=== PATIENT | female | born 1970 | race Caucasian/White ===

== ENCOUNTER 2016-09-01 17:24 | Emergency (ER) | payer OTHER ==
[~2016-09-01 17:24] MED LIST: /QUET25TA; /QUET25TA OR; AMBI10TA PO; D 1010004 PO; DOCU10CA PO; GABA-283 PO; KLON1TAB PO; KLONOPIN PO; LAMI1TAB9 PO; LIORESAL PO; LYRI150C PO; MOTRIN PO; PERCOCET PO; PRIL20CA9 PO; PROP60TA OR; SERO1TAB PO; TYLE325T5 PO; VALI10TA; ZOF; ZOFR40IN IJ; ZOFRAN IV; ZOLO100T; [UNRECOGNIZED DRUG - CODE] PO
[2016-09-01] MEDS ORDERED: GABA-283 PO (17:49)
[2016-09-01] MEDS ORDERED: TRAM50TA2 PO ×2 (17:49→21:07)
[2016-09-01] MEDS ORDERED: PANTOPRAZOLE 40MG INJ (PROTONIX) (C9113) IV ONE (19:15)
[2016-09-01] MEDS ORDERED: NS 1,000 ML IV ONE (19:15)
[2016-09-01] MEDS ORDERED: ONDANSETRON 4MG/2ML VIAL (J2405) IV ONE (20:00)
[2016-09-01 20:09] LABS: INR 0.97
[2016-09-01 20:15] LABS: BASO % 0.5 % (0.0-1.0); EOS # 0.1 K/mm3 (0.0-0.50); EOS % 0.6 % (0.0-3.0); LARGE UNSTAINED CELL # 0.1 K/mm3 (0.0-0.4); LARGE UNSTAINED CELL % 1.3 % (0.0-4.0); LYMPH # 2.8 K/mm3 (1.5-4.5); LYMPH % 28.9 % (24.0-44.0); MEAN CORPUSCULAR HGB CONC 32.5 g/dl (32.0-36.5); MEAN CORPUSCULAR VOLUME 92.6 fl (80.0-96.0); MONO # 0.5 K/mm3 (0.0-0.8); MONO % 4.9 % (0.0-5.0); NEUTROPHILS % 63.7 % (36.0-66.0); PLATELET COUNT, AUTOMATED 250 k/mm3 (150-450); RED CELL DISTRIBUTION WIDTH 13.8 % (11.5-14.5); WHITE BLOOD COUNT 9.4 K/mm3 (4.0-10.0)
[2016-09-01] MEDS ORDERED: MORPHINE 2 MG/ML 1ML SYRINGE IV ONE (20:15)
[2016-09-01] MEDS ORDERED: KETOROLAC 30 MG/ML VIAL (J1885) IV ONE (20:15)
[2016-09-01 20:23] LABS: ALBUMIN/GLOBULIN RATIO 0.83 (1.00-1.93); ALKALINE PHOSPHATASE 134 U/L (45-117); ALT/SGPT 21 U/L (12-78); AMYLASE 36 U/L (25-115); ANION GAP 10 MEQ/L (8-16); AST/SGOT 18 U/L (15-37); BILIRUBIN,DIRECT 0.3 MG/DL (0.0-0.2); BILIRUBIN,TOTAL 0.9 MG/DL (0.2-1.0); BLOOD UREA NITROGEN 8 MG/DL (7-18); CALCIUM LEVEL 8.9 MG/DL (8.5-10.1); CARBON DIOXIDE LEVEL 24 MEQ/L (21-32); CHLORIDE LEVEL 106 MEQ/L (98-107); CREATININE FOR GFR 0.68 MG/DL (0.55-1.02); GLOMERULAR FILTRATION RATE > 60.0 (>58); GLUCOSE, FASTING 99 MG/DL (70-105); SODIUM LEVEL 140 MEQ/L (136-145); TOTAL PROTEIN 6.6 GM/DL (6.4-8.2)
[2016-09-01 20:26] VITALS: BP 135/73
--- NOTE | 2016-09-01 20:40 | REPUSA ---
PLEASE CHECK ONE BLANK CLINICAL HISTORY: Abdomen pain. TECHNIQUE: Multiple axial CT images were obtained through the abdomen and pelvis without administrat ion of oral or IV contrast material. COMMENTS: Correlation is made with the prior study dated 07/11/2009. The liver is of uniform attenuation without mass or defect. There is no intra or extrahepatic biliar y ductal dilatation. The spleen is normal. Status post cholecystectomy. The pancreas is of normal contour and attenuation characteristics. There is no evidence of adrenal mass. There are surgical c lips with the stomach. The kidneys are normal in size, shape and configuration. No renal or ureteral calculi are identified . There is no hydroureter or hydronephrosis. There is no evidence for appendicitis. There is no bowel wall thickening. No evidence for small or large bowel obstruction. There is no evidence of abdominal ascites or lymphadenopathy. Large amount of air is present within the urinary bladder. If there is no history of recent interpre tation this may represent cystitis. There is no pelvic ascites or lymphadenopathy. Status post complete hysterectomy. Images of the lung bases show no evidence of pleural or parenchymal mass. There are no pleural effus ions. The bony structures are free of lytic or blastic lesions. There is broad based herniated disc noted at L4-L5 and L5-S1 with bilateral foraminal and canal stenosis. Consider followup with dedicated MRI lumbar spine. IMPRESSION: 1. Postsurgical changes. 2. Large amount of air is present within the urinary bladder. If there is no history of recent inte rmission this may represent cystitis. 3. There is broad based herniated disc noted at L4-L5 and L5-S1 with bilateral foraminal and canal s tenosis. Consider followup with dedicated MRI lumbar spine. Thank you for your kind referral of this patient. We appreciate the opportunity to participate in thi s patient's care.
[2016-09-01] MEDS ORDERED: MACR100C43 PO (21:03)
[2016-09-01] MEDS ORDERED: NITROFURANTOIN (MACROBID) 100 MG CAP PO ONE (21:30)
--- NOTE | 2016-09-02 14:55 | ED PDOC ---
Post-Departure Follow-Up dr rivero faxed formal report of ct abd/p for fu Janene Joyner MD Sep 02, 2016 14:55
== END 2016-09-01 21:59 | disposition home or self-care (01) ==
LOC: M ED 17:24 → EDSEX 17:24 → EDBD 17:24 → M ED 21:59
DX: N39.0 Urinary tract infection, site not specified (principal); F43.0 Acute stress reaction; R11.2 Nausea with vomiting, unspecified; G89.29 Other chronic pain; Z98.84 Bariatric surgery status; Z87.891 Personal history of nicotine dependence; Z79.899 Other long term (current) drug therapy; Z79.891 Long term (current) use of opiate analgesic

== ENCOUNTER 2017-02-06 15:03 | Emergency (ER) | payer OTHER ==
[~2017-02-06] VITALS: Ht 170.2 cm; Wt 104.0 kg
[~2017-02-06 15:03] MED LIST changes: +MACR100C43 PO; +TRAM50TA2 PO
[2017-02-06] MEDS ORDERED: GABA-283 PO (15:12)
[2017-02-06] MEDS ORDERED: ZYPR15TA PO (15:12)
[2017-02-06 16:34] LABS: MEAN CORPUSCULAR HEMOGLOBIN 29.7 pg (27.0-33.0); MEAN CORPUSCULAR HGB CONC 32.4 g/dl (32.0-36.5); MEAN CORPUSCULAR VOLUME 91.6 fl (80.0-96.0); PLATELET COUNT, AUTOMATED 190 10^3/uL (150-450); RED CELL DISTRIBUTION WIDTH 14.4 % (11.5-14.5); WHITE BLOOD COUNT 7.4 10^3/uL (4.0-10.0)
[2017-02-06 16:55] LABS: ALBUMIN/GLOBULIN RATIO 0.81 (1.00-1.93); ALKALINE PHOSPHATASE 110 U/L (45-117); ALT/SGPT 19 U/L (12-78); ANION GAP 9 MEQ/L (8-16); AST/SGOT 17 U/L (7-37); BILIRUBIN,DIRECT 0.3 MG/DL (0.0-0.2); BILIRUBIN,TOTAL 0.9 MG/DL (0.2-1.0); BLOOD UREA NITROGEN 10 MG/DL (7-18); CALCIUM LEVEL 8.3 MG/DL (8.5-10.1); CARBON DIOXIDE LEVEL 26 MEQ/L (21-32); CHLORIDE LEVEL 106 MEQ/L (98-107); CREATININE FOR GFR 0.73 MG/DL (0.55-1.02); GLOMERULAR FILTRATION RATE > 60.0 (>58); GLUCOSE, FASTING 98 MG/DL (70-105); POTASSIUM SERUM 3.4 MEQ/L (3.5-5.1); SODIUM LEVEL 141 MEQ/L (136-145); TOTAL PROTEIN 6.7 GM/DL (6.4-8.2)
[2017-02-06 17:04] LABS: CONTROL LINE HCG INT CTR LINE PRESENT
[2017-02-06] MEDS ORDERED: POTASSIUM CHLORIDE 10 MEQ SR TABLET PO ONE (18:00)
[2017-02-06 18:44] LABS: METHADONE URINE NEGATIVE (NEGATIVE)
--- NOTE | 2017-02-06 19:47 | ECGEPIP ---
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
[2017-02-06 19:51] VITALS: BP 99/61
[2017-02-06] MEDS ORDERED: SODIUM CHLORIDE 0.9% 1000 ML IV ONE (20:00)
[2017-02-06] MEDS ORDERED: NEUR800T PO (20:06)
[2017-02-06] MEDS ORDERED: TRAM50TA2 PO (20:08)
[2017-02-06] MEDS ORDERED: TYLE1TAB5 PO ×2 (20:10→20:25)
[2017-02-06] MEDS ORDERED: TYLE500T78 PO (20:11)
[2017-02-06] MEDS ORDERED: CLON1TAB PO (20:13)
[2017-02-06] MEDS ORDERED: AMBI10TA PO (20:13)
[2017-02-06] MEDS ORDERED: ACETAMINOPHEN TAB 650MG DOSE (2X325MG) PO ONE (20:30)
== END 2017-02-06 22:14 | disposition home or self-care (01) ==
LOC: M ED 15:03 → EDBD 15:03 → M ED 22:14
DX: T42.4X2A Poisoning by benzodiazepines, intentional self-harm, initial encounter (principal); F31.9 Bipolar disorder, unspecified; F41.9 Anxiety disorder, unspecified; F42.9 Obsessive-compulsive disorder, unspecified; Z79.899 Other long term (current) drug therapy; Z88.1 Allergy status to other antibiotic agents; Z88.2 Allergy status to sulfonamides; J30.89 Other allergic rhinitis; Z87.891 Personal history of nicotine dependence; Z98.0 Intestinal bypass and anastomosis status

== ENCOUNTER 2018-03-08 20:26 | Inpatient (IN) | payer MEDICAID, OTHER ==
[~2018-03-08] VITALS: Ht 167.6 cm; Wt 86.7 kg
[~2018-03-08 20:26] MED LIST changes: +CLON1TAB8 PO; -GABA-283 PO; +GABA-845 PO; +NEUR800T PO; +TYLE1TAB5 PO; +TYLE500T78 PO; +ZYPR15TA PO
[2018-03-08 21:11] LABS: HEMATOCRIT 47.7 % (36.0-47.0); HEMOGLOBIN 15.5 g/dl (12.0-15.5); MEAN CORPUSCULAR HEMOGLOBIN 30.5 pg (27.0-33.0); MEAN CORPUSCULAR HGB CONC 32.5 g/dl (32.0-36.5); MEAN CORPUSCULAR VOLUME 93.7 fl (80.0-96.0); PLATELET COUNT, AUTOMATED 158 10^3/uL (150-450); RED BLOOD COUNT 5.09 10^6/uL (4.00-5.40); WHITE BLOOD COUNT 7.1 10^3/uL (4.0-10.0)
[2018-03-08 21:22] LABS: HCG, SERUM QUALITATIVE NEGATIVE (NEGATIVE)
[2018-03-08 21:33] LABS: ACETAMINOPHEN LEVEL < 2.0 UG/ML (10.0-30.0); ALBUMIN 3.4 GM/DL (3.2-5.2); ALT/SGPT 12 U/L (12-78); BILIRUBIN,DIRECT 0.2 MG/DL (0.0-0.2); BILIRUBIN,TOTAL 0.6 MG/DL (0.2-1.0); BLOOD UREA NITROGEN 9 MG/DL (7-18); CARBON DIOXIDE LEVEL 28 MEQ/L (21-32); CHLORIDE LEVEL 106 MEQ/L (98-107); CREATININE FOR GFR 0.74 MG/DL (0.55-1.30); ETHYL ALCOHOL (ETHANOL) < 0.003 % (0.000-0.010); GLOMERULAR FILTRATION RATE > 60.0 (>58); GLUCOSE, FASTING 85 MG/DL (70-100); POTASSIUM SERUM 3.8 MEQ/L (3.5-5.1); SALICYLATE LEVEL < 1.7 MG/DL (5.0-30.0); SODIUM LEVEL 141 MEQ/L (136-145); TOTAL PROTEIN 6.6 GM/DL (6.4-8.2)
[2018-03-08 21:34] LABS: AMPHETAMINES LEVEL URINE NEGATIVE (NEGATIVE); BARBITURATES URINE NEGATIVE (NEGATIVE); BENZODIAZEPINES URINE NEGATIVE (NEGATIVE); CANNABINOIDS URINE NEGATIVE (NEGATIVE); COCAINE METABOLITE URINE NEGATIVE (NEGATIVE); METHADONE URINE NEGATIVE (NEGATIVE); OPIATES URINE NEGATIVE (NEGATIVE); PHENCYCLIDINE URINE NEGATIVE (NEGATIVE)
[2018-03-09] MEDS ORDERED: MOM 30ML SUSPENSION UDC PO PRN (03:30)
[2018-03-09] MEDS ORDERED: traZODone 50 MG TAB PO PRN (03:30)
[2018-03-09] MEDS ORDERED: MAALOX 30 ML SUSP *UDC PO PRN (03:30)
[2018-03-09 03:49] VITALS: BP 133/84
[2018-03-09] MEDS ORDERED: MIRA33504 PO (04:01)
[2018-03-09] MEDS ORDERED: LYRI200C PO (04:01)
--- NOTE | 2018-03-09 08:05 | ECGEPIP ---
Stationary ECG Study 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
[2018-03-09] MEDS: PREGABALIN 100 MG CAP (LYRICA) PO SCH ×2 (08:59→20:33)
[2018-03-09] MEDS: GABAPENTIN 400 MG CAP PO SCH ×3 (08:59→20:32)
[2018-03-09] MEDS: traMADol 50 MG TAB PO PRN ×2 (09:00→15:41)
--- NOTE | 2018-03-09 09:37 | HPEPDOC ---
[facility] Medical History & Physical Date of Admission Mar 09, 2018 History and Physical PCP: Jack Mulligan MD ATTENDING: Dr. Nixon Valera HPI: 47 yo F admitted to [facility] for unspecified depressive disorder, being medically examined today. No acute medical complaints today. Patient states she is prescribed gabapentin and tramadol for her chronic pain. Patient states pain is controlled. Denies any fevers, chills, weakness, fatigue, DILL, CP, SOB, cough, palpitations, abdominal pain, N/V/D or changes in bowel or bladder habits. PMHx: Anxiety Depression History of SI/suicidal attempt with overdose 2010 OCD PTSD GERD Chronic back pain/chronic pain. Tramadol as per PCP. chronic constipation PSHX: Cholecystectomy Gastric bypass 2016 Tubal ligation Uterine ablation D&C Hysterectomy History of chronic low back pain/cauda equina/low back surgery. Patient with unsteady gait and chronic lower extremity weakness. Ambulates with a walker. 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 ETOH: Denies Illicit Drugs: Denies IV Drug Use: Denies Tattoos done unprofessionally: Denies FAMHX: Mother: Alive, diabetes Father: Alive, well Siblings: One sister Alive, unknown Children: Alive, ADHD Unexpected deaths due to medical reasons: None. ROS: As noted in HPI, otherwise 11pt ROS of systems reviewed and unremarkable. Patient states her chronic pain has been controlled with her regimen of outpatient medications. They are prescribed by her primary care provider. PE: GEN: 47 yo F, appears stated age. Appears unkept No acute distress. Alert and oriented x 3. Pleasant. HEENT: Normocephalic, atraumatic. Pupils are equal, round, and reactive to light. Extraocular movements are intact. No nystagmus appreciated. Sclera are nonicteric. Conjunctiva without injection. Nose midline. Nasal turbinates without bogginess. EACs both patent BL. TMs both visualized and morales with good cone of light, no bulging or erythema. No facial asymmetry. Moist mucous membranes. Dentition poor. Pharynx pink and moist, no cobblestoning. Neck supple, trachea midline. No lymphadenopathy or thyromegaly appreciated. CHEST: Regular rate and rhythm, +S1, +S2 LUNGS: Clear to auscultation bilaterally. No wheezes, rales, or rhonchi. Breathing appears symmetric and easy. Patient is speaking in full sentences. No accessory muscle use. ABD: Round, soft, non-tender, non-distended. +Bowel sounds throughout. No rebound or guarding. No costovertebral angle tenderness. EXT: Pulses 2+ bilaterally dorsalis pedis and radial. No lower extremity edema appreciated. SKIN: [place], dry, warm. Capillary refill <2sec. No rashes. NEURO: Alert and oriented x 3. Cranial nerves III-XII are intact. The patient is ambulating with a walker related to chronic unsteady gait and lower extremity weakness. EKG: SINUS RHYTHM BORDERLINE LEFT AXIS DEVIATION INCOMPLETE RIGHT BUNDLE BRANCH BLOCK MODERATE VOLTAGE CRITERIA FOR LVH, CONSIDER NORMAL VARIANT NSTTW ABNORMALITIES Electronically Signed On 03-09-2018 8:05:07 EST by Ebenezer White&P: 47 yo F admitted to [facility] for unspecified depressive disorder 1. Psych. Plan per Psychiatry. EKG on file. 2. Nicotine dependence. Patch available. 3. Chronic back pain/chronic lower extremity pain and weakness/unsteady gait. Patient ambulates with the assistance of a walker. Request physical therapy evaluation. Continue gabapentin 800 mg by mouth 3 times a day. Continue tramadol every 6 hours as needed. Patient states her pain is controlled. Fall precautions. 4. Follow up with PCP on discharge. 5. Chronic constipation. Miralax daily as needed. 6. Staff member Patric ROLON present throughout exam. Vital Signs Vital Signs Date Time Temp Pulse Resp B/P (MAP) Pulse Ox O2 Delivery O2 Flow Rate FiO2 03/09/18 09:00 16 03/09/18 03:49 97.1 92 133/84 (100) Room Air 03/09/18 02:45 96 Laboratory Data Labs 24H Laboratory Tests 2 03/08/18 20:48: Nucleated Red Blood Cells % (auto) 0.0, Urine Color MITUL, Urine Appearance CLOUDYH, Urine pH 5.0, Urine Specific [place] 1.024, Urine Protein 1+H, Urine Glucose (UA) NEGATIVE, Urine Ketones TRACEH, Urine Blood NEGATIVE, Urine Nitrite NEGATIVE, Urine Bilirubin NEGATIVE, Urine Urobilinogen 4.0H, Urine Leukocyte Esterase NEGATIVE, Urine WBC (Auto) 2, Urine RBC (Auto) 0, Urine Hyaline Casts (Auto) 0, Urine Bacteria (Auto) 2+H, Urine Squamous Epithelial Cells 0, Urine Transitional Epithelial Cells <1, Urine Mucus (Auto) SMALL, Urine Sperm (Auto) , Anion Gap 7L, Glomerular Filtration Rate > 60.0, Calcium Level 8.0L, Aspartate Amino Transf (AST/SGOT) 12, Alanine Aminotransferase (ALT/SGPT) 12, Alkaline Phosphatase 113, Total Bilirubin 0.6, Direct Bilirubin 0.2, Total Protein 6.6, Albumin 3.4, Albumin/Globulin Ratio 1.06, Thyroid Stimulating Hormone (TSH) 1.070, Human Chorionic Gonadotropin, Qual NEGATIVE, Salicylates Level < 1.7L, Urine Amphetamines Screen NEGATIVE, Urine Benzodiazepines Screen NEGATIVE, Urine Opiates Screen NEGATIVE, Urine Methadone Screen NEGATIVE, Acetaminophen Level < 2.0L, Urine Barbiturates Screen NEGATIVE, Urine Phencyclidine Screen NEGATIVE, Urine Cocaine Metabolite Screen NEGATIVE, Urine Cannabinoids Screen NEGATIVE, Ethyl Alcohol Level < 0.003 CBC/BMP Laboratory Tests 03/08/18 20:48 Red Blood Count 5.09, Mean Corpuscular Volume 93.7, Mean Corpuscular Hemoglobin 30.5, Mean Corpuscular Hemoglobin Concent 32.5, Red Cell Distribution Width 13.5 Home Medications Scheduled Clonazepam (Clonazepam) 1 Mg Tab, 1 MG PO TID for . Gabapentin (Neurontin) 800 Mg Tab, 800 MG PO TID for . Olanzapine (Zyprexa) 15 Mg Tab, 15 MG PO QHS for . Pregabalin (Lyrica) 200 Mg Cap, 200 MG PO BID for . Scheduled PRN Polyethylene Glycol (Miralax) 1 Pow Pow, 17 GM PO DAILY PRN for CONSTIPATION Tramadol HCl (Tramadol HCl) 50 Mg Tab, 50 MG PO Q6H PRN for PAIN Zolpidem Tartrate (Ambien) 10 Mg Tab, 10 MG PO QHS PRN for SLEEP Allergies Coded Allergies: Sulfamethoxazole w/Trimethoprim (Verified Allergy, Intermediate, rash, 09/01/16) ENVIROMENTAL (Verified Allergy, Unknown, 01/09/11) Leonor Morrow Mar 09, 2018 09:37
[2018-03-09] MEDS ORDERED: MIRALAX *UNIT DOSE* 17GM PACKET PO PRN (09:45)
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
[2018-03-09] MEDS: QUEtiapine FUMARATE 100 MG TAB PO SCH ×3 (11:28→20:33)
[2018-03-09] MEDS ORDERED: QUEtiapine FUMARATE 200 MG TAB PO SCH (16:00)
[2018-03-09 18:00] VITALS: BP 106/75
[2018-03-09] MEDS: MIRTAZAPINE 15 MG TAB PO SCH (20:32)
[2018-03-10 06:27] VITALS: BP 95/61
[2018-03-10] MEDS: GABAPENTIN 400 MG CAP PO SCH ×3 (07:51→21:12)
[2018-03-10] MEDS: PREGABALIN 100 MG CAP (LYRICA) PO SCH ×2 (07:51→21:12)
[2018-03-10] MEDS: QUEtiapine FUMARATE 100 MG TAB PO SCH ×3 (07:52→21:12)
[2018-03-10] MEDS: traMADol 50 MG TAB PO PRN ×3 (07:52→21:17)
[2018-03-10] MEDS ORDERED: INFLUENZA QUADRIVALENT PF VACCINE 0.5ML SYRINGE (90686) IM ONE (09:00)
[2018-03-10 18:00] VITALS: BP 116/68
[2018-03-10] MEDS: MIRTAZAPINE 15 MG TAB PO SCH (21:12)
[2018-03-11] MEDS: traMADol 50 MG TAB PO PRN ×3 (06:35→21:35)
[2018-03-11 06:44] VITALS: BP 109/61
[2018-03-11] MEDS: PREGABALIN 100 MG CAP (LYRICA) PO SCH ×2 (11:09→21:32)
[2018-03-11] MEDS: GABAPENTIN 400 MG CAP PO SCH ×3 (11:10→21:33)
[2018-03-11] MEDS: QUEtiapine FUMARATE 100 MG TAB PO SCH ×3 (11:10→21:33)
--- NOTE | 2018-03-11 12:00 | MHIPNPDOC ---
[facility] Progress Note Progress Note DATE OF SERVICE: 03/10/18 HISTORY: Chief Complaint "Somebody called the hawk missile system crewmember and told them I was suicidal and they brought me here. I'm not suicidal but I can't sleep". History of Present Illness HISTORY OF THE PRESENT ILLNESS: Patient is a 47 -year-old , female, who as per ED report: "Pt is medically cleared, A&Ox3, currently denies SI/HI. Pt reports she "can't remember" making any suicidal threats however does state she called "a few people, friends" to tell them how depressed she has been feeling for past 2 weeks. Pt denies any specific stressors, reports poor sleep, decreased appetite and energy during that time, denies HI/AH/VH, denies any substance abuse. Pt reports she took her prescribed doses of Tramadol, Gabapentin and Zyprexa tonight, denies ingesting any extra medications, continues to deny any suicidal thought or intent. Pt admits to prior overdose in 2010 and was admitted to [facility] at that time, reports other prior psych admissions as well. Pt sees Dr. De Leon Q 2 months, no therapist, saw him ~ 1 1/2 weeks ago, states she did not report her depression at that time "because I didn't feel this bad". Pt adds that she has been compliant with her medications however states "it doesn't matter they aren't helping". Pt does admit to worsening depression and feeling "hopeless" in past weeks, when asked about medications found in her immediate vicinty at home she states she keeps them in a "basket close to me because I can't walk very well", pt does use walker to assist in ambulating". VITAL SIGNS: See below. NEW TEST RESULTS: See below CURRENT MEDICATIONS: See below. MENTAL STATUS EXAMINATION: Patient is a 47 year old female, who is alert, laying in bed, cooperative, relaxed. Speech: Is fluent and spontaneous, slow, normal tone, low volume. Language skills are fair. Thought processes including: anxious thoughts about her back problem, she says she has cauda equina and this causes constant pain. Thought content: positive, she feel better, feels more goal orientated at this time. Description of abnormal or psychotic thoughts: Denies AV hallucinations, denies thought delusions, denies SI/HI but admits to feel depressed Judgment: improving Insight: improving Orientation: x 3 Recent and remote memory: fair Attention span and concentration: fair. Language: well structured. Fund of knowledge: average Mood: sad, anxious Affect: congruent with mood DIAGNOSES: 1. 1. Bipolar disorder, depressive episode 2. R/O Major Depressive disorder, severe ASSESSMENT: Patient is less apprehensive, more calm. She reports feeling better and she seems to be having a good response to medications but she isolates to her room, she says she doesn't go out that often because she has back pain. She might have a UTI too. I will order another urinalysis with culture because if she has a UTI that could be contributing to her back/flank pain MANAGEMENT PLAN: Will continue on the same treatment plan TIME SPENT: 15 minutes. Vital Signs Vital Signs Date Time Temp Pulse Resp B/P (MAP) Pulse Ox O2 Delivery O2 Flow Rate FiO2 03/11/18 07:25 16 03/11/18 06:44 98.8 73 109/61 (77) 03/10/18 06:27 Room Air 03/09/18 02:45 96 Current Medications Current Medications Acetaminophen (Tylenol Tab) 650 mg Q6HP PRN PO HEADACHE or DISCOMFORT; Start 03/09/18 at 03:30 Al Hydrox/Mg Hydrox/Simethicone (Mylanta) 30 ml Q4HP PRN PO HEARTBURN/INDIGESTION; Start 03/09/18 at 03:30 Aripiprazole (AbiLIFY) 5 mg QAM PO Last administered on 03/11/18at 11:10; Start 03/09/18 at 09:00 Gabapentin (Neurontin) 800 mg TID PO Last administered on 03/11/18at 11:10; Start 03/09/18 at 09:00 Home Med (Med Rec Complete!) ASDIRECTED XX ; Start 03/09/18 at 04:15; Stop 03/09/18 at 04:15; Status DC Magnesium Hydroxide (Milk Of Magnesia) 30 ml DAILYPRN PRN PO CONSTIPATION; Start 03/09/18 at 03:30 Mirtazapine (Remeron) 45 mg QHS PO Last administered on 03/10/18at 21:12; Start 03/09/18 at 21:00 Polyethylene Glycol (Miralax) 1 pkt DAILY PRN PO CONSTIPATION; Start 03/09/18 at 09:45 Pregabalin (Lyrica) 200 mg BID PO Last administered on 03/11/18at 11:09; Start 03/09/18 at 09:00 Quetiapine Fumarate (SEROquel) 100 mg TID PO Last administered on 03/11/18at 11:10; Start 03/09/18 at 09:00 Quetiapine Fumarate (SEROquel) 200 mg TID PO ; Start 03/09/18 at 16:00; Stop 03/09/18 at 16:00; Status DC Tramadol HCl (Ultram) 50 mg Q6H PRN PO PAIN Last administered on 03/11/18at 06:35; Start 03/09/18 at 04:30 Trazodone HCl (Desyrel) 50 mg QHSP PRN PO INSOMNIA; Start 03/09/18 at 03:30; Status Cancel Allergies Coded Allergies: Sulfamethoxazole w/Trimethoprim (Verified Allergy, Intermediate, rash, 09/01/16) ENVIROMENTAL (Verified Allergy, Unknown, 01/09/11) TREY CONNER MD Mar 11, 2018 11:49
[2018-03-11 18:00] VITALS: BP 91/59
[2018-03-11] MEDS: MIRTAZAPINE 15 MG TAB PO SCH (21:33)
[2018-03-12 06:00] VITALS: BP 94/56
[2018-03-12] MEDS: PREGABALIN 100 MG CAP (LYRICA) PO SCH ×2 (08:04→21:04)
[2018-03-12] MEDS: GABAPENTIN 400 MG CAP PO SCH ×3 (08:05→21:04)
[2018-03-12] MEDS: traMADol 50 MG TAB PO PRN ×3 (08:05→21:05)
[2018-03-12] MEDS: QUEtiapine FUMARATE 100 MG TAB PO SCH ×3 (08:05→21:04)
[2018-03-12] MEDS: PREPARATION H SUPP (HEMORRHOID) PR PRN (12:59)
--- NOTE | 2018-03-12 14:18 | IPN ---
DATE: 03/11/2018 The patient today states "I am feeling better". She is also feeling better, "because I am getting rest" as she was not sleeping well prior to admission. She denies suicidal ideations. MENTAL STATUS EXAM: She is alert and oriented to time and place. Eye contact is good. Verbally spontaneous. There is no formal thought disorder noted. She says her mood is good. Affect is full range and appropriate. Concentration is fair. DIAGNOSIS: Bipolar disorder type 1 depressed. TREATMENT AND PLAN: At this point we will continue to monitor the patient. Denies any suicidal ideations and continue elevation and stabilization of her mood.
[2018-03-12] MEDS: ACETAMINOPHEN TAB 650MG DOSE (2X325MG) PO PRN (15:04)
[2018-03-12 18:08] VITALS: BP 115/78
[2018-03-12] MEDS: MIRTAZAPINE 15 MG TAB PO SCH (21:03)
[2018-03-13 06:45] VITALS: BP 115/73
[2018-03-13] MEDS: traMADol 50 MG TAB PO PRN ×3 (07:13→20:07)
[2018-03-13] MEDS: ACETAMINOPHEN TAB 650MG DOSE (2X325MG) PO PRN ×3 (07:15→20:09)
[2018-03-13] MEDS: QUEtiapine FUMARATE 100 MG TAB PO SCH ×3 (08:45→20:07)
[2018-03-13] MEDS: PREGABALIN 100 MG CAP (LYRICA) PO SCH ×2 (08:45→20:08)
[2018-03-13] MEDS: GABAPENTIN 400 MG CAP PO SCH ×3 (08:45→20:07)
[2018-03-13 18:00] VITALS: BP 102/62
--- NOTE | 2018-03-13 19:12 | MHIPNPDOC ---
[facility] Progress Note Progress Note DATE OF SERVICE: 03/13/18 HISTORY: "Somebody called the channeling machine runner and told them I was suicidal and they brought me here. I'm not suicidal but I can't sleep". History of Present Illness HISTORY OF THE PRESENT ILLNESS: Patient is a 47 -year-old , female, who as per ED report: "Pt is medically cleared, A&Ox3, currently denies SI/HI. Pt reports she "can't remember" making any suicidal threats however does state she called "a few people, friends" to tell them how depressed she has been feeling for past 2 weeks. Pt denies any specific stressors, reports poor sleep, decreased appetite and energy during that time, denies HI/AH/VH, denies any substance abuse. Pt reports she took her prescribed doses of Tramadol, Gabapentin and Zyprexa tonight, denies ingesting any extra medications, continues to deny any suicidal thought or intent. Pt admits to prior overdose in 2010 and was admitted to [facility] at that time, reports other prior psych admissions as well. Pt sees Dr. De Leon Q 2 months, no therapist, saw him ~ 1 1/2 weeks ago, states she did not report her depression at that time "because I didn't feel this bad". Pt adds that she has been compliant with her medications however states "it doesn't matter they aren't helping". Pt does admit to worsening depression and feeling "hopeless" in past weeks, when asked about medications found in her immediate vicinty at home she states she keeps them in a "basket close to me because I can't walk very well", pt does use walker to assist in ambulating" VITAL SIGNS: See below. NEW TEST RESULTS: See below CURRENT MEDICATIONS: See below. MENTAL STATUS EXAMINATION: Patient is a 47 -year old female, who is alert, cooperative, laying in bed. Speech: Is spontaneous and fluent, normal rate, tone and volume Language skills are fair. Thought processes including: linear, coherent. Thought content: intact. Description of abnormal or psychotic thoughts: Denies SI, denies HI, denies AV hallucinations, denies thought delusions Judgment: Improving Insight: Improving Orientation: x 3 Recent and remote memory: intact Attention span and concentration: good. Language: normal. Fund of knowledge: average. Mood: improving, brighter. Affect: brighter. DIAGNOSES: 1. Bipolar 1 disorder, depressed ASSESSMENT: Patient has improved, she denies SI, denies thought delusions, denies AV hallucinations, denies HI. She feels that she is ready to be discharged but the only person that could supervise her is her 17 year old son who comes back from school at 3 or 3:30 p.m. She says he would be able to assist her with her medications and she says she has a pretty good relationship with him MANAGEMENT PLAN: Will continue with the current treatment plan and if she can be discharged tomorrow, she will be discharged TIME SPENT: 20 minutes. Vital Signs Vital Signs Date Time Temp Pulse Resp B/P (MAP) Pulse Ox O2 Delivery O2 Flow Rate FiO2 03/13/18 14:25 16 03/13/18 06:45 98.8 68 115/73 (87) 03/12/18 06:00 96 Room Air Current Medications Current Medications Acetaminophen (Tylenol Tab) 650 mg Q6HP PRN PO HEADACHE or DISCOMFORT Last administered on 03/13/18at 13:28; Start 03/09/18 at 03:30 Al Hydrox/Mg Hydrox/Simethicone (Mylanta) 30 ml Q4HP PRN PO HEARTBURN/INDIGESTION; Start 03/09/18 at 03:30 Aripiprazole (AbiLIFY) 5 mg QAM PO Last administered on 03/13/18at 08:45; Start 03/09/18 at 09:00 Gabapentin (Neurontin) 800 mg TID PO Last administered on 03/13/18at 15:51; Start 03/09/18 at 09:00 Home Med (Med Rec Complete!) ASDIRECTED XX ; Start 03/09/18 at 04:15; Stop 03/09/18 at 04:15; Status DC Magnesium Hydroxide (Milk Of Magnesia) 30 ml DAILYPRN PRN PO CONSTIPATION; Start 03/09/18 at 03:30 Mirtazapine (Remeron) 45 mg QHS PO Last administered on 03/12/18at 21:03; Start 03/09/18 at 21:00 Phenylephrine HCl (Preparation H Supp) 1 sup DAILYPRN PRN SD HEMORRHOIDS Last administered on 03/12/18at 12:59; Start 03/12/18 at 12:30 Polyethylene Glycol (Miralax) 1 pkt DAILY PRN PO CONSTIPATION; Start 03/09/18 at 09:45 Pregabalin (Lyrica) 200 mg BID PO Last administered on 03/13/18at 08:45; Start 03/09/18 at 09:00 Quetiapine Fumarate (SEROquel) 100 mg TID PO Last administered on 03/13/18at 1 5:51; Start 03/09/18 at 09:00 Quetiapine Fumarate (SEROquel) 200 mg TID PO ; Start 03/09/18 at 16:00; Stop 03/09/18 at 16:00; Status DC Tramadol HCl (Ultram) 50 mg Q6H PRN PO PAIN Last administered on 03/13/18at 13:29; Start 03/09/18 at 04:30 Trazodone HCl (Desyrel) 50 mg QHSP PRN PO INSOMNIA; Start 03/09/18 at 03:30; Status Cancel Allergies Coded Allergies: Sulfamethoxazole w/Trimethoprim (Verified Allergy, Intermediate, rash, 09/01/16) ENVIROMENTAL (Verified Allergy, Unknown, 01/09/11) TREY CONNER MD Mar 13, 2018 19:07
[2018-03-13] MEDS: MIRTAZAPINE 15 MG TAB PO SCH (20:07)
--- NOTE | 2018-03-13 21:19 | IPN ---
DATE: 03/12/2018 The patient today is complaining of lower back pain but as far as her mood goes, she says, "I am fine." She is denying being suicidal. MENTAL STATUS EXAM: She is alert and oriented times three. Eye contact is fair. Psychomotor activity is normal. She is verbally spontaneous. Her mood is "fine." Affect full range and appropriate. She is not psychotic, suicidal or homicidal. Concentration is fair. Memory is intact. Insight and judgment is fair. DIAGNOSIS: Bipolar disorder type 1, depressed. TREATMENT PLAN: We will continue to monitor the patient for continued elevation and stabilization of her mood and for continued resolution of suicidal ideation.
[2018-03-14] MEDS: traMADol 50 MG TAB PO PRN ×2 (04:12→10:12)
[2018-03-14] MEDS: ACETAMINOPHEN TAB 650MG DOSE (2X325MG) PO PRN ×2 (04:13→10:11)
[2018-03-14 07:00] VITALS: BP 113/72
[2018-03-14] MEDS: GABAPENTIN 400 MG CAP PO SCH (09:35)
[2018-03-14] MEDS: PREGABALIN 100 MG CAP (LYRICA) PO SCH (09:35)
[2018-03-14] MEDS: QUEtiapine FUMARATE 100 MG TAB PO SCH (09:35)
[2018-03-14] MEDS: PREPARATION H SUPP (HEMORRHOID) PR PRN (10:13)
[2018-03-14] MEDS ORDERED: GABA-845 PO (12:08)
[2018-03-14] MEDS ORDERED: MIRT15TA3 PO (12:08)
[2018-03-14] MEDS ORDERED: ARIP5TA PO (12:08)
[2018-03-14] MEDS ORDERED: PREG100CA PO (12:08)
[2018-03-14] MEDS ORDERED: PEG1POW PO (12:08)
[2018-03-14] MEDS ORDERED: TRAM50TA2 PO (12:08)
[2018-03-14] MEDS ORDERED: [UNRECOGNIZED DRUG - OTHER] PR (12:08)
[2018-03-14] MEDS ORDERED: QUET1TAB8 PO (12:08)
--- NOTE | 2018-03-14 20:20 | MHDSPDOC ---
[facility] Discharge Summary Discharge Summary DATE OF ADMISSION: Mar 09, 2018 at 03:40 DATE OF DISCHARGE: Mar 14, 2018 at 13:43 DISCHARGE DIAGNOSES: 1. Bipolar 1 disorder, depressed REASON FOR ADMISSION: Chief Complaint "Somebody called the roofer and told them I was suicidal and they brought me here. I'm not suicidal but I can't sleep". History of Present Illness HISTORY OF THE PRESENT ILLNESS: Patient is a 47 -year-old , female, who as per ED report: "Pt is medically cleared, A&Ox3, currently denies SI/HI. Pt reports she "can't remember" making any suicidal threats however does state she called "a few people, friends" to tell them how depressed she has been feeling for past 2 weeks. Pt denies any specific stressors, reports poor sleep, decreased appetite and energy during that time, denies HI/AH/VH, denies any substance abuse. Pt reports she took her prescribed doses of Tramadol, Gabapentin and Zyprexa tonight, denies ingesting any extra medications, continues to deny any suicidal thought or intent. Pt admits to prior overdose in 2010 and was admitted to [facility] at that time, reports other prior psych admissions as well. Pt sees Dr. De Leon Q 2 months, no therapist, saw him ~ 1 1/2 weeks ago, states she did not report her depression at that time "because I didn't feel this bad". Pt adds that she has been compliant with her medications however states "it doesn't matter they aren't helping". Pt does admit to worsening depression and feeling "hopeless" in past weeks, when asked about medications found in her immediate vicinity at home she states she keeps them in a "basket close to me because I can't walk very well", pt does use walker to assist in ambulating". CONSULTANTS INVOLVED: None TREATMENT AND PROGRESS ON THE UNIT : Patient was compliant with her medications and did not report medication side effects. She was very depressed on initial evaluation but her mood and affect improved, she, however continued to report pain in her back but she was able to have it under control with the prescribed medications. She had problems with ambulation and had some trouble attending groups but attended some of them. Today, she was discharged home, she was sent by [employer] but previously telecommunications network planner communicated with her mother and this one said that she thought that her daughter (the patient) was still very sad because of her son's . Mother compromised to check on her medications and talk to her to monitor her. HOSPITAL COURSE: As above. DISCHARGE ASSESSMENT: Patient was not suicidal, not homicidal and not psychotic at the time of her discharge. MENTAL STATUS EXAMINATION ON DISCHARGE: Patient is a 47 -year old female, who is alert, cooperative, laying in bed. Speech: Is spontaneous and fluent, normal rate, tone and volume Language skills are fair. Thought processes including: linear, coherent. Thought content: intact. Description of abnormal or psychotic thoughts: Denies SI, denies HI, denies AV hallucinations, denies thought delusions Judgment: Improved Insight: Improved Orientation: x 3 Recent and remote memory: intact Attention span and concentration: good. Language: normal. Fund of knowledge: average. Mood: improving, brighter. Affect: brighter. MEDICATIONS ON DISCHARGE: Scheduled Aripiprazole (Aripiprazole) 5 Mg Tab, 5 MG PO QAM for mood, #7 Gabapentin (Gabapentin) 400 Mg Cap, 800 MG PO TID for anxiety/pain, #21 Mirtazapine (Mirtazapine) 15 Mg Tab, 45 MG PO QHS for insomnia, #21 Pregabalin (Lyrica) 100 Mg Cap, 200 MG PO BID for PAIN, #28 Quetiapine Fumerate (Quetiapine Fumarate) 100 Mg Tab, 100 MG PO TID for MOOD STABILIZER, #21 Scheduled PRN Polyethylene Glycol (Peg 3350) 1 Pkt Pow, 1 PKT PO DAILY PRN for CONSTIPATION, #7 Starch (Erica-Med 88.7-0.25 %) 1 Ea Supp, 1 SUP OR DAILYPRN PRN for HEMORRHOIDS, #7 Tramadol HCl (Tramadol HCl) 50 Mg Tab, 50 MG PO Q6H PRN for PAIN, #28 PLAN/FOLLOWUP ARRANGEMENTS: Follow Up Care Education Label * Medical * Medical Follow Up [facility] * Established With This Provider Yes * Therapist DR. CARMEN SHEN * Date Mar 23, 2018 * Time 08:00 * Follow Up Care Education Label * Mental Health Appt 1 * [facility] * Established With This Provider Yes * Therapist Chris * Date Mar 15, 2018 * Time 11:30 * Address of Clinic or Practice [address] [place] [address] * Follow Up Care Education Label * Mental Health Appt 2 * [facility] * Established With This Provider Yes * Therapist Dr. Reynoso * Date Mar 30, 2018 * Time 15:30 * Address of Clinic or Practice [facility] * Follow Up Care Education Label * Case management * Additional information Giovanni Harvey from [facility] will come to your home 03/16 @ 11am The amount of time spent in the coordination of care for this patient was approximately 30 minutes. Vital Signs/I&Os Vital Signs Date Time Temp Pulse Resp B/P (MAP) Pulse Ox O2 Delivery O2 Flow Rate FiO2 03/14/18 11:00 16 03/14/18 07:00 98.1 69 113/72 (86) 03/12/18 06:00 96 Room Air Laboratory Data Microbiology Microbiology 03/12/18 Urine Culture - Final, Complete Escherichia Coli Medications Scheduled Aripiprazole (Aripiprazole) 5 Mg Tab, 5 MG PO QAM for mood, #7 Gabapentin (Gabapentin) 400 Mg Cap, 800 MG PO TID for anxiety/pain, #21 Mirtazapine (Mirtazapine) 15 Mg Tab, 45 MG PO QHS for insomnia, #21 Pregabalin (Lyrica) 100 Mg Cap, 200 MG PO BID for PAIN, #28 Quetiapine Fumerate (Quetiapine Fumarate) 100 Mg Tab, 100 MG PO TID for MOOD STABILIZER, #21 Scheduled PRN Polyethylene Glycol (Peg 3350) 1 Pkt Pow, 1 PKT PO DAILY PRN for CONSTIPATION, #7 Starch (Erica-Med 88.7-0.25 %) 1 Ea Supp, 1 SUP OR DAILYPRN PRN for HEMORRHOIDS, #7 Tramadol HCl (Tramadol HCl) 50 Mg Tab, 50 MG PO Q6H PRN for PAIN, #28 Allergies Coded Allergies: Sulfamethoxazole w/Trimethoprim (Verified Allergy, Intermediate, rash, 09/01/16) ENVIROMENTAL (Verified Allergy, Unknown, 01/09/11) TREY CONNER MD Mar 14, 2018 20:20
== END 2018-03-14 13:43 | disposition home or self-care (01) | DRG 753 ==
LOC: EDBD 20:26 → M ED 03-09 03:33 → M ED INP 03-09 03:40 → M PSY 03-09 03:43
PROVIDERS: ADMIT Psychiatry & Neurology Psychiatry; ATTEND Psychiatry & Neurology Psychiatry
DX: F31.9 Bipolar disorder, unspecified (principal); N39.0 Urinary tract infection, site not specified; G83.4 Cauda equina syndrome; F43.10 Post-traumatic stress disorder, unspecified; K21.9 Gastro-esophageal reflux disease without esophagitis; K59.09 Other constipation; G89.29 Other chronic pain; M54.5 Low back pain; Z90.49 Acquired absence of other specified parts of digestive tract; J30.9 Allergic rhinitis, unspecified; Z98.84 Bariatric surgery status; R26.81 Unsteadiness on feet; Z91.5 Personal history of self-harm; F17.200 Nicotine dependence, unspecified, uncomplicated; Z79.899 Other long term (current) drug therapy; Z88.2 Allergy status to sulfonamides; B96.20 Unspecified Escherichia coli [E. coli] as the cause of diseases classified elsewhere

== ENCOUNTER → 2018-07-06 | Outpatient (REF) | payer MEDICAID ==
[~2018-07-06] MED LIST changes: -/QUET25TA; -/QUET25TA OR; +ARIP1TAB6 PO; +LYRI200C PO; +MIRA33504 PO; +MIRT15TA3 PO; +PEG1POW PO; +PREG100CA PO; +QUET1TAB8 PO; +SERO1TAB3; +SERO1TAB3 OR; +[UNRECOGNIZED DRUG - OTHER] PR
[2018-07-06 18:32] LABS: ALBUMIN 3.5 GM/DL (3.2-5.2); ALT/SGPT 21 U/L (12-78); BILIRUBIN,TOTAL 0.5 MG/DL (0.2-1.0); BLOOD UREA NITROGEN 12 MG/DL (7-18); CARBON DIOXIDE LEVEL 31 MEQ/L (21-32); CHLORIDE LEVEL 109 MEQ/L (98-107); CHOLESTEROL LEVEL 218 MG/DL (<200); CHOLESTEROL RISK RATIO 4.037 (<5); CREATININE FOR GFR 0.73 MG/DL (0.55-1.30); GLOMERULAR FILTRATION RATE > 60.0 (>58); GLUCOSE, FASTING 107 MG/DL (70-100); HDL CHOLESTEROL 54 MG/DL (>40); LDL CHOLESTEROL 145 MG/DL (<100); NON-HDL-C 164 MG/DL; SODIUM LEVEL 141 MEQ/L (136-145); TOTAL PROTEIN 6.9 GM/DL (6.4-8.2); TRIGLYCERIDES LEVEL 93 MG/DL (<150)
[2018-07-06 19:05] LABS: HEMOGLOBIN A1c 5.1 %
== END ==
LOC: M LAB REF 16:51
PROVIDERS: ATTEND Family Medicine Addiction Medicine
DX: E11.9 Type 2 diabetes mellitus without complications (principal)

== ENCOUNTER → 2018-09-20 | Outpatient (REF) | payer MEDICAID ==
[2018-09-20 18:15] LABS: FREE T4 0.85 NG/DL (0.76-1.46); THYROID STIMULATING HORMONE 2.49 uIU/ML (0.358-3.740)
[2018-09-23 00:06] LABS: Lyme Disease IgG/IgM Antibodie <0.91 ISR (0.00-0.90); Lyme Disease IgM Ab Quantitati <0.80 index (0.00-0.79)
== END ==
LOC: M LAB REF 16:59
PROVIDERS: ATTEND Family Medicine Addiction Medicine
DX: G83.10 Monoplegia of lower limb affecting unspecified side (principal); M25.569 Pain in unspecified knee

== ENCOUNTER → 2018-12-18 | Outpatient (REF) | payer OTHER ==
[2018-12-18 12:47] LABS: ALT/SGPT 16 U/L (12-78); BILIRUBIN,TOTAL 0.6 MG/DL (0.2-1.0); BLOOD UREA NITROGEN 14 MG/DL (7-18); CALCIUM LEVEL 8.6 MG/DL (8.5-10.1); CARBON DIOXIDE LEVEL 29 MEQ/L (21-32); CHLORIDE LEVEL 110 MEQ/L (98-107); CREATININE FOR GFR 0.71 MG/DL (0.55-1.30); GLOMERULAR FILTRATION RATE > 60.0 (>58); GLUCOSE, FASTING 87 MG/DL (70-100); POTASSIUM SERUM 4.4 MEQ/L (3.5-5.1); SODIUM LEVEL 144 MEQ/L (136-145); TRIGLYCERIDES LEVEL 111 MG/DL (<150)
[2018-12-18 12:48] LABS: ALBUMIN 3.3 GM/DL (3.2-5.2); CHOLESTEROL LEVEL 205 MG/DL (<200); CHOLESTEROL RISK RATIO 4.183 (<5); HDL CHOLESTEROL 49 MG/DL (>40); LDL CHOLESTEROL 134 MG/DL (<100); NON-HDL-C 156 MG/DL; TOTAL PROTEIN 6.5 GM/DL (6.4-8.2)
[2018-12-18 13:40] LABS: HEMOGLOBIN A1c 5.2 %
== END ==
LOC: M LAB REF 12:18
PROVIDERS: ATTEND Family Medicine
DX: E78.5 Hyperlipidemia, unspecified (principal); E11.40 Type 2 diabetes mellitus with diabetic neuropathy, unspecified

== ENCOUNTER → 2019-03-14 | Outpatient (CLI) | payer OTHER ==
--- NOTE | 2019-03-15 03:24 | REP ---
Clinical: Symptoms related to atherosclerotic disease and intermittent claudication. Technique: Real time hernandez scale and color Doppler evaluation of the bilateral lower extremity arterial vasculature using linear high frequency transducer. Findings: Hernandez scale and color images demonstrate minimal amounts of atheromatous plaquing with areas of minimal narrowing but no focal stenosis identified. Doppler interrogation demonstrates normal primarily triphasic arterial wave forms and velocities bilaterally. Peak systolic velocities (cm/sec) RIGHT LEFT MARLENA 1.14 1.03 Common femoral artery 93.2 80.6 Profunda femoris 84.5 73.6 SFA (proximal) 76.4 94.6 SFA (mid) 96.2 115 SFA (distal) 77.1 102 Popliteal artery 49.6 51.4 ROXIE (prox.) 39.8 (biphasic) 40.0 (biphasic) Tibioperoneal trunk 67.3 40.0 REPAIR COIL WINDER (prox.) 58.5 84.5 REPAIR COIL WINDER (distal) 64.9 60.9 ROXIE (distal) 44.7 (biphasic) 24.8 (biphasic) Impression: Minimal atheromatous changes without evidence for occlusion or stenosis. Electronically Signed by Ab Zarate MD 03/15/2019 03:16 A
== END ==
LOC: M RAD 12:24
PROVIDERS: ATTEND Physician Assistant
DX: M79.606 Pain in leg, unspecified (principal); F17.200 Nicotine dependence, unspecified, uncomplicated

== ENCOUNTER → 2019-03-21 | Outpatient (CLI) | payer OTHER ==
[2019-03-21 13:37] LABS: BASO # 0.1 10^3/uL (0.0-0.2); BASO % 1.1 % (0.0-1.0); EOS # 0.2 10^3/uL (0.0-0.5); EOS % 2.7 % (0.0-3.0); HEMATOCRIT 45.4 % (36.0-47.0); HEMOGLOBIN 14.6 g/dl (12.0-15.5); LYMPH # 2.1 10^3/uL (1.5-5.0); LYMPH % 33.2 % (24.0-44.0); MEAN CORPUSCULAR HEMOGLOBIN 30.9 pg (27.0-33.0); MEAN CORPUSCULAR HGB CONC 32.2 g/dl (32.0-36.5); MONO # 0.4 10^3/uL (0.0-0.8); MONO % 6.1 % (0.0-5.0); NEUTROPHILS # 3.6 10^3/uL (1.5-8.5); NEUTROPHILS % 56.6 % (36.0-66.0); PLATELET COUNT, AUTOMATED 215 10^3/uL (150-450); RED BLOOD COUNT 4.73 10^6/uL (4.00-5.40); WHITE BLOOD COUNT 6.4 10^3/uL (4.0-10.0)
[2019-03-21 14:03] LABS: HEMOGLOBIN A1c 5.4 %
[2019-03-21 14:11] LABS: ALBUMIN 3.4 GM/DL (3.2-5.2); ALT/SGPT 19 U/L (12-78); BILIRUBIN,TOTAL 0.5 MG/DL (0.2-1.0); BLOOD UREA NITROGEN 9 MG/DL (7-18); CALCIUM LEVEL 8.6 MG/DL (8.5-10.1); CARBON DIOXIDE LEVEL 27 MEQ/L (21-32); CHLORIDE LEVEL 110 MEQ/L (98-107); CHOLESTEROL LEVEL 157 MG/DL (<200); CREATININE FOR GFR 0.68 MG/DL (0.55-1.30); FOLATE 13.3 NG/ML; FREE T4 0.88 NG/DL (0.76-1.46); GLOMERULAR FILTRATION RATE > 60.0 (>58); GLUCOSE, FASTING 93 MG/DL (70-100); HDL CHOLESTEROL 48 MG/DL (>40); LDL CHOLESTEROL 89 MG/DL (<100); NON-HDL-C 109 MG/DL; POTASSIUM SERUM 4.4 MEQ/L (3.5-5.1); SODIUM LEVEL 143 MEQ/L (136-145); TRIGLYCERIDES LEVEL 98 MG/DL (<150); VITAMIN B12 LEVEL 286 PG/ML
[2019-03-23 08:06] LABS: INSULIN LEVEL 6.8 uIU/mL (2.6-24.9)
== END ==
LOC: M LAB 12:18
PROVIDERS: ATTEND Psychiatry & Neurology Child & Adolescent Psychiatry
DX: F31.9 Bipolar disorder, unspecified (principal)

== ENCOUNTER → 2019-04-02 | Outpatient (REF) | payer OTHER ==
[~2019-04-02] MED LIST changes: +QUET100T2 PO; -QUET1TAB8 PO
[2019-04-02 19:18] LABS: ALBUMIN 3.2 GM/DL (3.2-5.2); ALT/SGPT 13 U/L (12-78); BILIRUBIN,TOTAL 0.4 MG/DL (0.2-1.0); BLOOD UREA NITROGEN 17 MG/DL (7-18); CALCIUM LEVEL 8.6 MG/DL (8.5-10.1); CARBON DIOXIDE LEVEL 28 MEQ/L (21-32); CHLORIDE LEVEL 109 MEQ/L (98-107); CHOLESTEROL LEVEL 134 MG/DL (<200); CHOLESTEROL RISK RATIO 3.526 (<5); CREATININE FOR GFR 0.62 MG/DL (0.55-1.30); GLOMERULAR FILTRATION RATE > 60.0 (>58); GLUCOSE, FASTING 111 MG/DL (70-100); HDL CHOLESTEROL 38 MG/DL (>40); LDL CHOLESTEROL 71 MG/DL (<100); NON-HDL-C 96 MG/DL; POTASSIUM SERUM 4.3 MEQ/L (3.5-5.1); SODIUM LEVEL 143 MEQ/L (136-145); TOTAL PROTEIN 6.8 GM/DL (6.4-8.2); TRIGLYCERIDES LEVEL 123 MG/DL (<150)
[2019-04-02 20:21] LABS: HEMOGLOBIN A1c 5.5 %
== END ==
LOC: M LAB REF 18:19
PROVIDERS: ATTEND Family Medicine
DX: E11.40 Type 2 diabetes mellitus with diabetic neuropathy, unspecified (principal)

== ENCOUNTER 2019-08-24 22:47 | Inpatient (IN) | payer OTHER ==
[~2019-08-24] VITALS: Ht 170.2 cm; Wt 101.0 kg
[2019-08-24 23:04] VITALS: O2SAT 96
[2019-08-24 23:15] VITALS: O2SAT 96
[2019-08-24 23:30] VITALS: O2SAT 96
[2019-08-25] VITALS (19 sets, daily range): BP systolic 112–147; BP diastolic 60–82; O2SAT 87–98
[2019-08-25 00:05] LABS: AMPHETAMINES LEVEL URINE NEGATIVE (NEGATIVE); BARBITURATES URINE NEGATIVE (NEGATIVE); BENZODIAZEPINES URINE NEGATIVE (NEGATIVE); CANNABINOIDS URINE NEGATIVE (NEGATIVE); COCAINE METABOLITE URINE NEGATIVE (NEGATIVE); METHADONE URINE NEGATIVE (NEGATIVE); OPIATES URINE NEGATIVE (NEGATIVE); PHENCYCLIDINE URINE NEGATIVE (NEGATIVE)
[2019-08-25 00:11] LABS: BASO # 0.1 10^3/uL (0.0-0.2); BASO % 0.7 % (0.0-1.0); EOS # 0.1 10^3/uL (0.0-0.5); EOS % 0.7 % (0.0-3.0); HEMATOCRIT 41.7 % (36.0-47.0); HEMOGLOBIN 13.5 g/dl (12.0-15.5); LYMPH # 2.5 10^3/uL (1.5-5.0); LYMPH % 27.8 % (24.0-44.0); MEAN CORPUSCULAR HEMOGLOBIN 30.7 pg (27.0-33.0); MEAN CORPUSCULAR HGB CONC 32.4 g/dl (32.0-36.5); MEAN CORPUSCULAR VOLUME 94.8 fl (80.0-96.0); MONO # 0.6 10^3/uL (0.0-0.8); MONO % 6.5 % (0.0-5.0); NEUTROPHILS # 5.6 10^3/uL (1.5-8.5); NEUTROPHILS % 63.5 % (36.0-66.0); PLATELET COUNT, AUTOMATED 187 10^3/uL (150-450); WHITE BLOOD COUNT 8.9 10^3/uL (4.0-10.0)
[2019-08-25 00:14] LABS: ALBUMIN 2.8 GM/DL (3.2-5.2); ALT/SGPT 12 U/L (12-78); BILIRUBIN,DIRECT 0.1 MG/DL (0.0-0.2); BILIRUBIN,TOTAL 0.3 MG/DL (0.2-1.0); BLOOD UREA NITROGEN 11 MG/DL (7-18); CALCIUM LEVEL 8.2 MG/DL (8.5-10.1); CARBON DIOXIDE LEVEL 23 MEQ/L (21-32); CHLORIDE LEVEL 112 MEQ/L (98-107); CREATININE FOR GFR 0.64 MG/DL (0.55-1.30); ETHYL ALCOHOL (ETHANOL) 0.005 % (0.000-0.010); FREE THYROXINE INDEX 1.8 % (1.3-4.8); GLOMERULAR FILTRATION RATE > 60.0 (>58); GLUCOSE, FASTING 166 MG/DL (70-100); POTASSIUM SERUM 4.4 MEQ/L (3.5-5.1); SODIUM LEVEL 144 MEQ/L (136-145); T UPTAKE 33 % (30-39); THYROXINE (T4) 5.4 UG/DL (4.5-12.0); TOTAL PROTEIN 6.2 GM/DL (6.4-8.2)
--- NOTE | 2019-08-25 00:21 | REPVR ---
PROCEDURE INFORMATION: Exam: CT Head Without Contrast Exam date and time: 08/24/2019 11:02 PM Age: 49 years old Clinical indication: Altered mental status/memory loss; Confusion or disorientation; Additional info: AMS TECHNIQUE: Imaging protocol: Computed tomography of the head without contrast. Radiation optimization: All CT scans at this facility use at least one of these dose optimization techniques: automated exposure control; mA and/or kV adjustment per patient size (includes targeted exams where dose is matched to clinical indication); or iterative reconstruction. COMPARISON: No relevant prior studies available. FINDINGS: Brain: Normal. No hemorrhage. Unremarkable white matter. No mass effect. Ventricles: Normal. No ventriculomegaly. Bones/joints: Unremarkable. No acute fracture. Sinuses: Visualized sinuses are unremarkable. No fluid levels. Mastoid air cells: Visualized mastoid air cells are well aerated. Soft tissues: Unremarkable. IMPRESSION: No acute intracranial abnormality. Electronically signed by: Pepe Sanford On 08/25/2019 00:21:07 AM
[2019-08-25] MEDS ORDERED: DULO1CAP6 PO (01:15)
[2019-08-25] MEDS ORDERED: BACL1TAB9 PO (01:15)
[2019-08-25] MEDS ORDERED: QUET1TAB10 PO (01:15)
[2019-08-25] MEDS ORDERED: TRAZ-189 PO (01:15)
[2019-08-25] MEDS ORDERED: GABA800T4 PO (01:16)
[2019-08-25] MEDS ORDERED: BUPR15TASR PO (01:16)
[2019-08-25] MEDS ORDERED: LACT10SO3 PO (01:18)
[2019-08-25] MEDS ORDERED: TRAM50TA2 PO (01:20)
[2019-08-25] MEDS ORDERED: MED REC COMMENT (01:22)
--- NOTE | 2019-08-25 02:05 | HPEPDOC ---
[facility] Medical History & Physical Date of Admission Aug 25, 2019 Date of Service: Aug 25, 2019 Attending Physician: CHARLES HAWKINS MD History and Physical TIME OF SERVICE: 2:50 AM CHIEF COMPLAINT: Confusion HISTORY OF PRESENT ILLNESS: This patient was brought in by EMS for evaluation of altered mental status. Based on ER notes, the patient's son saw his mother in the afternoon and she appeared to be normal state. At the time of my exam, the patient was asleep but intermittently arousable with noxious stimuli and would not answer any questions. Per discussion with Dr. Carballo, he suspects that she might have overdosed on some of her pain and psychiatric medications. REVIEW OF SYSTEMS: Unobtainable because of patient's mental status PAST MEDICAL/ SURGICAL HISTORY: Per chart review Anxiety Depression with history of suicide attempt with overdose in 2010 OCD PTSD GERD Obesity Chronic lower back pain status post surgery Chronic constipation Cholecystectomy Gastric bypass in 2016 Tubal ligation Uterine ablation D&C Hysterectomy SOCIAL HISTORY: Unobtainable FAMILY HISTORY: Per chart review Diabetes ADHD ALLERGIES: Please see below. HOME MEDICATIONS: Please see below. PHYSICAL EXAMINATION: Vital Signs Date Time Temp Pulse Resp B/P (MAP) Pulse Ox O2 Delivery O2 Flow Rate FiO2 08/24/19 23:02 53 97 08/24/19 23:04 116/73 (87) 08/24/19 23:05 16 Room Air 08/24/19 23:26 97.5 GEN: well-nourished INTEGUMENT: not flushed or diaphoretic HEENT: NCAT / Pupils dilated with sluggish reaction to light/ has poor dentition CVS: RRR/NMRG LUNGS: clear to auscultation bilaterally on room air ABDOMEN: soft she doesn't grimace with palpation of the abdomen PSYCH: Asleep but intermittently arousable with sternal rub/she is not following commands or tracking movements LABORATORY DATA: 08/24/19 23:26 08/24/19 23:18: Bedside Glucose (Misc Panel) 154H 08/24/19 23:26: Immature Granulocyte % (Auto) 0.8, Neutrophils (%) (Auto) 63.5, Lymphocytes (%) (Auto) 27.8, Monocytes (%) (Auto) 6.5H, Eosinophils (%) (Auto) 0.7, Basophils (%) (Auto) 0.7, Neutrophils # (Auto) 5.6, Lymphocytes # (Auto) 2.5, Monocytes # (Auto) 0.6, Eosinophils # (Auto) 0.1, Basophils # (Auto) 0.1, Nucleated Red Blood Cells % (auto) 0.0, Anion Gap 9, Glomerular Filtration Rate > 60.0, Calciu m Level 8.2L, Total Bilirubin 0.3, Direct Bilirubin 0.1, Aspartate Amino Transf (AST/SGOT) 11, Alanine Aminotransferase (ALT/SGPT) 12, Alkaline Phosphatase 93, Ammonia 17, Total Protein 6.2L, Albumin 2.8L, Albumin/Globulin Ratio 0.8L, Thyroid Stimulating Hormone (TSH) 1.720, Free Thyroxine Index 1.8, Thyroxine (T4) 5.4, Triiodothyronine (T3) Uptake 33, Urine Opiates Screen NEGATIVE, Urine Methadone Screen NEGATIVE, Urine Barbiturates Screen NEGATIVE, Urine Phencyclidine Screen NEGATIVE, Urine Amphetamines Screen NEGATIVE, Urine Benzodiazepines Screen NEGATIVE, Urine Cocaine Metabolite Screen NEGATIVE, Urine Cannabinoids Screen NEGATIVE, Ethyl Alcohol Level 0.005 08/25/19 01:06: Bedside Glucose (Misc Panel) 152H IMAGING: CT head "IMPRESSION: No acute intracranial abnormality. " MICROBIOLOGY: Please see below. ASSESSMENT: Ms. Harrell is a 49-year-old with history of anxiety, depression, OCD, PTSD, GERD, obesity, gastric bypass, who will be admitted for evaluation of altered mental status possibly due to an OD on multiple psych and pain meds. PLAN: 1 Altered Mental Status / Encephalopathy Possible causes include sedation due to combination of baclofen, bupropion, fluoxetine gabapentin, quetiapine, trazodone, and tramadol Her drug screen, Na, BUN, TSH and ammonia are wnl Her glucose is in the 160s and the CT of the head is unrevealing Plan: admit to PCU/ frequent neurochecks /elevate head of bed / aspiration precautions / NPO w IVF / hold all meds / if her mental status doesn't improve in the morning, the daytime team can consider additional tests including B12, thiamine, and MRI of the brain 2. Bradycardia If chronic likley due to sleep apnea if new likley 2/2 her medications Plan:telemetry / f/u EKG, trop / atropine 0.5 mg IV PRN for HR <30 3. Anxiety / Depression / OCD / PTSD Plan: hold home meds until she is more alert 4. Chronic Back Pain Plan: diclofenac patch / hold oral meds 5. Obesity with BMI of 37.1 s/p gastric bypass complicates care Plan: f/u A1C DVT PROPHYLAXIS: lovenox DISPOSITION: home after at least 2 midnight's stay Home Medications Scheduled Baclofen (Baclofen) 20 Mg Tablet, 20 MG PO BID Bupropion HCl (Bupropion HCl Sr) 150 Mg Tab.er.12h, 150 MG PO DAILY Duloxetine Hcl (Duloxetine HCl) 60 Mg Capsule.dr, 60 MG PO DAILY Gabapentin (Gabapentin) 800 Mg Tablet, 800 MG PO QID Quetiapine Fumarate (Quetiapine Fumarate) 300 Mg Tablet, 600 MG PO QHS Trazodone HCl (Trazodone HCl) 100 Mg Tablet, 200 MG PO QHS Scheduled PRN Lactulose (Lactulose) 10 Gm/15 Ml Solution, 15 ML PO BID PRN for CONSTIPATION 15-30 MLS IF NEEDED Tramadol HCl (Tramadol HCl) 50 Mg Tablet, 50 MG PO Q6H PRN for PAIN Miscellaneous Medications [Med Rec Comment] UNABLE TO TALK TO PATIENT USED EXTERNAL TO DO MED REC Allergies Coded Allergies: sulfamethoxazole (Verified Allergy, Intermediate, RASH, 08/25/19) trimethoprim (Verified Allergy, Intermediate, RASH, 08/25/19) ENVIROMENTAL (Verified Allergy, Unknown, 01/09/11) CHARLES HAWKINS MD Aug 25, 2019 02:05
[2019-08-25] MEDS ORDERED: METAL LOCK LOOP XX ONE (03:53)
[2019-08-25] MEDS ORDERED: ATROPINE SULF 1MG/10ML SYRINGE (J0461) IV PRN (04:00)
[2019-08-25] MEDS: NS 1,000 ML IV SCH ×2 (04:58→14:32)
[2019-08-25] MEDS: DICLOFENAC EPOLAMINE 1.3 % PATCH TOP SCH ×2 (06:52→18:51)
[2019-08-25] MEDS: ENOXAPARIN 40MG/0.4ML SYRINGE (J1650 PER 10MG) SC SCH (08:54)
[2019-08-25] MEDS ORDERED: PANTOPRAZOLE 40MG VIAL (C9113 PER 1) IV SCH (09:00)
[2019-08-25] MEDS ORDERED: KETOROLAC 30 MG/ML 1ML VIAL IV ONE (10:00)
[2019-08-25] MEDS ORDERED: MORPHINE 2 MG/ML 1ML VIAL (J2270) IV ONE (10:30)
[2019-08-25] MEDS: GASTROGRAFIN SOLUTION 30ML PO SCH ×2 (10:39→10:45)
--- NOTE | 2019-08-25 11:26 | IPNPDOC ---
Text Note Date of Service The patient was seen on 08/25/19. NOTE SUBJECTIVE: Awake, talking but very agitated, complains of abdominal pain. How ever also has back pain , leg pain and pain everywhere. Ripped out her IV stating that she did not want any medical care. I orderd a ct abdomen but she is refusing to drink the contrast. Physical Exam: VITALS: As below GEN: well-nourished , agitated, moaning and groaning EYES: pupils about 6 mm bilaterally reacting to light. HEENT: Normocephalic atraumatic, moist mucous membranes anicteric eyes. INTEGUMENT: not flushed or diaphoretic CVS: RRR/No Murmur Rub or Gallop LUNGS: clear to auscultation bilaterally on room air ABDOMEN: soft , tender in all the quadrants. bowel sounds sluggish PSYCH: awake but agitated. Labs and radiology: reviewed ASSESSMENT AND PLAN: Ms. Harrell is a 49-year-old with history of anxiety, depression, OCD, PTSD, GERD, obesity, gastric bypass, was admitted for evaluation of altered mental status possibly due to an OD on multiple psych and pain meds. Acute metabolic toxic Encephalopathy Possible causes include sedation due to combination of baclofen, bupropion, fluoxetine gabapentin, quetiapine, trazodone, and tramadol Now agitated probably has delirium coming off the effects of sedative meds. Her drug screen, Na, BUN, TSH and ammonia are wnl Her glucose is in the 160s and the CT of the head is unrevealing hold all meds Abdominal pain seems like crampy will give pantoprazole, morphine once, toradol CT abdomen and pelvis. Sinus Bradycardia If chronic likley due to sleep apnea if new likley 2/2 her medications atropine 0.5 mg IV PRN for HR <30 Anxiety / Depression / OCD / PTSD/Bipolar 1 disorder hold home meds for now Chronic Back Pain History of cauda equina/low back surgery. Patient with unsteady gait and chronic lower extremity weakness. Ambulates with a walker. diclofenac patch / hold oral meds Obesity with BMI of 37.1 s/p gastric bypass complicates care Plan: f/u A1C DVT PROPHYLAXIS: lovenox VS,Fishbone, I+O VS, Fishbone, I+O Laboratory Tests 08/24/19 23:26 Vital Signs Date Time Temp Pulse Resp B/P (MAP) Pulse Ox O2 Delivery O2 Flow Rate FiO2 08/25/19 04:18 96.2 63 20 147/82 (103) 95 Room Air I&O- Last 24 Hours up to 6 AM 08/25/19 06:00 Intake Total 0 ml Output Total 0 ml Balance 0 ml COLIN AMIN MD Aug 25, 2019 07:33
[2019-08-25] MEDS ORDERED: ISOVUE-370 76% 100ML VIAL As Ordered ONE (11:34)
[2019-08-25] MEDS: HALOPERIDOL 5MG/ML VIAL (J1630 PER 1) IM PRN ×2 (11:40→18:03)
[2019-08-25] MEDS: ONDANSETRON 4 MG ORAL DISINTEGRATING TAB PO PRN (16:33)
[2019-08-25] MEDS: OLANZapine 5 MG TAB PO PRN (17:54)
--- NOTE | 2019-08-25 18:44 | REPVR ---
PROCEDURE INFORMATION: Exam: CT Abdomen And Pelvis Without Contrast Exam date and time: 08/25/2019 5:29 PM Age: 49 years old Clinical indication: Abdominal pain TECHNIQUE: Imaging protocol: Computed tomography of the abdomen and pelvis without contrast. Radiation optimization: All CT scans at this facility use at least one of these dose optimization techniques: automated exposure control; mA and/or kV adjustment per patient size (includes targeted exams where dose is matched to clinical indication); or iterative reconstruction. COMPARISON: CT ABD PELVIS W/O CONTRAST 09/01/2016 7:22 PM FINDINGS: Liver: Normal. No mass. Gallbladder and bile ducts: There has been a cholecystectomy. Pancreas: There is diffuse pancreatic atrophy. Spleen: Normal. No splenomegaly. Adrenals: Normal. No mass. Kidneys and ureters: Normal. No hydronephrosis. Stomach and bowel: This patient is status post gastric bypass surgery. Appendix: No evidence of appendicitis. Intraperitoneal space: Unremarkable. No free air. No significant fluid collection. Vasculature: Unremarkable. No abdominal aortic aneurysm. Lymph nodes: Unremarkable. No enlarged lymph nodes. Bladder: Gas demonstrated within the urinary bladder which may be related to recent instrumentation. Infection not excluded in the absence of any recent instrumentation. Reproductive: There has been a hysterectomy. Bones/joints: Moderate central spinal stenosis L3-L4 and moderate to severe central spinal stenosis L4-L5. The spine demonstrates mild degenerative changes. Soft tissues: Unremarkable. Other findings: Extensive motion artifact and lack of oral or intravenous contrast limits evaluation. IMPRESSION: 1. There has been a cholecystectomy. 2. This patient is status post gastric bypass surgery. 3. There is diffuse pancreatic atrophy. 4. There has been a hysterectomy. 5. Gas demonstrated within the urinary bladder which may be related to recent instrumentation. Infection not excluded in the absence of any recent instrumentation. Electronically signed by: Alex Mendoza On 08/25/2019 18:44:10 PM
[2019-08-26] MEDS ORDERED: KETOROLAC TROMETHAMINE 10 MG TAB PO ONE
[2019-08-26] MEDS: NS 1,000 ML IV SCH ×2 (03:02→10:07)
[2019-08-26] MEDS: DICLOFENAC EPOLAMINE 1.3 % PATCH TOP SCH ×2 (05:22→18:00)
[2019-08-26] MEDS: OLANZapine 5 MG TAB PO PRN (05:49)
[2019-08-26 06:00] VITALS: BP 105/72
[2019-08-26] MEDS: KETOROLAC 30 MG/ML 1ML VIAL IV PRN ×3 (06:00→20:55)
[2019-08-26 08:49] LABS: BASO % 0.4 % (0.0-1.0); EOS % 0.3 % (0.0-3.0); HEMATOCRIT 41.5 % (36.0-47.0); HEMOGLOBIN 13.9 g/dl (12.0-15.5); LYMPH # 2.3 10^3/uL (1.5-5.0); LYMPH % 24.4 % (24.0-44.0); MEAN CORPUSCULAR HEMOGLOBIN 30.1 pg (27.0-33.0); MEAN CORPUSCULAR HGB CONC 33.5 g/dl (32.0-36.5); MEAN CORPUSCULAR VOLUME 89.8 fl (80.0-96.0); MONO # 0.9 10^3/uL (0.0-0.8); NEUTROPHILS % 64.2 % (36.0-66.0); PLATELET COUNT, AUTOMATED 221 10^3/uL (150-450); RED BLOOD COUNT 4.62 10^6/uL (4.00-5.40); WHITE BLOOD COUNT 9.4 10^3/uL (4.0-10.0)
[2019-08-26 09:20] LABS: BLOOD UREA NITROGEN 14 MG/DL (7-18); CALCIUM LEVEL 8.6 MG/DL (8.5-10.1); CARBON DIOXIDE LEVEL 21 MEQ/L (21-32); CHLORIDE LEVEL 117 MEQ/L (98-107); CREATININE FOR GFR 0.77 MG/DL (0.55-1.30); GLOMERULAR FILTRATION RATE > 60.0 (>58); GLUCOSE, FASTING 97 MG/DL (70-100); POTASSIUM SERUM 3.3 MEQ/L (3.5-5.1); SODIUM LEVEL 146 MEQ/L (136-145)
[2019-08-26] MEDS: DULoxetine 30 MG CAP (CYMBALTA) PO SCH (10:04)
[2019-08-26] MEDS: GABAPENTIN 400 MG CAP PO SCH ×4 (10:04→20:54)
[2019-08-26] MEDS: PANTOPRAZOLE 40MG TAB (PROTONIX) PO SCH (10:04)
[2019-08-26] MEDS: buPROPion **SR TABLET** (ZYBAN) 150MG PO SCH (10:04)
[2019-08-26] MEDS: ENOXAPARIN 40MG/0.4ML SYRINGE (J1650 PER 10MG) SC SCH (10:05)
[2019-08-26] MEDS: ONDANSETRON 4 MG ORAL DISINTEGRATING TAB PO PRN ×2 (10:14→16:19)
[2019-08-26] MEDS: KCL 40MEQ in NS 1000ML 1,000 ML IV SCH ×2 (12:53→20:58)
[2019-08-26 14:00] VITALS: BP 126/78
--- NOTE | 2019-08-26 14:12 | IPNPDOC ---
Text Note Date of Service The patient was seen on 08/26/19. NOTE SUBJECTIVE: Awake and alert and cooperative today. She is a completely different person. She says that she was started on cymbalta and celecoxib 08/24/19. Then at night she could not sleep so she took 4 baclofens. After that she does not remember anything. Her friend Damon found her. She says her daughter's friend abram lives with her . She cannot remember anything about yesterday. She denied suicidal intent. She did admit that she is often depressed by says she has a good psychiatrist and therapist whom she sees regularly. Today see denied any suicidal ideas or Plan. She complained of rectal pain from her hemorrhoids. She says she also has problems with urinary retention for 6 years and used to be on flomax since her cauda equina. Bladder scan shows 300 to 350 ml. She does not have any appetite though has tried some clear liquids. She reports since her gastric bypass surgery 3 years ago she has to be careful about her diet. She reports she has lost 110 lbs. She still appears very anxious and continuously shaking her legs. She is afraid to go home and is asking again and again if this is going to happen. I went over her medications and discussed which combinations she should not take , which i am going to discontinue . I reassured her that if she takes her medications in the correct dosage as prescribed then it is unlikely to happen again. I asked if she would like to speak with our psychi atrist here but she refused. She does report she is still having a little difficulty in focusing and getting confused over the phone. Physical Exam: VITALS: As below GEN: well-nourished , alert oriented and cooperative, though very anxious. EYES: LIZ HEENT: Normocephalic atraumatic, moist mucous membranes anicteric eyes. INTEGUMENT: not flushed or diaphoretic CVS: RRR/No Murmur Rub or Gallop LUNGS: clear to auscultation bilaterally on room air ABDOMEN: soft , nontender, bowel sounds normal. PSYCH: alert and oriented x 3 but anxious Labs and radiology: reviewed RADIOLOGY: CT Abdomen and pelvis without: 1. There has been a cholecystectomy. 2. This patient is status post gastric bypass surgery. 3. There is diffuse pancreatic atrophy. 4. There has been a hysterectomy. 5. Gas demonstrated within the urinary bladder which may be related to recent instrumentation. 6. Also shows Moderate central spinal stenosis L3-L4 and moderate to severe central spinal stenosis L4-L5. The spine demonstrates mild degenerative changes. ASSESSMENT AND PLAN: Ms. Harrell is a 49-year-old with history of anxiety, depression, OCD, PTSD, GERD, obesity, gastric bypass, Cauda equina, was admitted for evaluation of altered mental status possibly due to an OD on multiple psych and pain meds. Acute metabolic toxic Encephalopathy resolving. Possible causes include sedation due to combination of baclofen, bupropion, fluoxetine gabapentin, quetiapine, trazodone, and tramadol She reported today that she was newly started on cymbalta the same day as admission and took 4 baclofens on top of her regular medications. Her drug screen, Na, BUN, TSH and ammonia are wnl Her glucose is in the 160s and the CT of the head is unrevealing Rectal pain possibly hemorrhoids. will give anusol cream and suppository. tramadol and ketorolac prn. Abdominal pain resolved. given pantoprazole, morphine once, toradol CT abdomen and pelvis without did not show any acute abnormalities. Sinus Bradycardia If chronic likely due to sleep apnea if new likley 2/2 her medications Anxiety / Depression / OCD / PTSD/Bipolar 1 disorder restarted on cymbalta, seroquel, buspirone and gabapentin Chronic Back Pain History of cauda equina/low back surgery. Patient with unsteady gait and chronic lower extremity weakness. Ambulates with a walker. diclofenac patch , toradol, tramadol. Obesity with BMI of 37.1 s/p gastric bypass complicates care Plan: f/u A1C H/o Caudaequina 6 years ago/ Moderate to severe central canal stenosis L2-L3 and L3-L4 with chronic urinary retention straight cath prn. ambulates with walker. DVT PROPHYLAXIS: lovenox VS,Fishbone, I+O VS, Fishbone, I+O Vital Signs Date Time Temp Pulse Resp B/P (MAP) Pulse Ox O2 Delivery O2 Flow Rate FiO2 08/25/19 22:00 96.8 91 22 112/75 (87) 97 Room Air I&O- Last 24 Hours up to 6 AM 08/26/19 07:00 Intake Total 0 ml Balance 0 ml COLIN AMIN MD Aug 26, 2019 06:04
[2019-08-26] MEDS: ANUSOL HC CREAM 30GM TOP SCH ×2 (15:08→20:54)
[2019-08-26] MEDS: ANUSOL HC 25MG SUPP PR SCH (15:21)
[2019-08-26] MEDS: traMADol 50 MG TAB PO PRN (15:21)
[2019-08-26 16:48] LABS: APPEARANCE, URINE CLOUDY (CLEAR); BACTERIA, URINE AUTO 3+ (NEGATIVE); BILIRUBIN, URINE AUTO 1+ (NEGATIVE); BLOOD, URINE BLOOD NEGATIVE (NEGATIVE); COLOR, URINE AMBER (YELLOW); GLUCOSE, URINE (UA) AUTO NEGATIVE (NEGATIVE); KETONE, URINE AUTO NEGATIVE (NEGATIVE); LEUKOCYTE ESTERASE, URINE AUTO NEGATIVE (NEGATIVE); MUCUS, URINE SMALL (NEGATIVE); NITRITE, URINE AUTO NEGATIVE (NEGATIVE); PROTEIN, URINE AUTO 2+ mg/dL (NEGATIVE); RBC, URINE AUTO 0 /HPF (0-3); SPECIFIC GRAVITY URINE AUTO 1.027 (1.002-1.035); SQUAMOUS EPITHELIAL CELL UR AU 1 /HPF (0-6); WBC, URINE AUTO 2 /HPF (0-3)
[2019-08-26] MEDS ORDERED: QUEtiapine FUMARATE 100 MG TAB PO SCH (21:00)
[2019-08-26 22:00] VITALS: BP 129/77
[2019-08-27] MEDS: DICLOFENAC EPOLAMINE 1.3 % PATCH TOP SCH (05:44)
[2019-08-27] MEDS: traMADol 50 MG TAB PO PRN (05:59)
[2019-08-27 06:00] VITALS: BP 90/54
[2019-08-27 06:03] VITALS: BP 116/76
[2019-08-27 06:30] LABS: BASO # 0.1 10^3/uL (0.0-0.2); BASO % 0.9 % (0.0-1.0); EOS # 0.1 10^3/uL (0.0-0.5); EOS % 1.3 % (0.0-3.0); HEMATOCRIT 38.3 % (36.0-47.0); HEMOGLOBIN 12.6 g/dl (12.0-15.5); LYMPH # 3.7 10^3/uL (1.5-5.0); LYMPH % 53.6 % (24.0-44.0); MEAN CORPUSCULAR HEMOGLOBIN 30.6 pg (27.0-33.0); MEAN CORPUSCULAR HGB CONC 32.9 g/dl (32.0-36.5); MONO # 0.7 10^3/uL (0.0-0.8); NEUTROPHILS # 2.4 10^3/uL (1.5-8.5); NEUTROPHILS % 34.1 % (36.0-66.0); PLATELET COUNT, AUTOMATED 192 10^3/uL (150-450); RED BLOOD COUNT 4.12 10^6/uL (4.00-5.40); WHITE BLOOD COUNT 6.9 10^3/uL (4.0-10.0)
[2019-08-27 06:58] LABS: BLOOD UREA NITROGEN 15 MG/DL (7-18); CALCIUM LEVEL 7.6 MG/DL (8.5-10.1); CARBON DIOXIDE LEVEL 21 MEQ/L (21-32); CHLORIDE LEVEL 119 MEQ/L (98-107); CREATININE FOR GFR 0.78 MG/DL (0.55-1.30); GLOMERULAR FILTRATION RATE > 60.0 (>58); GLUCOSE, FASTING 80 MG/DL (70-100); SODIUM LEVEL 146 MEQ/L (136-145)
[2019-08-27] MEDS: KCL 40MEQ in NS 1000ML 1,000 ML IV SCH (07:49)
[2019-08-27] MEDS: ENOXAPARIN 40MG/0.4ML SYRINGE (J1650 PER 10MG) SC SCH (09:00)
[2019-08-27] MEDS: DULoxetine 30 MG CAP (CYMBALTA) PO SCH (09:37)
[2019-08-27] MEDS: buPROPion **SR TABLET** (ZYBAN) 150MG PO SCH (09:37)
[2019-08-27] MEDS: GABAPENTIN 400 MG CAP PO SCH (09:37)
[2019-08-27] MEDS: PANTOPRAZOLE 40MG TAB (PROTONIX) PO SCH (09:37)
[2019-08-27] MEDS: ANUSOL HC 25MG SUPP PR SCH ×2 (09:38)
[2019-08-27] MEDS: ANUSOL HC CREAM 30GM TOP SCH (09:38)
[2019-08-27] MEDS: KETOROLAC 30 MG/ML 1ML VIAL IV PRN (10:01)
[2019-08-27] MEDS ORDERED: FLOM0.4C39 PO (10:59)
[2019-08-27] MEDS ORDERED: TAMSULOSIN 0.4 MG CAP PO ONE (11:00)
[2019-08-27] MEDS ORDERED: TAMSULOSIN 0.4 MG CAP PO SCH (21:00)
--- NOTE | 2019-08-28 00:35 | DS.PDOC ---
Discharge Summary General Date of Admission Aug 25, 2019 at 02:02 Date of Discharge 08/27/19 Discharge Summary PROCEDURES PERFORMED DURING STAY: [None]. DISCHARGE DIAGNOSES: Acute toxic metabolic encephalopathy possibly due to baclofen and other meds. Sinus bradycardia due to medications. Chronic urinary retention SECONDARY DIAGNOSIS: Anxiety Depression with history of suicide attempt with overdose in 2010 OCD PTSD GERD Obesity H/O cauda equina in 2013 Chronic lower back pain status post surgery Chronic constipation Chronic urinary retention Morbid obesity s/p Gastric bypass in 2016 Gait and mobility disorder Moderate central spinal stenosis L3-L4 and moderate to severe central spinal stenosis L4-L5 COMPLICATIONS/CHIEF COMPLAINT: Altered Mental Status Associated W Intoxication. HOSPITAL COURSE: Ms. Harrell is a 49-year-old with history of anxiety, depression, OCD, PTSD, GERD, obesity, gastric bypass, Cauda equina, chronic urinary retention, hemorrhoids was admitted for evaluation of altered mental status possibly due to overdose with baclofen in combination with multiple other psych meds and pain meds. Once the patient was alert and oriented she reported that she was started on cymbalta and celecoxib and baclofen on 08/17/19. On the night of 08/24/19 she could not sleep so she took 4 baclofens. After that she does not remember anything. Her friend Damon found her nonresponsive and called EMS. She says her daughter's friend Lamar lives with her. But Lamar was not at home. She cannot remember anything about coming to the hospital and the next day of hospitalization. She denied suicidal intent. She did admit that she is often depressed by says she has a good psychiatrist and therapist whom she sees regularly. Today see denied any suicidal ideas or Plan. She was noted to have urinary retention requiring straight cath with 800 ml, 400 ml output. Today her bladder scan showed 250 cc. Patient refused jones cath. She reported that she has had problems with urinary retention for 6 years and used to be on flomax since her cauda equina. She reports since her gastric bypass surgery 3 years ago she has to be careful about her diet. She was admitted for acute metabolic e ncephalopathy due to medications. Acute metabolic toxic Encephalopathy resolving. Possible causes include sedation due to combination of baclofen, bupropion, fluoxetine gabapentin, quetiapine, trazodone, and tramadol She reported today that she was newly started on cymbalta the same day as admiss bigg and took 4 baclofens on top of her regular medications. She did have FS of 53 as per EMS sheet and got dextrose by EMS without any improvement of mental status. Her drug screen, Na, BUN, TSH and ammonia are wnl Her glucose is in the 160s and the CT of the head is unrevealing Rectal pain possibly hemorrhoids. tramadol prn Abdominal pain resolved. given pantoprazole, morphine once, toradol CT abdomen and pelvis without did not show any acute abnormalities. Sinus Bradycardia likley 2/2 her medications Anxiety / Depression / OCD / PTSD/Bipolar 1 disorder restarted on cymbalta, seroquel, buspirone, trazodone and gabapentin. Baclofen was discontinued. Chronic Back Pain History of cauda equina/low back surgery. Patient with unsteady gait and chronic lower extremity weakness. Ambulates with a walker. tramadol. Obesity with BMI of 37.1 s/p gastric bypass H/o Caudaequina 6 years ago/ Moderate to severe central canal stenosis L2-L3 and L3-L4 with chronic urinary retention started on Flomax. ambulates with walker. DISCHARGE MEDICATIONS: Please see below. ALLERGIES: Please see below. PHYSICAL EXAMINATION ON DISCHARGE: VITAL SIGNS: Please see below. GEN: well-nourished , alert oriented and cooperative EYES: PERRLA HEENT: Normocephalic atraumatic, moist mucous membranes anicteric eyes. INTEGUMENT: not flushed or diaphoretic CVS: RRR/No Murmur Rub or Gallop LUNGS: clear to auscultation bilaterally on room air ABDOMEN: soft , nontender, bowel sounds normal. PSYCH: alert and oriented x 3 LABORATORY DATA: Please see below. IMAGING: CT Abdomen and pelvis without: 1. There has been a cholecystectomy. 2. This patient is status post gastric bypass surgery. 3. There is diffuse pancreatic atrophy. 4. There has been a hysterectomy. 5. Gas demonstrated within the urinary bladder which may be related to recent instrumentation. 6. Also shows Moderate central spinal stenosis L3-L4 and moderate to severe central spinal stenosis L4-L5. The spine demonstrates mild degenerative changes. ACTIVITY: [As tolerated]. DIET: As tolerated DISPOSITION: 01 Home, Self-Care. DISCHARGE INSTRUCTIONS: Follow up with PMD DISCHARGE CONDITION: [Stable]. TIME SPENT ON DISCHARGE: 35 minutes. Vital Signs/I&Os Vital Signs Date Time Temp Pulse Resp B/P (MAP) Pulse Ox O2 Delivery O2 Flow Rate FiO2 08/27/19 06:35 18 08/27/19 06:03 74 116/76 (89) 08/27/19 06:00 98.3 96 Room Air I&O- Last 24 Hours up to 6 AM 08/27/19 07:00 Intake Total 2620 ml Output Total 950 ml Balance 1670 ml Laboratory Data Labs 24H Laboratory Tests 2 08/27/19 06:07: Immature Granulocyte % (Auto) 0.1, Neutrophils (%) (Auto) 34.1L, Lymphocytes (%) (Auto) 53.6H, Monocytes (%) (Auto) 10.0H, Eosinophils (%) (Auto) 1.3, Basophils (%) (Auto) 0.9, Neutrophils # (Auto) 2.4, Lymphocytes # (Auto) 3.7, Monocytes # (Auto) 0.7, Eosinophils # (Auto) 0.1, Basophils # (Auto) 0.1, Nucleated Red Blood Cells % (auto) 0.0, Anion Gap 6L, Glomerular Filtration Rate > 60.0, Calcium Level 7.6L CBC/BMP Laboratory Tests 08/27/19 06:07 Discharge Medications Scheduled Bupropion HCl (Bupropion HCl Sr) 150 Mg Tab.er.12h, 150 MG PO DAILY, (Reported) Duloxetine Hcl (Duloxetine HCl) 60 Mg Capsule.dr, 60 MG PO DAILY, (Reported) Gabapentin (Gabapentin) 800 Mg Tablet, 800 MG PO QID, (Reported) Quetiapine Fumarate (Quetiapine Fumarate) 300 Mg Tablet, 600 MG PO QHS, (Reported) Tamsulosin HCl (Flomax) 0.4 Mg Capsule, 0.4 MG PO QHS Trazodone HCl (Trazodone HCl) 100 Mg Tablet, 200 MG PO QHS, (Reported) Scheduled PRN Lactulose (Lactulose) 10 Gm/15 Ml Solution, 15 ML PO BID PRN for CONSTIPATION, (Reported) 15-30 MLS IF NEEDED Tramadol HCl (Tramadol HCl) 50 Mg Tablet, 50 MG PO Q6H PRN for PAIN, (Reported) Allergies Coded Allergies: sulfamethoxazole (Verified Allergy, Intermediate, RASH, 08/25/19) trimethoprim (Verified Allergy, Intermediate, RASH, 08/25/19) ENVIROMENTAL (Verified Allergy, Unknown, 01/09/11) COLIN AMIN MD Aug 28, 2019 00:35
== END 2019-08-27 12:19 | disposition home or self-care (01) | DRG 812 ==
LOC: M ED 22:47 → M ED INP 08-25 02:02 → ENRESERVTM 08-25 03:41 → ENRESERVDT 08-25 03:41 → M PCU 08-25 04:18 → M MSPAV 08-25 14:06
PROVIDERS: ADMIT Internal Medicine; ATTEND Internal Medicine Nephrology
DX: T42.8X1A Poisoning by antiparkinsonism drugs and other central muscle-tone depressants, accidental (unintentional), initial encounter (principal); G92 Toxic encephalopathy; R00.1 Bradycardia, unspecified; F41.9 Anxiety disorder, unspecified; F32.9 Major depressive disorder, single episode, unspecified; M54.5 Low back pain; F42.9 Obsessive-compulsive disorder, unspecified; R26.89 Other abnormalities of gait and mobility; J30.9 Allergic rhinitis, unspecified; G47.30 Sleep apnea, unspecified; M48.061 Spinal stenosis, lumbar region without neurogenic claudication; F43.10 Post-traumatic stress disorder, unspecified; E66.9 Obesity, unspecified; K64.9 Unspecified hemorrhoids; Z68.37 Body mass index [BMI] 37.0-37.9, adult; K21.9 Gastro-esophageal reflux disease without esophagitis; Z98.84 Bariatric surgery status; Z91.5 Personal history of self-harm; Z79.899 Other long term (current) drug therapy; Z88.2 Allergy status to sulfonamides; Z88.8 Allergy status to other drugs, medicaments and biological substances; Z90.49 Acquired absence of other specified parts of digestive tract

== ENCOUNTER 2019-11-19 16:52 | Emergency (ER) | payer OTHER ==
[~2019-11-19] VITALS: Ht 167.6 cm; Wt 105.4 kg
[~2019-11-19 16:52] MED LIST changes: +BACL1TAB9 PO; +BUPR15TASR PO; +DULO1CAP6 PO; +FLOM0.4C39 PO; +GABA800T4 PO; +LACT10SO3 PO; +MED REC COMMENT; +QUET1TAB10 PO; +TRAZ-189 PO
[2019-11-19 19:01] LABS: BASO # 0.1 10^3/uL (0.0-0.2); BASO % 0.8 % (0.0-1.0); EOS # 0.1 10^3/uL (0.0-0.5); EOS % 1.2 % (0.0-3.0); HEMATOCRIT 38.7 % (36.0-47.0); HEMOGLOBIN 12.6 g/dl (12.0-15.5); LYMPH # 2.4 10^3/uL (1.5-5.0); LYMPH % 36.1 % (24.0-44.0); MEAN CORPUSCULAR HEMOGLOBIN 31.1 pg (27.0-33.0); MEAN CORPUSCULAR HGB CONC 32.6 g/dl (32.0-36.5); MEAN CORPUSCULAR VOLUME 95.6 fl (80.0-96.0); MONO # 0.4 10^3/uL (0.0-0.8); MONO % 6.6 % (0.0-5.0); NEUTROPHILS # 3.6 10^3/uL (1.5-8.5); PLATELET COUNT, AUTOMATED 244 10^3/uL (150-450); RED BLOOD COUNT 4.05 10^6/uL (4.00-5.40); WHITE BLOOD COUNT 6.5 10^3/uL (4.0-10.0)
--- NOTE | 2019-11-19 19:23 | REPVR ---
PROCEDURE INFORMATION: Exam: CT Thoracic Spine Without Contrast Exam date and time: 11/19/2019 7:00 PM Age: 49 years old Clinical indication: Pain in thoracic spine; Additional info: Vertebral tenderness, difficulty walking TECHNIQUE: Imaging protocol: Computed tomography images of the thoracic spine without contrast. Radiation optimization: All CT scans at this facility use at least one of these dose optimization techniques: automated exposure control; mA and/or kV adjustment per patient size (includes targeted exams where dose is matched to clinical indication); or iterative reconstruction. COMPARISON: No relevant prior studies available. FINDINGS: Vertebrae: No acute fracture. Normal alignment. Discs/Spinal canal/Neural foramina: The spine demonstrates mild degenerative changes. Soft tissues: Unremarkable. Stomach and bowel: This patient is status post gastric bypass surgery. IMPRESSION: 1. Mild degenerative changes in the thoracic spine. No acute findings. 2. This patient is status post gastric bypass surgery. Electronically signed by: Alex Mendoza On 11/19/2019 19:23:47 PM
--- NOTE | 2019-11-19 19:28 | REPVR ---
PROCEDURE INFORMATION: Exam: CT Lumbar Spine Without Contrast Exam date and time: 11/19/2019 7:00 PM Age: 49 years old Clinical indication: Low back pain; Additional info: Vertebral tenderness, difficulty walking TECHNIQUE: Imaging protocol: Computed tomography images of the lumbar spine without contrast. Radiation optimization: All CT scans at this facility use at least one of these dose optimization techniques: automated exposure control; mA and/or kV adjustment per patient size (includes targeted exams where dose is matched to clinical indication); or iterative reconstruction. COMPARISON: CT Spine, lumbar w/o contrast 09/17/2014 10:36 PM FINDINGS: Vertebrae: Normal alignment. L1-L2: No significant disc protrusion. No severe spinal canal stenosis. No significant neural foraminal narrowing. L1-L2: No significant disc protrusion. No severe spinal canal stenosis. No significant neural foraminal narrowing. L2-L3: No significant disc protrusion. No spinal canal stenosis. No neural foraminal narrowing. L3-L4: There is a mild central spinal stenosis at L3-L4 secondary to diffuse annular bulging, thickened ligamentum flavum with mild facet joint arthropathy. L4-L5: There is a moderate to severe central spinal stenosis at the L4-L5 secondary to diffuse annular bulging, thickened ligamentum flavum with moderate facet joint arthropathy. Severe disc space narrowing. L5-S1: Diffusely bulging annulus L5-S1. No spinal stenosis. Mild bilateral facet joint arthropathy. Gallbladder and bile ducts: There has been a cholecystectomy. Stomach and bowel: This patient is status post gastric bypass surgery. Soft tissues: Unremarkable. IMPRESSION: 1. Degenerative changes with a mild central spinal stenosis at L3-L4 and moderate to severe central spinal stenosis at L4-L5. Bulging annulus L5-S1 without spinal stenosis. 2. This patient is status post gastric bypass surgery. 3. There has been a cholecystectomy. Electronically signed by: Alex Mendoza On 11/19/2019 19:27:54 PM
[2019-11-19 19:29] LABS: ERYTHROCYTE SEDIMENTATION RATE 26 mm/hr (0-20)
[2019-11-19 19:33] LABS: ALBUMIN 2.9 GM/DL (3.2-5.2); ALT/SGPT 14 U/L (12-78); BILIRUBIN,DIRECT 0.1 MG/DL (0.0-0.2); BILIRUBIN,TOTAL 0.4 MG/DL (0.2-1.0); C REACTIVE PROTEIN QUANTITATIV < 0.30 MG/DL (0.00-0.30); TOTAL PROTEIN 6.4 GM/DL (6.4-8.2)
--- NOTE | 2019-11-19 20:01 | REPVR ---
PROCEDURE INFORMATION: Exam: XR Bilateral Hips with Pelvis when Performed Exam date and time: 11/19/2019 7:33 PM Age: 49 years old Clinical indication: Hip pain; Bilateral; Additional info: Bilat hip pain extending down legs TECHNIQUE: Imaging protocol: XR bilateral hips with pelvis when performed. Views: 2 views. COMPARISON: CT ABD PELVIS W/O CONTRAST 08/25/2019 6:09 PM FINDINGS: Bones/joints: Mild degenerative changes both hips. Otherwise unremarkable. No acute fracture. Soft tissues: Surgical clips in the right lower quadrant and adjacent to the left side of the sacrum consistent with prior hysterectomy. IMPRESSION: No acute findings. Electronically signed by: Alex Mendoza On 11/19/2019 20:01:02 PM
[2019-11-19] MEDS ORDERED: PROHANCE 279.3MG/ML 5ML VIAL As Ordered ONE (21:02)
[2019-11-19] MEDS ORDERED: PROHANCE 279.3MG/ML 15ML VIAL As Ordered ONE (21:03)
--- NOTE | 2019-11-19 21:51 | REPVR ---
PROCEDURE INFORMATION: Exam: MR Lumbar Spine Without and With Contrast. Exam date and time: 11/19/2019 9:21 PM Age: 49 years old Clinical indication: Low back pain; Prior surgery; Surgery date: 6+ months; Patient HX: HX cauda equina, S/P SX 5 years ago, lbp bladder incontinence; Additional info: HX cauda equina, severe low back pain, constipation weakness TECHNIQUE: Imaging protocol: Multiplanar magnetic resonance images of the lumbar spine without and with intravenous contrast. Contrast material: PROHANCE; Contrast volume: 20 ml; Contrast route: INTRAVENOUS (IV); COMPARISON: CT Spine, lumbar w/o contrast 11/19/2019 6:55 PM FINDINGS: Vertebral body height and AP alignment is preserved. Multilevel disc desiccation. Disc space narrowing greatest at L4-L5, moderate. There is degenerative endplate signal. No evidence of discitis/osteomyelitis. No epidural fluid collection. No pathologic intrathecal enhancement. Incidental vertebral body hemangioma at L1. L1-L2: Mild bilateral facet joint arthropathy without significant central or foraminal stenosis. L2-L3: Minimal disc bulge and mild bilateral facet joint arthropathy. No significant central or foraminal stenosis. L3-L4: Minimal disc bulge and togz-ai-cpmwlkys bilateral facet joint arthropathy. No significant central or foraminal stenosis. L4-L5: Prior laminectomy. There is posterior disc osteophyte complex without significant central or foraminal stenosis. L5-S1: Minimal disc bulge and zaok-kq-jjtwkamo bilateral facet joint arthropathy. No significant central canal stenosis. Mild right foraminal stenosis. IMPRESSION: 1. No acute abnormality. 2. Degenerative and postoperative findings as above without significant central canal compromise. Electronically signed by: Pepe Sanford On 11/19/2019 21:51:39 PM
[2019-11-19] MEDS ORDERED: KETOROLAC 30 MG/ML 1ML VIAL IV ONE (22:15)
[2019-11-19 22:16] VITALS: BP 104/60
== END 2019-11-19 22:41 | disposition home or self-care (01) ==
LOC: M ED 16:52
DX: M51.34 Other intervertebral disc degeneration, thoracic region (principal); M51.36 Other intervertebral disc degeneration, lumbar region; M51.26 Other intervertebral disc displacement, lumbar region; M48.061 Spinal stenosis, lumbar region without neurogenic claudication; Z98.84 Bariatric surgery status; K21.9 Gastro-esophageal reflux disease without esophagitis; F17.200 Nicotine dependence, unspecified, uncomplicated; Z88.2 Allergy status to sulfonamides; Z79.899 Other long term (current) drug therapy
CPT/HCPCS: 36415; 72128; 72131; 72158; 73521; 80047; 80076; 81001; 85025; 85652; 86140; 87088; 87186; 99284; A9576; J1885

== ENCOUNTER 2020-03-28 13:43 | Emergency (ER) | payer OTHER ==
[~2020-03-28] VITALS: Ht 167.6 cm; Wt 97.5 kg
[~2020-03-28 13:43] MED LIST changes: -QUET1TAB10 PO; +QUET300T2 PO
--- OUTSIDE RECORDS SUMMARY | 2020-03-28 13:51 | CCD ---
Author Khadra Sotomayor Organization Unknown Address [address] [place] [address] Phone Care Team Providers Care Sustainable Communities Designer Name Role Phone Susana Rascon PCP Allergies, Adverse Reactions, Alerts Concept Allergy Name Reaction Severity Onset Date Status Documentation Date Phone Number Npid Taxonomy Code Taxonomy Desc Author Last Name Author Fi rst Name Concept Type 098171 Ambien (zolpidem) Sleep-walking/eating and not effective 01/04/2019 Active 01/15/2019 [id number] Licensed Practical Nurse Imer Aldana RXNORM [id number] lamotrigine Loss of coordination, diplopia 017 Active 10/29/2016 [id number] Licensed Practical Nurse Jose veloz RXNORM [id number] Seroquel (quetiapine) unspecified, Patient Choice 06/27/2015 Inactive 06/27/2015 [id number] Registered Nurse Herman Yanez RXNORM Problem List Concept Problem Description Status Start Date Created Date Resolv ed Date Snomed Code F31.9 Bipolar I Disorder, Current or most rece nt episode manic, Unspecified Active 02/17/2015 02/17/2015 F17.200 Tobacco Use Disorder, Moderate Active 01/24/2019 01/25/20 19 Medications Rx Norm Medication Route Route Concept Start Date Stop Date Dosage Adeel quency Duration Formula Strength Dosage Form Dosage Form Code Dosage Description Medication Id Account Npid Author First Name Author Last Name Taxonomy Code Taxonomy Desc Phone Number [id number] bupropion HCl by mouth [id number] 08/08/2019 03/02/2020 once a day 30 300 mg tablet extended release 24 hr 67470 807699 [phone] Cisco Martinez [id number] Psychiatry [id number] 699608 trazodone by mouth [id number] 08/09/2019 03/02/2020 every night 30 100 mg tablet as needed 44166 990046 [id number] Cisco Martinez [id number] Psychi atry [id number] 121680 duloxetine by mouth [id number] 10/31/2019 03/02/2020 twice a day 30 30 mg capsule,delayed release(DR/EC) as directed 18384 673461 [id number] Cisco Martinez [id number] Psychiatry [id number] 390156 quetiapine by mouth [id number] 01/02/2020 03/02/2020 at bedtime 30 200 mg tablet extended release 24 hr 81414 627848 [id number] Cisco Martinez [id number] Psychiatry [id number] 938989 quetiapine by mouth [id number] 01/02/2020 03/02/2020 at bedtime 30 400 mg tablet extended release 24 hr 75590 633900 [id number] Cisco Martinez [id number] Psychiatry [id number] Social History Social History Element Description Concept Effective Date Smoking Status Unknown if ever smoked [id number] Immunizations No Data in Section Vital Signs No Data in Section Procedures Date Concept Id Description Targeted Site Concept Targeted Site Concept Type 02/26/2020 02045-94 TEMPMHCTelemed 30" Psychotherapy CPT Patient has no history of implantable de vices Encounters Encounter Start Date End Date Encounter Type Description Diagnosis Di agnosis Desc Location Author First Name Author Last Name Npid Taxonomy Cod e Taxonomy Desc Phone Number Location Addr1 Location Addr2 Location [facility] Location [facility] Location [facility] [id number] 02/26/2020 02/26/2020 46932-11 TEMPMHCTelemed 30" Psychothe rapy F31.[address], [address] [facility] Abiodun Meza [id number] Drywall Hanger [phone] [address] [address] Plan of Treatment No Data in Section Lab Results No Data in Section Instructions No Data in Section Insurance Providers Insurance Id Policy Effective Date Policy Thru Date Company N kevyn [id number] 2013 [employer]
--- OUTSIDE RECORDS SUMMARY | 2020-03-28 13:51 | CCD ---
Author Khadra Sotomayor Organization Unknown Address [address] [place] [address] Phone Care Team Providers Care Advertising Statistical Clerk Name Role Phone Susana Rascon PCP Allergies, Adverse Reactions, Alerts Concept Allergy Name Reaction Severity Onset Date Status Documentation Date Phone Number Npid Taxonomy Code Taxonomy Desc Author Last Name Author Fi rst Name Concept Type 958106 Ambien (zolpidem) Sleep-walking/eating and not effective 01/04/2019 Active 01/15/2019 [id number] Licensed Practical Nurse Imer Aldana RXNORM 5286593 lamotrigine Loss of coordination, diplopia 017 Active 10/29/2016 [id number] [id number] Licensed Practical Nurse Jose veloz RXNORM [id number] Seroquel (quetiapine) unspecified, Patient Choice 06/27/2015 Inactive 06/27/2015 [id number] Registered Nurse Herman Yanez RXNORM Problem List [...] Name Taxonomy Code Taxonomy Desc Phone Number [phone] Cymbalta by mouth [id number] 01/07/2020 at bedtime 60 mg capsule,delayed release(DR/EC) 96324 340962 [id number] Cisco Martinez [id number] P sychiatry [phone] 786301 Cymbalta by mouth [id number] 01/07/2020 every morning 30 mg capsule,delayed release(DR/EC) 23043 100099 [id number] Cisco Martinez [id number] Psychiatry [id number] Social History Social History Element Description Concept Effective Date Smoking Status Unknown if ever smoked [id number] Immunizations No Data in Section Vital Signs No Data in Section Procedures Date Concept Id Description Targeted Site Concept Targeted Site Concept Type 03/18/2020 40560-81 [id number]"Psychotherapy CPT Patient has no history of implantable de vices Encounters Encounter Start Date End Date Encounter Type Description Diagnosis Di agnosis Desc Location Author First Name Author Last Name Npid Taxonomy Cod e Taxonomy Desc Phone Number Location Addr1 Location Addr2 Location [facility] Location Sta te Location [facility] [id number] 03/18/2020 03/18/2020 96532-50 [id number]"Psychothera py F31.9 Bipolar disorder, unspecified [facility] Abiodun Meza [id number] Fiberline Supervisor [phone] [address] [address] Plan of Treatment No Data in Section Lab Results No Data in Section Instructions No Data in Section Insurance Providers Insurance Id Policy Effective Date Policy Thru Date Company Yang bagley [id number] 2013 [employer]
--- OUTSIDE RECORDS SUMMARY | 2020-03-28 13:52 | CCD ---
Author Khadra Sotomayor Organization Unknown Address [address] [address] Phone Care Team Providers Care Cutter V Groove Name Role Phone Susana Rascon PCP Allergies, Adverse Reactions, Alerts Concept Allergy Name Reaction Severity Onset Date Status Documentation Date Phone Number Npid Taxonomy Code Taxonomy Desc Author Last Name Author Fi rst Name Concept Type 993536 Ambien (zolpidem) Sleep-walking/eating and not effective 01/04/2019 Active 01/15/2019 [id number] Licensed Practical Nurse Imer Aldana RXNORM [id number] lamotrigine Loss of coordination, diplopia 017 Active 10/29/2016 [id number] Licensed Practical Nurse Jose veloz RXNORM [id number] Seroquel (quetiapine) unspecified, Patient Choice 06/27/2015 Inactive 06/27/2015 [id number] Registered Nurse Herman Yanez RXNORM Problem List [...] Name Taxonomy Code Taxonomy Desc Phone Number [id number] bupropion HCl by mouth [id number] 08/08/2019 03/02/2020 once a day 30 300 mg tablet extended release 24 hr [id number] Cisco Martinez [id number] Psychiatry [id number] trazodone by mouth [id number] 08/09/2019 03/02/2020 every night 30 100 mg tablet as needed 05425 180226 [id number] Cisco Martinez [id number] Psychi atry [id number] 303696 duloxetine by mouth [id number] 10/31/2019 03/02/2020 twice a day 30 30 mg capsule,delayed release(DR/EC) as directed 42083 077471 [id number] Cisco Martinez [id number] Psychiatry [id number] 693202 quetiapine by mouth [id number] 01/02/2020 03/02/2020 at bedtime 30 200 mg tablet extended release 24 hr 68485 903503 [id number] Cisco Martinez [id number] Psychiatry [id number] 821264 quetiapine by mouth [id number] 01/02/2020 03/02/2020 at bedtime 30 400 mg tablet extended release 24 hr 23229 206408 [id number] Cisco Martinez [id number] Psychiatry [id number] Social History Social History Element Description Concept Effective Date Smoking Status Unknown if ever smoked [id number] Immunizations No Data in Section Vital Signs No Data in Section Procedures Date Concept Id Description Targeted Site Concept Targeted Site Concept Type 01/28/2020 43071 Extended Individual Psychotherapy - 45 min CPT Patient has no history of implantable de vices Encounters Encounter Start Date End Date Encounter Type Description Diagnosis Di agnosis Desc Location Author First Name Author Last Name Npid Taxonomy Cod e Taxonomy Desc Phone Number Location Addr1 Location Addr2 Location [facility] [id number] 01/28/2020 01/28/2020 77977 Extended Individual Psych otherapy - 45 min F31.9 Bipolar disorder, unspecified [facility] Abiodun Meza [id number] Retail Route Supervisor [phone] [address] [address] Plan of Treatment No Data in Section Lab Results No Data in Section Instructions No Data in Section Insurance Providers Insurance Id Policy Effective Date Policy Thru Date Company N kevyn [id number] 2013 [employer] Managed MNeisha euceda
--- OUTSIDE RECORDS SUMMARY | 2020-03-28 13:52 | CCD ---
Author Author [facility] Address Unknown Phone Unavailable Care Team Providers Care Biostatistics Manager Name Role Phone Madeleine Long OVER SHORT AND DAMAGE CLERK Unavailable Unavailable Yulisa Mulligan MD Unavailable Unavailable Yulisa Mulligan MD Unavailable Unavailable Yulisa Mulligan MD Unavailable Unavailable Yulisa Mulligan MD Unavailable Unavailable Yulisa Mulligan MD Unavailable Unavailable Yulisa Mulligan MD Unavailable Unavailable Yulisa Mulligan MD Unavailable Unavailable Yulisa Mulligan MD Unavailable Unavailable Yulisa Mulligan MD Unavailable Unavailable Yulisa Mulligan MD Unavailable Unavailable Yulisa Mulligan MD Unavailable Unavailable Yulisa Mulligan MD Unavailable Unavailable Yulisa Mulligan MD Unavailable Unavailable Yulisa Mulligan MD Unavailable Unavailable Yulisa Mulligan MD Unavailable Unavailable Yulisa Mulligan MD Unavailable Unavailable Yulisa Mulligan MD Unavailable Unavailable Yulisa Mulligan MD Unavailable Unavailable Yulisa Mulligan MD Unavailable Unavailable Yulisa Mulligan MD Unavailable Unavailable Yulisa Mulligan MD Unavailable Unavailable Yulisa Mulligan MD Unavailable Unavailable Yulisa Mulligan MD Unavailable Unavailable Yulisa Mulligan MD Unavailable Unavailable Yulisa Mulligan MD Unavailable Unavailable Yulisa Mulligan MD Unavailable Unavailable Yulisa Mulligan MD Unavailable Unavailable Yulisa Mulligan MD Unavailable Unavailable Yulisa Mulligan MD Unavailable Unavailable Yulisa Mulligan MD Unavailable Unavailable Yulisa Mulligan MD Unavailable Unavailable Yulisa Mulligan MD Unavailable Unavailable Yulisa Mulligan MD Unavailable Unavailable Yulisa Mulligan MD Unavailable Unavailable Yulisa Mulligan MD Unavailable Unavailable Yulisa Mulligan MD Unavailable Unavailable Yulisa Mulligan MD Unavailable Unavailable Yulisa Mulligan MD Unavailable Unavailable Yulisa Mulligan MD Unavailable Unavailable Yulisa Mulligan MD Unavailable Unavailable Yulisa Mulligan MD Unavailable Unavailable Yulisa Mulligan MD Unavailable Unavailable Yulisa Mulligan MD Unavailable Unavailable Yulisa Mulligan MD Unavailable Unavailable Yulisa Mulligan MD Unavailable Unavailable Yulisa Mulligan MD Unavailable Unavailable Yulisa Mulligan MD Unavailable Unavailable Yulisa Mulligan MD Unavailable Unavailable Yulisa Mulligan MD Unavailable Unavailable Yulisa Mulligan MD Unavailable Unavailable Yulisa Mulligan MD Unavailable Unavailable Yulisa Mulligan MD Unavailable Unavailable Yulisa Mulligan MD Unavailable Unavailable Yulisa Mulligan MD Unavailable Unavailable Yulisa Mulligan MD Unavailable Unavailable Yulisa Mulligan MD Unavailable Unavailable Yulisa Mulligan MD Unavailable Unavailable Yulisa Mulligan MD Unavailable Unavailable Yulisa Mulligan MD Unavailable Unavailable Yulisa Mulligan MD Unavailable Unavailable Yulisa Mulligan MD Unavailable Unavailable Yulisa Mulligan MD Unavailable Unavailable Yulisa Mulligan MD Unavailable Unavailable Yulisa Mulligan MD Unavailable Unavailable Yulisa Mulligan MD Unavailable Unavailable Yulisa Mulligan MD Unavailable Unavailable Yulisa Mulligan MD Unavailable Unavailable Yulisa Mulligan MD Unavailable Unavailable Yulisa Mulligan MD Unavailable Unavailable Yulisa Mulligan MD Unavailable Unavailable Yulisa Mulligan MD Unavailable Unavailable Yulisa Mulligan MD Unavailable Unavailable Yulisa Mulligan MD Unavailable Unavailable Yulisa Mulligan MD Unavailable Unavailable Yulisa Mulligan MD Unavailable Unavailable Yulisa Mulligan MD Unavailable Unavailable Yulisa Mulilgan MD Unavailable Unavailable Yulisa Mulligan MD Unavailable Unavailable Yulisa Mulligan MD Unavailable Unavailable Yulisa Mulligan MD Unavailable Unavailable Yulisa Mulligan MD Unavailable Unavailable Yulisa Mulligan MD Unavailable Unavailable Yulisa Mulligan MD Unavailable Unavailable Yulisa Mulligan MD Unavailable Unavailable Yulisa Mulligan MD Unavailable Unavailable Yulisa Mulligan MD Unavailable Unavailable Yulisa Mulligan MD Unavailable Unavailable Yulisa Mulligan MD Unavailable Unavailable Yulisa Mulligan MD Unavailable Unavailable Yulisa Mulligan MD Unavailable Unavailable Yulisa Mulligan MD Unavailable Unavailable Yulisa Mulligan MD Unavailable Unavailable Yulisa Mulligan MD Unavailable Unavailable Yulisa Mulligan MD Unavailable Unavailable Yulisa Mulligan MD Unavailable Unavailable Yulisa Mulligan MD Unavailable Unavailable Yulisa Mulligan MD Unavailable Unavailable Yulisa Mulligan MD Unavailable Unavailable Yulisa Mulligan MD Unavailable Unavailable Yulisa Mulligan MD Unavailable Unavailable Yulisa Mulligan MD Unavailable Unavailable Yulisa Mulligan MD Unavailable Unavailable Yulisa Mulligan MD Unavailable Unavailable Yulisa Mulligan MD Unavailable Unavailable Yulisa Mulligan MD Unavailable Unavailable Yulisa Mulligan MD Unavailable Unavailable Yulisa Mulligan MD Unavailable Unavailable Yulisa Mulligan MD Unavailable Unavailable Yulisa Mulligan MD Unavailable Unavailable Yulisa Mulligan MD Unavailable Unavailable Yulisa Mulligan MD Unavailable Unavailable Yulisa Mulligan MD Unavailable Unavailable Yulisa Mulligan MD Unavailable Unavailable Yulisa Mulligan MD Unavailable Unavailable Yulisa Mulligan MD Unavailable Unavailable Yulisa Mulligan MD Unavailable Unavailable Yulisa Mulligan MD Unavailable Unavailable Yulisa Mulligan MD Unavailable Unavailable Yulisa Mulligan MD Unavailable Unavailable Yulisa Mulligan MD Unavailable Unavailable Yulisa Mulligan MD Unavailable Unavailable Yulisa Mulligan MD Unavailable Unavailable Yulisa Mulligan MD Unavailable Unavailable Yulisa Mulligan MD Unavailable Unavailable Yulisa Mulligan MD Unavailable Unavailable Yulisa Mulligan MD Unavailable Unavailable Yulisa Mulligan MD Unavailable Unavailable Yulisa Mulligan MD Unavailable Unavailable Yulisa Mulligan MD Unavailable Unavailable Yulisa Mulligan MD Unavailable Unavailable Yulisa Mulligan MD Unavailable Unavailable Yulisa Mulligan MD Unavailable Unavailable Yulisa Mulligan MD Unavailable Unavailable Yulisa Mulligan MD Unavailable Unavailable Yulisa Mulligan MD Unavailable Unavailable Yulisa Mulligan MD Unavailable Unavailable Yulisa Mulligan MD Unavailable Unavailable Yulisa Mulligan MD Unavailable Unavailable Yulisa Mulligan MD Unavailable Unavailable Yulisa Mulligan MD Unavailable Unavailable Yulisa Mulligan MD Unavailable Unavailable Yulisa Mulligan MD Unavailable Unavailable Yulisa Mulligan MD Unavailable Unavailable Yulisa Mulligan MD Unavailable Unavailable Yulisa Mulligan MD Unavailable Unavailable Yulisa Mulligan MD Unavailable Unavailable Yulisa Mulligan MD Unavailable Unavailable Yulisa Mulligan MD Unavailable Unavailable Yulisa Mulligan MD Unavailable Unavailable Yulisa Mulligan MD Unavailable Unavailable Yulias Mulligan MD Unavailable Unavailable Yulisa Mulligan MD Unavailable Unavailable Yulisa Mulligan MD Unavailable Unavailable Yulisa Mulligan MD Unavailable Unavailable Yulisa Mulligan MD Unavailable Unavailable Yulisa Mulligan MD Unavailable Unavailable Yulisa Mulligan MD Unavailable Unavailable Yulisa Mulligan MD Unavailable Unavailable Yulisa Mulligan MD Unavailable Unavailable Yulisa Mulligan MD Unavailable Unavailable Yulisa Mulligan MD Unavailable Unavailable Yulisa Mulligan MD Unavailable Unavailable Yulisa Mulligan MD Unavailable Unavailable Yulisa Mulligan MD Unavailable Unavailable Yulisa Mulligan MD Unavailable Unavailable Yulisa Mulligan MD Unavailable Unavailable Yulisa Mulligan MD Unavailable Unavailable Yulisa Mulligan MD Unavailable Unavailable Yulisa Mulligan MD Unavailable Unavailable Yulisa Mulligan MD Unavailable Unavailable Yulisa Mulligan MD Unavailable Unavailable Yulisa Mulligan MD Unavailable Unavailable Yulisa Mulligan MD Unavailable Unavailable Yulisa Mulligan MD Unavailable Unavailable Yulisa Mulligan MD Unavailable Unavailable Yulisa Mulligan MD Unavailable Unavailable Yulisa Mulligan MD Unavailable Unavailable Yulisa Mulligan MD Unavailable Unavailable Catracho Jr, Edward Santos PA Unavailable Unavailable Catracho Jr, Edward Santos PA Unavailable Unavailable Catracho Jr, Edward Santos PA Unavailable Unavailable Catracho Jr, Edward Santos PA Unavailable Unavailable Catracho Jr, Edward Santos PA Unavailable Unavailable Catracho Jr, Edward Santos PA Unavailable Unavailable Catracho Jr, Edward Santos PA Unavailable Unavailable Catracho Jr, Edward Santos PA Unavailable Unavailable Catracho Jr, Edward Santos PA Unavailable Unavailable Catracho Jr, Edward Santos PA Unavailable Unavailable Catracho Jr, Edward Santos PA Unavailable Unavailable Catracho Jr, Edward Santos PA Unavailable Unavailable Ctaracho Jr, Edward Santos PA Unavailable Unavailable Catracho Jr, Edward Santos PA Unavailable Unavailable Catracho Jr, Edward Santos PA Unavailable Unavailable Catracho Jr, Edward Santos PA Unavailable Unavailable Catracho Jr, Edward Santos PA Unavailable Unavailable Catracho Jr, Edward Santos PA Unavailable Unavailable Catracho Jr, Edward Santos PA Unavailable Unavailable Catracho Jr, Edward Santos PA Unavailable Unavailable Catracho Jr, Edward Santos PA Unavailable Unavailable Catracho Jr, Edward Santos PA Unavailable Unavailable Catracho Jr, Edward Santos PA Unavailable Unavailable Catracho Jr, Edward Santos PA Unavailable Unavailable Catracho Jr, Edward Santos PA Unavailable Unavailable Catracho Jr, Edward Santos PA Unavailable Unavailable Catracho Jr, Edward Santos PA Unavailable Unavailable Catracho Jr, Edward Santos PA Unavailable Unavailable Catracho Jr, Edward Santos PA Unavailable Unavailable Catracho Jr, Edward Santos PA Unavailable Unavailable Catracho Jr, Edward Santos PA Unavailable Unavailable Catracho Jr, Edward Santos PA Unavailable Unavailable Catracho Jr, Edward Santos PA Unavailable Unavailable Catracho Jr, Edward Santos PA Unavailable Unavailable Catracho Jr, Edward Santos PA Unavailable Unavailable Catracho Jr, Edward Santos PA Unavailable Unavailable Catracho Jr, Edward Santos PA Unavailable Unavailable Catracho Jr, Edward Santos PA Unavailable Unavailable Catracho Jr, Edward Santos PA Unavailable Unavailable Catracho Jr, Edward Santos PA Unavailable Unavailable Catracho Jr, Edward Santos PA Unavailable Unavailable Catracho Jr, Edward Santos PA Unavailable Unavailable Susana Rascon Unavailable Roe PARTIDA MD Unavailable Unavailable Roe PARTIDA MD Unavailable Unavailable Roe PARTIDA MD Unavailable Unavailable Roe PARTIDA MD Unavailable Unavailable Roe PARTIDA MD Unavailable Unavailable Roe PARTIDA MD Unavailable Unavailable Roe PARTIDA MD Unavailable Unavailable Roe PARTIDA MD Unavailable Unavailable Roe PARTIDA MD Unavailable Unavailable Roe PARTIDA MD Unavailable Unavailable Roe PARTIDA MD Unavailable Unavailable Roe PARTDIA MD Unavailable Unavailable Roe PARTIDA MD Unavailable Unavailable Roe PARTIDA MD Unavailable Unavailable Roe PARTIDA MD Unavailable Unavailable Roe PARTIDA MD Unavailable Unavailable Roe PARTIDA MD Unavailable Unavailable Roe PARTIDA MD Unavailable Unavailable Roe PARTIDA MD Unavailable Unavailable Roe PARTIDA MD Unavailable Unavailable Roe PARTIDA MD Unavailable Unavailable Roe PARTIDA MD Unavailable Unavailable Roe PARTIDA MD Unavailable Unavailable Roe PARTIDA MD Unavailable Unavailable Roe PARTIDA MD Unavailable Unavailable Roe PARTIDA MD Unavailable Unavailable Roe PARTIDA MD Unavailable Unavailable Roe PARTIDA MD Unavailable Unavailable Roe PARTIDA MD Unavailable Unavailable Roe PARTIDA MD Unavailable Unavailable Roe PARTIDA MD Unavailable Unavailable Roe PARTIDA MD Unavailable Unavailable Roe PARTIDA MD Unavailable Unavailable Roe PARTIDA MD Unavailable Unavailable Roe PARTIDA MD Unavailable Unavailable Roe PARTIDA MD Unavailable Unavailable Roe PARTIDA MD Unavailable Unavailable Roe PARTIDA MD Unavailable Unavailable Roe PARTIDA MD Unavailable Unavailable Roe PARTIDA MD Unavailable Unavailable Roe PARTIDA MD Unavailable Unavailable Roe PARTIDA MD Unavailable Unavailable Roe PARTIDA MD Unavailable Unavailable Roe PARTIDA MD Unavailable Unavailable Roe PARTIDA MD Unavailable Unavailable Roe PARTIDA MD Unavailable Unavailable Roe PARTIDA MD Unavailable Unavailable Roe PARTIDA MD Unavailable Unavailable Roe PARTIDA MD Unavailable Unavailable Roe PARTIDA MD Unavailable Unavailable Roe PARTIDA MD Unavailable Unavailable Roe PARTIDA MD Unavailable Unavailable Roe PARTIDA MD Unavailable Unavailable Roe PARTIDA MD Unavailable Unavailable Roe PARTIDA MD Unavailable Unavailable Roe PARTIDA MD Unavailable Unavailable Roe PARTIDA MD Unavailable Unavailable Roe PARTIDA MD Unavailable Unavailable Roe PARTIDA MD Unavailable Unavailable Roe PARTIDA MD Unavailable Unavailable Roe PARTIDA MD Unavailable Unavailable Roe PARTIDA MD Unavailable Unavailable Roe PARTIDA MD Unavailable Unavailable Roe PARTIDA MD Unavailable Unavailable Roe PARTIDA MD Unavailable Unavailable Roe PARTIDA MD Unavailable Unavailable Roe PARTIDA MD Unavailable Unavailable Roe PARTIDA MD Unavailable Unavailable Roe PARTIDA MD Unavailable Unavailable Roe PARTIDA MD Unavailable Unavailable Roe PARTIDA MD Unavailable Unavailable Roe PARTIDA MD Unavailable Unavailable Roe PARTIDA MD Unavailable Unavailable Roe PARTIDA MD Unavailable Unavailable Roe PARTIDA MD Unavailable Unavailable Roe PARTIDA MD Unavailable Unavailable Roe PARTIDA MD Unavailable Unavailable Roe PARTIDA MD Unavailable Unavailable Roe PARTIDA MD Unavailable Unavailable Roe PARTIDA MD Unavailable Unavailable Roe PARTIDA MD Unavailable Unavailable Roe PARTIDA MD Unavailable Unavailable Roe PARTIDA MD Unavailable Unavailable Catracho Jr, Edward Santos PA Unavailable Unavailable Catracho Jr, Edward Santos PA Unavailable Unavailable Catracho Jr, Edward Santos PA Unavailable Unavailable Catracho Jr, Edward Santos PA Unavailable Unavailable Catracho Jr, Edward Santos PA Unavailable Unavailable Catracho Jr, Edward Santos PA Unavailable Unavailable Catracho Jr, Edward Santos PA Unavailable Unavailable Catracho Jr, Edward Santos PA Unavailable Unavailable Catracho Jr, Edward Santos PA Unavailable Unavailable Catracho Jr, Edward Santos PA Unavailable Unavailable Catracho Jr, Edward Santos PA Unavailable Unavailable Catracho Jr, Edward Santos PA Unavailable Unavailable Catracho Jr, Edward Santos PA Unavailable Unavailable Catracho Jr, Edward Santos PA Unavailable Unavailable Catracho Jr, Edward Santos PA Unavailable Unavailable Catracho Jr, Edward Santos PA Unavailable Unavailable Catracho Jr, Edward Santos PA Unavailable Unavailable Catracho Jr, Edward Santos PA Unavailable Unavailable Catracho Jr, Edward Santos PA Unavailable Unavailable Catracho Jr, Edward Santos PA Unavailable Unavailable Catracho Jr, Edward Santos PA Unavailable Unavailable Catracho Jr, Edward Santos PA Unavailable Unavailable Catracho Jr, Edward Santos PA Unavailable Unavailable Catracho Jr, Edward Santos PA Unavailable Unavailable Catracho Jr, Edward Santos PA Unavailable Unavailable Catracho Jr, Edward Santos PA Unavailable Unavailable Catracho Jr, Edward Santos PA Unavailable Unavailable Catracho Jr, Edward Santos PA Unavailable Unavailable Catracho Jr, Edward Santos PA Unavailable Unavailable Catracho Jr, Edward Santos PA Unavailable Unavailable Catracho Jr, Edward Santos PA Unavailable Unavailable Catracho Jr, Edward Santos PA Unavailable Unavailable Catracho Jr, Edward Santos PA Unavailable Unavailable Catracho Jr, Edward Santos PA Unavailable Unavailable Catracho Jr, Edward Santos PA Unavailable Unavailable Catracho Jr, Edward Santos PA Unavailable Unavailable Catracho Jr, Edward Santos PA Unavailable Unavailable Catracho Jr, Edward Santos PA Unavailable Unavailable Catracho Jr, Edward Santos PA Unavailable Unavailable Catracho Jr, Edward Santos PA Unavailable Unavailable Catracho Jr, Edward Santos PA Unavailable Unavailable Catracho Jr, Edward Santos PA Unavailable Unavailable Long, F Madeleine OVER SHORT AND DAMAGE CLERK-BC Unavailable Unavailable Long, F Madeleine OVER SHORT AND DAMAGE CLERK-BC Unavailable Unavailable Long, F Madeleine OVER SHORT AND DAMAGE CLERK-BC Unavailable Unavailable Long, F Madeleine OVER SHORT AND DAMAGE CLERK-BC Unavailable Unavailable Long, F Madeleine OVER SHORT AND DAMAGE CLERK-BC Unavailable Unavailable Long, F Madeleine OVER SHORT AND DAMAGE CLERK-BC Unavailable Unavailable Long, F Madeleine OVER SHORT AND DAMAGE CLERK-BC Unavailable Unavailable Long, F Madeleine OVER SHORT AND DAMAGE CLERK-BC Unavailable Unavailable Long, F Madeleine OVER SHORT AND DAMAGE CLERK-BC Unavailable Unavailable Long, F Madeleine OVER SHORT AND DAMAGE CLERK-BC Unavailable Unavailable Long, F Madeleine OVER SHORT AND DAMAGE CLERK-BC Unavailable Unavailable Long, F Madeleine OVER SHORT AND DAMAGE CLERK-BC Unavailable Unavailable Long, F Madeleine OVER SHORT AND DAMAGE CLERK-BC Unavailable Unavailable Long, F Madeleine OVER SHORT AND DAMAGE CLERK-BC Unavailable Unavailable Long, F Madeleine OVER SHORT AND DAMAGE CLERK-BC Unavailable Unavailable Long, F Madeleine OVER SHORT AND DAMAGE CLERK-BC Unavailable Unavailable Long, F Madeleine OVER SHORT AND DAMAGE CLERK-BC Unavailable Unavailable Long, F Madeleine OVER SHORT AND DAMAGE CLERK-BC Unavailable Unavailable Long, F Madeleine OVER SHORT AND DAMAGE CLERK-BC Unavailable Unavailable Long, F Madeleine OVER SHORT AND DAMAGE CLERK-BC Unavailable Unavailable Long, F Madeleine OVER SHORT AND DAMAGE CLERK-BC Unavailable Unavailable Long, F Madeleine OVER SHORT AND DAMAGE CLERK-BC Unavailable Unavailable Yulisa Mulligan MD Unavailable Unavailable Yulisa Mulligan MD Unavailable Unavailable Yulisa Mulligan MD Unavailable Unavailable Yulisa Mulligan MD Unavailable Unavailable Yulisa Mulligan MD Unavailable Unavailable Yulisa Mulligan MD Unavailable Unavailable Yulisa Mulligan MD Unavailable Unavailable Yulisa Mulligan MD Unavailable Unavailable Yulisa Mulligan MD Unavailable Unavailable Yulisa Mulligan MD Unavailable Unavailable Yulisa Mulligan MD Unavailable Unavailable Yulisa Mulligan MD Unavailable Unavailable Yulisa Mulligan MD Unavailable Unavailable Yulisa Mulligan MD Unavailable Unavailable Yulisa Mulligan MD Unavailable Unavailable Yulisa Mulligan MD Unavailable Unavailable Yulisa Mulligan MD Unavailable Unavailable Yulisa Mulligan MD Unavailable Unavailable Yulisa Mulligan MD Unavailable Unavailable Yulisa Mulligan MD Unavailable Unavailable Yulisa Mulligan MD Unavailable Unavailable Yulisa Mulligan MD Unavailable Unavailable Yulisa Mulligan MD Unavailable Unavailable Yulisa Mulligan MD Unavailable Unavailable Yulisa Mulligan MD Unavailable Unavailable Yulisa Mulligan MD Unavailable Unavailable Yulisa Mulligan MD Unavailable Unavailable Yulisa Mulligan MD Unavailable Unavailable Yulisa Mulligan MD Unavailable Unavailable Yulisa Mulligan MD Unavailable Unavailable Yulisa Mulligan MD Unavailable Unavailable Yulisa Mulligan MD Unavailable Unavailable Yulisa Mulligan MD Unavailable Unavailable Yulisa Mulligan MD Unavailable Unavailable Yulisa Mulligan MD Unavailable Unavailable Yulisa Mulligan MD Unavailable Unavailable Yulisa Mulligan MD Unavailable Unavailable Yulisa Mulligan MD Unavailable Unavailable Yulisa Mulligan MD Unavailable Unavailable Yulisa Mulligan MD Unavailable Unavailable Yulisa Mulligan MD Unavailable Unavailable Yulisa Mulligan MD Unavailable Unavailable Yulisa Mulligan MD Unavailable Unavailable Yulisa Mulligan MD Unavailable Unavailable Yulisa Mulligan MD Unavailable Unavailable Yulisa Mulligan MD Unavailable Unavailable Yulisa Mulligan MD Unavailable Unavailable Yulisa Mulligan MD Unavailable Unavailable Yulisa Mulligan MD Unavailable Unavailable Yulisa Mulligan MD Unavailable Unavailable Yulisa Mulligan MD Unavailable Unavailable Yulisa Mulligan MD Unavailable Unavailable Yulisa Mulligan MD Unavailable Unavailable Yulisa Mulligan MD Unavailable Unavailable Yulisa Mulligan MD Unavailable Unavailable Yulisa Mulligan MD Unavailable Unavailable Yulisa Mulligan MD Unavailable Unavailable Yulisa Mulligan MD Unavailable Unavailable Yulisa Mulligan MD Unavailable Unavailable Yulisa Mulligan MD Unavailable Unavailable Yulisa Mulligan MD Unavailable Unavailable Yulisa Mulligan MD Unavailable Unavailable Yulisa Mulligan MD Unavailable Unavailable Yulisa Mulligan MD Unavailable Unavailable Yulisa Mulligan MD Unavailable Unavailable Yulisa Mulligan MD Unavailable Unavailable Yulisa Mulligan MD Unavailable Unavailable Yulisa Mulligan MD Unavailable Unavailable Yulisa Mulligan MD Unavailable Unavailable Yulisa Mulligan MD Unavailable Unavailable Yulisa Mulligan MD Unavailable Unavailable Yulisa Mulligan MD Unavailable Unavailable Yulisa Mulligan MD Unavailable Unavailable Yulisa Mulligan MD Unavailable Unavailable Yulisa Mulligan MD Unavailable Unavailable Yulisa Mulligan MD Unavailable Unavailable Yulisa Mulligan MD Unavailable Unavailable Yulisa Mulligan MD Unavailable Unavailable Yulisa Mulligan MD Unavailable Unavailable Yulisa Mulligan MD Unavailable Unavailable Yulisa Mulligan MD Unavailable Unavailable Yulisa Mulligan MD Unavailable Unavailable Yulisa Mulligan MD Unavailable Unavailable Yulisa Mulligan MD Unavailable Unavailable Yulisa Mulligan MD Unavailable Unavailable Yulisa Mulligan MD Unavailable Unavailable Yulisa Mulligan MD Unavailable Unavailable Yulisa Mulligan MD Unavailable Unavailable Yulisa Mulligan MD Unavailable Unavailable ULHeath ZULUAGA MD Unavailable Unavailable Heath MARTINEZ MD Unavailable Unavailable Heath MARTINEZ MD Unavailable Unavailable Heath MARTINEZ MD Unavailable Unavailable Heath MARTINEZ MD Unavailable Unavailable Heath MARTINEZ MD Unavailable Unavailable Heath MARTINEZ MD Unavailable Unavailable Heath MARTINEZ MD Unavailable Unavailable Heath MARTINEZ MD Unavailable Unavailable Heath MARTINEZ MD Unavailable Unavailable Heath MARTINEZ MD Unavailable Unavailable Heath MARTINEZ MD Unavailable Unavailable Heath MARTINEZ MD Unavailable Unavailable Heath MARTINEZ MD Unavailable Unavailable Heath MARTINEZ MD Unavailable Unavailable Yulisa Mulligan MD Unavailable Unavailable Yulisa Mulligan MD Unavailable Unavailable Yulisa Mulligan MD Unavailable Unavailable Yulisa Mulligan MD Unavailable Unavailable Yulisa Mulligan MD Unavailable Unavailable Yulisa Mulligan MD Unavailable Unavailable Yulisa Mulligan MD Unavailable Unavailable Yulisa Mulligan MD Unavailable Unavailable Yulisa Mulligan MD Unavailable Unavailable Yulisa Mulligan MD Unavailable Unavailable Yulisa Mulligan MD Unavailable Unavailable Yulisa Mulligan MD Unavailable Unavailable Yulisa Mulligan MD Unavailable Unavailable Yulisa Mulligan MD Unavailable Unavailable Yulisa Mulligan MD Unavailable Unavailable Yulisa Mulligan MD Unavailable Unavailable Yulisa Mulligan MD Unavailable Unavailable Yulisa Mulligan MD Unavailable Unavailable Yulisa Mulligan MD Unavailable Unavailable Yulisa Mulligan MD Unavailable Unavailable Yulisa Mulligan MD Unavailable Unavailable Yulisa Mulligan MD Unavailable Unavailable Yulisa Mulligan MD Unavailable Unavailable Yulisa Mulligan MD Unavailable Unavailable Yulisa Mulligan MD Unavailable Unavailable Yulisa Mulligan MD Unavailable Unavailable Yulisa Mulligan MD Unavailable Unavailable Yulisa Mulligan MD Unavailable Unavailable Yulisa Mulligan MD Unavailable Unavailable Yulisa Mulligan MD Unavailable Unavailable Yulisa Mulligan MD Unavailable Unavailable Yulisa Mulligan MD Unavailable Unavailable Yulisa Mulligan MD Unavailable Unavailable Yulisa Mulligan MD Unavailable Unavailable Yulisa Mulligan MD Unavailable Unavailable Yulisa Mulligan MD Unavailable Unavailable Yulisa Mulligan MD Unavailable Unavailable Yulisa Mulligan MD Unavailable Unavailable Yulisa Mulligan MD Unavailable Unavailable Yulisa Mulligan MD Unavailable Unavailable Yulisa Mulligan MD Unavailable Unavailable Yulisa Mulligan MD Unavailable Unavailable MulliganYulisa MD Unavailable Unavailable Mulligan, Yulisa Peck MD Unavailable Unavailable Mulligan, Yulisa Peck MD Unavailable Unavailable Mulligan, Yulisa Peck MD Unavailable Unavailable Mulligan, Yulisa Peck MD Unavailable Unavailable Mulligan, Yulisa Peck MD Unavailable Unavailable Mulligan, Yulisa Peck MD Unavailable Unavailable Mulligan, Yulisa Peck MD Unavailable Unavailable Yulisa Mulligan MD Unavailable Unavailable Mulligan, Yulisa Peck MD Unavailable Unavailable Mulligan, Yulisa Peck MD Unavailable Unavailable Mulligan, Yulisa Peck MD Unavailable Unavailable Mulligan, Yulisa Peck MD Unavailable Unavailable Mulligan, Yulisa Peck MD Unavailable Unavailable Mulligan, Yulisa Peck MD Unavailable Unavailable Mulligan, Yulisa Peck MD Unavailable Unavailable MulliganYulisa MD Unavailable Unavailable MulliganYulisa MD Unavailable Unavailable Mulligan, Yulisa Peck MD Unavailable Unavailable Mulligan, Yulisa Peck MD Unavailable Unavailable Mulligan, Yulisa Peck MD Unavailable Unavailable Mulligan, Yulisa Peck MD Unavailable Unavailable Mulligan, Yulisa Peck MD Unavailable Unavailable Mulligan, Yulisa Peck MD Unavailable Unavailable Mulligan, Yulisa Peck MD Unavailable Unavailable Yulisa Mulligan MD Unavailable Unavailable Mulligan, Yulisa Peck MD Unavailable Unavailable Mulligan, Yulisa Peck MD Unavailable Unavailable Yulisa Mulligan MD Unavailable Unavailable Mulligan, Yulisa Peck MD Unavailable Unavailable MulliganYulisa MD Unavailable Unavailable MulliganYulisa MD Unavailable Unavailable Mulligan, Yulisa Peck MD Unavailable Unavailable MulliganYulisa MD Unavailable Unavailable Yulisa Mulligan MD Unavailable Unavailable Yulisa Mulligan MD Unavailable Unavailable Yulisa Mulligan MD Unavailable Unavailable Yulisa Mulligan MD Unavailable Unavailable Mulligan, Yulisa Peck MD Unavailable Unavailable Yulisa Mulligan MD Unavailable Unavailable Yulisa Mulligan MD Unavailable Unavailable Yulisa Mulligan MD Unavailable Unavailable Yulisa Mulligan MD Unavailable Unavailable Yulisa Mulligan MD Unavailable Unavailable Yulisa Mulligan MD Unavailable Unavailable Yulisa Mulligan MD Unavailable Unavailable Yulisa Mulligan MD Unavailable Unavailable Mari LEE MD Unavailable Unavailable Mari LEE MD Unavailable Unavailable Mari LEE MD Unavailable Unavailable Mari LEE MD Unavailable Unavailable Mari LEE MD Unavailable Unavailable Mari LEE MD Unavailable Unavailable Mari LEE MD Unavailable Unavailable Mari LEE MD Unavailable Unavailable Mari LEE MD Unavailable Unavailable Re-disclosure Warning The records that you are about to access may contain information from federally-assisted alcohol or drug abuse programs. If such information is present, then the following federally mandated warning applies: This information has been disclosed to you from records protected by federal confidentiality rules (42 CFR part 2). The federal rules prohibit you from making any further disclosure of this information unless further disclosure is expressly permitted by the written consent of the person to whom it pertains or as otherwise permitted by 42 CFR part 2. A general authorization for the release of medical or other information is NOT sufficient for this purpose. The Federal rules restrict any use of the information to criminally investigate or prosecute any alcohol or drug abuse patient.The records that you are about to access may contain highly sensitive health information, the redisclosure of which is protected by Article 27-F of the [facility] Public Health law. If you continue you may have access to information: Regarding HIV / AIDS; Provided by facilities licensed or operated by the [facility] Office of Mental Health; or Provided by the [facility] Office for People With Developmental Disabilities. If such information is present, then the following [facility] mandated warning applies: This information has been disclosed to you from confidential records which are protected by state law. State law prohibits you from making any further disclosure of this information without the specific written consent of the person to whom it pertains, or as otherwise permitted by law. Any unauthorized further disclosure in violation of state law may result in a fine or fci sentence or both. A general authorization for the release of medical or other information is NOT sufficient authorization for further disc losure. Allergies and Adverse Reactions Type Description Substance Reaction Status Data Source(s ) Propensity to adverse reactions to substance Seroquel (queti apine) quetiapine 400 MG Oral Tablet [Seroquel] Inactive [facility] ([facility]) Propensity to adverse reactions to substance lamotrigine 24 HR lamotrigine 300 MG Extended Release Oral Tablet Active [facility] ([facility]) Propensity to adverse reactions to substance Ambien (zolpide m) Zolpidem tartrate 10 MG Oral Tablet [Ambien] Active [facility] ([facility]) No Known Allergies No Known Allergies [facility] Drug allergy BACLOFEN BACLOFEN [facility] Encounters Encounter Providers Location Date Indications Data Source(s ) [id number]"Psychotherapy Attender: Susana Rascon [facility] 03/18/2020 01:00:00 AM EST - 03/18/2020 01:00:00 AM EST [facility] ([facility]) Attender: Susana Rascon 03/18/2020 12:00:00 AM EST [facility] ([facility]) TEMPMHCTelemed 30" Psychotherapy [facility] 02/26/2020 01:00:00 AM EST - 02/26/2020 01:00:00 AM EST [facility] ([facility]) Attender: Susana Rascon 02/26/2020 12:00:00 AM EST [facility] ([facility]) Emergency Attender: SANDRA LEE MDConsultant: Carmen martinez MD 02/15/2020 07:24:00 PM EST - 02/15/2020 10:05:00 PM EST [facility] Patient discharged. Outpatient Referrer: Tom Hayden Jr 02/13/2020 07:53:08 AM EST [facility] Brief Individual Psychotherapy - 30 min Attender: Susana woods [facility] 02/11/2020 02:00:00 AM EST - 02/11/2020 02:00:00 AM EST [facility] ([facility]) Attender: Susana Rascon 02/11/2020 12:00:00 AM EST [facility] ([facility]) Extended Individual Psychotherapy - 45 min Attender: Susana Rascon [facility] 01/28/2020 03:00:00 AM EST - 01/28/2020 03:00:00 AM EST [facility] ([facility]) Outpatient Attender: Tom Hayden JrReferrer: Carmen Mulligan MD [id number] 01/28/2020 12:00:00 AM EST - 01/28/2020 12:16:07 PM EST [facility] Attender: Susana Rascon 01/28/2020 12:00:00 AM EST [facility] ([facility]) Outpatient Attender: CARMEN MARTINEZ MD [facility] 01/02/2020 04:00:00 AM EST - 01/02/2020 04:00:00 AM EST [facility] ([facility]) Attender: CARMEN MARTINEZ MD 01/02/2020 12:00:00 A M EST [facility] ([facility]) Attender: Susana Rascon 12/25/2019 12:00:00 AM EST [facility] ([facility]) Extended Individual Psychotherapy - 45 min Attender: Susana Rascon [facility] 12/24/2019 02:00:00 AM EST - 12/24/2019 02:00:00 AM EST [facility] ([facility]) Extended Individual Psychotherapy - 45 min Attender: Susana Rascon [facility] 12/10/2019 02:00:00 AM EDT - 12/10/2019 02:00:00 AM EDT [facility] ([facility]) Attender: Susana Rascon 12/10/2019 12:00:00 AM EDT [facility] ([facility]) Outpatient Attender: Carmen Mulligan MD 12/07/2019 01:39:00 PM EDT [facility] Outpatient Attender: Carmen Mulligan MD 12/05/2019 04:06:00 PM EDT [facility] Outpatient Attender: Carmen Mulligan MD 12/05/2019 04:05:01 PM EDT [facility] Outpatient Attender: CARMEN MARTINEZ MD [facility] 11/29/2019 02:00:00 AM EDT - 11/29/2019 02:00:00 AM EDT [facility] ([facility]) Attender: CARMEN MARTINEZ MD 11/29/2019 12:00:00 A M EDT [facility] ([facility]) [id number]"Psychotherapy Attender: Susana Rascno [facility] 11/26/2019 02:00:00 AM EDT - 11/26/2019 02:00:00 AM EDT [facility] ([facility]) Attender: Susana Rascon 11/26/2019 12:00:00 AM EDT [facility] ([facility]) Outpatient Attender: Carmen Mulligan MD 11/21/2019 04:13:03 PM EDT [facility] Outpatient Attender: Carmen Mulligan MD 11/21/2019 11:46:01 AM EDT [facility] Outpatient Attender: Carmen Mulligan MD 11/21/2019 11:43:02 AM EDT [facility] [id number]"[facility] 01:00:00 AM EDT - 11/21/2019 01:00:00 AM EDT [facility] ([facility]) Attender: Susana Rascon 11/21/2019 12:00:00 AM EDT [facility] ([facility]) Outpatient Attender: Carmen Mulligan MD 11/20/2019 08:31:05 AM EDT [facility] Outpatient Attender: Carmen Mulligan MD 11/20/2019 08:31:02 AM EDT [facility] Outpatient Attender: Carmen Mulligan MD 11/13/2019 03:35:00 PM EDT [facility] Outpatient Attender: Carmen Mulligan MD 11/13/2019 03:33:01 PM EDT [facility] TEMPMHCTelemed 30" [facility]: [facility] 11:25:00 AM EDT - 11/08/2019 11:25:00 AM EDT [facility] ([facility]) Attender: Susana Abiodun 11/08/2019 12:00:00 AM EDT [facility] ([facility]) Extended Individual Psychotherapy - 45 min Attender: Susana Rascon [facility] 11/07/2019 02:00:00 AM EDT - 11/07/2019 02:00:00 AM EDT [facility] ([facility]) Attender: Susana Rascon 11/07/2019 12:00:00 AM EDT [facility] ([facility]) Outpatient Attender: Carmen Mulligan MD 11/01/2019 03:18:01 PM EDT [facility] Outpatient Attender: Carmen Mulligan MD 11/01/2019 03:18:00 PM EDT [facility] Outpatient Referrer: Carmen Mulligan MD 11/01/2019 12:00 :00 AM EDT Encounter for screening mammogram for malignant neoplasm of breast [facility] Encounter for screening mammogram for ma lignant neoplasm of breast Outpatient Attender: CARMEN MARTINEZ MD [facility] 10/31/2019 01:00:00 AM EDT - 10/31/2019 01:00:00 AM EDT [facility] Attender: CARMEN MARTINEZ MD 10/31/2019 12:00:00 A M EDT [facility] ([facility] Outpatient Attender: Carmen Mulligan MD FP 10/25/2019 04:15:00 PM EDT [facility] Outpatient Attender: Carmen Mulligan MD FP 10/25/2019 09:52:01 AM EDT [facility]patient Attender: Carmen Mulligan MD FP 10/17/2019 03:17:01 PM EDT [facility] Outpatient Attender: Madeleine RHODES FP 10/16/2019 01: 19:59 PM EDT [facility] Outpatient Attender: Madeleine RHODES FP 10/12/2019 08: 59:01 AM EDT [facility] Outpatient Attender: GEMMA MENENDEZ FP 10/10/2019 02:46:00 PM EDT [facility]patient Attender: Madeleine RHODES FP 10/04/2019 03: 23:01 PM EDT [facility] Outpatient Attender: GEMMA EDWARDS 10/01/2019 11:20:01 AM EDT [facility] Outpatient Attender: Madeleine RHODES FP 09/26/2019 11: 20:01 AM EDT [facility]patient Attender: Madeleine RHODES FP 09/24/2019 04: 09:01 PM EDT [facility]patient Attender: Madeleine RHODES FP 09/24/2019 01: 44:02 PM EDT [facility]patient Attender: Madeleine RHODES FP 09/20/2019 04: 42:00 PM EDT [facility] Outpatient Attender: GEMMA MENENDEZ FP 09/18/2019 12:00:11 AM EDT [facility]patient Attender: Madeleine RHODES FP 09/17/2019 05: 47:59 PM EDT [facility] Outpatient Attender: GEMMA MENENDEZ FP 09/14/2019 11:08:00 AM EDT [facility] Outpatient Attender: SUSANNA PARTIDA MD FP 09/13/2019 12:00:00 P M EDT [facility] Outpatient Attender: SUSANNA PARTIDA MD 09/03/2019 11:57:01 A M EDT [facility] Outpatient Attender: SUSANNA PARTIDA MD 08/29/2019 04:30:08 P M EDT [facility] Outpatient Attender: SUSANNA PARTIDA MD 08/28/2019 03:36:01 P M EDT [facility] Outpatient Attender: SUSANNA PARTIDA MD 08/27/2019 11:14:00 A M EDT [facility] Outpatient Attender: SUSANNA PARTIDA MD 08/23/2019 05:42:01 P M EDT [facility] [id number]"Psychotherapy [facility]: [facility]/21/[facility] 02:00:00 AM EDT - 08/21/2019 02:00:00 AM EDT [facility] ([facility]) Attender: Susana Rascon 08/21/2019 12:00:00 AM EDT [facility] ([facility]) Outpatient Attender: SUSANNA PARTIDA MD 08/17/2019 05:51:00 P M EDT [facility] Outpatient Attender: SUSANNA PARTIDA MD 08/17/2019 03:22:03 P M EDT [facility] Outpatient Attender: SUSANNA PARTIDA MD 08/17/2019 03:21:00 P M EDT [facility] Outpatient Attender: SUSANNA PARTIDA MD 08/17/2019 02:11:00 P M EDT [facility] Outpatient Attender: SUSANNA PARTIDA MD 08/16/2019 04:39:01 P M EDT [facility] [id number]"Psych[facility]: [facility] 02:00:00 AM EDT - 08/14/2019 02:00:00 AM EDT [facility] ([facility]) Attender: Susana Rascon 08/14/2019 12:00:00 AM EDT [facility] ([facility]) Outpatient Attender: SUSANNA PARTIDA MD 08/10/2019 04:36:01 P M EDT [facility] Outpatient Attender: CARMEN MARTINEZ MD [facility] 08/07/2019 03:00:00 AM EDT - 08/07/2019 03:00:00 AM EDT [facility] ([facility]) Attender: CARMEN MARTINEZ MD 08/07/2019 12:00:00 A M EDT [facility] ([facility]) Outpatient Attender: SUSANNA PARTIDA MD 07/31/2019 04:57:00 P M EDT [facility] Outpatient Attender: SUSANNA PARTIDA MD 07/26/2019 12:55:00 P M EDT [facility] [id number]"Psychotherapy Attender: Susana Rascon [facility] 07/18/2019 06:00:00 AM EDT - 07/18/2019 06:00:00 AM EDT [facility] ([facility]) Attender: Susana Rascon 07/18/2019 12:00:00 AM EDT [facility] ([facility]) Outpatient Attender: SUSANNA PARTIDA MD 07/12/2019 01:21:00 P M EDT [facility] TEMPMHCTelemed 30" Psychotherapy Attender: Susana Rascon [facility] 07/04/2019 03:00:00 AM EDT - 07/04/2019 03:00:00 AM EDT [facility] ([facility]) Attender: Susana Rascon 07/04/2019 12:00:00 AM EDT [facility] ([facility]) Outpatient Attender: SUSANNA PARTIDA MD 06/28/2019 08:18:01 A M EDT [facility] Outpatient Attender: CARMEN MARTINEZ MD [facility] 06/28/2019 03:30:00 AM EDT - 06/28/2019 03:30:00 AM EDT [facility] ([facility]) Attender: CARMEN MARTINEZ MD 06/28/2019 12:00:00 A M EDT [facility] ([facility]) [id number]"Psychotherapy Attender: Susana Rascon [facility] 06/18/2019 03:00:00 AM EDT - 06/18/2019 03:00:00 AM EDT [facility] ([facility]) Attender: Susana Rascon 06/18/2019 12:00:00 AM EDT [facility] ([facility]) Outpatient Attender: SUSANNA PARTIDA MD 06/14/2019 03:21:00 P M EDT [facility] Outpatient Attender: SUSANNA PARTIDA MD 06/14/2019 08:44:00 A M EDT [facility] Outpatient Attender: CARMEN MARTINEZ MD [facility] 05/31/2019 04:00:00 AM EDT - 05/31/2019 04:00:00 AM EDT [facility] ([facility]) Attender: CARMEN MARTINEZ MD 05/31/2019 12:00:00 A M EDT [facility] ([facility]) Outpatient Attender: CARMEN MARTINEZ MD [facility] 05/02/2019 01:30:00 AM EDT - 05/02/2019 01:30:00 AM EDT [facility] ([facility]) Attender: CARMEN MARTINEZ MD 05/02/2019 12:00:00 A M EDT [facility] ([facility]) Outpatient Attender: SUSANNA PARTIDA MD 04/26/2019 02:02:02 P [facility] Outpatient Attender: SUSANNA PARTIDA MD 04/13/2019 05:07:01 P [facility] Outpatient Attender: SUSANNA PARTIDA MD 04/13/2019 08:23:02 A [facility] Outpatient Attender: SUSANNA PARTIDA MD 04/11/2019 03:31:01 P [facility] Outpatient Attender: SUSANNA PARTIDA MD 04/11/2019 03:25:02 P [facility] Outpatient Attender: SSUANNA PARTIDA MD 04/11/2019 01:30:01 P [facility] Outpatient Attender: SUSANNA PARTIDA MD 04/11/2019 11:10:01 A [facility] Outpatient Attender: SUSANNA PARTIDA MD 04/11/2019 11:10:00 A [facility] Outpatient Attender: SUSANNA PARTIDA MD 04/11/2019 11:09:02 A [facility] Outpatient Attender: SUSANNA PARTIDA MD 04/11/2019 11:09:01 A [facility] Outpatient Attender: SUSANNA PARTIDA MD 04/04/2019 01:19:01 P [facility] Outpatient Attender: SUSANNA PARTIDA MD 04/04/2019 11:40:01 A [facility] Outpatient Attender: SUSANNA PARTIDA MD 04/04/2019 11:39:00 A [facility] Outpatient Attender: SUSANNA PARTIDA MD 04/04/2019 11:38:01 A [facility] Outpatient Attender: SUSANNA PARTIDA MD 04/04/2019 11:37:01 A [facility] Outpatient Attender: SUSANNA PARTIDA MD 04/02/2019 03:38:01 P [facility] Outpatient Attender: SUSANNA PARTIDA MD 04/02/2019 01:43:01 P [facility] Outpatient Attender: SUSANNA PARTIDA MD 03/30/2019 11:33:00 A [facility] Outpatient Attender: SUSANNA PARTIDA MD 03/29/2019 12:30:59 P [facility] Outpatient Attender: CARMEN MARTINEZ MD [facility] 03/20/2019 11:30:00 AM [facility] 03/20/2019 11:30:00 AM EST [facility] ([facility]) Attender: CARMEN MARTINEZ MD 03/20/2019 12:00:00 A [facility] ([facility]) Outpatient Attender: SUSANNA PARTIDA MD 03/16/2019 09:32:47 A [facility] Outpatient Attender: SUSANNA PARTIDA MD 03/16/2019 09:28:39 A [facility] Outpatient Attender: SUSANNA PARTIDA MD 03/16/2019 09:23:45 A [facility] Outpatient Attender: SUSANNA PARTIDA MD 03/08/2019 09:01:06 P [facility] Outpatient Attender: SUSANNA PARTIDA MD 02/27/2019 09:54:01 A [facility] Outpatient Attender: SUSANNA PARTIDA MD 02/19/2019 03:38:03 P [facility] Outpatient Attender: SUSANNA PARTIDA MD 02/15/2019 08:21:22 A [facility] Outpatient Attender: SUSANNA PARTIDA MD 02/12/2019 12:56:02 P [facility] Outpatient Attender: SUSANNA PARTIDA MD 01/30/2019 03:45:02 P [facility] Functional Status Medications Medication Brand Name Start Date Product Form Dose Route Admi nistrative Instructions Pharmacy Instructions Status Indications Reaction Description Data Source(s) 24 HR Nicotine 0.292 MG/HR Transdermal Patch NICOTINE STEP 3 7 MG/24HR NICOTINE STEP 3 7 MG/24HR 01/23/2020 12:00:00 AM EST active [facility] 24 HR Bupropion Hydrochloride 300 MG Ext ended Release Oral Tablet buPROPion (WELLBUTRIN XL) 300 MG 24 hr tablet buPROPion (WELLBUTRIN XL) 300 MG 24 hr tablet 01/16/2020 12:00:00 AM EST 300 mg Oral active Take 300 mg by mouth daily [facility] duloxetine 30 MG Delayed Release Oral Capsule [Cymbalta] Cym shay 01/07/2020 12:00:00 AM EST 30 mg by mouth completed [id number] Cy mbalta by mouth [id number] 01/07/2020 every morning 30 mg capsule,delayed release (DR/EC) 11414 356001 [id number] Carmen Martinez [id number] Psychiatry [facility] ([facility]) duloxetine 60 MG Delayed Release Oral Capsule [Cymbalta] Cym shay 01/07/2020 12:00:00 AM EST 60 mg by mouth completed [id number] Cy mbalta by mouth [id number] 01/07/2020 at bedtime 60 mg capsule,delayed release(DR/EC) 45396 [id number] Carmen Martinez [id number] Psychiatry [facility] ([facility]) 24 HR quetiapine 400 MG Extended Release Oral Tablet quetiap ine 01/02/2020 12:00:00 AM EST 400 mg by mouth completed [id number] q uetiapine by mouth [id number] 01/02/2020 03/02/2020 at bedtime 30 400 mg tablet extended r elease 24 hr 35540 258002 [id number] Carmen Martinez [id number] Psychiatry [facility] ([facility]) 24 HR quetiapine 400 MG Extended Release Oral Tablet quetiap ine 01/02/2020 12:00:00 AM EST 400 mg by mouth completed [id number] q uetiapine by mouth [id number] 01/02/2020 03/02/2020 at bedtime 30 400 mg tablet extended r elease 24 hr 73207 [id number] Carmen Martinez [id number] Psychiatry [facility] ([facility]) 24 HR quetiapine 200 MG Extended Release Oral Tablet quetiap ine 01/02/2020 12:00:00 AM EST 200 mg by mouth completed [id number] q uetiapine by mouth [id number] 01/02/2020 03/02/2020 at bedtime 30 200 mg tablet extended r elease 24 hr 61207 [id number] Carmen Martinez [id number] Psychiatry [facility] ([facility]) Trazodone Hydrochloride 100 MG Oral Tablet traZODone ( DESYREL) 100 MG tablet traZODone (DESYREL) 100 MG tablet 11/29/2019 12:00:00 AM EDT active TAKE TWO TABLETS BY MOUTH EVERY EVENING NEEDED [facility] POLYETHYLENE GLYCOL 3350 142 MG/ML Oral Solution polyethylene glycol (GLYCOLAX) 17 GM/SCOOP powder polyethylene glycol (GLYCOLAX) 17 GM/SCOOP powder 10/24 12:00:00 AM EDT active TAKE 17 GRAMS dissolved in liquid AND drink BY MOUTH ONCE DAILY NEEDED FOR CONSTIPATION [facility] duloxetine 30 MG Delayed Release Oral Capsule duloxetine 10/31/2019 12:00:00 AM EDT 30 mg by mouth completed [id number] duloxetine by mout h [id number] 10/31/2019 12/30/2019 every morning 30 30 mg capsule,delayed release(/E C) 19412 759087 [id number] Carmen Martinez [id number] Psychiatry [facility] ([facility]) duloxetine 30 MG Delayed Release Oral Capsule duloxetine 10/31/2019 12:00:00 AM EDT 30 mg by mouth completed [id number] duloxetine by mout h [id number] 10/31/2019 03/02/2020 twice a day 30 30 mg capsule,delayed release(DR /EC) as directed 28186 557824 [id number] Carmen Martinez [id number] Psychiatry [facility] ([facility]) duloxetine 60 MG Delayed Release Oral Capsule duloxetine 10/31/2019 12:00:00 AM EDT 60 mg by mouth completed [id number] duloxetine by mout h [id number] 10/31/2019 12/30/2019 every evening 30 60 mg capsule,delayed release(/E C) 97693 [id number] Carmen Martinez [id number] Psychiatry [facility] ([facility]) duloxetine 30 MG Delayed Release Oral Capsule duloxetine 10/31/2019 12:00:00 AM EDT 30 mg by mouth completed [id number] duloxetine by mout h [id number] 10/31/2019 03/02/2020 twice a day 30 30 mg capsule,delayed release(DR /EC) as directed 43562 [id number] Carmen Martinez [id number] Psychiatry [facility] ([facility]) quetiapine 400 MG Oral Tablet quetiapine 09/03/2019 12:00:00 AM EDT 400 mg by mouth completed [id number] quetiapine by mouth [id number] 201901/02/2020 at bedtime 30 400 mg tablet 29452 [id number] Carmen Flowers lberg [id number] Psychiatry [facility] ([facility]) quetiapine 400 MG Oral Tablet quetiapine 09/03/2019 12:00:00 AM EDT 400 mg by mouth completed [id number] quetiapine by mouth [id number] 201901/28/2020 at bedtime 30 400 mg tablet 98156 [id number] Carmen Flowers lberg [id number] Psychiatry [facility] ([facility]) Trazodone Hydrochloride 100 MG Oral Tablet trazodone 08/08 12:00:00 AM EDT 100 mg by mouth completed 658100 trazodone by mout h [id number] 08/09/2019 03/02/2020 every night 30 100 mg tablet as needed 89061 [id number] Carmen Martinez [id number] Psychiatry [facility] ([facility]) Trazodone Hydrochloride 100 MG Oral Tablet trazodone 08/08 12:00:00 AM EDT 100 mg by mouth completed 741539 trazodone by mout h [id number] 08/09/2019 10/08/2019 every night 30 100 mg tablet as directed 66060 642123 [id number] Carmen Prajapatiberg [id number] Psychiatry [facility] ([facility]) Trazodone Hydrochloride 100 MG Oral Tablet trazodone 08/08 12:00:00 AM EDT 100 mg by mouth completed 548716 trazodone by mout h [id number] 08/09/2019 03/02/2020 every night 30 100 mg tablet as needed 75836 030934 [id number] Carmen Prajapatiberg [id number] Psychiatry [facility] ([facility]) 24 HR Bupropion Hydrochloride 300 MG Extended Release Oral T ablet bupropion HCl 08/08/2019 12:00:00 AM EDT 300 mg by mouth completed 240985 bupropion HCl by mouth [id number] 08/08/2019 03/02/2020 once a day 30 300 mg tablet extended release 24 hr 55296 937756 [id number] Carmen Prajapatiberg [id number] Psychi atry [facility] ([facility]) 24 HR Bupropion Hydrochloride 300 MG Extended Release Oral T ablet bupropion HCl 08/08/2019 12:00:00 AM EDT 300 mg by mouth completed 475894 bupropion HCl by mouth [id number] 08/08/2019 03/02/2020 once a day 30 300 mg tablet extended release 24 hr 63602 764008 [id number] Carmen Prajapatiberg [id number] Psychi atry [facility] ([facility]) 24 HR Bupropion Hydrochloride 150 MG Extended Release Oral T ablet bupropion HCl 08/08/2019 12:00:00 AM EDT 150 mg by mouth completed 010879 bupropion HCl by mouth [id number] 08/08/2019 10/07/2019 once a day 30 150 mg tablet extended release 24 hr 23455 324059 [id number] Breanna Leonard [id number] Nurse Practitioner [facility] ([facility]) tizanidine 4 MG Oral Tablet Tizanidine HCL 07/24/2019 12:00:00 AM EDT ORAL active [facility] ([facility]) meloxicam 7.5 MG Oral Tablet Meloxicam 07/24/2019 12:00:00 AM EDT ORAL active [facility] ([facility]) Trazodone Hydrochloride 100 MG Oral Tablet trazodone 05/30 12:00:00 AM EDT 100 mg by mouth completed 731926 trazodone by mout h [id number] 05/31/2019 08/27/2019 every night 30 100 mg tablet as directed 79191 854794 [id number] Carmen Martinez [id number] Psychiatry [facility] ([facility]) quetiapine 100 MG Oral Tablet quetiapine 05/02/2019 12:00:00 AM EDT 100 mg by mouth completed 189522 quetiapine by mouth R94863 201906/01/2019 twice a day 30 100 mg tablet as needed 27210 361629 [id number] [place]x dave Martinez [id number] Psychiatry [facility] ([facility]) quetiapine 300 MG Oral Tablet quetiapine 05/02/2019 12:00:00 AM EDT 300 mg by mouth completed 442661 quetiapine by mouth [id number] 201907/01/2019 at bedtime 30 300 mg tablet 93667 579857 [id number] Carmen acevedo [id number] Psychiatry [facility] ([facility]) quetiapine 100 MG Oral Tablet quetiapine 05/02/2019 12:00:00 AM EDT 100 mg by mouth completed 538713 quetiapine by mouth Z95020 201908/27/2019 twice a day 30 100 mg tablet as needed 42215 460932 [id number] [place]x dave Ulberg [id number] Psychiatry [facility] ([facility]) Hydroxyzine Hydrochloride 50 MG Oral Tablet hydroxyzine HCl 05/02/2019 12:00:00 AM EDT 50 mg by mouth completed 847108 hydroxyzine HCl by mouth [id number] 05/02/2019 07/01/2019 three times a day 30 50 mg tablet as needed 92420 061400 [id number] Carmen Ulberg [id number] Psychiatry [facility] ([facility]) Mirtazapine 15 MG Oral Tablet mirtazapine 05/02/2019 12:00:00 AM EDT 15 mg by mouth completed 091287 mirtazapine by mouth [id number] 05/0107/01/2019 at bedtime 30 15 mg tablet 85964 939328 [id number] [facility] [place] [id number] Psychiatry [facility] ([facility]) quetiapine 300 MG Oral Tablet quetiapine 04/16/2019 12:00:00 AM EST 300 mg completed 513020 quetiapine 04/16/2019 05/16/2019 30 300 mg tablet 55455 961108 [id number] Carmen Prajapatiberg [id number] Psychiatry [facility] ([facility]) Chantix Continuing Month Box Chantix Continuing Month Box 12:00:00 AM EST 1 mg by mouth completed 382129 Chantix Cont inuing Month Box by mouth [id number] 03/20/2019 04/19/2019 twice a day 30 1 mg tablet 73 657 331178 [id number] Carmen Ulberg [id number] Psychiatry [facility] ([facility]) quetiapine 100 MG Oral Tablet quetiapine 03/20/2019 12:00:00 AM EST 100 mg by mouth completed 400383 quetiapine by mouth Y86469 201904/19/2019 twice a day 30 100 mg tablet as needed 01248 662214 [id number] Tx dave Ulberg [id number] Psychiatry [facility] ([facility]) olanzapine 5 MG Oral Tablet olanzapine 03/15/2019 12:00:00 AM EST 5 mg by mouth completed 400171 olanzapine by mouth U80084 201904/19/2019 once a day 30 5 mg tablet 83802 746512 [id number] Carmen Martinez [id number] Psychiatry [facility] ([facility]) Chantix Starting Month Box Chantix Starting Month Box 2018 12:00:00 AM EST 0.5 mg by mouth completed 659755 Chantix Sta rting Box by mouth C84629 01/24/2019 02/23/2019 as directed 30 0.5 mg (11)- 1 m g (42) tablets,dose pack 19002 156196 [id number] Carmen Martinez [id number] Psychiatry [facility] ([facility]) quetiapine 300 MG Oral Tablet [Seroquel] Seroquel 01/24/2019 12 :00:00 AM EST 300 mg completed 627696 Seroquel 01/24/2019 0 03/25/2019 at bedtime 30 300 mg tablet 01596 026354 [id number] Carmen [facility] [id number] Psychiatry [facility] ([facility]) quetiapine 300 MG Oral Tablet [Seroquel] Seroquel 01/24/2019 12 :00:00 AM EST 300 mg completed 616758 Seroquel 01/24/2019 0 03/25/2019 at bedtime 30 300 mg tablet 40214 397993 [id number] Carmen [facility] [id number] Psychiatry [facility] ([facility]) Mirtazapine 30 MG Oral Tablet mirtazapine 01/24/2019 12:00:00 AM EST 30 mg by mouth completed 421014 mirtazapine by mouth B70453 01/2403/25/2019 at bedtime 30 30 mg tablet 80872 812958 [id number] [facility] anel Martinez [id number] Psychiatry [facility] ([facility]) olanzapine 10 MG Oral Tablet olanzapine 01/24/2019 12:00:00 AM EST 10 mg by mouth completed 637673 olanzapine by mouth J21712 201802/23/2019 once a day 30 10 mg tablet 19733 [id number] [place] Michelle [id number] Psychiatry [facility] ([facility] Mirtazapine 30 MG Oral Tablet mirtazapine 01/24/2019 12:00:00 AM EST 30 mg by mouth completed 424879 mirtazapine by mouth [id number] 01/2403/25/2019 at bedtime 30 30 mg tablet 89618 903723 [id number] [facility] [id number] Psychiatry [facility] ([facility] Multiple Vitamins-Iron (MULTIVITAMIN WITH IRON) TABS 0904-05 31-60 01/21/2016 12:00:00 AM EST 2 {tbl} Oral aborted Take 2 tablets by mouth daily [facility] gabapentin 800 MG Oral Tablet gabapentin (NEURONTIN) 8 00 MG tablet gabapentin (NEURONTIN) 800 MG tablet 800 mg Oral aborted Take 800 mg by mouth 3 (three) times a day [facility] Clonazepam 1 MG Oral Tablet clonazePAM (KLONOPIN) 1 MG tablet clonazePAM (KLONOPIN) 1 MG tablet 1 mg Oral aborted Take 1 mg by mouth 3 (three) times a day [facility] tramadol hydrochloride 50 MG Oral Tablet traMADol (ULT SHILPI) 50 MG tablet traMADol (ULTRAM) 50 MG tablet 50 mg Oral aborted Take 50 mg by mouth 4 (four) times a day [facility] Bacitracin 0.5 UNT/MG Topical Ointment bacitracin ointment b acitracin ointment 1 {application} Topical aborted Apply 1 application topically 2 (two) times a day to chin x 14 days (started 12/29/15) [facility] Insurance Providers Payer name Policy type / Coverage type Policy ID Covered green party ID Covered green party's relationship to [place] Policy [place] Plan Information [facility] COMMUNITY PLAN [facility] [id number] SP [id number] [facility] AMERICHOICE XIX -HMO [id number] 18 [id number] [facility] MEDICAID [id number] Niesha [id number] [facility] MEDICAID [id number] Medicaid S [id number] S [id number] Managed Care - [facility] Community Plan P [id number] S [id number] [facility] I [id number] Self [id number] [employer] COMMUNITY PLAN MCDHMO [id number] SP [id number] Medicaid S [id number] S [id number] Managed Care - [facility] Community Plan P [id number] S [id number] [facility] [id number] SP [id number] MEDICAID [id number] SP [id number] Managed Care - Community Plan [facility] P [id number] S [id number] Medicaid S [id number] S [id number] Managed Care - Community Plan [facility] P [id number] S [id number] [facility] [id number] SP [id number] Medicaid S [id number] S [id number] Managed Care - Community Plan [facility] P [id number] S [id number] [place] Medig[place] Part B [id number] Self [id number] [facility] Community Plan Commercial [id number] Self [id number] [facility] MEDICAID PI PI [facility] MEDICAID [id number] Niesha [id number] [facility] MEDICAID [id number] Niesha [id number] Managed Care - Community Plan [facility] P [id number] S [id number] Medicaid S [id number] S [id number] [facility] O [id number] S [id number] Managed Care - Community Plan [facility] P [id number] S [id number] Medicaid S [id number] S [id number] Managed Care - Community Plan [facility] P [id number] S [id number] HMO BLUE [id number] SP [id number] HMO BLUE [id number] SP [id number] Problems, Conditions, and Diagnoses Code Display Name Description Problem Type Effective Dates Data Source(s) F17.200 Nicotine dependence, unspecified, uncomp licated Tobacco Use Disorder, Moderate Condition 03/18/2020 12:00:00 AM EST [facility] ([facility]) F31.9 Bipolar disorder, unspecified Bipolar I Disorder, Current or most recent episode manic, Unspecified Condition 03/18/2020 12:00:00 AM EST [facility] ([facility]) 564.09 Chronic constipation Chronic constipation 08/16 03:20:44 PM EDT [facility] [id number] 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 Problem 05/09/2019 12:00:00 AM EDT [facility] ([facility]) [id number] Cauda equina syndrome Cauda equina syndrome Problem 05/09/2019 12:00:00 AM EDT [facility] ([facility]) 299465482 Chronic tension-type headache Chronic tension-type hea dache Problem 05/09/2019 12:00:00 AM EDT [facility] ([facility]) 79116885 Neck pain Neck pain Problem 05/09/2019 12:00:00 AM ED T [facility] ([facility] ) [id number] Neurogenic claudication Neurogenic claudication Proble m 05/09/2019 12:00:00 AM EDT [facility] ([facility]) [id number] Spondylolysis Spondylolysis Problem 05/09/2019 12:00:00 AM EDT [facility] ([facility] 329011705 Low back pain Low back pain Problem 05/09/2019 12:00:00 AM EDT [facility] ([facility] ) 88281875 Second degree hemorrhoids Second degree hemorrhoids 02/19/2019 03:37:06 PM [facility] [id number] Personal history of nicotine dependence Personal history of nicotine dependence Diagnosis 02/15/2020 07:24:00 PM [facility] N3001 Acute cystitis with hematuria Acute cystitis with germán turia Diagnosis 02/15/2020 07:24:00 PM [facility] R300 Dysuria Dysuria Diagnosis 02/15/2020 07:24:[address] [facility] M48.062 Spinal stenosis, lumbar region with neur ogenic claudication Spinal stenosis, lumbar region with neur Diagnosis 01/28/2020 11:27:48 AM [facility] M51.36 Other intervertebral disc degeneration, lumbar region Other intervertebral disc degeneration, Diagnosis 01/28/2020 11:27:48 AM [facility] Z12.31 Encounter for screening mammogram for ma lignant neoplasm of breast Encounter for screening mammogram for malignant neoplasm of breast Diagnosis 11/01/2019 01:45:00 PM [facility] Surgeries/Procedures Procedure Description Date Indications Data Source(s) [id number]"Psychotherapy 12:00:00 AM EST - 03/18/2020 12:00:00 AM EST [facility] ([facility]) [id number]"Psychotherapy 03/18/2020 12:00:00 AM EST [facility] ([facility]) TEMPMHCTelemed 30" Psychotherapy 021 12:00:00 AM EST - 02/26/2020 12:00:00 AM EST [facility] ([facility]) TEMPMHCTelemed 30" Psychotherapy 02/26/2020 12:00:00 A M EST [facility] ([facility]) Brief Individual Psychotherapy - 30 min 02/11/2020 12:00:00 AM EST - 02/11/2020 12:00:00 AM EST [facility] ([facility]) Brief Individual Psychotherapy - 30 min 02/11/2020 12: 00:00 AM EST [facility] ([facility]) Extended Individual Psychotherapy - 45 min 01/28/2020 12:00:00 AM EST - 01/28/2020 12:00:00 AM EST [facility] ([facility]) Extended Individual Psychotherapy - 45 min 0 12:00:00 AM EST [facility] ([facility]) MHC Telemed E/M Lvl 3--Est pt 01/02/2020 12:00:00 AM EST - 01/02/2020 12:00:00 AM EST [facility] ([facility]) Psychotherapy ADD ON - 30 Minutes 01/02/2020 12:00:00 AM EST [facility] ([facility]) MHC Telemed E/M Lvl 3--Est pt 01/02/2020 12:00:[address] [facility] ([facility]) Extended Individual Psychotherapy - 45 min 12/25/2019 12:00:00 AM EST - 12/25/2019 12:00:00 AM EST [facility] ([facility]) Extended Individual Psychotherapy - 45 min 0 12:00:00 AM EST [facility] ([facility]) Extended Individual Psychotherapy - 45 min 12/10/2019 12:00:00 AM EDT - 12/10/2019 12:00:00 AM EDT [facility] ([facility]) Extended Individual Psychotherapy - 45 min 0 12:00:00 AM EDT [facility] ([facility]) MHC Telemed E/M Lvl 3--Est pt 11/29/2019 12:00:00 AM EDT - 11/29/2019 12:00:00 AM EDT [facility] ([facility]) Psychotherapy ADD ON - 30 Minutes 11/29/2019 12:00:00 AM EDT [facility] ([facility]) MHC Telemed E/M Lvl 3--Est pt 11/29/2019 12:00:00 AM E DT [facility] ([facility]) [id number]"Psychotherapy 0 12:00:00 AM EDT - 11/26/2019 12:00:00 AM EDT [facility] ([facility]) [id number]"Psychotherapy 11/26/2019 12:00:00 AM EDT [facility] ([facility]) [id number]"Psychotherapy 0 12:00:00 AM EDT - 11/21/2019 12:00:00 AM EDT [facility] ([facility]) [id number]"Psychotherapy 11/21/2019 12:00:00 AM EDT [facility] ([facility]) TEMPMHCTelemed 30" Psychotherapy 020 12:00:00 AM EDT - 11/08/2019 12:00:00 AM EDT [facility] ([facility]) TEMPMHCTelemed 30" Psychotherapy 11/08/2019 12:00:00 A M EDT [facility] ([facility]) Extended Individual Psychotherapy - 45 min 11/07/2019 12:00:00 AM EDT - 11/07/2019 12:00:00 AM EDT [facility] ([facility]) Extended Individual Psychotherapy - 45 min 0 12:00:00 AM EDT [facility] ([facility]) MHC Telemed E/M Lvl 3--Est pt 10/31/2019 12:00:00 AM EDT - 10/31/2019 12:00:00 AM EDT [facility] ([facility]) Psychotherapy ADD ON - 30 Minutes 10/31/2019 12:00:00 AM EDT [facility] ([facility]) MHC Telemed E/M Lvl 3--Est pt 10/31/2019 12:00:00 AM E DT [facility] ([facility]) [id number]"Psychotherapy 0 12:00:00 AM EDT - 08/21/2019 12:00:00 AM EDT [facility] ([facility]) [id number]"Psychotherapy 08/21/2019 12:00:00 AM EDT [facility] ([facility]) [id number]"Psychotherapy 0 12:00:00 AM EDT - 08/14/2019 12:00:00 AM EDT [facility] ([facility]) [id number]"Psychotherapy 08/14/2019 12:00:00 AM EDT [facility] ([facility]) MHC Telemed E/M Lvl 3--Est pt 08/07/2019 12:00:00 AM EDT - 08/07/2019 12:00:00 AM EDT [facility] ([facility]) Psychotherapy ADD ON - 30 Minutes 08/07/2019 12:00:00 AM EDT [facility] ([facility]) MHC Telemed E/M Lvl 3--Est pt 08/07/2019 12:00:00 AM E DT [facility] ([facility]) [id number]"Psychotherapy 0 12:00:00 AM EDT - 07/18/2019 12:00:00 AM EDT [facility] ([facility]) [id number]"Psychotherapy 07/18/2019 12:00:00 AM EDT [facility] ([facility]) TEMPMHCTelemed 30" Psychotherapy 020 12:00:00 AM EDT - 07/04/2019 12:00:00 AM EDT [facility] ([facility]) TEMPMHCTelemed 30" Psychotherapy 07/04/2019 12:00:00 A M EDT [facility] ([facility]) Needle electromyography, each extremity, with related paraspinal areas, when performed, done with nerve conduction, amplitude and latency/velocity study; complete, five or more muscles studied, innervated by three or more nerves or four or more spinal levels (list separately in addition to the code for primary procedure). 07/02/2019 12:00:00 AM EDT [facility] T ([facility] ) Needle electromyography, each extremity, with related paraspinal areas, when performed, done with nerve conduction, amplitude and latency/velocity study; complete, five or more muscles studied, innervated by three or more nerves or four or more spinal levels (list separately in addition to the code for primary procedure). 07/02/2019 12:00:00 AM EDT [facility] ([facility] ) Nerve Conduction 9-10 Studies 07/02/2019 12:00:00 AM E DT [facility] ([facility] MHC Telemed E/M Lvl 3--Est pt 06/28/2019 12:00:00 AM EDT - 06/28/2019 12:00:00 AM EDT [facility] ([facility]) MHC Telemed E/M Lvl 3--Est pt 06/28/2019 12:00:00 AM E DT [facility] ([facility]) [id number]"Psychotherapy 0 12:00:00 AM EDT - 06/18/2019 12:00:00 AM EDT [facility] ([facility]) [id number]"Psychotherapy 06/18/2019 12:00:00 AM EDT [facility] ([facility]) MHC Telemed E/M Lvl 3--Est pt 05/31/2019 12:00:00 AM EDT - 05/31/2019 12:00:00 AM EDT [facility] ([facility]) MHC Telemed E/M Lvl 3--Est pt 05/31/2019 12:00:00 AM E DT [facility] ([facility]) MRI SPINAL CANAL CERVICAL W/O CONTRAST MATRL 0 12:00:00 AM EDT [facility] ([facility] MRI SPINAL CANAL CERVICAL W/O CONTRAST MATRL 0 12:00:00 AM EDT [facility] ([facility] MRI SPINAL CANAL LUMBAR W/O CONTRAST MATERIAL 05/15/19 20 12:00:00 AM EDT [facility] ([facility] MRI SPINAL CANAL LUMBAR W/O CONTRAST MATERIAL 05/15/19 20 12:00:00 AM EDT [facility] ([facility] ) OFFICE OUTPATIENT VISIT 15 MINUTES 05/01 12:00:00 AM EDT - 05/02/2019 12:00:00 AM EDT [facility] ([facility]) Psychotherapy ADD ON - 30 Minutes 05/02/2019 12:00:00 AM EDT [facility] ([facility]) OFFICE OUTPATIENT VISIT 15 MINUTES 05/02/2019 12:00:00 AM EDT [facility] ([facility]) OFFICE OUTPATIENT VISIT 15 MINUTES 03/20 12:00:00 AM EST - 03/20/2019 12:00:00 AM EST [facility] ([facility]) Psychotherapy ADD ON - 30 Minutes 03/20/2019 12:00:00 AM EST [facility] ([facility]) OFFICE OUTPATIENT VISIT 15 MINUTES 03/20/2019 12:00:00 AM EST [facility] ([facility]) Results ID Date Data Source [id number] 02/15/2020 07:24:00 PM EST [facility] 1 OrderSheet [facility] Emergency Department [address] [place] [address] Phone #: rct- [phone] 02/15/2020 19:10 Patient: KIYA VILA Sex: F : 1970 Age: 49yWEIGHT:104.3 kg (S)ALLERGIES: No Known Drug AllergyCHIEF COMPLAINT: dysuria, low back painDIAGNOSIS: Urinary tract infectious diseaseLAB ORDERSOrder Description Priority Entered Acknowledged InitialedCBC w Diff STAT 19:25 02/15/2020 19:34 Delores Ramirez R.N. PA;CMP STAT 19:25 02/15/2020 19:34 Deloreskehinde Ramirez RMichaelNMichael PA; Lipase STAT 19:25 02/15/2020 19:34 Delores ManeNMichael PA;Urinalysis (Clean STAT 19:25 02/15/2020 Ack'd: 19:34 Delores 19:38 Delores Dougatch) Federico Ramirez RMichaelNMichael PA;Lactic Acid STAT 19:25 02/15/2020 19:34 Deloreskehinde Ramirez R.NMichael PA;DIAGNOSTIC STUDY ORDERSOrder Description Priority Entered Acknowledged InitialedMEDICATION/IV/DRIP/FLUID ORDERSOrder Description Priority Entered Acknowledged InitialedZofran ODT PO 8 19:25 02/15/2020 Ack'd: 19:34 Delores 19:39 Delores Daniel Ramirez RMarcelo Ramirez R.NMichael PA;HYDROcodone-AP 19:25 02/15/2020 Ack'd: 19:34 Delores 19:39 Delores BlairAP (5-325mg)PO 2 Federico Ramirez R.Jania Ramirez R.NMichaeltab (HIGH ALERT PA;MEDICATION)Pyridium PO 200 19:25 020 Ack'd: 19:34 Delores 19:39 Delores Bladwight Ramirez RMarcelo Ramirez R.NMichael PA; 2 OrderSheet [facility] Emergency Department [address] [place] [address] Phone #: ext- [phone] 02/15/2020 19:10 Patient: KIYA VILA Sex: F : 1970 Age: 49yCefdinir Capsules 21:40 02/15/2020 21:48 Delores Yoo 300 mg (NOW Federico Pink) PA;GENERAL ORDERSOrder Description Priority Entered Acknowledged InitialedNPO 19:25 02/15/2020 19:34 Delores BAIG;[Electronically signed by Federico Block (21:49 02/15/2020)][Electronically signed by Delores Soriano R.N. (03:49 02/16/2020)][Electronically locked by Delores Soriano R.N. (03:49 02/16/2020)] Name Value Range Interpretation Code Description Data Sharmin rce(s) Supporting Document(s) ID Date Data Source [id number] 02/15/2020 07:24:00 PM EST [facility] 1 Medication Reconciliation Report [facility] Emergency Department [address] [place] [address] Phone #: ext- [phone] 02/15/2020 19:10 Patient: KIYA VILA Sex: F : 1970 Age: 49yWeight: 104.3 kgHeight/Length: 66 in.BMI: 37.1ALLERGIES: No Known Drug AllergyThe patient's Home Medications are listed below:CONTINUE TAKING THE FOLLOWING MEDICATIONS: Gabapentin Oral SEROquel Oral Tramadol HCL Oral traZODone HCl Oral Wellbutrin OralThe source(s) of the original Home Medication information:Not obtained.The following Medications were given to the patient in the Emergency Department:Zofran ODT [PO] PO 8 mg, administered: 19:39 02/15/2020HYDROCODONE-APAP (5-325MG) [PO] PO 2 tab, administered: 19:39 02/15/2020Pyridium [PO] PO 200 mg, administered: 19:39 02/15/2020Cefdinir [PO] PO 300 mg, administered: 21:43 02/15/2020The following Medications were pre scribed to the patient:cefdinir 300 mg capsule Take 1 capsule twice a day for 7 days -- Dispense 14 capsule. Refills: 0.Substitution permitted.Pharmacy - [facility] - [address] [place] [address] [id number]. . 2 Medication Reconciliation Report [facility] Emergency Department [address] [place] [address] Phone #: ext- [phone] 02/15/2020 19:10 Patient: KIYA VILA Sex: F : 1970 Age: 49yPyridium 200 mg tablet Take 1 tablet three times a day as needed for pain for 2 days -- Dispense 6tablet. Refills: 0. Substitution permitted.Pharmacy - [facility] - [address] [place] [address] [phone]. . -- SAFIA Jones Name Value Range Interpretation Code Description Data Sharmin rce(s) Supporting Document(s) ID Date Data Source [id number] 02/15/2020 07:24:00 PM [facility] 1 Medication Administration Record [facility] Emergency Department [address] [place] [address] Phone #: ext- [phone] 02/15/2020 19:10 Patient: KIYA VILA Sex: F : 1970 Age: 49yWeight: 104.3 kgHeight/Length: 66 inBMI: 37.1ALLERGIES: No Known Drug Allergy Date/Time Medication Administered Medication OrderedGiven ZOFRAN ODT [PO] (ONDANSETRON Zofran ODT PO 8 mg19:39 02/15/2020 HCL)Delores Ramirez R.N. Dose: 8 mg Oral Disintegrating Tablets POGiven HYD ROCODONE-APAP (5-325MG) [PO] HYDROcodone-APAP19:39 02/15/2020 (ACETAMINOPHEN-HYDROCODONE) (5-325mg)PO 2 tab (HIGH ALERTTina Antonietta SorianoNMichael Dose: 2 tab Tablets PO MEDICATION)Given PYRIDIUM [PO] (PHENAZOPYRIDINE Pyridium PO 200 mg19:39 02/15/2020 HCL)Delores Ramirez R.N. Dose: 200 mg POGiven CEFDINIR [PO] Cefdinir Capsules PO 300 mg21:43 02/15/2020 Dose: 300 mg Capsules PO (NOW x1)Delores Ramirez R.N. Name Value Range Interpretation Code Description Data Sharmin rce(s) Supporting Document(s) ID Date Data Source [id number] 02/15/2020 07:24:00 PM EST [facility] 1 General Instructions [facility] Emergency Department [address] [place] [address] Phone #: ext- [phone] 02/15/2020 19:10 Patient: KIYA VILA Sex: F : 1970 Age: 49yAcute urinary tract infection with cystitis and hematuria.INSTRUCTIONSDrink plenty of fluids.Your Current Medications: Your current home medications have been reviewed.CONTINUE TAKING THE FOLLOWING MEDICATIONS:Gabapentin Oral.SEROquel Oral.Tramadol HCL Oral.traZODone HCl Oral.Wellbutrin Oral.Prescription Medications:cefdinir 300 mg capsule Take 1 capsule twice a day for 7 days -- Dispense 14 capsule. Refills: 0.Substitution permitted.Pharmacy - [facility] - [address] [place] [address]. .Pyridium 200 mg tablet Take 1 tablet three times a day as needed for pain for 2 days -- Dispense 6tablet. Refills: 0. Substitution permitted.[place] [id number]. .Follow-up:Follow up with your doctor in three days if not better. Reason for referral: evaluation and treatment.Summary of care provided to patient.Understanding of the discharge instructions verbalized by patient. ADDITIONAL INFORMATIONBladder Infection, Female (Adult) 2 General Instructions [facility] Emergency Department [address] [place] [address] Phone #: ext- [phone] 02/15/2020 19:10 Patient: KIYA VILA Sex: F : 1970 Age: 49yUrine normally doesn't have any germs (bacteria) in it. But bacteria can get into the urinary tract fromthe skin around the rectum. Or they can travel in the blood from other parts of the body. Once theyare in your urinary tract, they can cause infection in these areas: The urethra (urethritis) The bladder (cystitis) The kidneys (pyelonephritis)The most common place for an infection is in the bladder. This is called a bladder infection. This isone of the most common infections in women. Most bladder infections are easily treated. They arenot serious unless the infection spreads to the kidney.The terms bladder infection, UTI, and cystitis are often used to describe the same thing. But they arenot always the same. Cystitis is an inflammation of the bladder. The most common cause of cystitis isan infection.SymptomsThe infection causes inflammation in the urethra and bladder. This causes many of the symptoms.The most common symptoms of a bladder infection are: Pain or burning when urinating Having to urinate more often than normal Urgent need to urinate 3 General Instructions [facility] Emergency Department [address] [place] [address] Phone #: ext- [phone] 02/15/2020 19:10 Patient: KIYA VILA Sex: F : 1970 Age: 49y Only a small amount of urine comes out Blood in urine Belly (abdominal) discomfort. This is often in the lower belly above the pubic bone. Cloudy urine Strong- or bad-smelling urine Unable to urinate (urinary retention) Unable to hold urine in (urinary incontinence) Fever Loss of appetite Confusion (in older adults)CausesBladder infections are not contagious. You can't get one from someone else, from a toilet seat, orfrom sharing a bath.The most common cause of bladder infections is bacteria from the bowels. The bacteria get onto theskin around the opening of the urethra. From there, they can get into the urine. Then they travel up tothe bladder, causing inflammation and infection. This often happens because of: Wiping incorrectly after urinating. Always wipe from front to back. Bowel incontinence Procedures such as having a catheter put in Older age Not emptying your bladder. This can give bacteria a chance to grow in your urine. Fluid loss (dehydration) Constipation Having sex Using a diaphragm for controlTreatment 4 General Instructions [facility] Emergency Department [address] [place] [address] Phone #: ext- [phone] 02/15/2020 19:10 Patient: KIYA VILA Sex: F : 1970 Age: 49yBladder infections are diagnosed by a urine test and urine culture. They are treated with antibiotics.They often clear up quickly without problems. Treatment helps prevent a more serious kidneyinfection.MedicinesMedicines can help in the treatment of a bladder infection: Take antibiotics until they are used up, even if you feel better. It's important to finish them to make sure the infection has cleared. You can use acetaminophen or ibuprofen for pain, fever, or discomfort, unless another medicine was prescribed. If you have long-term (chronic) liver or kidney disease, talk with your healthcare provider before using these medicines. Also talk with your provider if you've ever had a stomach ulcer or GI (gastrointestinal) bleeding, or are taking blood-thinner medicines. If you are given phenazopydridine to reduce burning with urination, it will make your urine a bright orange color. This can stain clothing.Care and preventionThese self-care steps can help prevent future infections: Drink plenty of fluids. This helps to prevent dehydration and flush out your bladder. Do this unless you must restrict fluids for other health reasons, or your healthcare provider told you not to. Clean yourself correctly after going to the bathroom. Wipe from front to back after using the toilet. This helps prevent the spread of bacteria. Urinate more often. Don't try to hold urine in for a long time. Wear loose-fitting clothes and cotton underwear. Don't wear tight-fitting pants. Improve your diet and prevent constipation. Eat more fresh fruits and vegetables, and fiber. Eat less junk foods and fatty foods. Don't have sex until your symptoms are gone. Don't have caffeine, alcohol, and spicy foods. These can irritate your bladder. Urinate right after you have sex to flush out your bladder. If you use control pills and have frequent bladder infections, discuss it with your healthcare provider.Follow-up care 5 General Instructions [facility] Emergency Department [address] [place] [address] Phone #: ext- [phone] 02/15/2020 19:10 Patient: KIYA VILA Sex: F : 1970 Age: 49yCall your healthcare provider if all symptoms are not gone after 3 days of treatment. This is especiallyimportant if you have repeat infections.If a culture was done, you will be told if your treatment needs to be changed. If directed, you cancall to find out the results.If X-rays were done, you will be told if the results will affect your treatment.Call 911Call 911 if any of the following occur: Trouble breathing Hard to wake up or confusion Fainting (loss of consciousness) Fast heart rateWhen to get medical adviceCall your healthcare provider right away if any of these occur: Fever of 100.4F (38.0C) or higher, or as directed by your healthcare provider Symptoms are not better after 3 days of treatment Back or belly pain that gets worse Repeated vomiting, or unable to keep medicine down Weakness or dizziness Vaginal discharge Pain, redness, or swelling in the outer vaginal area (labia) [phone] [employer]. [address] [place] [address], [place] [address]. All rights reserved. This information is not intended as asubstitute for professional medical care. Always follow your healthcare professional's instructions. You have been given the following additional information: Bladder Infection, Female (Adult) 6 General Instructions [facility] Emergency Department [address] [place] [address] Phone #: ext- [phone] 02/15/2020 19:10 Patient: KIYA VILA Sex: F : 1970 Age: 49y(Electronically signed by SAFIA Jones 02/15/2020 21:49) Name Value Range Interpretation Code Description Data Sharmin rce(s) Supporting Document(s) ID Date Data Source [id number] 02/15/2020 07:24:00 PM EST [facility] 1 Clinical Report - Nurses [facility] Emergency Department [address] [place] [address] Phone #: ext- [phone] 02/15/2020 19:10 Patient: KIYA VILA Sex: F : 1970 Age: 49yTRIAGEArrived by private vehicle. Historian: patient.Triage time: 19:11 02/15/2020.Chief Complaint: PAINFUL URINATION, URGENCY and FREQUENCY and RIGHT-SIDED andLEFT-SIDED FLANK PAIN.Onset. (1 weeks ago). ( states that she has had some urinary incontinence in her sleep which is abnormalfor her. 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 Taking her rx Tramadol for the pain). --19:13 02/15/20 Delores Ramirez R.N.Acuity: LEVEL 3. --19:15 02/15/20 Delores Ramirez R.N.SEPSIS SCREEN: SIRS SCREEN: heart rate greater than 90. SEPSIS SCREEN NEGATIVE. Nosuspected or confirmed signs of infection present. --19:21 02/15/20 Delores Ramirez R.N.19:20 02/15/20. BP: 133/86. MAP: 101. HR: 99. RR: 16. O2 saturation: 97%. Temp: 99.3 F. Pain levelnow: 8/10. --19:21 02/15/20 Delores Ramirez R.N.Weight: 104.3 kg stated. Height/Length: 66 inches Per Patient. BMI: 37.1. --19:11 02/15/20 Delores Goldberg R.N.MedicationsTramadol HCL Oral. --19:16 02/15/20 Delores Ramirez R.N. Gabapentin Oral. --19:16 02/15/20 Delores Ramirez R.N. traZODone HCl Oral. --19:17 02/15/20 Delores Ramirez R.N. SEROquel Oral. --19:17 02/15/20 Delores Ramirez R.N. Wellbutrin Oral. --19:17 02/15/20 Delores Ramirez R.N.AllergiesNo Known Drug Allergy. --19:16 02/15/20 Delores Ramirez R.N.PROBLEMS:Depression.Nerve damage.Insomnia. --19:18 02/15/20 Delores Ramirez R.N.ADDITIONAL SURGERIES: 2 Clinical Report - Nurses [facility] Emergency Department [address] [place] [address] Phone #: ext- [phone] 02/15/2020 19:10 Patient: KIYA VILA Sex: F : 1970 Age: 49y Cauda equina repair. Cholecystectomy. Gastric Resection. Hysterectomy. Tubal Ligation. --19:18 02/15/20 Delores Ramirez R.N. History SOCIAL HX: Former smoker. Alcohol use. (rare). No drug use. She was offered HIV testing but declined and hepatitis C testing but declined. She has not traveled outside the [place] Infectious disease exposure: No infectious disease exposure. The patient was not exposed to C-diff, MRSA or VRE. (no Known exposure to Covid that pt is aware of). SELF HARM ASSESSMENT: Self harm assessment was performed. The patient answered "no" to the question(s) "Do you have thoughts of harming or killing yourself?" and "Do you have a plan for harming or killing yourself?". ABUSE ASSESSMENT: No report of abuse. FALL RISK ASSESSMENT: Fall risk assessment completed. Risk factors identified include nausea. Fall interventions initiated. Bed in low position. Brakes on. Call light in reach of patient. --19:15 02/15/20 Delores Ramirez R.N. PAST MEDICAL HX: No history of diabetes mellitus or hypertension. No history of pelvic inflammatory disease, sexually transmitted disease or endometriosis. ( had a UTI about 1 yr ago). --19:20 02/15/20 Delores Ramirez R.N.PHYSICAL ASSESSMENTAmbulatory to room.GENERAL / NEURO / PSYCH: Alert. Oriented X 4. Ap pears anxious.HEENT: Mucous membranes are pink.RESPIRATORY: Respirations not labored.CVS: Capillary refill less than 2 seconds.GI / : Emesis noted. Pain with urination. She has had frequency of urination. Urgency of urination.Patient is incontinent of urine.SKIN: Skin is warm and dry. --19:22 02/15/20 Delores Ramirez R.N.NURSING PROGRESS NOTESReassurance given to the patient. Call light placed in reach. Bed placed in lowest position. Brakes ofbed on. --19:22 02/15/20 Delores Ramirez R.N. 19:39 02/15/2020 Zofran ODT (Ondansetron HCl) PO Oral Disintegrating Tablets 8 mg given. Allergies verified and confirmed 5 rights. Information reviewed with patient including reason for taking this medication. Verbalizes understanding. --19:39 02/15/20 Delores Ramirez R.N. 3 Clinical Report - Nurses [facility] Emergency Department [address] [place] [address] Phone #: ext- [phone] 02/15/2020 19:10 Patient: KIYA VILA Sex: F : 1970 Age: 49y 19:39 02/15/2020 HYDROCODONE-APAP (5-325MG) (Acetaminophen-HYDROcodone) PO Tablets 2 tab given. Allergies verified and confirmed 5 rights. Information reviewed with patient including reason for taking this medication and sedative warning. Verbalizes understanding. --19:39 02/15/20 Delores Ramirez R.N. 19:39 02/15/2020 Pyridium (Phenazopyridine HCl) PO 200 mg given. Allergies verified and confirmed 5 rights. Information reviewed with patient including reason for taking this medication. Verbalizes understanding. --19:39 02/15/20 Delores Ramirez R.N. 19:49 02/15/20. Blood samples drawn by lab. Urine collected. --19:54 02/15/20 Delores Ramirez R.N. 21:43 02/15/2020 Cefdinir PO Capsules 300 mg given. Allergies verified and confirmed 5 rights. Information reviewed with patient including reason for taking this medication. Verbalizes understanding. --21:48 02/15/20 Delores Ramirez R.N.DISPOSITION / DISCHARGE 21:54 02/15/20. HR: 86. RR: 16. O2 saturation: 95%. Temp: 98.1 F. Pain level now 5/10. --21:54 02/15/20 Kristy Mckeon 21:58 02/15/20. BP: 142/82. --21:58 02/15/20 Kristy Mckeon Departure time: 22:05 02/15/2020. Condition at departure: stable. No learning barriers present. Reviewed medication(s) dosing and course information. Prescription(s) sent electronically to pharmacy. Medication(s) for home use given to the patient per protocol. Patient verbalized understanding. Written instructions provided in [place]o. The patient was discharged by the physician. S he was discharged home. She left ambulatory and via taxi. --22:15 02/15/20 Delores Ramirez R.N.Locked/Released at 02/16/2020 03:49 by Delores Ramirez R.N. Name Value Range Interpretation Code Description Data Sharmin rce(s) Supporting Document(s) ID Date Data Source [id number] 02/15/2020 07:24:00 PM [facility] 1 Clinical Report - Physicians/Mid Levels [facility] Emergency Department [address] [place] [address] Phone #: ext- [phone] 02/15/2020 19:10 Patient: KIYA VILA Sex: F : 1970 Age: 49y Time Seen: 19:15 02/15/2020. Arrived- By private vehicle. Historian- patient.HISTORY OF PRESENT ILLNESS Chief Complaint: DYSURIA. LOW BACK PAIN N/V. This started 2 days ago; states that she has had some urinary incontinence in her sleep which is abnormal for her. Has nausea and thrown up 6 times in the last two days and still present. It was abrupt in onset and has been constant. The symptoms are described as moderate. The patient has had lower back pain. No abdominal pain, pelvic pain, vaginal pain, flank pain or hematuria. She has had pain with urination and urgency of urination. The patient has had urinary frequency. The patient has had a hysterectomy. Similar symptoms previously. Patient has had similar symptoms several times. Recent medical care: Not recently seen/assessed.REVIEW OF SYSTEMSThe patient has had nausea. She has had vomiting. No diarrhea, black stools, headache, fever or chills.No anorexia, eye discomfort, sore throat, cough or difficulty breathing. No chest pain, skin rash, enlargedlymph nodes or joint pain.PAST HISTORYProblems:Depression.Nerve damage.Insomnia. Additional Surgeries: Cauda equina repair. Cholecystectomy. Gastric Resection. Hysterectomy. Tubal Ligation. Medications: Wellbutrin Oral. SEROquel Oral. traZODone HCl Oral. Gabapentin Oral. 2 Clinical Report - Physicians/Mid Levels [facility] Emergency Department [address] [place] [address] Phone #: [phone]- [phone] 02/15/2020 19:10 Patient: KIYA VILA Sex: F : 1970 Age: 49y Tramadol HCL Oral. Allergies: No Known Drug Allergy.SOCIAL HISTORYFormer smoker. Occasional alcohol use. No drug use.PHYSICAL EXAMVital Signs: 02/15/2020 19:20 BP: 133/86. MAP: 101. HR: 99. RR: 16. O2 saturation: 97%. Temp: 99.3 F.Pain level now: 8/10. Have been reviewed as normal. Oxygen saturation normal.Appearance: Alert. Oriented X3. No acute distress.HEENT: Normal external inspection.ENT: Pharynx normal.Neck: Neck supple.CVS: Heart sounds normal.Respiratory: No respiratory distress.Abdomen: Soft and nontender. Bowel sounds normal. No mass.Back: Mild tenderness in the right upper and left upper lumbar area. No CVA tenderness.Skin: Skin warm and dry. Normal skin color. No rash. Normal skin turgor.Extremities: Extremities nontender.Neuro: Oriented X 3.LABS, X-RAYS, AND EKGLaboratory Tests: Laboratory tests have been ordered, with results reviewed and considered in themedical decision making process. CBC w Diff: (KAMRAN: 02/15/2020 19:32) ( MsgRcvd 02/15/2020 21:15) Final results Test Result Flag Units (Reference) CBC W/AUTOMATED DIFF COMPLETE BLOOD COUNT WBC 9.8 10/uL (4.2 - 11.0) RBC 4.44 10/uL (4.20 - 5.40) HEMOGLOBIN 13.8 g/dL (12.0 - 16.0) HEMATOCRIT 41.9 % (37.0 - 47.0) MCV 94.4 fL (81.0 - 101) MCH 31.1 pg (27.0 - 34.0) MCHC 32.9 g/dL (31.0 - 36.0) RDW 13.6 % (11.5 - 14.5) PLATELETS 227 10/uL (150 - 450) MPV 12.7 H fL (7.4 - 10.4) NEUT 70.9 % (37.0 - 80.0) LYMPH 17.4 L % (25.0 - 40.0) MONO 10.5 H % (3.0 - 8.0) EOS 0.3 % (0.0 - 7.0) BASO 0.6 % (0.0 - 2.5) %IG 0.3 H % (0.0 - 0.0) %NRBC 0.0 % (0.0 - 0.0) #NEUT 6.91 H 10/uL (2.00 - 6.90) #LYMPH 1.70 10/uL (0.60 - 3.40) #MONO 1.02 H 10/uL (0.00 - 0.90) #EOS 0.03 10/uL (0.00 - 0.70) 3 Clinical Report - Physicians/Mid Levels [facility] Emergency Department [address] [place] [address] Phone #: ext- [phone] 02/15/2020 19:10 Patient: KIYA VILA Sex: F : 1970 Age: 49y #BASO 0.06 10/uL (0.00 - 0.20) #IG 0.03 10/uL (0.00 - 0.10) #NRBC 0.00 10/uL (0.00 - 0.00) MANUAL DIFF SEE BELOW SEGS 64 % (37 - 80) BAND 0 % (0 - 5) %LYMPH 23 L % (25 - 40) %MONO 13 H % (3 - 8) %EOS 0 % (0 - 7) %BASO 0 % (0 - 2) METAMYELOCYTE 0 % MYELOCYTE 0 % PROMYELOCYTE 0 % BLASTS 0 % DILCIA LYM 0 % NRBC 0 % RBC MORPH NOT INDICATEDCMP: (KAMRAN: 02/15/2020 19:32) ( MsgRcvd 02/15/2020 20:56) Final results Test Result Flag Units (Reference) COMPREHENSIVE METABOLIC PANEL COMPREHENSIVE METABOLIC PANEL SODIUM 140 mEq/L (134 - 153) POTASSIUM 3.9 mEq/L (3.6 - 5.0) CHLORIDE 105 mEq/L (98 - 107) CO2 24 MEQ/L (22 - 30) GLUCOSE 103 MG/DL (65 - 110) BUN 17 MG/DL (7 - 21) CREATININE 0.7 MG/DL (0.7 - 1.5) BUN/CREAT 24 (8 - 27) TOTAL PROTEIN 6.3 G/DL (6.3 - 8.2) ALBUMIN 3.7 L G/DL (3.9 - 5.0) GLOBULIN 2.6 GM/DL (2.4 - 3.2) A/G RATIO 1.4 (0.8 - 2.0) CALCIUM 8.7 MG/DL (8.4 - 10.2) TOTAL BILI <0.7 MG/DL (0.2 - 1.3) ALKALINE PHOS 121 U/L (38 - 126) SGOT/AST 11 U/L (5 - 40) SGPT/ALT 10 U/L (7 - 56) ANION GAP 11.0 mmol/L (8.0 - 16.0) AGE 49 yrs NON-AA GFR >60 mL/min AFR AMER GFR >60 mL/min Male GFR Interprentation 20-49 yrs >60 mL/min Ijpwyk23-91 yrs >56 mL/min Normal 60-69 yrs >49 mL/min Normal 70-79yrs>42 mL/min Normal 80 and above >35 mL/min Normal Female GFRInterpretation 20-39 yrs >60 mL/min Normal 40-49 yrs >58 mL/minNormal 50-59 yrs >51 mL/min Normal 60-69 yrs >45 mL/min Phacxz64-98 yrs >39 mL/min Normal 80 and above >32 mL/min NormalLipase: (KAMRAN: 02/15/2020 19:32) ( [facility] 20[facility]53[facility] Final results Test Result Flag Units (Reference) LIPASE 15 U/L (13 - 60)Urinalysis: (KAMRAN: 02/15/2020 19:32) ( [facility] 02/15/2020 20:58) Final results Test Result Flag Units (Reference) URINALYSIS 4 Clinical Report - Physicians/Mid Levels [facility] Emergency Department [address] [place] [address] Phone #: ext- [phone] 02/15/2020 19:10 Patient: KIYA VILA Sex: F : 1970 Age: 49y URINALYSIS SOURCE Clean Catch COLOR yellow (NORMAL: Yello CLARITY turbid (NORMAL: Clear SPEC GRAVITY 1.010 (1.001 - 1.030 pH 8 (5 - 9) GLUCOSE NORM (NORMAL: Negat BILIRUBIN NEG (NORMAL: Negat KETONE NEG (NORMAL: Negat PROTEIN 30 (NORMAL: Negat NITRITE NEG (NORMAL: Negat BLOOD 25 A (NORMAL: Negat LEUK EST 500 A (NORMAL: Negat UROBILINOGEN NOR (less than 1.0 MICROSCOPIC See Below WBC TNTC A (NORMAL: NONE RBC 1 - 3 (NORMAL: NONE EPITHELIAL FEW (NORMAL: NONE BACTERIA 2+ MOD A (NORMAL: NONE AMORPH SED RARE (NORMAL: NONE CRYSTALS See Below TRIPLE PHOS 1+ A (NORMAL: NONE Lactic Acid: (KAMRAN: 02/15/2020 19:32) ( [facility] 02/15/2020 21:26) Final results Test Result Flag Units (Reference) LACTIC ACID 1.2 MMOL/L (0.2 - 2.2).PROGRESS AND PROCEDURESCourse of Care: 21:42 Feb 15 2020. Evaluation after observation. (Discussed UA and tx for UTI and pt isagreeable.). Patient counseled in person regarding the patient's stable condition, test results, diagnosis and need for follow-up. Patient agrees with plan of care. 21:Feb 15 2020. Disposition: Discharged home in good and improved condition (:Feb 15 2020).CLINICAL IMPRESSION Acute urinary tract infection with cystitis and hematuria.INSTRUCTIONS Drink plenty of fluids. Your Current Medications: Your current home medications have been reviewed. CONTINUE TAKING THE FOLLOWING MEDICATIONS: 5 Clinical Report - Physicians/Mid Levels [facility] Emergency Department [address] [place] [address] Phone #: ext- [phone] 02/15/2020 19:10 Patient: KIYA VILA Sex: F : 1970 Age: 49y Gabapentin Oral. SEROquel Oral. Tramadol HCL Oral. traZODone HCl Oral. Wellbutrin Oral. Prescription Medications: cefdinir 300 mg capsule Take 1 capsule twice a day for 7 days -- Dispense 14 capsule. Refills: 0. Substitution permitted. Pharmacy - [facility] [address] [phone]. . Pyridium 200 mg tablet Take 1 tablet three times a day as needed for pain for 2 days -- Dispense 6 tablet. Refills: 0. Substitution permitted. Pharmacy - [facility] - [address] [place] [phone]. . Follow-up: Follow up with your doctor in three days if not better. Reason for referral: evaluation and treatment. Summary of care provided to patient. Understanding of the discharge instructions verbalized by patient.(Electronically signed by SAFIA Jones 02/15/2020 21:49) Name Value Range Interpretation Code Description Data Sharmin rce(s) Supporting Document(s) ID Date Data Source [id number] 02/18/2020 07:24:00 AM EST [facility] Name Value Range Interpretation Code Description Data Sharmin rce(s) Supporting Document(s) CULTURE URINE [facility] _CULTURE URINE_$$[id number]$$[id number]$$[id number]$$[id number]$$[id number]$$[id number]$$[id number]$$[id number]$$[id number]$$ [id number]$$[id number]$$[id number]$$[id number]$$[id number]$$[id number]$$[id number]$$[id number]$$[id number]$$[id number]$$ [id number]$$[id number]$$[id number]$$[id number]$$[id number]$$[id number]$$[id number]$$[id number] -- Continued on next page --Patient: CADENCE HUERTAS Order: [id number] Page 2Culture: CULTURE URINE Status: Final ====$$[id number]$$[id number] DATE/TIME: 02/18/2020 07:05Culture: CULTURE URINE Status: FinalUrine Culture,Comprehensive: P1More than 3 organisms recovered, none predominant. 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 : [email or web address] REF ID Date Data Source [id number] 02/15/2020 09:26:00 PM EST [facility] Name Value Range Interpretation Code Description Data Sharmin rce(s) Supporting Document(s) Lactate [Moles/volume] in Serum or Plasma 1.2 MMOL/L 0.2 - 2.2 [facility] ID Date Data Source [id number] 02/15/2020 09:15:00 PM EST [facility] Name Value Range Interpretation Code Description Data Sharmin rce(s) Supporting Document(s) CBC W/AUTOMATED DIFF [facility] COMPLETE BLOOD COUNT Leukocytes [#/volume] in Blood by Automated count 9.8 10^3/uL 4.2 - 1 1.0 [facility] Erythrocytes [#/volume] in Blood by Automated count 4.44 10^6/uL 4. 20 - 5.40 [facility] Hemoglobin [Mass/volume] in Blood 13.8 g/dL 12.0 - 16.0 [facility] Hematocrit [Volume Fraction] of Blood by Automated count 41.9 % 3 7.0 - 47.0 [facility] Erythrocyte mean corpuscular volume [Entitic volume] by Auto mated count 94.4 fL 81.0 - 101 [facility] Erythrocyte mean corpuscular hemoglobin [Entitic mass] by Automated count 31.1 pg 27.0 - 34.0 [facility] Erythrocyte mean corpuscular hemoglobin concentration [Mass/volume] by Automated count 32.9 g/dL 31.0 - 36.0 [facility] Erythrocyte distribution width [Ratio] by Automated count 13.6 % 11.5 - 14.5 [facility] Platelets [#/volume] in Blood by Automated count 227 10^3/uL 150 - 45 0 [facility] Platelet mean volume [Entitic volume] in Blood by Automated count 12.7 fL 7.4 - 10.4 H [facility] Neutrophils/100 leukocytes in Blood by Automated count 70.9 % 37. 0 - 80.0 [facility] Lymphocytes/100 leukocytes in Blood by Manual count 17.4 % 25.0 - 40.0 L [facility] Monocytes/100 leukocytes in Blood by Automated count 10.5 % 3.0 - 8.0 H [facility] Eosinophils/100 leukocytes in Blood by Automated count 0.3 % 0.0 - 7.0 [facility] 0.6 %IG 0.3 % 0.0 - 0.0 H [facility] %NRBC 0.0 % 0.0 - 0.0 [facility] Neutrophils [#/volume] in Blood by Automated count 6.91 10^3/uL 2.00 - 6.90 H [facility] Lymphocytes [#/volume] in Blood by Automated count 1.70 10^3/uL 0.60 - 3.40 [facility] Monocytes [#/volume] in Blood by Automated count 1.02 10^3/uL 0.00 - 0.90 H [facility] Eosinophils [#/volume] in Blood by Automated count 0.03 10^3/uL 0.00 - 0.70 [facility] Basophils [#/volume] in Blood by Automated count 0.06 10^3/uL 0.00 - 0.20 [facility] #IG 0.03 10^3/uL 0.00 - 0.10 [facility] #NRBC 0.00 10^3/uL 0.00 - 0.00 [facility] MANUAL DIFF SEE BELOW [facility] Segmented neutrophils/100 leukocytes in Blood by Manual count 64 % 37 - 80 [facility] BAND 0 % 0 - 5 [facility] %LYMPH 23 % 25 - 40 L [facility] %MONO 13 % 3 - 8 H [facility] %EOS 0 % 0 - 7 [facility] 0 Metamyelocytes/100 leukocytes in Blood by Manual count 0 % [facility] Myelocytes/100 leukocytes in Blood by Manual count 0 % [facility] Promyelocytes/100 leukocytes in Blood by Manual count 0 % [facility] Blasts/100 leukocytes in Blood by Manual count 0 % [facility] DILCIA LYM 0 % [facility] Nucleated erythrocytes/100 erythrocytes in Blood by Manual count 0 % [facility] RBC MORPH NOT INDICATED [facility] ID Date Data Source [id number] 02/15/2020 08:57:00 PM EST [facility] Name Value Range Interpretation Code Description Data Sharmin rce(s) Supporting Document(s) [facility] S[facility] Clean Catch [facility] COLOR yellow NORMAL: Yellow [facility] CLARITY turbid NORMAL: Clear [facility] Specific gravity of Urine by Test strip 1.010 1.001 - 1.030 [facility] pH 8 5 - 9 [facility] Glucose [Mass/volume] in Urine by Test strip NORM NORMAL: Negat [facility] Bilirubin.total [Presence] in Urine by Test strip NEG NORMAL: Negative [facility] Ketones [Presence] in Urine by Test strip NEG NORMAL: Negative [facility] Protein [Mass/volume] in Urine by Test strip 30 [facility]AL[facility] Nitrite [Presence] in Urine by Test strip NEG NORMAL: Negative [facility] BLOOD 25 NORMAL: Negative [facility] Leukocyte esterase [Presence] in Urine by Test strip 500 JAMES L: Negative [facility] Urobilinogen [Mass/volume] in Urine by Test strip NOR less daniel n 1.0 mg/dL [facility] MICROSCOPIC See Below [facility] ital WBC TNTC NORMAL: NONE SEEN A [facility] Erythrocytes [#/volume] in Urine by Test strip 1 - 3 NORMAL: NON E SEEN [facility] EPITHELIAL FEW NORMAL: NONE SEEN [facility] Bacteria [Presence] in Urine sediment by Light microscopy 2+ MOD NORMAL: NONE SEEN A [facility] Amorphous sediment [Presence] in Urine sediment by Light albert roscopy RARE NORMAL: NONE SEEN [facility] Crystals [type] in Urine sediment by Light microscopy See Below [facility] TRIPLE PHOS 1+ NORMAL: NONE SEEN A [facility] ID Date Data Source [id number] 02/15/2020 08:56:00 PM EST [facility] Name Value Range Interpretation Code Description Data Sharmin rce(s) Supporting Document(s) COMPREHENSIVE METABOLIC PANEL [facility] COMPREHENSIVE METABOLIC PANEL Sodium [Moles/volume] in Serum or Plasma 140 mEq/L 134 - 153 [facility] Potassium [Moles/volume] in Serum or Plasma 3.9 mEq/L 3.6 - 5.0 [facility] Chloride [Moles/volume] in Serum or Plasma 105 mEq/L 98 - 107 [facility] Carbon dioxide, total [Moles/volume] in Serum or Plasma 24 MEQ/L 22 - 30 [facility] Glucose [Mass/volume] in Serum or Plasma 103 MG/DL 65 - 110 [facility] BUN 17 MG/DL 7 - 21 [facility] Creatinine [Mass/volume] in Serum or Plasma 0.7 MG/DL 0.7 - 1.5 [facility] BUN/CREAT 24 8 - 27 [facility] Protein [Mass/volume] in Serum or Plasma 6.3 G/DL 6.3 - 8.2 [facility] Albumin [Mass/volume] in Serum or Plasma 3.7 G/DL 3.9 - 5.0 L [facility] Globulin [Mass/volume] in Serum by calculation 2.6 GM/DL 2.4 - 3.2 [facility] A/G RATIO 1.4 0.8 - 2.0 [facility] Calcium [Mass/volume] in Serum or Plasma 8.7 MG/DL 8.4 - 10.2 [facility] Bilirubin.total [Mass/volume] in Serum or Plasma <0.7 MG/DL 0.2 - 1.3 [facility] Alkaline phosphatase [Enzymatic activity/volume] in Serum or Plasma 121 U/L 38 - 126 [facility] Aspartate aminotransferase [Enzymatic activity/volume] in Serum or Plasma 11 U/L 5 - 40 [facility] Alanine aminotransferase [Enzymatic activity/volume] in Seru m or Plasma 10 U/L 7 - 56 [facility] Anion gap 3 in Serum or Plasma 11.0 mmol/L 8.0 - 16.0 [facility] AGE 49 yrs [facility] NON-AA GFR >60 mL/min [facility] AFR AMER GFR >60 mL/min [facility] Male GFR In terprentation 20-49 yrs >60 mL/min Normal 50-59 yrs >56 mL/min Normal 60-69 yrs >49 mL/min Normal 70-79yrs >42 mL/min Normal 80 and above >35 mL/min Normal Female GFR Interpretation 20-39 yrs >60 mL/min Normal 40-49 yrs >58 mL/min Normal 50-59 yrs >51 mL/min Normal 60-69 yrs >45 mL/min Normal 70-79 yrs >39 mL/min Normal 80 and above >32 mL/min Normal ID Date Data Source [id number] 02/15/2020 08:53:00 PM EST [facility] Name Value Range Interpretation Code Description Data Sharmin rce(s) Supporting Document(s) Lipase [Enzymatic activity/volume] in Serum or Plasma 15 U/L 13 - 60 [facility] ID Date Data Source [id number] 12/07/2019 12:57:01 PM EDT [facility] Initial Intake Information From: patient Room #: phonePhone Number: Visit Type: phone/audio onlyTechnology Used: PhoneConsent ProvidedInfectious Disease / Travel ScreeningRecent travel for you or any close contacts? NoHave you had any close contact with anyone diagnosed with or under investigation for COVID-19 (coronavirus)? NoFever? NoRespiratory symptoms: cough, cold, congestion, shortness of breath, difficulty breathing? NoLoss of smell? NoLoss of taste? NoSmoking, Tobacco, Vaping or Smoke Exposure StatusSmoke Status: current some day smokerTobacco Use: YesAdv to Quit: YesDo you vape? NoPassive Smoke Exposure: YesPassive Smoke Exposure comments: friendsMenstrual HistoryAny possibility of ? NoComments: partial hysterectomyHealthcare HistorySince your last office visit...Have you been admitted to the hospital? No - [facility] date reported today: 08/24/2019Have you been to an emergency room (ER) or urgent care clinic? Yes - [facility] - leg pain / numbnessEmergency room (ER) or urgent care date reported today: 11/19/2019Have you seen another healthcare provider? Yes - community clinicHave you seen a dentist? Yes - NOCOIntake performed by: Jeanna Garrido MA, December 07, 2019 1:01 PMRate Your HealthIn general, would you say your health is? FairPain AssessmentAre you currently having any pain which... You would like your provider to address? Yes Affects your activity level? YesDepression Screening - PHQ-2Over the last two weeks, have you... Had little interest or pleasure in doing things? Not at all Been feeling down, depressed, or hopeless? Not at all PHQ-2 Score: 0Anxiety Screening - POORNIMA-2Over the last two weeks, have you been... Feeling nervous, anxious, or on edge? Not at all Unable to stop or control worrying? Not at all POORNIMA-2 Score: 0Food InsecurityWithin the past year...Did you worry whether your food would run out before you got money to buy more? Never trueWas there a time when the food you bought didn't last and you didn't have money to get more? Never truePain AssessmentPain ScaleNumeric Rating Scale: 3 / 10Location: Legs and backDuration: chronicFrequency: DailyCharacter/Quality: aching, sharp, dull and pressureScreening, Brief Intervention, & Referral to Treatment (SBIRT)Pre- Screening Questions How many times have you have 4 or more drinks in a day? 0How many times have you used an illegal drug or used a prescription medication for a non-medical reason? 0Performed by: Jeanna Garrido MA, December 07, 2019 1:04 PMPatient History Medical History:Diabetes, Type 2DepressionOCDAnxiety DisorderBipolarPTSDQauda EquinaSurgical History:[facility]:Diabetes (Mother)Hypertension (Father)Social/Personal History:Smoking History:Patient currently smokes every day.Patient has been counseled to quit. Advised to Quit/Tobacco Education: YesChief Complaintfollow-up visit chronic pain phoneHistory of Present Illness (HPI)49 YO female phone appointment for chronic pain. Pt is schedule is waiting on appointment to [facility] [place] [facility] [place]. This visit was conducted via telephone. Carmen Mulligan MD has received verbal consent from the patient/guardian to conduct this visit via telehealth. The patient has been made aware that they have the right to refuse telehealth; of my location and the security of the telehealth software; any other parties present in the session; and that they have a right to select another provider if chosen for a face to face visit.Only urinates twice a day and this seems to have been the result of her cauda equina.Pain is under good control with combination of Tramadol and gabapentin. She does have severe constipation since her initial diagnosis of cauda equina syndrome that shows minimal response to Miralax and Lactulose. Has appointment next month with GI. Also has initial appointment with Dr. Nobles in neurosurgery next month.HPI performed by: Carmen Mulligan MD, December 07, 2019 1:25 PMTransitions of Care InboundProblem ReviewProblem List was reviewed and/or updated during this visit.Medication Reconciliation & ReviewMedication List was reviewed and/or updated during this visit, including review of any zowa-wye-bblinzv medications, herbal therapies, and/or supplements.Allergy ReviewAllergy List was reviewed and/or updated during this visit.Adult Preventive CareProvider Calculated and Reviewed all Clinical Protocols for patient today. Screening Tobacco Screening: Smoking Status: current some day smoker (12/07/2019) Tobacco Use: Currently (12/07/2019) Advised to Quit: Yes (12/07/2019)Cancer Screening Review of Systems General: Denies dizziness, fatigue. Cardiovascular: Denies chest pain. Respiratory: Denies shortness of breath. Gastrointestinal: Complains of see HPI, diarrhea, constipation. Genitourinary: Complains of incomplete emptying. Care Management Plan Transitions of CareInboundRate Your HealthIn general, would you say your health is? FairAssessment & Plan Problems:Assessed:Low back pain (ICD-724.2) (ICD10- M54.5) Assessment: Instructions: Well controlled.Luis current plan and see Dr. Nobles in neurosurgery next month for initial visit.Patient Instructions /Care Plan: Low back pain: Well controlled.Luis current plan and see Dr. Nobles in neurosurgery next month for initial visit.5 minutes spent on phone with patient. Plan developed in collaboration with patient and/or familyMedications:MIRALAX 17 GM ORAL PACKETALA-EDUARDO 1 % EXTERNAL CREAMWELLBUTRIN XL 300 MG ORAL TABLET EXTENDED RELEASE 24 HOURDULOXETINE HCL 60 MG ORAL CAPSULE DELAYED RELEASE PARTICLESROLLING WALKERTRAZODONE HCL 100 MG ORAL TABLETGABAPENTIN 800 MG ORAL TABLETSEROQUEL 300 MG ORAL TABLETTRAMADOL HCL 50 MG ORAL TABLETAllergies:BACTRIM (SULFAMETHOXAZOLE-TRIMETHOPRIM) (Critical)BACLOFEN (Critical)Orders:Telephone E&M 5-10 min Medical Discussion [CPT-08631] Name Value Range Interpretation Code Description Data Sharmin rce(s) Supporting Document(s) ID Date Data Source [id number] 11/19/2019 06:22:00 PM EDT [facility] Name Value Range Interpretation Code Description Data Sharmin rce(s) Supporting Document(s) ESR 26 mm/hr 0-20 H [facility] HCT 38.7 % 36.0-47.0 N [facility] HGB 12.6 g/dL 12.0-15.5 N [facility] MCH 32.6 G/DL pg 32.0-36.5 N [facility] MCHC 31.1 PG % 27.0-33.0 N [facility] PLATELETS 244 10 10*3/mm3 150-450 N [facility] RBC 4.05 10 10*6/mm3 4.00-5.40 [facility] RDW 14.1 % 11.5-14.5 N [facility] WBC TOTAL 6.5 4.0-10.0 N [facility] ID Date Data Source [id number] 11/19/2019 06:22:00 PM EDT [facility] Name Value Range Interpretation Code Description Data Sharmin rce(s) Supporting Document(s) CRP < 0.30 MG/DL mg/dL 0.00-0.[address] [facility] ID Date Data Source [id number] 11/06/2019 09:40:08 AM EDT [facility] MAMMO DIGITAL SCREENING BILATERAL [id number] INAL RESULTInterpreted by:Phong Vogt MDBILATERAL DIGITAL MAMMOGRAM WITH COMPUTER-AIDED DETECTIONHISTORY: Screening mammography. The patient reports her aunts diagnosed with breast cancer in their 40s and 50s and her half-sister diagnosed with breast cancer at 50. Patient reports no breast procedure or current breast problems.[facility] RISK ASSESSMENT MODEL:5 Year Calculated Risk: 1.6%Average Patient 5 Year Risk: 1.2%Lifetime Risk: 15.5%Average Patient Lifetime Risk: 11.5%COMPARISON: Mammogram dated 08/11/2010LAST REPORTED CLINICAL BREAST EXAM: 2012TECHNIQUE: Craniocaudal, exaggerated craniocaudal, and mediolateral oblique digital mammograms were obtained with tomosynthesis. Computer-aided detection was utilized. Patient was unsteady on feet so images were obtained while patient was sitting. Best possible images were obtained.FINDINGS: There are scattered areas of fibroglandular density (category B). No abnormal mass, calcification or architectural distortion is seen. No significant change from the prior study is noted.IMPRESSION: 1. Normal mammogram. 2. No evidence for malignancy. 3. Recommend routine followup ex amination in one year. BI-RADS 1 - NEGATIVE This document has been electronically signed by Sven Monaco MD on 11/06/2019 9:38 AM Name Value Range Interpretation Code Description Data [facility] Document(s) ID Date Data Source [id number] 11/01/2019 03:16:55 PM EDT [facility] Name Value Range Interpretation Code Description Data [facility](s) Supporting Document(s) HGBA1C 6.6 % [facility] ID Date Data Source [id number] 09/17/2019 10:23:07 AM EDT [facility] Measurements & CalculationsHeight: 67 inches (5 ft. 7 in.) 170.18 cm Weight: 227 pounds 103.18 kg Body Mass Index (BMI): 35.68BMI Interpretation: ObeseBody Surface Area (BSA): 2.14Weight Management Education Done (Nutrition/Physical Activity)Vital SignsTemperature: 96.7FPulse Rate: 90 beats/minuteRespiratory Rate: 16 respirations/minuteBlood Pressure: 99/70 O2 Saturation: 98% Vital Signs performed by: Moni Wellington MA, September 17, 2019 10:31 AMInitial Intake Information From: patientRoom #: 12Infectious Disease / Travel ScreeningRecent travel for you or any close contacts? NoHave you had any close contact with anyone diagnosed with or under investigation for COVID-19 (coronavirus)? NoFever? NoRespiratory symptoms: cough, cold, congestion, shortness of breath, difficulty breathing? NoLoss of smell? NoLoss of taste? NoSmoking, Tobacco, Vaping or Smoke Exposure StatusSmoke Status: former smokerTobacco Use: NoDo you vape? NoMenstrual HistoryAny possibility of ? NoHealthcare HistorySince your last office visit...Have you been admitted to the hospital? [facility] repo rted today: [facility]/24/2019Have you been to an emergency room (ER) or urgent care clinic? NoHave you seen another healthcare provider? Yes - community clinic Healthcare provider date reported today: 03/31/2018Have you seen a dentist? No - phobiaIntake performed by: Moni Wellington MA, September 17, 2019 10:25 AMRate Your HealthIn general, would you say your health is? FairPain AssessmentAre you currently having any pain which... You would like your provider to address? No Affects your activity level? NoDepression Screening - PHQ-2Over the last two weeks, have you... Had little interest or pleasure in doing things? Nearly every day Been feeling down, depressed, or hopeless? Several days PHQ- 2 Score: 4Anxiety Screening - POORNIMA-2Over the last two weeks, have you been... Feeling nervous, anxious, or on edge? Several days Unable to stop or control worrying? Nearly every day POORNIMA-2 Score: 4Generalized Anxiety Disorder 7-Item Screening (POORNIMA-7)Answer Guide:0 = Not at all1 = Several days2 = Over half the days3 = Nearly every dayOver the last 2 weeks, how often have you been bothered by the following problems?Feeling nervous, anxious, or on edge: 1Not being able to stop or control worryinWorrying too much about different things: 3Trouble relaxinBeing so restless that it's hard to sit still: 0Becoming easily annoyed or irritable: 3Feeling afraid as if something awful might happen: 0An swer Guide:0 = Not difficult at all1 = Somewhat difficult2 = Very difficult3 = Extremely difficultHow difficult have these made it for you to do your work, take care of things at home, or get along with other people? 1GAD-7 Screening Results POORNIMA-2 Score: 4GAD-7 Score: 11Functional Impairment: Somewhat difficultRecommendation: Moderate anxietyPHQ-9 1. Over the last 2 weeks, patient reports the following frequency of symptoms: a. Little interest or pleasure in doing things -Nearly every day b. Feeling down, depressed, or hopeless -Several days c. Trouble falling asleep, staying asleep, or sleeping too much -Not at all d. Feeling tired or having little energy -Nearly every day e. Poor appetite or overeating -Several days f. Feeling bad about yourself, feeling that you are a failure, or feeling that you have let yourself or your family down -Several days g. Trouble concentrating on things such as reading the newspaper or watching television -Not at all h. Moving or speaking so slowly that other people could have noticed. Or being so fidgety or restless that you have been m oving around a lot more than usual -Not at all i. Thinking that you would be better off or that you want to hurt yourself in some way -Not at all2. If you checked off any problems, how difficult have these problems made it for you to do your work, take care of things at home, or get along with other people? -Somewhat DifficultToday's PHQ-9 Results Score: 9 Severity: Mild Diagnosis Recommendation: Other Depression Functional Impairment: Somewhat DifficultScreening, Brief Intervention, & Referral to Treatment (SBIRT)Pre- Screening Questions How many times have you have 4 or more drinks in a day? 0How many times have you used an illegal drug or used a prescription medication for a non-medical reason? 0Performed by: Moni Wellington MA, September 17, 2019 10:28 AMPatient History Medical History:Diabetes, Type 2DepressionOCDAnxiety DisorderBipolarPTSDQauda EquinaSurgical History:Hysterectomygastric bypass 01/21/2016 in [facility] History:Diabetes (Mother)Hypertension (Father)Social/Personal History:Smoking History:Patient currently smokes every day.Patient has been counseled to quit. Chief ComplaintHD mental health History of Present Illness (HPI)Admitted recently for an an overdose of her muscle relaxers. She was having a lot of pain and thought she would take extra pills. She has since stopped taking these pills and has thrown them all away. She is not having any thoughts of hurting herself. Seeing psychitrist and counsellor and this is going well. Has an apointment with them next week. Requesitng referral to neurosurgeon other than Darwin Edwards in [place] or at [facility]. Pain is under fair control with current doses of Tramadol, gabapentin and cymbatla. She has been on this combination for a while. We discuss the risk of sertonin syndrome and she voices understanding that this is a possibility and would HPI performed by: Carmen Mulligan MD, September 17, 2019 11:29 AMTransitions of Care [facility] dProblem ReviewProblem List was reviewed and/or updated during this visit.Medication Reconciliation & ReviewMedication List was reviewed and/or updated during this visit, including review of any mrum-msj-zswcdyd medications, herbal therapies, and/or supplements.Allergy ReviewAllergy List was reviewed and/or updated during this visit.Adult Preventive CareProvider Calculated and Reviewed all Clinical Protocols for patient today. Labs/Meds/Other Counseling- Nutrition and Physical Activity:BMI Interpretation: Obese (09/17/2019) Counseling: Done (09/17/2019) Physical Activity: Done (09/17/2019)Cancer Screening Pap Smear/HPV TestingReviewed: Previous Comments: Pt does not have a Cervix (07/14/2018)Today's Comments: partial hysterectomy smcReview of Systems General: Denies dizziness, fatigue. Cardiovascular: Denies chest pain. Respiratory: Denies shortness of breath. Physical ExamGeneral Appearance: well nourished, well hydrated, no acute distressRespiratory, Auscultation: clear to auscultation bilaterally; no rales, rhonchi, or wheezesRespiratory, Effort: no intercostal retractions or use of accessory musclesCardiovascular, Auscultation: S1, S2 audible; no murmur, rub, or gallop; RRRGait & Station: uses walkerOrientation: oriented to time, place, and personMood & Affect: no depression, anxiety, or agitationJudgment & Insight: intactCare Management Plan Transitions of CareInboundRate Your HealthIn general, would you say your health is? FairAssessment & Plan Problems:Assessed:Low back pain (ICD-724.2) (ICD10- M54.5) Assessment: Recent hospital admit for OD of muscle relaxers. No longer taking these and having no suicidal ideation.Recheck with mental health as scheduled. Instructions: Refer to neurosurgeon other than Darwin Edwards for second opinion.Contnuna current plan.Patient Instructions/Care Plan: Low back pain: Refer to neurosurgeon other than Darwin Edwards for second opinion.Manuel current plan. Plan developed in collaboration with patient and/or familyMedications:ALA-EDUARDO 1 % EXTERNAL CREAMWELLBUTRIN XL 300 MG ORAL TABLET EXTENDED RELEASE 24 HOURDULOXETINE HCL 60 MG ORAL CAPSULE DELAYED RELEASE PARTICLESROLLING WALKERTRAZODONE HCL 100 MG ORAL TABLETGABAPENTIN 800 MG ORAL TABLETSEROQUEL 300 MG ORAL TABLETTRAMADOL HCL 50 MG ORAL TABLETMedication Changes:Added: WELLBUTRIN XL 300 MG ORAL TABLET EXTENDED RELEASE 24 HOUR-one tab dailyNew Prescription:ALA-EDUARDO 1 % EXTERNAL CREAM-Apply bid to rash on arms for up to 2 weeks at a time. Qty: 30[Tube] Refills: 1 Method: ElectronicRemoved:BACLOFEN 20 MG ORAL TABLET-one tab po BID, MOBIC 7.5 MG ORAL TABLET-1 tab PO daily, PREDNISONE 10 MG ORAL TABLET-40mg po QD, decrease by 10mg q3d, STEP N REST WALKER-use as directed DX E 11.40, * THREE SIDED MOBILE WALKER WITH CHAIR-Please use to assist with safe mobility, LACTULOSE 10 GM/15ML ORAL DOZQCXGF-4-4 tbsp po BID prn constipation, CELECOXIB 200 MG ORAL CAPSULE-one tab po BID x 1 day, then one cap QDAllergies:BACTRIM (SULFAMETHOXAZOLE- TRIMETHOPRIM) (Critical)BACLOFEN (Critical)Orders:Adult - Ofc Vst, EST, Level III [CPT-57814] Neurosurgery [CPT-18136] Follow-Up Return to clinic: 3 months for follow upMedications:ALA-EDUARDO 1 % EXTERNAL CREAM (HYDROCORTISONE) Apply bid to rash on arms for up to 2 weeks at a time. #30[Tube] x 1 Route:EXTERNAL Entered and Authorized by: Carmen Mulligan MD Method used: Electronically to [facility]* (retail) [address] [place] [address] Note to Pharmacy: Rou te: EXTERNAL; RxID: [id number] signed by Carmen Mulligan MD on 09/17/2019 at 5:47 PM Name Value Range Interpretation Code Description Data Sharmin rce(s) Supporting Document(s) ID Date Data Source [id number] 08/17/2019 02:39:36 PM EDT [facility] Measurements & CalculationsHeight: 67 inches (5 ft. 7 in.) 170.18 cm Weight: 224 pounds 3 oz. 101.90 kg Body Mass Index (BMI): 35.24BMI Interpretation: ObeseBody Surface Area (BSA): 2.12Weight Management Education Done (Nutrition/Physical Activity)Vital SignsTemperature: 98.3F oral Pulse Rate: 69 beats/minuteRespirat ory Rate: 18 respirations/minuteBlood Pressure: 92/73 left arm sitting automaticO2 Saturation: 96% room airVital Signs performed by: Howard Rincon LPN, August 17, 2019 2:58 PMInitial Intake Information From: patientRoom #: 12Infectious Disease / Travel ScreeningRecent travel for you or any close contacts? NoHave you had any close contact with anyone diagnosed with or under investigation for COVID-19 (coronavirus)? NoFever? NoRespiratory symptoms: cough, cold, congestion, shortness of breath, difficulty breathing? NoLoss of smell? NoLoss of taste? NoSmoking, Tobacco, Vaping or Smoke Exposure StatusSmoke Status: former smokerTobacco Use: NoDo you vape? NoPassive Smoke Exposure: NoMenstrual HistoryAny possibility of ? NoComments: Partial hysterectomy Healthcare HistorySince your last office visit...Have you been admitted to the hospital? NoHave you been to an emergency room (ER) or urgent care clinic? NoHave you seen another healthcare provider? Yes - community clinic Have you seen a dentist? NoIntake performed by: Howard Rincon LPN, August 17, 2019 2:47 PMRate Your HealthIn general, would you say your health is? FairPain AssessmentAre you currently having any pain which... You would like your provider to address? Yes Affects your activity level? YesDepression Screening - PHQ-2Over the last two weeks, have you... Had little interest or pleasure in doing things? Nearly every day Been feeling down, depressed, or hopeless? Nearly every day PHQ-2 Score: 6Anxiety Screening - POORNIMA-2Over the last two weeks, have you been... Feeling nervous, anxious, or on edge? Nearly every day Unable to stop or control worrying? Nearly every day POORNIMA-2 Score: 6Food InsecurityWithin the past year...Did you worry whether your food would run out before you got money to buy more? NoWas there a time when the food you bought didn't last and you didn't have money to get more? NoPatient Learning & Communication Needs Preferred learning style: verbalPossible barriers: nonePatient's Language used in visit: YesLanguage: japanese Generalized Anxiety Disorder 7-Item Screening (POORNIMA-7)Answer Guide:0 = Not at all1 = Several days2 = Over half the days3 = Nearly every dayOver the last 2 weeks, how often have you been bothered by the following problems?Feeling nervous, anxious, or on edge: 3Not being able to stop or control worryinWorrying too much about different things: 3Trouble relaxinBeing so restless that it's hard to sit still: 3Becoming easily annoyed or irritable: 3Feeling afraid as if something awful might happen: 3Answer Guide:0 = Not difficult at a ll1 = Somewhat difficult2 = Very difficult3 = Extremely difficultHow difficult have these made it for you to do your work, take care of things at home, or get along with other people? 2GAD-7 Screening Results POORNMIA-2 Score: 6GAD-7 Score: 21Functional Impairment: Very difficultRecommendation: Severe anxietyPHQ-9 1. Over the last 2 weeks, patient reports the following frequency of symptoms: a. Little interest or pleasure in doing things - Nearly every day b. Feeling down, depressed, or hopeless -Nearly every day c. Trouble falling asleep, staying asleep, or sleeping too much -More than half the days d. Feeling tired or having little energy -Nearly every day e. Poor appetite or overeating -More than half the days f. Feeling bad about yourself, feeling that you are a failure, or feeling that you have let yourself or your family down -Nearly every day g. Trouble concentrating on things such as reading the newspaper or watching television -More than half the days h. Moving or speaking so slowly that other people could have noticed. Or being so fidgety or restless that you have been moving around a lot more than usual -More than half the days i. Thinking that you would be better off or that you want to hurt yourself in some way -More than half the days2. If you checked off any problems, how difficult have these problems made it for you to do your work, take care of things at home, or get along with other people? -Very DifficultToday's PHQ-9 Results Score: 22 Severity: Severe Diagnosis Recommendation: Major Depression Functional Impairment: Very DifficultPain AssessmentPain ScaleNumeric Rating Scale: 10Location: right foot Duration: 2-3 daysFrequency: DailyCharacter/Quality: aching, burning, sharp, stabbing and throbbingScreening, Brief Intervention, & Referral to Treatment (SBIRT)Pre-Screening Questions How many times have you have 4 or more drinks in a day? 0How many times have you used an illegal drug or used a prescription medication for a non-medical reason? 0Performed by: Howard Rincon LPN, August 17, 2019 2:52 PMPatient History Medical History:Diabetes, Type 2DepressionOCDAnxiety DisorderBipolarPTSDQauda EquinaSurgical History:Hysterectomygastric bypass 01/21/2016 in [facility] History:Diabetes (Mother)Hypertension (Father)Social/Personal History:Smoking History:Patient currently smokes every day.Patient has been counseled to quit. Chief Complaintmedication F/U RM 12 History of Present Illness (HPI)49 yr old female Pt here today for medications F/U. Pt states she is having right ankle pain. Pt states she is taking all medications with no sie effects. I, Elise Greenfield MA, am scribing for, and in the presence of, Tono Walker DO.Pt had c/o constipation. Was prescribed Lactulose. Pt reports sparp pain in her right ankle since 3AM. Pt missed her appointment today with her neurosurgeon due to transportation issues. Transitions of Care InboundProblem ReviewProblem List was reviewed and/or updated during this visit.Medication Reconciliation & Rev iewMedication List was reviewed and/or updated during this visit, including review of any yxpm-mhy-rynymev medications, herbal therapies, and/or supplements.Allergy ReviewAllergy List was reviewed and/or updated during this visit.Adult Preventive CareProvider Calculated and Reviewed all Clinical Protocols for patient today. Labs/Meds/Other Counseling-Nutrition and Physical Activity:BMI Interpretation: Obese (08/17/2019) Counseling: Done (08/17/2019) Physical Activity: Done (08/17/2019)Cancer Screening Review of Systems General: Denies loss of appetite, chills, dizziness, fatigue, fever, continued fever, headache, feeling ill, sweats, night sweats, sleep disturbances, weight loss. Musculoskeletal: Complains of back pain, leg pain. Physical ExamGeneral Appearance: well nourished, well hydrated, no acute distressGait & Station: uses walkerOrientation: oriented to time, place, and personMood & Affect: no depression, anxiety, or agitationJudgment & Insight: intactCare Management Plan Transitions of CareInboundRate Your HealthIn general, would you say your health is? FairAssessment & Plan Problems:Added: Chronic constipation (ICD-564.09) (SEZ12-T91.09) Assessment: lactuloseAssessed:Low back pain (ICD-724.2) (ICD10- M54.5) Assessment: refer to local NSAssessment not SavedCauda equina syndrome (CJY79-W73.4): refer to local NSAdd cymbalta, celebrexMedications:DULOXETINE HCL 40 MG ORAL CAPSULE DELAYED RELEASE PARTICLESCELECOXIB 200 MG ORAL CAPSULELACTULOSE 10 GM/15ML ORAL SOLUTIONPREDNISONE 10 MG ORAL TABLETBACLOFEN 20 MG ORAL TABLETMOBIC 7.5 MG ORAL TABLETROLLING WALKERTRAZODONE HCL 100 MG ORAL TABLETGABAPENTIN 800 MG ORAL TABLETTHREE SIDED MOBILE WALKER WITH CHAIRSEROQUEL 300 MG ORAL TABLETTRAMADOL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 ([facility]) Alcohol intake 01/28/2020 12:00:00 AM EST Yes completed [facility] Smoking 01/28/2020 12:00:00 AM EST Current some day smoker com pleted Current some day smoker [facility] Smoking 01/02/2020 12:00:00 AM EST Unknown if ever smoked comp leted Unknown if ever smoked [facility] ([facility]) Smoking 12/25/2019 12:00:00 AM EST Unknown if ever smoked comp leted Unknown if ever smoked [facility] ([facility]) Smoking 12/10/2019 12:00:00 AM EDT Unknown if ever smoked comp leted Unknown if ever smoked [facility] ([facility]) Smoking 11/29/2019 12:00:00 AM EDT Unknown if ever smoked comp leted Unknown if ever smoked [facility] ([facility]) Smoking 11/26/2019 12:00:00 AM EDT Unknown if ever smoked comp leted Unknown if ever smoked [facility] ([facility]) Smoking 11/21/2019 12:00:00 AM EDT Unknown if ever smoked comp leted Unknown if ever smoked [facility] ([facility]) Smoking 11/08/2019 12:00:00 AM EDT Unknown if ever smoked comp leted Unknown if ever smoked [facility] ([facility]) Smoking 11/07/2019 12:00:00 AM EDT Unknown if ever smoked comp leted Unknown if ever smoked [facility] ([facility]) Smoking 11/01/2019 12:00:00 AM EDT Unknown if ever smoked comp leted Unknown if ever smoked [facility] Smoking 10/31/2019 12:00:00 AM EDT Unknown if ever smoked comp leted Unknown if ever smoked [facility] ([facility]) Smoking 08/21/2019 12:00:00 AM EDT Unknown if ever smoked comp leted Unknown if ever smoked [facility] ([facility]) Smoking 08/14/2019 12:00:00 AM EDT Unknown if ever smoked comp leted Unknown if ever smoked [facility] ([facility]) Smoking 08/07/2019 12:00:00 AM EDT Unknown if ever smoked comp leted Unknown if ever smoked [facility] ([facility]) Smoking 07/18/2019 12:00:00 AM EDT Unknown if ever smoked comp leted Unknown if ever smoked [facility] ([facility]) Smoking 07/04/2019 12:00:00 AM EDT Unknown if ever smoked comp leted Unknown if ever smoked [facility] ([facility]) Smoking 06/28/2019 12:00:00 AM EDT Unknown if ever smoked comp leted Unknown if ever smoked [facility] ([facility]) Smoking 06/18/2019 12:00:00 AM EDT Unknown if ever smoked comp leted Unknown if ever smoked [facility] ([facility]) Smoking 05/31/2019 12:00:00 AM EDT Unknown if ever smoked comp leted Unknown if ever smoked [facility] ([facility]) Smoking 05/02/2019 12:00:00 AM EDT Unknown if ever smoked comp leted Unknown if ever smoked [facility] ([facility]) Smoking 03/20/2019 12:00:00 AM EST Unknown if ever smoked comp leted Unknown if ever smoked [facility] ([facility]) Vital Signs ID Date Data Source UNK Name Value Range Interpretation Code Description Data Source(s) Oxygen saturation in Arterial blood by Pulse oximetry 98 % 98 % [facility] Body mass index (BMI) [Ratio] 36.44 kg/m2 36.44 kg/m2 [facility] Body weight 99.338 kg 99.338 kg [facility] Body height 165.1 cm 165.1 cm [facility] Body temperature 36.39 Lauren 36.39 Lauren [facility] Heart rate 90 /min 90 /min [facility] Diastolic blood pressure 77 mm[Hg] 77 mm[Hg] [facility] Systolic blood pressure 119 mm[Hg] 119 mm[Hg] [facility] Diastolic blood pressure 0 mm[Hg] Normal (applies to non-numeric results) 0 mm[Hg] [facility] ([facility]) Systolic blood pressure 0 mm[Hg] Normal (applies t o non-numeric results) 0 mm[Hg] [facility] ([facility]) Body mass index (BMI) [Ratio] 0.00 kg/m2 No rmal (applies to non-numeric results) 0.00 kg/m2 [facility] ([facility]) Body weight Measured 0.00 lbs Normal (applies to n on-numeric results) 0.00 lbs [facility] ([facility]) Body height 0.00 in Normal (applies to non-numeric resu lts) 0.00 in [facility] ([facility]) Diastolic blood pressure 0 mm[Hg] Normal (applies to non-numeric results) 0 mm[Hg] [facility] ([facility]) Systolic blood pressure 0 mm[Hg] Normal (applies t o non-numeric results) 0 mm[Hg] [facility] ([facility]) Body mass index (BMI) [Ratio] 0.00 kg/m2 No rmal (applies to non-numeric results) 0.00 kg/m2 [facility] ([facility]) Body weight Measured 0.00 lbs Normal (applies to n on-numeric results) 0.00 lbs [facility] ([facility]) Body height 0.00 in Normal (applies to non-numeric resu lts) 0.00 in [facility] ([facility]) Diastolic blood pressure 0 mm[Hg] Normal (applies to non-numeric results) 0 mm[Hg] [facility] ([facility]) Systolic blood pressure 0 mm[Hg] Normal (applies t o non-numeric results) 0 mm[Hg] [facility] ([facility]) Body mass index (BMI) [Ratio] 0.00 kg/m2 No rmal (applies to non-numeric results) 0.00 kg/m2 [facility] ([facility]) Body weight Measured 0.00 lbs Normal (applies to n on-numeric results) 0.00 lbs [facility] ([facility]) Body height 0.00 in Normal (applies to non-numeric resu lts) 0.00 in [facility] ([facility]) Diastolic blood pressure 0 mm[Hg] Normal (applies to non-numeric results) 0 mm[Hg] [facility] ([facility]) Systolic blood pressure 0 mm[Hg] Normal (applies t o non-numeric results) 0 mm[Hg] [facility] ([facility]) Body mass index (BMI) [Ratio] 0.00 kg/m2 No rmal (applies to non-numeric results) 0.00 kg/m2 [facility] ([facility]) Body weight Measured 0.00 lbs Normal (applies to n on-numeric results) 0.00 lbs [facility] ([facility]) Body height 0.00 in Normal (applies to non-numeric resu lts) 0.00 in [facility] ([facility]) Diastolic blood pressure 0 mm[Hg] Normal (applies to non-numeric results) 0 mm[Hg] [facility] ([facility]) Systolic blood pressure 0 mm[Hg] Normal (applies t o non-numeric results) 0 mm[Hg] [facility] ([facility]) Body mass index (BMI) [Ratio] 0.00 kg/m2 No rmal (applies to non-numeric results) 0.00 kg/m2 [facility] ([facility]) Body weight Measured 0.00 lbs Normal (applies to n on-numeric results) 0.00 lbs [facility] ([facility]) Body height 0.00 in Normal (applies to non-numeric resu lts) 0.00 in [facility] ([facility]) Diastolic blood pressure 0 mm[Hg] Normal (applies to non-numeric results) 0 mm[Hg] [facility]) Systolic blood pressure 0 mm[Hg] Normal (applies t o non-numeric results) 0 mm[Hg] [facility] ([facility]) Body mass index (BMI) [Ratio] 0.00 kg/m2 No rmal (applies to non-numeric results) 0.00 kg/m2 [facility] ([facility]) Body weight Measured 0.00 lbs Normal (applies to n on-numeric results) 0.00 lbs [facility] ([facility]) Body height 0.00 in Normal (applies to non-numeric resu lts) 0.00 in [facility] ([facility]) Body mass index (BMI) [Ratio] 35.2 kg/m2 35.2 k g/m2 [facility] ([facility] ) Body weight 218.00 [lb_av] 218.00 [lb_av] [facility] ([facility], ) Body height 66 [in_i] 66 [in_i] [facility] ([facility], ) 5'6" Respiratory rate 14 /min 14 /min [facility] ( [facility] ) Heart rate 78 /min 78 /min [facility] ([facility] ) Diastolic blood pressure 80 mm[Hg] 80 mm[Hg] [facility] ([facility] ) Systolic blood pressure 115 mm[Hg] 115 mm[Hg] [facility] ([facility] ) Diastolic blood pressure 0 mm[Hg] Normal (applies to non-numeric results) 0 mm[Hg] [facility] ([facility]) Systolic blood pressure 0 mm[Hg] Normal (applies t o non-numeric results) 0 mm[Hg] [facility] ([facility]) Body mass index (BMI) [Ratio] 0.00 kg/m2 No rmal (applies to non-numeric results) 0.00 kg/m2 [facility] ([facility]) Body weight Measured 0.00 lbs Normal (applies to n on-numeric results) 0.00 lbs [facility]) Body height 0.00 in Normal (applies to non-numeric resu lts) 0.00 in [facility] ([facility]) Diastolic blood pressure 0 mm[Hg] Normal (applies to non-numeric results) 0 mm[Hg] [facility] ([facility]) Systolic blood pressure 0 mm[Hg] Normal (applies t o non-numeric results) 0 mm[Hg] [facility] ([facility]) Body mass index (BMI) [Ratio] 0.00 kg/m2 No rmal (applies to non-numeric results) 0.00 kg/m2 [facility]) Body weight Measured 0.00 lbs Normal (applies to n on-numeric results) 0.00 lbs [facility] ([facility]) Body height 0.00 in Normal (applies to non-numeric resu lts) 0.00 in [facility] ([facility]) ID Date Data Source [id number] 11/06/2019 09:40:08 AM [facility] Name Value Range Interpretation Code Description Data Source(s) Body height Measured 66 in 66 in [facility] WEIGHT RECORDED 220 lb 220 lb [facility] Body height Measured 66 in 66 in [facility] Patient Treatment Plan of Care Planned Activity Planned Date Details Description Data Source (s) 24 HR Nicotine 0.292 MG/HR Transdermal Patch 01/23/2020 12:00:00 AM EST [facility] 24 HR Bupropion Hydrochloride 300 MG Extended Release Oral Tablet 01/16/2020 12:00:[address] [facility] Trazodone Hydrochloride 100 MG Oral Tablet 11/29/2019 12:00:00 AM E DT [facility] POLYETHYLENE GLYCOL 3350 142 MG/ML Oral Solution 11/21/2019 12:00:0 0 AM EDT [facility] Multiple Vitamins-Iron (MULTIVITAMIN WITH IRON) TABS 016 12:00:00 AM EST [facility] Bacitracin 0.5 UNT/MG Topical Ointment [facility] gabapentin 800 MG Oral Tablet [facility] Clonazepam 1 MG Oral Tablet [facility] tramadol hydrochloride 50 MG Oral Tablet [facility]
--- OUTSIDE RECORDS SUMMARY | 2020-03-28 13:52 | CCD ---
Author Khadra Sotomayor Organization Unknown Address [address] [address] Phone Care Team Providers Care Tag Meter Operator Name Role Phone Susana Rascon PCP Allergies, Adverse Reactions, Alerts Concept Allergy Name Reaction Severity Onset Date Status Documentation Date Phone Number Npid Taxonomy Code Taxonomy Desc Author Last Name Author Fi rst Name Concept Type 655737 Ambien (zolpidem) Sleep-walking/eating and not effective 01/04/2019 Active 01/15/2019 [id number] Licensed Practical Nurse Imer Aldana RXNORM [id number] lamotrigine Loss of coordination, diplopia 017 Active 10/29/2016 [id number] Licensed Practical Nurse Jose veloz RXNORM 267375 Seroquel (quetiapine) unspecified, Patient Choice 06/27/2015 Inactive 06/27/2015 [id number] Registered Nurse Herman Yanez RXNORM Problem List [...] Name Taxonomy Code Taxonomy Desc Phone Number [id number] bupropion HCl by mouth [id number] 08/08/2019 03/02/2020 once a day 30 300 mg tablet extended release 24 hr 13629 [id number] Cisco Martinez [id number] Psychiatry [id number] 325467 trazodone by mouth [id number] 08/09/2019 03/02/2020 every night 30 100 mg tablet as needed 62380 888540 [id number] Cisco Martinez [id number] Psychi atry [id number] 134740 duloxetine by mouth [id number] 10/31/2019 03/02/2020 twice a day 30 30 mg capsule,delayed release(DR/EC) as directed 88172 790919 [id number] Cisco Martinez [id number] Psychiatry [id number] 209813 quetiapine by mouth U80625 01/02/2020 03/02/2020 at bedtime 30 200 mg tablet extended release 24 hr 98647 850140 [id number] Cisco Martinez [id number] Psychiatry [id number] 814054 quetiapine by mouth [id number] 01/02/2020 03/02/2020 at bedtime 30 400 mg tablet extended release 24 hr 31090 891935 [id number] Cisco Martinez [id number] Psychiatry [id number] Social History Social History Element Description Concept Effective Date Smoking Status Unknown if ever smoked [id number] Immunizations No Data in Section Vital Signs No Data in Section Procedures Date Concept Id Description Targeted Site Concept Targeted Site Concept Type 02/11/2020 05742 Brief Individual Psychotherapy - 30 min CPT Patient has no history of implantable de vices Encounters Encounter Start Date End Date Encounter Type Description Diagnosis Di agnosis Desc Location Author First Name Author Last Name Npid Taxonomy Cod e Taxonomy Desc Phone Number Location Addr1 Location Addr2 Location [facility] 239500 02/11/2020 02/11/2020 30453 Brief Individual Psychoth erapy - 30 min F31.9 Bipolar disorder, unspecified [facility] [place] [facility] mariola Meza [id number] [facility] [phone] [address] [address] Plan of Treatment No Data in Section Lab Results No Data in Section Instructions No Data in Section Insurance Providers Insurance Id Policy Effective Date Policy Thru Date Company N kevyn [id number] 2013 [employer] Managed M' caid
--- OUTSIDE RECORDS SUMMARY | 2020-03-28 13:52 | CCD ---
Author Author Khadra Martinez Organization Unknown Address [address] [place] [address] Phone Care Team Providers Care Absorber Operator Name Role Phone Cisco Martinez PCP Allergies, Adverse Reactions, Alerts Concept Allergy Name Reaction Severity Onset Date Status Documentation Date Phone Number Npid Taxonomy Code Taxonomy Desc Author Last Name Author Fi rst Name Concept Type 437030 Ambien (zolpidem) Sleep-walking/eating and not effective 01/04/2019 Active 01/15/2019 [id number] Licensed Practical Nurse Imer Aldana RXNORM [id number] lamotrigine Loss of coordination, diplopia 017 Active 10/29/2016 1019244798 [id number] Licensed Practical Nurse Jose veloz RXNORM 088406 Seroquel (quetiapine) unspecified, Patient Choice 06/27/2015 Inactive 06/27/2015 [id number] Registered Nurse Herman Yanez RXNORM Problem List [...] Name Taxonomy Code Taxonomy Desc Phone Number [phone] quetiapine by mouth [id number] 09/03/2019 01/02/2020 at bedtime 30 400 mg tablet 22349 [id number] Cisco Martinez [id number] Psychiatr y [id number] 315881 bupropion HCl by mouth [id number] 08/08/2019 03/02/2020 once a day 30 300 mg tablet extended release 24 hr 33239 830544 [id number] [facility] [id number] [facility] [id number] 221580 trazodone by mouth [id number] 08/09/2019 03/02/2020 every night 30 100 mg tablet as needed 38893 802671 [id number] Cisco Martinez [id number] Psychi atry [id number] 950900 duloxetine by mouth [id number] 10/31/2019 03/02/2020 twice a day 30 30 mg capsule,delayed release(DR/EC) as directed 40541 580952 [id number] Cisco Martinez [id number] Psychiatry [id number] 631818 quetiapine by mouth [id number] 01/02/2020 03/02/2020 at bedtime 30 200 mg tablet extended release 24 hr 15135 382843 [id number] Cisco Martinez [id number] Psychiatry [id number] 297420 quetiapine by mouth [id number] 01/02/2020 03/02/2020 at bedtime 30 400 mg tablet extended release 24 hr 30251 970686 [id number] Cisco Martinez [id number] Psychiatry [id number] Social History Social History Element Description Concept Effective Date Smoking Status Unknown if ever smoked [id number] Immunizations No Data in Section Vital Signs Encounter Date Height Ins Weight Lbs Bmi Bp Systolic Bp Diastoli c Oxygen Saturation Respiration Rate Pulse Rate Body Temp Head Circumference Heigh t Lying 01/02/2020 0.00 0.00 0.00 0 0 0.00 0 0 0.00 0.0 0.0 0 Procedures Date Concept Id Description Targeted Site Concept Targeted Site Concept Type 01/02/2020 33761-52 [facility] Telemed E/M Lvl 3--Est pt CPT 01/02/2020 45392-84-DK Psychotherapy ADD ON - 30 Minutes CPT Patient has no history of implantable de vices Encounters Encounter Start Date End Date Encounter Type Description Diagnosis Di agnosis Desc Location Author First Name Author Last Name Npid Taxonomy Cod e Taxonomy Desc Phone Number Location Addr1 Location Addr2 Location City Location [facility] Location Zip [address]708 01/02/2020 01/02/2020 21079-91 [facility] Telemed E/M Lvl 3--Est p t F31.9 Bipolar disorder, unspecified [facility] [id number] Psychiatry [id number] [address] [place] [address] Plan of Treatment No Data in Section Lab Results No Data in Section Instructions No Data in Section Functional Cognitive Status No Data in Section Insurance Providers Insurance Id Policy Effective Date Policy Thru Date Company N kevyn [id number] 2013 [employer] Managed [place] e[place]
[2020-03-28] MEDS ORDERED: PEGPOW (13:53)
--- OUTSIDE RECORDS SUMMARY | 2020-03-28 15:42 | CCD ---
Author Author [facility] Organization [facility] Address Unknown Phone Unavailable Care Team Providers Care Business Continuity Director Name Role Phone Madeleine Long OYSTER FISHERMAN Unavailable Unavailable Yulisa Mulligan MD Unavailable Unavailable [...] Unavailable Unavailable Roe PARTIDA MD Unavailable Unavailable oRe PARTIDA MD Unavailable Unavailable Roe PARTIDA MD [...] Unavailable Unavailable Roe PARTIDA MD Unavailable Unavailable Reo PARTIDA MD Unavailable Unavailable Roe PARTIDA MD [...] Santos PA Unavailable Unavailable Long, F Madeleine OYSTER FISHERMAN-BC Unavailable Unavailable Long, F Madeleine OYSTER FISHERMAN-BC Unavailable Unavailable Long, F Madeleine OYSTER FISHERMAN-BC Unavailable Unavailable Long, F Madeleine OYSTER FISHERMAN-BC Unavailable Unavailable Long, F Madeleine OYSTER FISHERMAN-BC Unavailable Unavailable Long, F Madeleine OYSTER FISHERMAN-BC Unavailable Unavailable Long, F Madeleine OYSTER FISHERMAN-BC Unavailable Unavailable Long, F Madeleine OYSTER FISHERMAN-BC Unavailable Unavailable Long, F Madeleine OYSTER FISHERMAN-BC Unavailable Unavailable Long, F Madeleine OYSTER FISHERMAN-BC Unavailable Unavailable Long, F Madeleine OYSTER FISHERMAN-BC Unavailable Unavailable Long, F Madeleine OYSTER FISHERMAN-BC Unavailable Unavailable Long, F Madeleine OYSTER FISHERMAN-BC Unavailable Unavailable Long, F Madeleine OYSTER FISHERMAN-BC Unavailable Unavailable Long, F Madeleine OYSTER FISHERMAN-BC Unavailable Unavailable Long, F Madeleine OYSTER FISHERMAN-BC Unavailable Unavailable Long, F Madeleine OYSTER FISHERMAN-BC Unavailable Unavailable Long, F Madeleine OYSTER FISHERMAN-BC Unavailable Unavailable Long, F Madeleine OYSTER FISHERMAN-BC Unavailable Unavailable Long, F Madeleine OYSTER FISHERMAN-BC Unavailable Unavailable Long, F Madeleine OYSTER FISHERMAN-BC Unavailable Unavailable Long, F Madeleine OYSTER FISHERMAN-BC Unavailable Unavailable Yulisa Mulligan MD Unavailable Unavailable [...] Unavailable Unavailable Yulisa Mulligan MD Unavailable Unavailable uYlisa Mulligan MD Unavailable Unavailable Yulisa Mulligan MD [...] is protected by Article 27-F of the [facility] Public Health law. If you continue you may have access to information: Regarding HIV / AIDS; Provided by facilities licensed or operated by the [facility] Office of Mental Health; or Provided by the [facility] Office for People With Developmental Disabilities. If such information is present, then the following [facility] mandated warning applies: This information has [...] law may result in a fine or detention sentence or both. A general authorization for the release of medical or other information is NOT sufficient authorization for further disc losure. Allergies and Adverse Reactions Type Description Substance Reaction Status Data Source(s ) Propensity to adverse reactions to substance Seroquel (queti apine) quetiapine 400 MG Oral Tablet [Seroquel] Inactive [facility] ([facility]) Propensity to adverse reactions to substance lamotrigine 24 HR lamotrigine 300 MG Extended Release Oral Tablet Active [facility] ([facility]) Propensity to adverse reactions to substance Ambien (zolpide m) Zolpidem tartrate 10 MG Oral Tablet [Ambien] Active [facility] ([facility]) No Known Allergies No Known Allergies [facility] Drug allergy BACLOFEN BACLOFEN [facility] Encounters Encounter Providers Location Date Indications Data Source(s ) [id number]"Psychotherapy Attender: Susana Rascon [facility] 03/18/2020 01:00:00 AM EST - 03/18/2020 01:00:00 AM EST [facility] ([facility]) Attender: Susana Rascon 03/18/2020 12:00:00 AM EST [facility] ([facility]) TEMPMHCTelemed 30" Psychotherapy Attender: Susana Rascon [facility] 02/26/2020 01:00:00 AM EST - 02/26/2020 01:00:00 AM EST [facility] ([facility]) Attender: Susana Rascon 02/26/2020 12:00:00 AM EST [facility] ([facility]) Emergency Attender: SANDRA LEE MDConsultant: Carmen martinez MD 02/15/2020 07:24:00 PM EST - 02/15/2020 10:05:00 PM EST [facility] Patient discharged. Outpatient Referrer: Tom Hayden Jr 02/13/2020 07:53:08 AM EST [facility] Brief Individual Psychotherapy - 30 min Attender: Susana woods [facility] 02/11/2020 02:00:00 AM EST - 02/11/2020 02:00:00 AM EST [facility] ([facility]) Attender: Susana Rascon 02/11/2020 12:00:00 AM EST [facility] ([facility]) Extended Individual Psychotherapy - 45 min Attender: Susana Rascon [facility] 01/28/2020 03:00:00 AM EST - 01/28/2020 03:00:00 AM EST [facility] ([facility]) Outpatient Attender: Tom Hayden JrReferrer: Carmen Mulligan MD [id number] 01/28/2020 12:00:00 AM EST - 01/28/2020 12:16:07 PM EST [facility] Attender: Susana Rascon 01/28/2020 12:00:00 AM EST [facility] ([facility]) Outpatient Attender: CARMEN MARTINEZ MD [facility] 01/02/2020 04:00:00 AM EST - 01/02/2020 04:00:00 AM EST [facility] ([facility]) Attender: CARMEN MARTINEZ MD 01/02/2020 12:00:00 A M EST [facility] ([facility]) Attender: Susana Rascon 12/25/2019 12:00:00 AM EST [facility] ([facility]) Extended Individual Psychotherapy - 45 min Attender: Susana Rascon [facility] 12/24/2019 02:00:00 AM EST - 12/24/2019 02:00:00 AM EST [facility] ([facility]) Extended Individual Psychotherapy - 45 min Attender: Susana Rascon [facility] 12/10/2019 02:00:00 AM EDT - 12/10/2019 02:00:00 AM EDT [facility] ([facility]) Attender: Susana Rascon 12/10/2019 12:00:00 AM EDT [facility] ([facility]) Outpatient Attender: Carmen Mulligan MD 12/07/2019 01:39:00 PM EDT [facility] Outpatient Attender: Carmen Mulligan MD 12/05/2019 04:06:00 PM EDT [facility] Outpatient Attender: Carmen Mulligan MD 12/05/2019 04:05:01 PM EDT [facility] Outpatient Attender: CARMEN MARTINEZ MD [facility] 11/29/2019 02:00:00 AM EDT - 11/29/2019 02:00:00 AM EDT [facility] ([facility]) Attender: CARMEN MARTINEZ MD 11/29/2019 12:00:00 A M EDT [facility] ([facility]) [id number]"Psychotherapy Attender: Susana Rascon [facility] 11/26/2019 02:00:00 AM EDT - 11/26/2019 02:00:00 AM EDT [facility] ([facility]) Attender: Susana Rascon 11/26/2019 12:00:00 AM EDT [facility] ([facility]) Outpatient Attender: Carmen Mulligan MD 11/21/2019 04:13:03 PM EDT [facility] Outpatient Attender: Carmen Mulligan MD 11/21/2019 11:46:01 AM EDT [facility] Outpatient Attender: Carmen Mulligan MD 11/21/2019 11:43:02 AM EDT [facility] [id number]"[facility] 01:00:00 AM EDT - 11/21/2019 01:00:00 AM EDT [facility] ([facility]) Attender: Susana Rascon 11/21/2019 12:00:00 AM EDT [facility] ([facility]) Outpatient Attender: Carmen Mulligan MD 11/20/2019 08:31:05 AM EDT [facility] Outpatient Attender: Carmen Mulligan MD 11/20/2019 08:31:02 AM EDT [facility] Outpatient Attender: Carmen Mulligan MD 11/13/2019 03:35:00 PM EDT [facility] Outpatient Attender: Carmen Mulligan MD 11/13/2019 03:33:01 PM EDT [facility] TEMPMHCTelemed 30" [facility] 11:25:00 AM EDT - 11/08/2019 11:25:00 AM EDT [facility] ([facility]) Attender: Susana Abiodun 11/08/2019 12:00:00 AM EDT [facility] ([facility]) Extended Individual Psychotherapy - 45 min Attender: Susana Rascon [facility] 11/07/2019 02:00:00 AM EDT - 11/07/2019 02:00:00 AM EDT [facility] ([facility]) Attender: Susana Rascon 11/07/2019 12:00:00 AM EDT [facility] ([facility]) Outpatient Attender: Carmen Mulligan MD 11/01/2019 03:18:01 PM EDT [facility] Outpatient Attender: Carmen Mulligan MD 11/01/2019 03:18:00 PM EDT [facility] Outpatient Referrer: Carmen Mulligan MD 11/01/2019 12:00 :00 AM EDT Encounter for screening mammogram for malignant neoplasm of breast [facility] Encounter for screening mammogram for ma lignant neoplasm of breast Outpatient Attender: CARMEN MARTINEZ MD [facility] 10/31/2019 01:00:00 AM EDT - 10/31/2019 01:00:00 AM EDT [facility] Attender: CARMEN MARTINEZ MD 10/31/2019 12:00:00 A M EDT [facility] ([facility] Outpatient Attender: Carmen Mulligan MD FP 10/25/2019 04:15:[address] [facility] Outpatient Attender: Carmen Mulligan MD FP 10/25/2019 09:52:[address] [facility] Outpatient Attender: Carmen Mulligan MD FP 10/17/2019 03:17:[address] [facility] Outpatient Attender: Madeleine RHODES FP 10/16/2019 01: 19:[address] [facility] Outpatient Attender: Madeleine RHODES FP 10/12/2019 08: 59:[address] [facility] Outpatient Attender: GEMMA MENENDEZ FP 10/10/2019 02:46:[address] [facility] Outpatient Attender: Madeleine RHODES FP 10/04/2019 03: 23:[address] [facility] Outpatient Attender: GEMMA EDWARDS 10/01/2019 11:20:[address] [facility] Outpatient Attender: Madeleine RHODES FP 09/26/2019 11: 20:[address] [facility] Outpatient Attender: Madeleine RHODES FP 09/24/2019 04: 09:[address] [facility] Outpatient Attender: Madeleine RHODES FP 09/24/2019 01: 44:[address] [facility] Outpatient Attender: Madeleine RHODES FP 09/20/2019 04: 42:00 PM EDT [facility] Outpatient Attender: GEMMA MENENDEZ FP 09/18/2019 12:00:[address] [facility] Outpatient Attender: Madeleine RHODES FP 09/17/2019 05: 47:[address] [facility] Outpatient Attender: GEMMA MENENDEZ FP 09/14/2019 11:08:[address] [facility] Outpatient Attender: SUSANNA PARTIDA MD FP 09/13/2019 12:00:00 P M EDT [facility] Outpatient Attender: SUSANNA PARTIDA MD 09/03/2019 11:57:01 A M EDT [facility] Outpatient Attender: SUSANNA PARTIDA MD 08/29/2019 04:30:08 P M EDT [facility] Outpatient Attender: SUSANNA PARTIDA MD 08/28/2019 03:36:01 P M EDT [facility] Outpatient Attender: SUSANNA PARTIDA MD 08/27/2019 11:14:00 A M EDT [facility] Outpatient Attender: SUSANNA PARTIDA MD 08/23/2019 05:42:01 P M EDT [facility] [id number]"Psych[facility]: [facility] 02:00:00 AM EDT - 08/21/2019 02:00:00 AM EDT [facility] ([facility]) Attender: Susana Rascon 08/21/2019 12:00:00 AM EDT [facility] ([facility]) Outpatient Attender: SUSANNA PARTIDA MD 08/17/2019 05:51:00 P M EDT [facility] Outpatient Attender: SUSANNA PARTIDA MD 08/17/2019 03:22:03 P M EDT [facility] Outpatient Attender: SUSANNA PARTIDA MD 08/17/2019 03:21:00 P M EDT [facility] Outpatient Attender: SUSANNA PARTIDA MD 08/17/2019 02:11:00 P M EDT [facility] Outpatient Attender: SUSANNA PARTIDA MD 08/16/2019 04:39:01 P M EDT [facility] [id number]"[facility] 02:00:00 AM EDT - 08/14/2019 02:00:00 AM EDT [facility] ([facility]) Attender: Susana Rascon 08/14/2019 12:00:00 AM EDT [facility] ([facility]) Outpatient Attender: SUSANNA PARTIDA MD 08/10/2019 04:36:01 P M EDT [facility] Outpatient Attender: CARMEN MARTINEZ MD [facility] 08/07/2019 03:00:00 AM EDT - 08/07/2019 03:00:00 AM EDT [facility] ([facility]) Attender: CARMEN MARTINEZ MD 08/07/2019 12:00:00 A M EDT [facility] ([facility] Outpatient Attender: SUSANNA PARTIDA MD 07/31/2019 04:57:00 P M EDT [facility] Outpatient Attender: SUSANNA PARTIDA MD 07/26/2019 12:55:00 P M EDT [facility] [id number]"Psychotherapy Attender: Susana Rascon [facility] 07/18/2019 06:00:00 AM EDT - 07/18/2019 06:00:00 AM EDT [facility] ([facility]) Attender: Susana Rascon 07/18/2019 12:00:00 AM EDT [facility] ([facility]) Outpatient Attender: SUSANNA PARTIDA MD 07/12/2019 01:21:00 P M EDT [facility] TEMPMHCTelemed 30" Psychotherapy Attender: Susana Rascon [facility] 07/04/2019 03:00:00 AM EDT - 07/04/2019 03:00:00 AM EDT [facility] ([facility]) Attender: Susana Rascon 07/04/2019 12:00:00 AM EDT [facility] ([facility]) Outpatient Attender: SUSANNA PARTIDA MD 06/28/2019 08:18:01 A M EDT [facility] Outpatient Attender: CARMEN MARTINEZ MD [facility] 06/28/2019 03:30:00 AM EDT - 06/28/2019 03:30:00 AM EDT [facility] ([facility]) Attender: CARMEN MARTINEZ MD 06/28/2019 12:00:00 A M EDT [facility] ([facility]) [id number]"Psychotherapy Attender: Susana Rascon [facility] 06/18/2019 03:00:00 AM EDT - 06/18/2019 03:00:00 AM EDT [facility] ([facility] Attender: Susana Rascon 06/18/2019 12:00:00 AM EDT [facility] ([facility]) Outpatient Attender: SUSANNA PARTIDA MD 06/14/2019 03:21:00 P M EDT [facility] Outpatient Attender: SUSANNA PARTIDA MD 06/14/2019 08:44:00 A M EDT [facility] Outpatient Attender: CARMEN MARTINEZ MD [facility] 05/31/2019 04:00:00 AM EDT - 05/31/2019 04:00:00 AM EDT [facility] ([facility]) Attender: CARMEN MARTINEZ MD 05/31/2019 12:00:00 A M EDT [facility] ([facility]) Outpatient Attender: CARMEN MARTINEZ MD [facility] 05/02/2019 01:30:00 AM EDT - 05/02/2019 01:30:00 AM EDT [facility] ([facility]) Attender: CARMEN MARTINEZ MD 05/02/2019 12:00:00 A M EDT [facility] ([facility]) Outpatient Attender: SUSANNA PARTIDA MD 04/26/2019 02:02:[address] [facility] Outpatient Attender: SUSANNA PARTIDA MD 04/13/2019 05:07:[address] [facility] Outpatient Attender: SUSANNA PARTIDA MD 04/13/2019 08:23:[address] [facility] Outpatient Attender: SUSANNA PARTIDA MD 04/11/2019 03:31:[address] [facility] Outpatient Attender: SUSANNA PARTIDA MD 04/11/2019 03:25:[address] [facility] Outpatient Attender: SUSANNA PARTIDA MD 04/11/2019 01:30:[address] [facility] Outpatient Attender: SUSANNA PARTIDA MD 04/11/2019 11:10:[address] [facility] Outpatient Attender: SUSANNA PARTIDA MD 04/11/2019 11:10:[address] [facility] Outpatient Attender: SUSANNA PARTIDA MD 04/11/2019 11:09:02 A [facility] Outpatient Attender: SUSANNA PARTIDA MD 04/11/2019 11:09:[address] [facility] Outpatient Attender: SUSANNA PARTIDA MD 04/04/2019 01:19:01 P [facility] Outpatient Attender: SUSANNA PARTIDA MD 04/04/2019 11:40:[address] [facility] Outpatient Attender: SUSANNA PARTIDA MD 04/04/2019 11:39:[address] [facility] Outpatient Attender: SUSANNA PARTIDA MD 04/04/2019 11:38:[address] [facility] Outpatient Attender: SUSANNA PARTIDA MD 04/04/2019 11:37:[address] [facility] Outpatient Attender: SUSANNA PARTIDA MD 04/02/2019 03:38:[address] [facility] Outpatient Attender: SUSANNA PARTIDA MD 04/02/2019 01:43:[address] [facility] Outpatient Attender: SUSANNA PARTIDA MD 03/30/2019 11:33:[address] [facility] Outpatient Attender: SUSANNA PARTIDA MD 03/29/2019 12:30:[address] [facility] Outpatient Attender: CARMEN MARTINEZ MD [facility] 03/20/2019 11:30:00 AM [facility] 03/20/2019 11:30:00 AM EST [facility] ([facility]) Attender: CARMEN MARTINEZ MD 03/20/2019 12:00:00 A [facility] ([facility]) Outpatient Attender: SUSANNA PARTIDA MD 03/16/2019 09:32:[address] [facility] Outpatient Attender: SUSANNA PARTIDA MD 03/16/2019 09:28:[address] [facility] Outpatient Attender: SUSANNA PARTIDA MD 03/16/2019 09:23:[address] [facility] Outpatient Attender: SUSANNA PARTIDA MD 03/08/2019 09:01:[address] [facility] Outpatient Attender: SUSANNA PARTIDA MD 02/27/2019 09:54:[address] [facility] Outpatient Attender: SUSANNA PARTIDA MD 02/19/2019 03:38:[address] [facility] Outpatient Attender: SUSANNA PARTIDA MD 02/15/2019 08:21:[address] [facility] Outpatient Attender: SUSANNA PARTIDA MD 02/12/2019 12:56:[address] [facility] Outpatient Attender: SUSANNA PARTIDA MD 01/30/2019 03:45:[address] [facility] Functional Status Medications Medication Brand Name Start Date Product Form Dose Route Admi nistrative Instructions Pharmacy Instructions Status Indications Reaction Description Data Source(s) 24 HR Nicotine 0.292 MG/HR Transdermal Patch NICOTINE STEP 3 7 MG/24HR NICOTINE STEP 3 7 MG/24HR 01/23/2020 12:00:00 AM EST active [facility] 24 HR Bupropion Hydrochloride 300 MG Ext ended Release Oral Tablet buPROPion (WELLBUTRIN XL) 300 MG 24 hr tablet buPROPion (WELLBUTRIN XL) 300 MG 24 hr tablet 01/16/2020 12:00:00 AM EST 300 mg Oral active Take 300 mg by mouth daily [facility] duloxetine 30 MG Delayed Release Oral Capsule [Cymbalta] Cym shay 01/07/2020 12:00:00 AM EST 30 mg by mouth completed [id number] Cy mbalta by mouth [id number] 01/07/2020 every morning 30 mg capsule,delayed release (DR/EC) 61724 425419 [id number] Carmen Martinez [id number] Psychiatry [facility] ([facility]) duloxetine 60 MG Delayed Release Oral Capsule [Cymbalta] Cym shay 01/07/2020 12:00:00 AM EST 60 mg by mouth completed 311872 Cy mbalta by mouth [id number] 01/07/2020 at bedtime 60 mg capsule,delayed release(DR/EC) 35595 613862 [id number] Carmen Martinez [id number] Psychiatry [facility] ([facility]) 24 HR quetiapine 400 MG Extended Release Oral Tablet quetiap ine 01/02/2020 12:00:00 AM EST 400 mg by mouth completed 572766 q uetiapine by mouth [id number] 01/02/2020 03/02/2020 at bedtime 30 400 mg tablet extended r elease 24 hr 39990 224345 [id number] Carmen Martinez [id number] Psychiatry [facility] ([facility]) 24 HR quetiapine 400 MG Extended Release Oral Tablet quetiap ine 01/02/2020 12:00:00 AM EST 400 mg by mouth completed 048537 q uetiapine by mouth [id number] 01/02/2020 03/02/2020 at bedtime 30 400 mg tablet extended r elease 24 hr 09583 549315 [id number] Carmen Martinez [id number] Psychiatry [facility] ([facility]) 24 HR quetiapine 200 MG Extended Release Oral Tablet quetiap ine 01/02/2020 12:00:00 AM EST 200 mg by mouth completed 751409 q uetiapine by mouth [id number] 01/02/2020 03/02/2020 at bedtime 30 200 mg tablet extended r elease 24 hr 30191 890758 [id number] Carmen Martinez [id number] Psychiatry [facility] ([facility]) Trazodone Hydrochloride 100 MG Oral Tablet traZODone ( DESYREL) 100 MG tablet traZODone (DESYREL) 100 MG tablet 11/29/2019 12:00:00 AM EDT active TAKE TWO TABLETS BY MOUTH EVERY EVENING NEEDED [facility] POLYETHYLENE GLYCOL 3350 142 MG/ML Oral Solution polyethylene glycol (GLYCOLAX) 17 GM/SCOOP powder polyethylene glycol (GLYCOLAX) 17 GM/SCOOP powder 10/24 12:00:00 AM EDT active TAKE 17 GRAMS dissolved in liquid AND drink BY MOUTH ONCE DAILY NEEDED FOR CONSTIPATION [facility] duloxetine 30 MG Delayed Release Oral Capsule duloxetine 10/31/2019 12:00:00 AM EDT 30 mg by mouth completed 613433 duloxetine by mout h [id number] 10/31/2019 12/30/2019 every morning 30 30 mg capsule,delayed release(/E C) 61627 681813 [id number] Carmen Martinez [id number] Psychiatry [facility] ([facility]) duloxetine 30 MG Delayed Release Oral Capsule duloxetine 10/31/2019 12:00:00 AM EDT 30 mg by mouth completed 858209 duloxetine by mout h [id number] 10/31/2019 03/02/2020 twice a day 30 30 mg capsule,delayed release(DR /EC) as directed 19686 783173 [id number] Carmen Martinez [id number] Psychiatry [facility] ([facility]) duloxetine 60 MG Delayed Release Oral Capsule duloxetine 10/31/2019 12:00:00 AM EDT 60 mg by mouth completed 503915 duloxetine by mout h [id number] 10/31/2019 12/30/2019 every evening 30 60 mg capsule,delayed release(/E C) 32048 968544 [id number] Carmen Martinez [id number] Psychiatry [facility] ([facility]) duloxetine 30 MG Delayed Release Oral Capsule duloxetine 10/31/2019 12:00:00 AM EDT 30 mg by mouth completed 823582 duloxetine by mout h [id number] 10/31/2019 03/02/2020 twice a day 30 30 mg capsule,delayed release(DR /EC) as directed 91561 790434 [id number] Carmen Martinez [id number] Psychiatry [facility] ([facility]) quetiapine 400 MG Oral Tablet quetiapine 09/03/2019 12:00:00 AM EDT 400 mg by mouth completed 592919 quetiapine by mouth [id number] 201901/02/2020 at bedtime 30 400 mg tablet 67426 568283 [id number] Carmen Flowers lberg [id number] Psychiatry [facility] ([facility]) quetiapine 400 MG Oral Tablet quetiapine 09/03/2019 12:00:00 AM EDT 400 mg by mouth completed 165282 quetiapine by mouth [id number] 201901/28/2020 at bedtime 30 400 mg tablet 27540 669890 [id number] Carmen Flowers lberg [id number] Psychiatry [facility] ([facility]) Trazodone Hydrochloride 100 MG Oral Tablet trazodone 08/08 12:00:00 AM EDT 100 mg by mouth completed 011355 trazodone by mout h [id number] 08/09/2019 03/02/2020 every night 30 100 mg tablet as needed 88575 [id number] Carmen Martinez [id number] Psychiatry [facility] ([facility]) Trazodone Hydrochloride 100 MG Oral Tablet trazodone 08/08 12:00:00 AM EDT 100 mg by mouth completed 307667 trazodone by mout h [id number] 08/09/2019 10/08/2019 every night 30 100 mg tablet as directed 48977 288394 [id number] Carmen Prajapatiberg [id number] Psychiatry [facility] ([facility]) Trazodone Hydrochloride 100 MG Oral Tablet trazodone 08/08 12:00:00 AM EDT 100 mg by mouth completed 025000 trazodone by mout h [id number] 08/09/2019 03/02/2020 every night 30 100 mg tablet as needed 19099 812040 [id number] Carmen Prajapatiberg [id number] Psychiatry [facility] ([facility]) 24 HR Bupropion Hydrochloride 300 MG Extended Release Oral T ablet bupropion HCl 08/08/2019 12:00:00 AM EDT 300 mg by mouth completed 361775 bupropion HCl by mouth [id number] 08/08/2019 03/02/2020 once a day 30 300 mg tablet extended release 24 hr 12449 344076 [id number] Carmen Prajapatiberg [id number] Psychi atry [facility] ([facility]) 24 HR Bupropion Hydrochloride 300 MG Extended Release Oral T ablet bupropion HCl 08/08/2019 12:00:00 AM EDT 300 mg by mouth completed 190621 bupropion HCl by mouth [id number] 08/08/2019 03/02/2020 once a day 30 300 mg tablet extended release 24 hr 92643 [id number] Carmen Prajapatiberg [id number] Psychi atry [facility] ([facility]) 24 HR Bupropion Hydrochloride 150 MG Extended Release Oral T ablet bupropion HCl 08/08/2019 12:00:00 AM EDT 150 mg by mouth completed 216078 bupropion HCl by mouth [id number] 08/08/2019 10/07/2019 once a day 30 150 mg tablet extended release 24 hr 35408 465216 [id number] Breanna Leonard [id number] Nurse Practitioner [facility] ([facility]) tizanidine 4 MG Oral Tablet Tizanidine HCL 07/24/2019 12:00:00 AM EDT ORAL active [facility] ([facility]) meloxicam 7.5 MG Oral Tablet Meloxicam 07/24/2019 12:00:00 AM EDT ORAL active [facility] ([facility]) Trazodone Hydrochloride 100 MG Oral Tablet trazodone 05/30 12:00:00 AM EDT 100 mg by mouth completed 107985 trazodone by mout h [id number] 05/31/2019 08/27/2019 every night 30 100 mg tablet as directed 10969 [id number] Carmen Martinez [id number] Psychiatry [facility] ([facility]) quetiapine 100 MG Oral Tablet quetiapine 05/02/2019 12:00:00 AM EDT 100 mg by mouth completed 469732 quetiapine by mouth X99989 201906/01/2019 twice a day 30 100 mg tablet as needed 31499 587482 [id number] Mn dave Martinez [id number] Psychiatry [facility] ([facility]) quetiapine 300 MG Oral Tablet quetiapine 05/02/2019 12:00:00 AM EDT 300 mg by mouth completed 847956 quetiapine by mouth Y16583 201907/01/2019 at bedtime 30 300 mg tablet 04208 [id number] Carmen acevedo [id number] Psychiatry [facility] ([facility]) quetiapine 100 MG Oral Tablet quetiapine 05/02/2019 12:00:00 AM EDT 100 mg by mouth completed 189547 quetiapine by mouth [id number] 201908/27/2019 twice a day 30 100 mg tablet as needed 07763 539755 [id number] Mn dave Ulberg [id number] Psychiatry [facility] ([facility]) Hydroxyzine Hydrochloride 50 MG Oral Tablet hydroxyzine HCl 05/02/2019 12:00:00 AM EDT 50 mg by mouth completed 406669 hydroxyzine HCl by mouth [id number] 05/02/2019 07/01/2019 three times a day 30 50 mg tablet as needed 05646 448259 [id number] Carmen Ulberg [id number] Psychiatry [facility] ([facility]) Mirtazapine 15 MG Oral Tablet mirtazapine 05/02/2019 12:00:00 AM EDT 15 mg by mouth completed 308211 mirtazapine by mouth K35917 05/0107/01/2019 at bedtime 30 15 mg tablet 96318 780071 [id number] [facility] Victor[place]erg [id number] Psychiatry [facility] ([facility]) quetiapine 300 MG Oral Tablet quetiapine 04/16/2019 12:00:00 AM EST 300 mg completed 012880 quetiapine 04/16/2019 05/16/2019 30 300 mg tablet 77256 292687 [id number] Carmen Prajapatiberg [id number] Psychiatry [facility] ([facility]) Chantix Continuing Month Box Chantix Continuing Month Box 12:00:00 AM EST 1 mg by mouth completed 117488 Chantix Cont inuing Month Box by mouth [id number] 03/20/2019 04/19/2019 twice a day 30 1 mg tablet 73 657 104388 [id number] Carmen Ulberg [id number] Psychiatry [facility] ([facility]) quetiapine 100 MG Oral Tablet quetiapine 03/20/2019 12:00:00 AM EST 100 mg by mouth completed 407957 quetiapine by mouth N88933 201904/19/2019 twice a day 30 100 mg tablet as needed 20013 588947 [id number] Mn dave Ulberg [id number] Psychiatry [facility] ([facility]) olanzapine 5 MG Oral Tablet olanzapine 03/15/2019 12:00:00 AM EST 5 mg by mouth completed 972383 olanzapine by mouth N45995 201904/19/2019 once a day 30 5 mg tablet 24760 240311 [id number] Carmen Martinez [id number] Psychiatry [facility] ([facility]) Chantix Starting Month Box Chantix Starting Month Box 2018 12:00:00 AM EST 0.5 mg by mouth completed 033984 Chantix Sta rting Box by mouth [id number] 01/24/2019 02/23/2019 as directed 30 0.5 mg (11)- 1 m g (42) tablets,dose pack 52202 857023 [id number] Carmen Martinez [id number] Psychiatry [facility] ([facility]) quetiapine 300 MG Oral Tablet [Seroquel] Seroquel 01/24/2019 12 :00:00 AM EST 300 mg completed 078458 Seroquel 01/24/2019 0 03/25/2019 at bedtime 30 300 mg tablet 46905 370507 [id number] Carmen Banner [id number] Psychiatry [facility] ([facility]) quetiapine 300 MG Oral Tablet [Seroquel] Seroquel 01/24/2019 12 :00:00 AM EST 300 mg completed 210687 Seroquel 01/24/2019 0 03/25/2019 at bedtime 30 300 mg tablet 83200 286430 [id number] Carmen Banner [id number] Psychiatry [facility] ([facility]) Mirtazapine 30 MG Oral Tablet mirtazapine 01/24/2019 12:00:00 AM EST 30 mg by mouth completed 149289 mirtazapine by mouth [id number] 01/2403/25/2019 at bedtime 30 30 mg tablet 25713 059114 [id number] [facility] anel Martinez [id number] Psychiatry [facility] ([facility]) olanzapine 10 MG Oral Tablet olanzapine 01/24/2019 12:00:00 AM EST 10 mg by mouth completed 269117 olanzapine by mouth A89829 201802/23/2019 once a day 30 10 mg tablet 73990 551555 [id number] [place] Michelle [id number] Psychiatry [facility] ([facility]) Mirtazapine 30 MG Oral Tablet mirtazapine 01/24/2019 12:00:00 AM EST 30 mg by mouth completed 717297 mirtazapine by mouth [id number] 01/2403/25/2019 at bedtime 30 30 mg tablet 44318 226460 [id number] [facility] [id number] Psychiatry [facility] ([facility] Multiple Vitamins-Iron (MULTIVITAMIN WITH IRON) TABS 0904-05 31-60 01/21/2016 12:00:00 AM EST 2 {tbl} Oral aborted Take 2 tablets by mouth daily [facility] gabapentin 800 MG Oral Tablet gabapentin (NEURONTIN) 8 00 MG tablet gabapentin (NEURONTIN) 800 MG tablet 800 mg Oral aborted Take 800 mg by mouth 3 (three) times a day [facility] Clonazepam 1 MG Oral Tablet clonazePAM (KLONOPIN) 1 MG tablet clonazePAM (KLONOPIN) 1 MG tablet 1 mg Oral aborted Take 1 mg by mouth 3 (three) times a day [facility] tramadol hydrochloride 50 MG Oral Tablet traMADol (ULT SHILPI) 50 MG tablet traMADol (ULTRAM) 50 MG tablet 50 mg Oral aborted Take 50 mg by mouth 4 (four) times a day [facility] Bacitracin 0.5 UNT/MG Topical Ointment bacitracin ointment b acitracin ointment 1 {application} Topical aborted Apply 1 application topically 2 (two) times a day to chin x 14 days (started 12/29/15) [facility] Insurance Providers Payer name Policy type / Coverage type Policy ID Covered democrat ID Covered democrat's relationship to [place] Policy [place] Plan Information [facility] [id number] SP [id number] UN COMMUNITY PLAN [id number] SP [id number] UN AMERICHOICE XIX -[id number] 18 [id number] [facility] MEDICAID [id number] Niesha [id number] [facility] MEDICAID [id number] Medicaid S [id number] S [id number] Managed Care - [facility] Community Plan P [id number] S [id number] [facility] I [id number] Self [id number] Medicaid S [id number] S [id number] Managed Care - [facility] Community Plan P [id number] S [id number] [facility] [id number] SP [id number] MEDICAID [id number] SP [id number] Managed Care - Community Plan [facility] P [id number] S [id number] Medicaid S [id number] S [id number] Managed Care - Community Plan [facility] P [id number] S [id number] [facility] [id number] SP [id number] Medicaid S [id number] S [id number] Managed Care - Community Plan [facility] P [id number] S [id number] [place] Medig[place] Part B [id number] Self [id number] [facility] Community Plan Commercial [id number] Self [id number] [facility] MEDICAID PI PI [facility] MEDICAID [id number] Niesha [id number] [facility] MEDICAID [id number] Niesha [id number] Managed Care - Community Plan [facility] P [id number] S [id number] Medicaid S [id number] S [id number] [facility](MCAID) O [id number] S [id number] Managed Care - Community Plan [facility] P [id number] S [id number] Medicaid S [id number] S [id number] Managed Care - Community Plan [facility] P [id number] S [id number] HMO BLUE [id number] SP [id number] HMO BLUE [id number] SP [id number] Problems, Conditions, and Diagnoses Code Display Name Description Problem Type Effective Dates Data Source(s) F17.200 Nicotine dependence, unspecified, uncomp licated Tobacco Use Disorder, Moderate Condition 03/18/2020 12:00:00 AM EST [facility] ([facility]) F31.9 Bipolar disorder, unspecified Bipolar I Disorder, Current or most recent episode manic, Unspecified Condition 03/18/2020 12:00:00 AM EST [facility] ([facility]) 564.09 Chronic constipation Chronic constipation 08/16 03:20:44 PM EDT [facility] 227805226 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 Problem 05/09/2019 12:00:00 AM EDT [facility] ([facility]) [id number] Cauda equina syndrome Cauda equina syndrome Problem 05/09/2019 12:00:00 AM EDT [facility] ([facility]) 318850467 Chronic tension-type headache Chronic tension-type hea dache Problem 05/09/2019 12:00:00 AM EDT [facility] ([facility]) 62080896 Neck pain Neck pain Problem 05/09/2019 12:00:00 AM ED T [facility] ([facility] ) [id number] Neurogenic claudication Neurogenic claudication Proble m 05/09/2019 12:00:00 AM EDT [facility] ([facility]) 521998348 Spondylolysis Spondylolysis Problem 05/09/2019 12:00:00 AM EDT [facility] ([facility] 384149375 Low back pain Low back pain Problem 05/09/2019 12:00:00 AM EDT [facility] ([facility] 59438557 Second degree hemorrhoids Second degree hemorrhoids 02/19/2019 03:37:06 PM [facility] U60799 Personal history of nicotine dependence Personal history of nicotine dependence Diagnosis 02/15/2020 07:24:00 PM [facility] N3001 Acute cystitis with hematuria Acute cystitis with germán turia Diagnosis 02/15/2020 07:24:00 PM [facility] R300 Dysuria Dysuria Diagnosis 02/15/2020 07:24:00 PM [facility] M48.062 Spinal stenosis, lumbar region with neur ogenic claudication Spinal stenosis, lumbar region with neur Diagnosis 01/28/2020 11:27:48 AM [facility] M51.36 Other intervertebral disc degeneration, lumbar region Other intervertebral disc degeneration, Diagnosis 01/28/2020 11:27:48 AM [facility] Z12.31 Encounter for screening mammogram for ma lignant neoplasm of breast Encounter for screening mammogram for malignant neoplasm of breast Diagnosis 11/01/2019 01:45:00 PM [facility] Surgeries/Procedures Procedure Description Date Indications Data Source(s) [id number]"Psychotherapy 12:00:00 AM EST - 03/18/2020 12:00:00 AM EST [facility] ([facility]) [id number]"Psychotherapy 03/18/2020 12:00:00 AM EST [facility] ([facility]) TEMPMHCTelemed 30" Psychotherapy 021 12:00:00 AM EST - 02/26/2020 12:00:00 AM EST [facility] ([facility]) TEMPMHCTelemed 30" Psychotherapy 02/26/2020 12:00:00 A M EST [facility] ([facility]) Brief Individual Psychotherapy - 30 min 02/11/2020 12:00:00 AM EST - 02/11/2020 12:00:00 AM EST [facility] ([facility]) Brief Individual Psychotherapy - 30 min 02/11/2020 12: 00:00 AM EST [facility] ([facility]) Extended Individual Psychotherapy - 45 min 01/28/2020 12:00:00 AM EST - 01/28/2020 12:00:00 AM EST [facility] ([facility]) Extended Individual Psychotherapy - 45 min 0 12:00:00 AM EST [facility] ([facility]) MHC Telemed E/M Lvl 3--Est pt 01/02/2020 12:00:00 AM EST - 01/02/2020 12:00:00 AM EST [facility] ([facility]) Psychotherapy ADD ON - 30 Minutes 01/02/2020 12:00:00 AM EST [facility] ([facility]) MHC Telemed E/M Lvl 3--Est pt 01/02/2020 12:00:[address] [facility] ([facility]) Extended Individual Psychotherapy - 45 min 12/25/2019 12:00:00 AM EST - 12/25/2019 12:00:00 AM EST [facility] ([facility]) Extended Individual Psychotherapy - 45 min 0 12:00:00 AM EST [facility] ([facility]) Extended Individual Psychotherapy - 45 min 12/10/2019 12:00:00 AM EDT - 12/10/2019 12:00:00 AM EDT [facility] ([facility]) Extended Individual Psychotherapy - 45 min 0 12:00:00 AM EDT [facility] ([facility]) MHC Telemed E/M Lvl 3--Est pt 11/29/2019 12:00:00 AM EDT - 11/29/2019 12:00:00 AM EDT [facility] ([facility]) Psychotherapy ADD ON - 30 Minutes 11/29/2019 12:00:00 AM EDT [facility] ([facility]) MHC Telemed E/M Lvl 3--Est pt 11/29/2019 12:00:00 AM E DT [facility] ([facility]) [id number]"Psychotherapy 0 12:00:00 AM EDT - 11/26/2019 12:00:00 AM EDT [facility] ([facility]) [id number]"Psychotherapy 11/26/2019 12:00:00 AM EDT [facility] ([facility]) [id number]"Psychotherapy 0 12:00:00 AM EDT - 11/21/2019 12:00:00 AM EDT [facility] ([facility]) [id number]"Psychotherapy 11/21/2019 12:00:00 AM EDT [facility] ([facility]) TEMPMHCTelemed 30" Psychotherapy 020 12:00:00 AM EDT - 11/08/2019 12:00:00 AM EDT [facility] ([facility]) TEMPMHCTelemed 30" Psychotherapy 11/08/2019 12:00:00 A M EDT [facility] ([facility]) Extended Individual Psychotherapy - 45 min 11/07/2019 12:00:00 AM EDT - 11/07/2019 12:00:00 AM EDT [facility] ([facility]) Extended Individual Psychotherapy - 45 min 0 12:00:00 AM EDT [facility] ([facility]) MHC Telemed E/M Lvl 3--Est pt 10/31/2019 12:00:00 AM EDT - 10/31/2019 12:00:00 AM EDT [facility] ([facility]) Psychotherapy ADD ON - 30 Minutes 10/31/2019 12:00:00 AM EDT [facility] ([facility]) MHC Telemed E/M Lvl 3--Est pt 10/31/2019 12:00:00 AM E DT [facility] ([facility]) [id number]"Psychotherapy 0 12:00:00 AM EDT - 08/21/2019 12:00:00 AM EDT [facility] ([facility]) [id number]"Psychotherapy 08/21/2019 12:00:00 AM EDT [facility] ([facility]) [id number]"Psychotherapy 0 12:00:00 AM EDT - 08/14/2019 12:00:00 AM EDT [facility] ([facility]) [id number]"Psychotherapy 08/14/2019 12:00:00 AM EDT [facility] ([facility]) MHC Telemed E/M Lvl 3--Est pt 08/07/2019 12:00:00 AM EDT - 08/07/2019 12:00:00 AM EDT [facility] ([facility]) Psychotherapy ADD ON - 30 Minutes 08/07/2019 12:00:00 AM EDT [facility] ([facility]) MHC Telemed E/M Lvl 3--Est pt 08/07/2019 12:00:00 AM E DT [facility] ([facility]) [id number]"Psychotherapy 0 12:00:00 AM EDT - 07/18/2019 12:00:00 AM EDT [facility] ([facility]) [id number]"Psychotherapy 07/18/2019 12:00:00 AM EDT [facility] ([facility]) TEMPMHCTelemed 30" Psychotherapy 020 12:00:00 AM EDT - 07/04/2019 12:00:00 AM EDT [facility] ([facility]) TEMPMHCTelemed 30" Psychotherapy 07/04/2019 12:00:00 A M EDT [facility] ([facility]) Needle electromyography, each extremity, with related paraspinal areas, when performed, done with nerve conduction, amplitude and latency/velocity study; complete, five or more muscles studied, innervated by three or more nerves or four or more spinal levels (list separately in addition to the code for primary procedure). 07/02/2019 12:00:00 AM EDT MED[facility] T ([facility] ) Needle electromyography, each extremity, with related paraspinal areas, when performed, done with nerve conduction, amplitude and latency/velocity study; complete, five or more muscles studied, innervated by three or more nerves or four or more spinal levels (list separately in addition to the code for primary procedure). 07/02/2019 12:00:00 AM EDT MEDEN T ([facility] ) Nerve Conduction 9-10 Studies 07/02/2019 12:00:00 AM E DT [facility] ([facility] MHC Telemed E/M Lvl 3--Est pt 06/28/2019 12:00:00 AM EDT - 06/28/2019 12:00:00 AM EDT [facility] ([facility]) MHC Telemed E/M Lvl 3--Est pt 06/28/2019 12:00:00 AM E DT [facility] ([facility]) [id number]"Psychotherapy 0 12:00:00 AM EDT - 06/18/2019 12:00:00 AM EDT [facility] ([facility]) [id number]"Psychotherapy 06/18/2019 12:00:00 AM EDT [facility] ([facility]) MHC Telemed E/M Lvl 3--Est pt 05/31/2019 12:00:00 AM EDT - 05/31/2019 12:00:00 AM EDT [facility] ([facility]) MHC Telemed E/M Lvl 3--Est pt 05/31/2019 12:00:00 AM E DT [facility] ([facility]) MRI SPINAL CANAL CERVICAL W/O CONTRAST MATRL 0 12:00:00 AM EDT [facility] ([facility] MRI SPINAL CANAL CERVICAL W/O CONTRAST MATRL 0 12:00:00 AM EDT [facility] ([facility] MRI SPINAL CANAL LUMBAR W/O CONTRAST MATERIAL 05/15/19 20 12:00:00 AM EDT [facility] ([facility] MRI SPINAL CANAL LUMBAR W/O CONTRAST MATERIAL 05/15/19 20 12:00:00 AM EDT [facility] ([facility] OFFICE OUTPATIENT VISIT 15 MINUTES 05/01 12:00:00 AM EDT - 05/02/2019 12:00:00 AM EDT [facility] ([facility]) Psychotherapy ADD ON - 30 Minutes 05/02/2019 12:00:00 AM EDT [facility] ([facility]) OFFICE OUTPATIENT VISIT 15 MINUTES 05/02/2019 12:00:00 AM EDT [facility] ([facility]) OFFICE OUTPATIENT VISIT 15 MINUTES 03/20 12:00:00 AM EST - 03/20/2019 12:00:00 AM EST [facility] ([facility]) Psychotherapy ADD ON - 30 Minutes 03/20/2019 12:00:00 AM EST [facility] ([facility]) OFFICE OUTPATIENT VISIT 15 MINUTES 03/20/2019 12:00:00 AM EST [facility] ([facility]) Results ID Date Data Source [id number] 02/15/2020 07:24:00 PM EST [facility] 1 OrderSheet [facility] Emergency Department [address] [place] [address] Phone #: [phone]- [phone] 02/15/2020 19:10 Patient: KIYA VILA Sex: F [...] Ramirez RMarcelo Ramirez R.NMichael PA; 2 OrderSheet [facility] Emergency Department [address] [place] [address] Phone #: ext- [phone] 02/15/2020 19:10 Patient: KIYA VILA Sex: F [...] rce(s) Supporting Document(s) ID Date Data Source [id number] 02/15/2020 07:24:00 PM EST [facility] 1 Medication Reconciliation Report [facility] Emergency Department [address] [place] [address] Phone #: ext- [phone] 02/15/2020 19:10 Patient: [...] Dispense 14 capsule. Refills: 0.Substitution permitted.Pharmacy - [facility] - [address] [place] [address] [phone]. . 2 Medication Reconciliation Report [facility] Emergency Department [address] [place] [address] Phone #: ext- [phone] 02/15/2020 19:10 Patient: KIYA VILA Sex: F : 1970 Age: 49yPyridium 200 mg tablet Take 1 tablet three times a day as needed for pain for 2 days -- Dispense 6tablet. Refills: 0. Substitution permitted.Pharmacy - [facility] - [address] [place] [address] [phone]. . -- SAFIA Jones Name Value Range Interpretation Code Description Data Sharmin rce(s) Supporting Document(s) ID Date Data Source [id number] 02/15/2020 07:24:00 PM [facility] 1 Medication Administration Record [facility] Emergency Department [address] [place] [address] Phone #: ext- [phone] 02/15/2020 19:10 Patient: [...] rce(s) Supporting Document(s) ID Date Data Source [id number] 02/15/2020 07:24:00 PM EST [facility] 1 General Instructions [facility] Emergency Department [address] [place] [address] Phone #: ext- [phone] 02/15/2020 19:10 Patient: [...] Dispense 14 capsule. Refills: 0.Substitution permitted.Pharmacy - [facility] - [address] [place] [address]. .Pyridium 200 mg tablet Take 1 tablet three times a day as needed for pain for 2 days -- Dispense 6tablet. Refills: 0. Substitution permitted.[place] [id number]. .Follow-up:Follow up with your doctor in three days if not better. Reason for referral: evaluation and treatment.Summary of care provided to patient.Understanding of the discharge instructions verbalized by patient. ADDITIONAL INFORMATIONBladder Infection, Female (Adult) 2 General Instructions [facility] Emergency Department [address] [place] [address] Phone #: ext- [phone] 02/15/2020 19:10 Patient: KIYA VILA Sex: F [...] Urgent need to urinate 3 General Instructions [facility] Emergency Department [address] [place] [address] Phone #: ext- [phone] 02/15/2020 19:10 Patient: [...] a diaphragm for controlTreatment 4 General Instructions [facility] Emergency Department [address] [place] [address] Phone #: ext- [phone] 02/15/2020 19:10 Patient: KIYA VILA Sex: F [...] your healthcare provider.Follow-up care 5 General Instructions [facility] Emergency Department [address] [place] [address] Phone #: ext- [phone] 02/15/2020 19:10 Patient: [...] swelling in the outer vaginal area (labia) [phone] [employer] [place] [address], [place] [address]. All rights reserved. This information is not intended as asubstitute for professional medical care. Always follow your healthcare professional's instructions. You have been given the following additional information: Bladder Infection, Female (Adult) 6 General Instructions [facility] Emergency Department [address] [place] [address] Phone #: ext- [phone] 02/15/2020 19:10 Patient: KIYA VILA Sex: F : 1970 Age: 49y(Electronically signed by SAFIA Jones 02/15/2020 21:49) Name Value Range Interpretation Code Description Data Sharmin rce(s) Supporting Document(s) ID Date Data Source [id number] 02/15/2020 07:24:00 PM EST [facility] 1 Clinical Report - Nurses [facility] Emergency Department [address] [place] [address] Phone #: ext- [phone] 02/15/2020 19:10 Patient: [...] 6 times in the last two days.).Treatment 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 Taking her rx Tramadol for the [...] R.N.ADDITIONAL SURGERIES: 2 Clinical Report - Nurses [facility] Emergency Department [address] [place] [address] Phone #: ext- [phone] 02/15/2020 19:10 Patient: [...] Ramirez R.N. 3 Clinical Report - Nurses [facility] Emergency Department [address] [place] [address] Phone #: ext- [phone] 02/15/2020 19:10 Patient: KIYA VILA Sex: F [...] Patient verbalized understanding. Written instructions provided in Senegalese. The patient was discharged by the physician. S he was discharged home. She left ambulatory and via taxi. --22:15 02/15/20 Delores Ramirez R.N.Locked/Released at 02/16/2020 03:49 by Delores Ramirez R.N. Name Value Range Interpretation Code Description Data Sharmin rce(s) Supporting Document(s) ID Date Data Source [id number] 02/15/2020 07:24:00 PM [facility] 1 Clinical Report - Physicians/Mid Levels [place] [facility] Emergency Department [address] [place] [address] Phone #: ext- [phone] 02/15/2020 19:10 Patient: [...] Oral. 2 Clinical Report - Physicians/Mid Levels [facility] Emergency Department [address] [place] [address] Phone #: [phone]- [phone] 02/15/2020 19:10 Patient: KIYA VILA Sex: F [...] 0.70) 3 Clinical Report - Physicians/Mid Levels [facility] Emergency Department [address] [place] [address] Phone #: ext- [phone] 02/15/2020 19:10 Patient: [...] Male GFR Interprentation 20-49 yrs >60 mL/min Ajyutr15-87 yrs >56 mL/min Normal 60-69 yrs >49 mL/min Normal 70-79yrs>42 mL/min Normal 80 and above >35 mL/min Normal Female GFRInterpretation 20-39 yrs >60 mL/min Normal 40-49 yrs >58 mL/minNormal 50-59 yrs >51 mL/min Normal 60-69 yrs >45 mL/min Idtqdf34-12 yrs >39 mL/min Normal 80 and above >32 mL/min NormalLipase: (KAMRAN: 02/15/2020 19:32) ( [facility] 02/15/2020 20:53) Final results Test Result Flag Units (Reference) LIPASE 15 U/L (13 - 60)Urinalysis: (KAMRAN: 02/15/2020 19:32) ( [facility] 02/15/2020 20:58) Final results Test Result Flag Units (Reference) URINALYSIS 4 Clinical Report - Physicians/Mid Levels [facility] Emergency Department [address] [place] [address] Phone #: ext- [phone] 02/15/2020 19:10 Patient: [...] NONE Lactic Acid: (KAMRAN: 02/15/2020 19:32) ( [facility] 02/15/2020 21:26) Final results Test Result Flag [...] MEDICATIONS: 5 Clinical Report - Physicians/Mid Levels [facility] Emergency Department [address] [place] [address] Phone #: ext- [phone] 02/15/2020 19:10 Patient: KIYA VILA Sex: F : 1970 Age: 49y Gabapentin Oral. SEROquel Oral. Tramadol HCL Oral. traZODone HCl Oral. Wellbutrin Oral. Prescription Medications: cefdinir 300 mg capsule Take 1 capsule twice a day for 7 days -- Dispense 14 capsule. Refills: 0. Substitution permitted. Pharmacy - [facility] [address] [phone]. . Pyridium 200 mg tablet Take 1 tablet three times a day as needed for pain for 2 days -- Dispense 6 tablet. Refills: 0. Substitution permitted. Pharmacy - [facility] - [address] [place] [phone]. . Follow-up: Follow up with your doctor in three days if not better. Reason for referral: evaluation and treatment. Summary of care provided to patient. Understanding of the discharge instructions verbalized by patient.(Electronically signed by SAFIA Jones 02/15/2020 21:49) Name Value Range Interpretation Code Description Data Sharmin rce(s) Supporting Document(s) ID Date Data Source [id number] 02/18/2020 07:24:00 AM EST [facility] Name Value Range Interpretation Code Description Data Sharmin rce(s) Supporting Document(s) CULTURE URINE [facility] _CULTURE URINE_$$[id number]$$[id number]$$[id number]$$[id number]$$417343$$543052$$223643$$441620$$795654$$ 334873$$706659$$057605$$154030$$154472$$370041$$294824$$724855$$343835$$236536$$ 455450$$121628$$404746$$457947$$758145$$539464$$980057$$[id number] -- Continued on next page --Patient: CADENCE HUERTAS Order: [id number] Page 2Culture: CULTURE URINE Status: Final ====$$[id number]$$[id number] DATE/TIME: 02/18/2020 07:05Culture: CULTURE URINE Status: FinalUrine Culture,Comprehensive: P1More than 3 organisms recovered, none predominant. Please submitanother culture if clinically indicated.50,000-100,000 colony forming units per mLP1 Test performed by: [facility] Chris [place] #: [id number] [address] [place] [phone] [facility] [id number] Director : Stef Srinivasan MD NPI #:Signal Helper : 02/[email or web address].SENT REF ID Date Data Source [id number] 02/15/2020 09:26:00 PM EST [facility] Name Value Range Interpretation Code Description Data Sharmin rce(s) Supporting Document(s) Lactate [Moles/volume] in Serum or Plasma 1.2 MMOL/L 0.2 - 2.2 [facility] ID Date Data Source [id number] 02/15/2020 09:15:00 PM EST [facility] Name Value Range Interpretation Code Description Data Sharmin rce(s) Supporting Document(s) CBC W/AUTOMATED DIFF [facility] COMPLETE BLOOD COUNT Leukocytes [#/volume] in Blood by Automated count 9.8 10^3/uL 4.2 - 1 1.0 [facility] Erythrocytes [#/volume] in Blood by Automated count 4.44 10^6/uL 4. 20 - 5.40 [facility] Hemoglobin [Mass/volume] in Blood 13.8 g/dL 12.0 - 16.0 [facility] Hematocrit [Volume Fraction] of Blood by Automated count 41.9 % 3 7.0 - 47.0 [facility] Erythrocyte mean corpuscular volume [Entitic volume] by Auto mated count 94.4 fL 81.0 - 101 [facility] Erythrocyte mean corpuscular hemoglobin [Entitic mass] by Automated count 31.1 pg 27.0 - 34.0 [facility] Erythrocyte mean corpuscular hemoglobin concentration [Mass/volume] by Automated count 32.9 g/dL 31.0 - 36.0 [facility] Erythrocyte distribution width [Ratio] by Automated count 13.6 % 11.5 - 14.5 [facility] Platelets [#/volume] in Blood by Automated count 227 10^3/uL 150 - 45 0 [facility] Platelet mean volume [Entitic volume] in Blood by Automated count 12.7 fL 7.4 - 10.4 H [facility] Neutrophils/100 leukocytes in Blood by Automated count 70.9 % 37. 0 - 80.0 [facility] Lymphocytes/100 leukocytes in Blood by Manual count 17.4 % 25.0 - 40.0 L [facility] Monocytes/100 leukocytes in Blood by Automated count 10.5 % 3.0 - 8.0 H [facility] Eosinophils/100 leukocytes in Blood by Automated count 0.3 % 0.0 - 7.0 [facility] 0.6 %IG 0.3 % 0.0 - 0.0 H [facility] %NRBC 0.0 % 0.0 - 0.0 [facility] Neutrophils [#/volume] in Blood by Automated count 6.91 10^3/uL 2.00 - 6.90 H [facility] Lymphocytes [#/volume] in Blood by Automated count 1.70 10^3/uL 0.60 - 3.40 [facility] Monocytes [#/volume] in Blood by Automated count 1.02 10^3/uL 0.00 - 0.90 H [facility] Eosinophils [#/volume] in Blood by Automated count 0.03 10^3/uL 0.00 - 0.70 [facility] Basophils [#/volume] in Blood by Automated count 0.06 10^3/uL 0.00 - 0.20 [facility] #IG 0.03 10^3/uL 0.00 - 0.10 [facility] #NRBC 0.00 10^3/uL 0.00 - 0.00 [facility] MANUAL DIFF SEE BELOW [facility] Segmented neutrophils/100 leukocytes in Blood by Manual count 64 % 37 - 80 [facility] BAND 0 % 0 - 5 [facility] %LYMPH 23 % 25 - 40 L [facility] %MONO 13 % 3 - 8 H [facility] %EOS 0 % 0 - 7 [facility] 0 Metamyelocytes/100 leukocytes in Blood by Manual count 0 % [facility] Myelocytes/100 leukocytes in Blood by Manual count 0 % [facility] Promyelocytes/100 leukocytes in Blood by Manual count 0 % [facility] Blasts/100 leukocytes in Blood by Manual count 0 % [facility] DILCIA LYM 0 % [facility] Nucleated erythrocytes/100 erythrocytes in Blood by Manual count 0 % [facility] RBC MORPH NOT INDICATED [facility] ID Date Data Source [id number] 02/15/2020 08:57:00 PM EST [facility] Name Value Range Interpretation Code Description Data Sharmin rce(s) Supporting Document(s) [facility] SOURCE Clean Catch [facility] ital COLOR yellow NORMAL: Yellow [facility] CLARITY turbid NORMAL: Clear [facility] Specific gravity of Urine by Test strip 1.010 1.001 - 1.030 [facility] pH 8 5 - 9 [facility] Glucose [Mass/volume] in Urine by Test strip NORM NORMAL: Negat [facility] Bilirubin.total [Presence] in Urine by Test strip NEG NORMAL: Negative [facility] Ketones [Presence] in Urine by Test strip NEG NORMAL: Negative [facility] Protein [Mass/volume] in Urine by Test strip 30 [facility] Nitrite [Presence] in Urine by Test strip NEG NORMAL: Negative [facility] BLOOD 25 NORMAL: Negative [facility] Leukocyte esterase [Presence] in Urine by Test strip 500 JAMES L: Negative [facility] Urobilinogen [Mass/volume] in Urine by Test strip NOR less daniel n 1.0 mg/dL [facility] MICROSCOPIC See Below [facility] ital WBC TNTC NORMAL: NONE SEEN A [facility] Erythrocytes [#/volume] in Urine by Test strip 1 - 3 NORMAL: NON E SEEN [facility] EPITHELIAL FEW NORMAL: NONE SEEN [facility] Bacteria [Presence] in Urine sediment by Light microscopy 2+ MOD NORMAL: NONE SEEN A [facility] Amorphous sediment [Presence] in Urine sediment by Light albert roscopy RARE NORMAL: NONE SEEN [facility] Crystals [type] in Urine sediment by Light microscopy See Below [facility] TRIPLE PHOS 1+ NORMAL: NONE SEEN A [facility] ID Date Data Source [id number] 02/15/2020 08:56:00 PM EST [facility] Name Value Range Interpretation Code Description Data Sharmin rce(s) Supporting Document(s) COMPREHENSIVE METABOLIC PANEL [facility] COMPREHENSIVE METABOLIC PANEL Sodium [Moles/volume] in Serum or Plasma 140 mEq/L 134 - 153 [facility] Potassium [Moles/volume] in Serum or Plasma 3.9 mEq/L 3.6 - 5.0 [facility] Chloride [Moles/volume] in Serum or Plasma 105 mEq/L 98 - 107 [facility] Carbon dioxide, total [Moles/volume] in Serum or Plasma 24 MEQ/L 22 - 30 [facility] Glucose [Mass/volume] in Serum or Plasma 103 MG/DL 65 - 110 [facility] BUN 17 MG/DL 7 - 21 [facility] Creatinine [Mass/volume] in Serum or Plasma 0.7 MG/DL 0.7 - 1.5 [facility] BUN/CREAT 24 8 - 27 [facility] Protein [Mass/volume] in Serum or Plasma 6.3 G/DL 6.3 - 8.2 [facility] Albumin [Mass/volume] in Serum or Plasma 3.7 G/DL 3.9 - 5.0 L [facility] Globulin [Mass/volume] in Serum by calculation 2.6 GM/DL 2.4 - 3.2 [facility] A/G RATIO 1.4 0.8 - 2.0 [facility] Calcium [Mass/volume] in Serum or Plasma 8.7 MG/DL 8.4 - 10.2 [facility] Bilirubin.total [Mass/volume] in Serum or Plasma <0.7 MG/DL 0.2 - 1.3 [facility] Alkaline phosphatase [Enzymatic activity/volume] in Serum or Plasma 121 U/L 38 - 126 [facility] Aspartate aminotransferase [Enzymatic activity/volume] in Serum or Plasma 11 U/L 5 - 40 [facility] Alanine aminotransferase [Enzymatic activity/volume] in Seru m or Plasma 10 U/L 7 - 56 [facility] Anion gap 3 in Serum or Plasma 11.0 mmol/L 8.0 - 16.0 [facility] AGE 49 yrs [facility] al NON-AA GFR >60 mL/min [facility] ital AFR AMER GFR >60 mL/min [facility] Male GFR In terprentation 20-49 [...] >32 mL/min Normal ID Date Data Source [id number] 02/15/2020 08:53:00 PM EST [facility] Name Value Range Interpretation Code Description Data Sharmin rce(s) Supporting Document(s) Lipase [Enzymatic activity/volume] in Serum or Plasma 15 U/L 13 - 60 [facility] ID Date Data Source [id number] 12/07/2019 12:57:01 PM EDT [facility] Initial Intake Information From: patient Room #: [...] 2DepressionOCDAnxiety DisorderBipolarPTSDQauda EquinaSurgical History:[facility]:Diabetes (Mother)Hypertension (Father)Social/Personal History:Smoking History:Patient currently smokes every day.Patient has been counseled to quit. Advised to Quit/Tobacco Education: YesChief Complaintfollow-up visit chronic pain phoneHistory of Present Illness (HPI)49 YO female phone appointment for chronic pain. Pt is schedule is waiting on appointment to see Dr. Maxwell at [facility] spinal kent. This visit was conducted via telephone. Carmen [...] during this visit, including review of any zblo-tfm-rgyqami medications, herbal therapies, and/or supplements.Allergy ReviewAllergy List [...] (Critical)BACLOFEN (Critical)Orders:Telephone E&M 5-10 min Medical Discussion [CPT-55719] Name Value Range Interpretation Code Description Data Sharmin rce(s) Supporting Document(s) ID Date Data Source [id number] 11/19/2019 06:22:00 PM EDT [facility] Name Value Range Interpretation Code Description Data Sharmin rce(s) Supporting Document(s) ESR 26 mm/hr 0-20 H [facility] HCT 38.7 % 36.0-47.0 N [facility] HGB 12.6 g/dL 12.0-15.5 N [facility] MCH 32.6 G/DL pg 32.0-36.5 N [facility] MCHC 31.1 PG % 27.0-33.0 N [facility] PLATELETS 244 10 10*3/mm3 150-450 N [facility] RBC 4.05 10 10*6/mm3 4.00-5.40 [facility] RDW 14.1 % 11.5-14.5 N [facility] WBC TOTAL 6.5 4.0-10.0 N [facility] ID Date Data Source [id number] 11/19/2019 06:22:00 PM EDT [facility] Name Value Range Interpretation Code Description Data Sharmin rce(s) Supporting Document(s) CRP < 0.30 MG/DL mg/dL 0.00-0.30 N [facility] ID Date Data Source [id number] 11/06/2019 09:40:08 AM EDT [facility] MAMMO DIGITAL SCREENING BILATERAL [id number] INAL RESULTInterpreted by:Phong Vogt MDBILATERAL DIGITAL MAMMOGRAM [...] Name Value Range Interpretation Code Description Data [facility] Supporting Document(s) ID Date Data Source [id number] 11/01/2019 03:16:55 PM EDT [facility] Name Value Range Interpretation Code Description Data [facility](s) Supporting Document(s) HGBA1C 6.6 % [facility] ID Date Data Source [id number] 09/17/2019 10:23:07 AM EDT [facility] Measurements & CalculationsHeight: 67 inches (5 ft. [...] [facility] the [facility]? [facility] repo rted today: [...] 2DepressionOCDAnxiety DisorderBipolarPTSDQauda EquinaSurgical History:Hysterectomygastric bypass 01/21/2016 in [facility] History:Diabetes (Mother)Hypertension (Father)Social/Personal History:Smoking History:Patient currently smokes [...] to neurosurgeon other than Darwin Edwards in [place] or at [facility]. Pain is under fair control with current doses of Tramadol, gabapentin and cymbatla. She has been on this combination for a while. We discuss the risk of sertonin syndrome and she voices understanding that this is a possibility and would HPI performed by: Carmen Mulligan MD, September 17, 2019 11:29 AMTransitions of Care [facility] dProblem ReviewProblem List was reviewed and/or updated during this visit.Medication Reconciliation & ReviewMedication List was reviewed and/or updated during this visit, including review of any irfm-jyx-jihsbfa medications, herbal therapies, and/or supplements.Allergy ReviewAllergy List [...] with safe mobility, LACTULOSE 10 GM/15ML ORAL HOGCBLIQ-0-1 tbsp po BID prn constipation, CELECOXIB 200 MG ORAL CAPSULE-one tab po BID x 1 day, then one cap QDAllergies:BACTRIM (SULFAMETHOXAZOLE- TRIMETHOPRIM) (Critical)BACLOFEN (Critical)Orders:Adult - Ofc Vst, EST, Level III [CPT-98200] Neurosurgery [CPT-35739] Follow-Up Return to clinic: 3 months for follow upMedications:ALA-EDUARDO 1 % EXTERNAL CREAM (HYDROCORTISONE) Apply bid to rash on arms for up to 2 weeks at a time. #30[Tube] x 1 Route:EXTERNAL Entered and Authorized by: Carmen Mulligan MD Method used: Electronically to [facility]* (retail) [address] [place] [address] Note to Pharmacy: Rou te: EXTERNAL; RxID: [id number] signed by Carmen Mulligan MD on 09/17/2019 at 5:47 PM Name Value Range Interpretation Code Description Data Sharmin rce(s) Supporting Document(s) ID Date Data Source [id number] 08/17/2019 02:39:36 PM EDT [facility] Measurements & CalculationsHeight: 67 inches (5 ft. [...] barriers: nonePatient's Language used in visit: YesLanguage: malay Generalized Anxiety Disorder 7-Item Screening (POORNIMA-7)Answer Guide:0 [...] along with other people? 2GAD-7 Screening Results POORNIMA-2 Score: 6GAD-7 Score: 21Functional Impairment: Very difficultRecommendation: [...] 2DepressionOCDAnxiety DisorderBipolarPTSDQauda EquinaSurgical History:Hysterectomygastric bypass 01/21/2016 in [facility] History:Diabetes (Mother)Hypertension (Father)Social/Personal History:Smoking History:Patient currently smokes [...] during this visit, including review of any emap-iuk-qmholeh medications, herbal therapies, and/or supplements.Allergy ReviewAllergy List [...] FairAssessment & Plan Problems:Added: Chronic constipation (ICD-564.09) (UUJ79-Q90.09) Assessment: lactuloseAssessed:Low back pain (ICD-724.2) (ICD10- M54.5) Assessment: refer to local NSAssessment not SavedCauda equina syndrome (UEL75-N30.4): refer to local NSAdd cymbalta, celebrexMedications:DULOXETINE HCL [...] N REST WALKERMedication Changes:Refilled:LACTULOSE 10 GM/15ML ORAL AGRMBDTU-8-7 tbsp po BID prn constipation Qty: 1[Pint] Refills: 3 Method: ElectronicNew Prescription:CELECOXIB 200 MG ORAL CAPSULE-one tab po BID x 1 day, then one cap QD Qty: 30[Capsule] Refills: 3 Method: ElectronicDULOXETINE HCL 40 MG ORAL CAPSULE DELAYED RELEASE PARTICLES-one tab po QD Qty: 30[Capsule] Refills: 3 Method: ElectronicChanged: To: LACTULOSE 10 GM/15ML ORAL ITICYGEM-1-9 tbsp po BID prn constipation Qty: 1[Pint] Refills: 3Allergies:BACTRIM (SULFAMETHOXAZOLE- TRIMETHOPRIM) (Critical)Orders:Adult - Ofc Vst, EST, Level III [CPT-27674] Neurosurgery [CPT-93070] Medications:LACTULOSE 10 GM/15ML ORAL SOLUTION (LACTULOSE) 1-2 tbsp po BID prn constipation #1[Pint] x 3 Entered and Authorized by: Tono Walker DO Method used: Electronically to [facility]* (retail) [address] [place] [address] Note to Pharmacy: Route: ORAL; RxID: [id number] HCL 40 MG ORAL CAPSULE DELAYED RELEASE PARTICLES (DULOXETINE HCL) one tab po QD #30[Capsule] x 3 Route:ORAL Entered and Authorized by: Tono Walker DO Method used: Electronically to [facility]* (retail) [address] [place] [address] Note to Pharmacy: Route: ORAL; RxID: [id number] 200 MG ORAL CAPSULE (CELECOXIB) one tab po BID x 1 day, then one cap QD #30[Capsule] x 3 Route:ORAL Entered and Authorized by: Tono Walker DO Method used: Electronically to [facility]* (retail) [address] [place] [address] Fax: Note to Pharmacy: Route: ORAL; RxID: [id number] signed by Tono Walker DO on 08/17/2019 at 3:20 PM Name Value Range Interpretation Code Description Data Sharmin rce(s) Supporting Document(s) ID Date Data Source [id number] 08/10/2019 04:02:33 PM EDT [facility] Measurements & CalculationsHeight: 67 inches (5 ft. [...] 2DepressionOCDAnxiety DisorderBipolarPTSDQauda EquinaSurgical History:Hysterectomygastric bypass 01/21/2016 in [facility] History:Diabetes (Mother)Hypertension (Father)Social/Personal History:Smoking History:Patient currently smokes [...] during this visit, including review of any anvx-slw-dfbogvi medications, herbal therapies, and/or supplements.Allergy ReviewAllergy List [...] & Plan Problems:Assessed:Low back pain (ICD- 724.2) (AVC59-P47.5) Assessment: OMTprednisonebaclofenAssessment not SavedCauda equina syndrome (MTU14-S54.4): f/u next weekMedications:PREDNISONE 10 MG ORAL TABLETBACLOFEN [...] Tono Walker DO Method used: Electronically to [facility]* (retail) [address] [place] [address] Note to Pharmacy: Route: ORAL; RxID: [id number] 20 MG ORAL TABLET (BACLOFEN) one tab po BID #60[Tablet] x 1 Route:ORAL Entered and Authorized by: Tono Walker DO Method used: Electronically to [facility]* (retail) [address] [place] [address] Note to Pharmacy: Route: ORAL; RxID: [id number] signed by Tono Walker DO on 08/10/2019 at 4:35 PM Name Value Range Interpretation Code Description Data Sharmin rce(s) Supporting Document(s) ID Date Data Source [id number] 06/14/2019 02:25:03 PM EDT [facility] Measurements & CalculationsHeight: 67 inches (5 ft. [...] [facility] the [facility]? [facility]: 03/17/2018Have [...] History:No known surgical historyHysterectomygastric bypass 01/21/2016 in [facility] History:Diabetes (Mother)Hypertension (Father)Social/Personal History:Smoking History:Patient currently smokes [...] during this visit, including review of any actr-ode-urlomho medications, herbal therapies, and/or supplements.Allergy ReviewAllergy List [...] 3 Method: ElectronicRemoved:TRULICITY 0.75 MG/0.5ML SUBCUTANEOUS SOLUTION LWT-WKJDOMWV-1.75 mg SQ weekly- if tolerated, contact regarding inc to 1.5 after 1 month, OZEMPIC (0.25 OR 0.5 MG/DOSE) 2 MG/1.5ML SUBCUTANEOUS SOLUTION MTV-GCKJBPGW-8.25 mg SQ x 1 wk, then inc [...] ORAL GABAPENTIN 600 MG ORAL TABLET Qty: [id number] Refills: 120[Tablet] To: GABAPENTIN 800 MG ORAL TABLET-one tab po QID Qty: 120[Tablet] Refills: 3Allergies:BACTRIM (SULFAMETHOXAZOLE-TRIMETHOPRIM) (Critical)Orders:Adult - Ofc Vst, EST, Level III [CPT-20459] Name Value Range Interpretation Code Description Data Sharmin rce(s) Supporting Document(s) ID Date Data Source [id number] 04/11/2019 02:54:18 PM EST [facility] Measurements & CalculationsHeight: 67 inches 170.18 cm [...] History:No known surgical historyHysterectomygastric bypass 01/21/2016 in [facility] History:Diabetes (Mother)Hypertension (Father)Social/Personal History:Smoking History:Patient currently smokes every day.Patient has been counseled to quit. Chief Complaintlabs, meds, cristin refHistory of Present Illness (HPI)4pt here today to go over labs, and would like a refferal to [facility] for cauda equina syndrome. No hx trauma, just couldn't walk sometime in 2014. Had surgery with Dr. Blanco, pt will obtain note.Problem ReviewProblem List was reviewed and/or updated during this visit.Medication Reconciliation & ReviewMedication List was reviewed and/or updated during this visit, including review of any fsit-kkg-dajhoru medications, herbal therapies, and/or supplements.Allergy ReviewAllergy List [...] MG ORAL TABLET-1 pill po tid, DRISDOL 92871 UNIT ORAL CAPSULE-one tab by mouth once a week, BLOOD GLUCOSE MONITOR SYSTEM W/DEVICE KIT-Use as directed to test blood glucose TID DX:250.02, * LAMICTAL XR 150 MG ORAL [id number] (LAMOTRIGINE)-2 pills by mouth once daily, KLONOPIN 1 MG ORAL TABLET-one tab by mouth TIDAllergies:BACTRIM (SULFAMETHOXAZOLE-TRIMETHOPRIM) (Critical)Orders:Neurology Consult [CPT-16699] Adult - Ofc Vst, EST, Level III [CPT-09822] ] Name Value Range Interpretation Code Description Data Sharmin rce(s) Supporting Document(s) ID Date Data Source [id number] 04/02/2019 02:11:18 PM EST [facility] In-House Blood TestsDate/Time Colle cted: April 02, 2019 2:11 PMTest Result Reference Range Normal ValueComments: blood draw done in offe done in the [facility] Sandeep Chen MA, April 02, 2019 2:11 PMAssessment & Plan Orders:76820-Iyo Vst-Est Level I [CPT-17572] 66461 - Venipuncture [CPT-46777] Name Value Range Interpretation Code Description Data Sharmin rce(s) Supporting Document(s) ID Date Data Source [id number] 04/02/2019 02:10:00 PM EST [facility] Name Value Range Interpretation Code Description Data Sharmin rce(s) Supporting Document(s) BG FASTING 111 mg/dL 70-100 H [facility] ID Date Data Source [id number] 04/02/2019 02:10:00 PM EST [facility] Name Value Range Interpretation Code Description Data Sharmin rce(s) Supporting Document(s) HGBA1C 5.5 % N [facility] Procedure Social History Code Duration Value Status Description Data Source(s ) Smoking 03/18/2020 12:00:00 AM EST Unknown if ever smoked comp leted Unknown if ever smoked [facility] ([facility]) Smoking 02/26/2020 12:00:00 AM EST Unknown if ever smoked comp leted Unknown if ever smoked [facility] ([facility]) Smoking 02/11/2020 12:00:00 AM EST Unknown if ever smoked comp leted Unknown if ever smoked [facility] ([facility]) Smoking 01/28/2020 12:00:00 AM EST Unknown if ever smoked comp leted Unknown if ever smoked [facility] ([facility]) Alcohol intake 01/28/2020 12:00:00 AM EST Yes completed [facility] Smoking 01/28/2020 12:00:00 AM EST Current some day smoker com pleted Current some day smoker [facility] Smoking 01/02/2020 12:00:00 AM EST Unknown if ever smoked comp leted Unknown if ever smoked [facility] ([facility]) Smoking 12/25/2019 12:00:00 AM EST Unknown if ever smoked comp leted Unknown if ever smoked [facility] ([facility]) Smoking 12/10/2019 12:00:00 AM EDT Unknown if ever smoked comp leted Unknown if ever smoked [facility] ([facility]) Smoking 11/29/2019 12:00:00 AM EDT Unknown if ever smoked comp leted Unknown if ever smoked [facility] ([facility]) Smoking 11/26/2019 12:00:00 AM EDT Unknown if ever smoked comp leted Unknown if ever smoked [facility] ([facility]) Smoking 11/21/2019 12:00:00 AM EDT Unknown if ever smoked comp leted Unknown if ever smoked [facility] ([facility]) Smoking 11/08/2019 12:00:00 AM EDT Unknown if ever smoked comp leted Unknown if ever smoked [facility] ([facility]) Smoking 11/07/2019 12:00:00 AM EDT Unknown if ever smoked comp leted Unknown if ever smoked [facility] ([facility]) Smoking 11/01/2019 12:00:00 AM EDT Unknown if ever smoked comp leted Unknown if ever smoked [facility] Smoking 10/31/2019 12:00:00 AM EDT Unknown if ever smoked comp leted Unknown if ever smoked [facility] ([facility]) Smoking 08/21/2019 12:00:00 AM EDT Unknown if ever smoked comp leted Unknown if ever smoked [facility] ([facility]) Smoking 08/14/2019 12:00:00 AM EDT Unknown if ever smoked comp leted Unknown if ever smoked [facility] ([facility]) Smoking 08/07/2019 12:00:00 AM EDT Unknown if ever smoked comp leted Unknown if ever smoked [facility] ([facility]) Smoking 07/18/2019 12:00:00 AM EDT Unknown if ever smoked comp leted Unknown if ever smoked [facility] ([facility]) Smoking 07/04/2019 12:00:00 AM EDT Unknown if ever smoked comp leted Unknown if ever smoked [facility] ([facility]) Smoking 06/28/2019 12:00:00 AM EDT Unknown if ever smoked comp leted Unknown if ever smoked [facility] ([facility]) Smoking 06/18/2019 12:00:00 AM EDT Unknown if ever smoked comp leted Unknown if ever smoked [facility] ([facility]) Smoking 05/31/2019 12:00:00 AM EDT Unknown if ever smoked comp leted Unknown if ever smoked [facility] ([facility]) Smoking 05/02/2019 12:00:00 AM EDT Unknown if ever smoked comp leted Unknown if ever smoked [facility] ([facility]) Smoking 03/20/2019 12:00:00 AM EST Unknown if ever smoked comp leted Unknown if ever smoked [facility] ([facility]) Vital Signs ID Date Data Source UNK Name Value Range Interpretation Code Description Data Source(s) Oxygen saturation in Arterial blood by Pulse oximetry 98 % 98 % [facility] Body mass index (BMI) [Ratio] 36.44 kg/m2 36.44 kg/m2 [facility] Body weight 99.338 kg 99.338 kg [facility] Body height 165.1 cm 165.1 cm [facility] Body temperature 36.[address] [facility] Heart rate 90 /min 90 /min [facility] Diastolic blood pressure 77 mm[Hg] 77 mm[Hg] [facility] Systolic blood pressure 119 mm[Hg] 119 mm[Hg] [facility] Diastolic blood pressure 0 mm[Hg] Normal (applies to non-numeric results) 0 mm[Hg] [facility] ([facility]) Systolic blood pressure 0 mm[Hg] Normal (applies t o non-numeric results) 0 mm[Hg] [facility] ([facility]) Body mass index (BMI) [Ratio] 0.00 kg/m2 No rmal (applies to non-numeric results) 0.00 kg/m2 [facility] ([facility]) Body weight Measured 0.00 lbs Normal (applies to n on-numeric results) 0.00 lbs [facility] ([facility]) Body height 0.00 in Normal (applies to non-numeric resu lts) 0.00 in [facility] ([facility]) Diastolic blood pressure 0 mm[Hg] Normal (applies to non-numeric results) 0 mm[Hg] [facility] ([facility]) Systolic blood pressure 0 mm[Hg] Normal (applies t o non-numeric results) 0 mm[Hg] [facility] ([facility]) Body mass index (BMI) [Ratio] 0.00 kg/m2 No rmal (applies to non-numeric results) 0.00 kg/m2 [facility]) Body weight Measured 0.00 lbs Normal (applies to n on-numeric results) 0.00 lbs [facility] ([facility]) Body height 0.00 in Normal (applies to non-numeric resu lts) 0.00 in [facility] ([facility]) Diastolic blood pressure 0 mm[Hg] Normal (applies to non-numeric results) 0 mm[Hg] [facility] ([facility]) Systolic blood pressure 0 mm[Hg] Normal (applies t o non-numeric results) 0 mm[Hg] [facility] ([facility]) Body mass index (BMI) [Ratio] 0.00 kg/m2 No rmal (applies to non-numeric results) 0.00 kg/m2 [facility] ([facility]) Body weight Measured 0.00 lbs Normal (applies to n on-numeric results) 0.00 lbs [facility] ([facility]) Body height 0.00 in Normal (applies to non-numeric resu lts) 0.00 in [facility] ([facility]) Diastolic blood pressure 0 mm[Hg] Normal (applies to non-numeric results) 0 mm[Hg] [facility] ([facility]) Systolic blood pressure 0 mm[Hg] Normal (applies t o non-numeric results) 0 mm[Hg] [facility] ([facility]) Body mass index (BMI) [Ratio] 0.00 kg/m2 No rmal (applies to non-numeric results) 0.00 kg/m2 [facility] ([facility]) Body weight Measured 0.00 lbs Normal (applies to n on-numeric results) 0.00 lbs [facility] ([facility]) Body height 0.00 in Normal (applies to non-numeric resu lts) 0.00 in [facility] ([facility]) Diastolic blood pressure 0 mm[Hg] Normal (applies to non-numeric results) 0 mm[Hg] [facility] ([facility]) Systolic blood pressure 0 mm[Hg] Normal (applies t o non-numeric results) 0 mm[Hg] [facility] ([facility]) Body mass index (BMI) [Ratio] 0.00 kg/m2 No rmal (applies to non-numeric results) 0.00 kg/m2 [facility] ([facility]) Body weight Measured 0.00 lbs Normal (applies to n on-numeric results) 0.00 lbs [facility] ([facility]) Body height 0.00 in Normal (applies to non-numeric resu lts) 0.00 in [facility] ([facility]) Diastolic blood pressure 0 mm[Hg] Normal (applies to non-numeric results) 0 mm[Hg] [facility]) Systolic blood pressure 0 mm[Hg] Normal (applies t o non-numeric results) 0 mm[Hg] [facility] ([facility]) Body mass index (BMI) [Ratio] 0.00 kg/m2 No rmal (applies to non-numeric results) 0.00 kg/m2 [facility] ([facility]) Body weight Measured 0.00 lbs Normal (applies to n on-numeric results) 0.00 lbs [facility] ([facility]) Body height 0.00 in Normal (applies to non-numeric resu lts) 0.00 in [facility] ([facility]) Body mass index (BMI) [Ratio] 35.2 kg/m2 35.2 k g/m2 [facility] ([facility] ) Body weight 218.00 [lb_av] 218.00 [lb_av] [facility] ([facility] ) Body height 66 [in_i] 66 [in_i] [facility] ([facility], ) 5'6" Respiratory rate 14 /min 14 /min [facility] ( [facility] ) Heart rate 78 /min 78 /min [facility] ([facility] ) Diastolic blood pressure 80 mm[Hg] 80 mm[Hg] [facility] ([facility] ) Systolic blood pressure 115 mm[Hg] 115 mm[Hg] [facility] ([facility] ) Diastolic blood pressure 0 mm[Hg] Normal (applies to non-numeric results) 0 mm[Hg] [facility] ([facility]) Systolic blood pressure 0 mm[Hg] Normal (applies t o non-numeric results) 0 mm[Hg] [facility] ([facility]) Body mass index (BMI) [Ratio] 0.00 kg/m2 No rmal (applies to non-numeric results) 0.00 kg/m2 [facility] ([facility]) Body weight Measured 0.00 lbs Normal (applies to n on-numeric results) 0.00 lbs [facility]) Body height 0.00 in Normal (applies to non-numeric resu lts) 0.00 in [facility] ([facility]) Diastolic blood pressure 0 mm[Hg] Normal (applies to non-numeric results) 0 mm[Hg] [facility] ([facility]) Systolic blood pressure 0 mm[Hg] Normal (applies t o non-numeric results) 0 mm[Hg] [facility] ([facility]) Body mass index (BMI) [Ratio] 0.00 kg/m2 No rmal (applies to non-numeric results) 0.00 kg/m2 [facility] ([facility]) Body weight Measured 0.00 lbs Normal (applies to n on-numeric results) 0.00 lbs [facility] ([facility]) Body height 0.00 in Normal (applies to non-numeric resu lts) 0.00 in [facility] ([facility]) ID Date Data Source [id number] 11/06/2019 09:40:08 AM [facility] Name Value Range Interpretation Code Description Data Source(s) Body height Measured 66 in 66 in [facility] WEIGHT RECORDED 220 lb 220 lb [facility] Body height Measured 66 in 66 in [facility] Patient Treatment Plan of Care Planned Activity Planned Date Details Description Data Source (s) 24 HR Nicotine 0.292 MG/HR Transdermal Patch 01/23/2020 12:00:00 AM EST [facility] 24 HR Bupropion Hydrochloride 300 MG Extended Release Oral Tablet 01/16/2020 12:00:00 AM EST [facility] Trazodone Hydrochloride 100 MG Oral Tablet 11/29/2019 12:00:00 AM E DT [facility] POLYETHYLENE GLYCOL 3350 142 MG/ML Oral Solution 11/21/2019 12:00:0 0 AM EDT [facility] Multiple Vitamins-Iron (MULTIVITAMIN WITH IRON) TABS 016 12:00:00 AM EST [facility] Bacitracin 0.5 UNT/MG Topical Ointment [facility] gabapentin 800 MG Oral Tablet [facility] Clonazepam 1 MG Oral Tablet [facility] tramadol hydrochloride 50 MG Oral Tablet [facility]
[2020-03-28] MEDS ORDERED: CEPHALEXIN 500 MG CAP PO ONE ×2 (16:00→17:45)
[2020-03-28] MEDS ORDERED: KETOROLAC 60MG 2ML VIAL IM ONE (16:00)
[2020-03-28] MEDS ORDERED: PHENAZOPYRIDINE 100 MG TAB PO ONE ×2 (16:00→17:45)
--- NOTE | 2020-03-28 16:57 | REP ---
INDICATION: R flank pain, crystals in urine. COMPARISON: None. TECHNIQUE: Real-time sonographic evaluation of the kidneys is performed. FINDINGS: Renal cortical echogenicity pattern is normal bilaterally and contours are smooth. There is no evidence of hydronephrosis, cyst, mass, or calculus in either kidney. The right kidney measures 12.4 x 5.4 x 5.9 cm. Left renal dimensions are 9.4 x 4.2 x 4.4 cm. The urinary bladder is unremarkable. IMPRESSION: Negative renal ultrasound. <Electronically signed by Terry Hernandez > 03/28/20 0318
[2020-03-28] MEDS ORDERED: CEPH500C PO (17:48)
[2020-03-28] MEDS ORDERED: NAPR-837 PO (17:48)
[2020-03-28] MEDS ORDERED: PYRI1TAB5 PO (17:48)
[2020-03-28 18:16] VITALS: BP 135/76
== END 2020-03-28 18:20 | disposition home or self-care (01) ==
LOC: M ED 13:43
DX: N30.00 Acute cystitis without hematuria (principal); J30.89 Other allergic rhinitis; Z79.899 Other long term (current) drug therapy; Z88.1 Allergy status to other antibiotic agents
CPT/HCPCS: 76775; 81001; 87088; 87186; 96372; 99284; J1885

== ENCOUNTER → 2020-04-14 | Outpatient (REF) | payer OTHER ==
[~2020-04-14] MED LIST changes: +CEPH500C PO; +NAPR-837 PO; +PEGPOW; +PYRI1TAB5 PO
[2020-04-14 18:27] LABS: APPEARANCE, URINE CLEAR (CLEAR); BACTERIA, URINE AUTO NEGATIVE (NEGATIVE); BILIRUBIN, URINE AUTO NEGATIVE (NEGATIVE); BLOOD, URINE BLOOD NEGATIVE (NEGATIVE); COLOR, URINE YELLOW (YELLOW); GLUCOSE, URINE (UA) AUTO NEGATIVE (NEGATIVE); KETONE, URINE AUTO NEGATIVE (NEGATIVE); LEUKOCYTE ESTERASE, URINE AUTO NEGATIVE (NEGATIVE); MUCUS, URINE SMALL (NEGATIVE); NITRITE, URINE AUTO NEGATIVE (NEGATIVE); PROTEIN, URINE AUTO NEGATIVE (NEGATIVE); RBC, URINE AUTO 0 /HPF (0-3); SPECIFIC GRAVITY URINE AUTO 1.016 (1.002-1.035); SQUAMOUS EPITHELIAL CELL UR AU 0 /HPF (0-6); WBC, URINE AUTO 1 /HPF (0-3)
== END ==
LOC: M SMT 17:57
PROVIDERS: ATTEND Nurse Practitioner Family
DX: N39.0 Urinary tract infection, site not specified (principal)

== ENCOUNTER → 2020-05-09 | Outpatient (REF) | payer OTHER ==
[~2020-05-09] MED LIST changes: -PEG1POW PO; -PEGPOW; +POLY17PO18 PO; +POLY510P14
[2020-05-09 17:18] LABS: APPEARANCE, URINE CLOUDY (CLEAR); BACTERIA, URINE AUTO 2+ (NEGATIVE); BILIRUBIN, URINE AUTO NEGATIVE (NEGATIVE); BLOOD, URINE BLOOD NEGATIVE (NEGATIVE); COLOR, URINE YELLOW (YELLOW); GLUCOSE, URINE (UA) AUTO NEGATIVE (NEGATIVE); KETONE, URINE AUTO NEGATIVE (NEGATIVE); LEUKOCYTE ESTERASE, URINE AUTO 3+ (NEGATIVE); NITRITE, URINE AUTO POSITIVE (NEGATIVE); PROTEIN, URINE AUTO NEGATIVE (NEGATIVE); RBC, URINE AUTO 1 /HPF (0-3); SPECIFIC GRAVITY URINE AUTO 1.009 (1.002-1.035); SQUAMOUS EPITHELIAL CELL UR AU 0 /HPF (0-6); UROBILINOGEN, URINE AUTO 0.2 mg/dL (0.0-2.0); WBC, URINE AUTO 56 /HPF (0-3)
== END ==
LOC: M SMT 16:47
PROVIDERS: ATTEND Nurse Practitioner Women's Health
DX: N39.0 Urinary tract infection, site not specified (principal)

== ENCOUNTER → 2020-06-25 | Outpatient (REF) | payer OTHER ==
[2020-06-25 18:39] LABS: BACTERIA, URINE AUTO 1+ (NEGATIVE); MUCUS, URINE SMALL (NEGATIVE); RBC, URINE AUTO 1 /HPF (0-3); SQUAMOUS EPITHELIAL CELL UR AU 1 /HPF (0-6); TRANSITIONAL EPITHELIAL AUTO <1 /HPF; WBC, URINE AUTO TNTC /HPF (0-3)
== END ==
LOC: M SMT 16:45
PROVIDERS: ATTEND Specialist
DX: N39.0 Urinary tract infection, site not specified (principal)

== ENCOUNTER 2020-08-31 22:07 | Inpatient (IN) | payer OTHER ==
[~2020-08-31] VITALS: Ht 167.6 cm; Wt 97.7 kg
[~2020-08-31 22:07] MED LIST changes: +GABA-283 PO; -GABA-845 PO; -POLY510P14; +POLY510P14 PO; +QUEtiapine FUMARATE 200 MG TAB PO SCH
[2020-08-31] MEDS ORDERED: LAMI50TA PO (22:25)
[2020-08-31] MEDS ORDERED: TRAZ1TAB14 PO (22:25)
[2020-08-31] MEDS ORDERED: PERCOCET 5MG/325MG TAB PO ONE (23:55)
--- NOTE | 2020-09-01 00:03 | REPVR ---
PROCEDURE INFORMATION: Exam: XR Left Ankle Exam date and time: 08/31/2020 10:44 PM Age: 50 years old Clinical indication: Pain and swelling after a fall. TECHNIQUE: Imaging protocol: XR Left ankle. Views: 3 or more views. COMPARISON: No relevant prior studies available. FINDINGS: Bones/joints: There is an acute, minimally displaced transverse fracture involving the left medial malleolus. There is also an acute, minimally displaced fracture involving the inferior portion of the left lateral malleolus. No other fractures are seen in the left ankle. There is a left tibiotalar joint effusion. The ankle mortise is symmetric. Soft tissues: There is soft tissue swelling the left ankle. There is a plantar calcaneal spur at the origin of the left plantar fascia. IMPRESSION: Acute, minimally displaced bimalleolar fracture of the left ankle. Electronically signed by: Dustin Pressley On 09/01/2020 00:03:08 AM
[2020-09-01] MEDS ORDERED: LAMO100T3 PO (01:48)
[2020-09-01] MEDS ORDERED: QUET400T PO (01:48)
[2020-09-01] MEDS ORDERED: QUET200T2 PO (01:48)
[2020-09-01] MEDS ORDERED: MOM 30ML SUSPENSION UDC PO PRN (02:05)
[2020-09-01] MEDS ORDERED: IBUPROFEN 800 MG TAB PO PRN (02:05)
[2020-09-01] MEDS ORDERED: MAALOX 30 ML SUSP *UDC PO PRN (02:05)
--- NOTE | 2020-09-01 02:33 | HPEPDOC ---
[facility] Medical History & Physical Date of Admission Sep 01, 2020 Date of Service: Sep 01, 2020 Attending Physician: CHARLES HAWKINS MD History and Physical CHIEF COMPLAINT: [50 y/o F c/o left ankle pain after a fall] HISTORY OF PRESENT ILLNESS: [This is a 50 y/o female with a pmh of cauda equina syndrome s/p decompression with residual b/l foot drop, RA, GERD, depression and anxiety who presents to the ED with a c/o of acute onset left ankle pain after a fall today. Patient states that she was standing up off of the couch when she rolled her ankle and fell. Patient states that she immediately felt pain and has not been able to place weight on her ankle and so called ems to bring her to the hospital. Patient states that she was not dizzy pre fall, remembers falling, denies striking her head, and was not groggy post fall. Patient states that she walks with a walker at baseline and lives alone and thus is concerned about being able to take care of herself with a broken ankle. Patient denies chest pain, sob, fevers, chills, abd pain, n/v/d/c. Imaging performed in the ED shows slightly displaced bimalleolar fracture of the left ankle.] PAST MEDICAL HISTORY: 1. [See HPI PAST SURGICAL HISTORY: 1. [Cholecystectomy]. 2. [Gastric bypass]. 3. [Hysterectomy 4. Tubal ligation 5. D&C 6. Spinal cord decompression]. SOCIAL HISTORY: Tobacco use:[Denies] ETOH: [Denies] Illicit drug use: [Denies] FAMILY HISTORY: Reviewed - none pertinent ALLERGIES: Please see below. REVIEW OF SYSTEMS: CONSTITUTIONAL: [Denies fevers, chills]. HEENT: [Denies uri sx]. CARDIOVASCULAR: [Denies chest pain, palpitations]. RESPIRATORY: [Denies sob, wheezing]. GASTROINTESTINAL: [Denies n/v/d/c. ]. GENITOURINARY: [Denies dysuria]. SKIN: [Denies rash]. MUSCULOSKELETAL: [See HPI]. NEUROLOGICAL: [Admits to paresthesias and weakness of lower limbs]. ENDOCRINE: [Denies hx of DM]. HEMATOLOGIC/LYMPHATIC: [Denies easy bruising]. HOME MEDICATIONS: Please see below. PHYSICAL EXAMINATION: VITAL SIGNS: Please see below. GENERAL APPEARANCE: [This is an overweight 50 y/o female who is seated in comfortably in bed. She does not appear to be in any acute distress.]. HEENT: [No mass or lesion. EOMI. No scleral icterus. Nares patent. Oral mucosa moist.]. CARDIOVASCULAR: [Regular rate, rhythm. No murmurs, rubs, gallops]. LUNGS: [Good airflow b/l. No wheezing, rales, rhonchi.]. ABDOMEN: [Soft, nontender]. MUSCULOSKELETAL: [Left ankle is in a splint. No joint deformity noted]. EXTREMITIES: [Left toes are pink and have appropriate capillary refill. No peripheral edema noted. Pulses intact.]. NEUROLOGICAL: [Sensation decreased to b/l lower extremities. Gait not assessed. Patient moves all fours freely. Speech clear. A+Ox3. No focal deficits.]. PSYCHIATRIC: [Mood and affect appear appropriate.]. LABORATORY DATA: See below. IMAGING: [Ankle XR: FINDINGS: Bones/joints: There is an acute, minimally displaced transverse fracture involving the left medial malleolus. There is also an acute, minimally displaced fracture involving the inferior portion of the left lateral malleolus. No other fractures are seen in the left ankle. There is a left tibiotalar joint effusion. The ankle mortise is symmetric. Soft tissues: There is soft tissue swelling the left ankle. There is a plantar calcaneal spur at the origin of the left plantar fascia. IMPRESSION: Acute, minimally displaced bimalleolar fracture of the left ankle. ] MICROBIOLOGY: Please see below. ASSESSMENT: [This is a 50 y/o female with a pmh of cauda equina syndrome s/p decompression with residual b/l foot drop, RA, GERD, depression and anxiety who presents to the ED with a c/o of acute onset left ankle pain after a fall today. Patient states that she was standing up off of the couch when she rolled her ankle and fell. Imaging performed in the ED shows slightly displaced bimalleolar fracture of the left ankle.]. . PLAN: 1. [Left ankle fx - ED provider consulted with Dr. Mark, orthopedics, who stated that this is a nonsurgical case and can be managed with splinting and following up outpatient - Patient has gait instability at baseline, ambulating with a walker. Patient does not feel she will be able to take care of herself at home and so will be admitted to hospitalist service for pain control and PT eval - PT/OT consult placed - advil, percocet for pain control - Non weight bearing to LLE - Ice and elevation as tolerated - admit under obs to med surg 2. Hx of cauda equina syndrome with deficits - stable - continue gabapentin 3. Depression/anxiety - continue seroquel, lamictal, trazodone 4. s/p gastric bypass - patient bmi still 34.8 - complicated care DVT prophylaxis - will give lovenox d/t decreased mobility, obesity ]. Vital Signs Vital Signs Date Time Temp Pulse Resp B/P (MAP) Pulse Ox O2 Delivery O2 Flow Rate FiO2 09/01/20 02:11 98.9 68 156/81 (106) 97 09/01/20 00:18 18 08/31/20 22:08 Room Air Laboratory Data Labs 24H Laboratory Tests 2 09/01/20 01:59: Home Medications Scheduled Gabapentin (Gabapentin) 800 Mg Tablet, 800 MG PO QID Lamotrigine (Lamotrigine) 100 Mg Tablet, 50 MG PO QHS Polyethylene Glycol 3350 (Polyethylene Glycol 3350) 510 Gm Powder, 17 GM PO QHS Quetiapine Fumarate (Quetiapine Fumarate) 200 Mg Tablet, 200 MG PO QHS TAKES WITH 400MG TO EQUAL 600MG Quetiapine Fumarate (Quetiapine Fumarate) 400 Mg Tablet, 400 MG PO QHS TAKES WITH 200MG TO EQUAL 600MG Trazodone HCl (Trazodone HCl) 150 Mg Tablet, 150 MG PO QHS Scheduled PRN Tramadol HCl (Tramadol HCl) 50 Mg Tablet, 50 MG PO Q6H PRN for PAIN Allergies Coded Allergies: sulfamethoxazole (Verified Allergy, Intermediate, RASH, 03/28/20) trimethoprim (Verified Allergy, Intermediate, RASH, 03/28/20) ENVIROMENTAL (Verified Allergy, Unknown, 03/28/20) A-FIB/CHADSVASC A-FIB History Current/History of A-Fib/PAF?: No JAC AQUINO Sep 01, 2020 02:33
[2020-09-01 02:49] LABS: RSV AMPLIFICATION NEGATIVE (NEGATIVE)
[2020-09-01] MEDS: traZODone 50 MG TAB PO SCH ×2 (03:37→20:59)
[2020-09-01] MEDS: ACETAMINOPHEN TAB 650MG DOSE (2X325MG) PO PRN ×2 (03:37→20:59)
[2020-09-01] MEDS: lamoTRIgine 25MG TAB PO SCH ×2 (03:40→20:59)
[2020-09-01 03:51] LABS: HEMOGLOBIN 13.7 g/dl (12.0-15.5); MEAN CORPUSCULAR HEMOGLOBIN 30.6 pg (27.0-33.0); MEAN CORPUSCULAR HGB CONC 32.6 g/dl (32.0-36.5); MEAN CORPUSCULAR VOLUME 93.8 fl (80.0-96.0); PLATELET COUNT, AUTOMATED 215 10^3/uL (150-450); RED BLOOD COUNT 4.48 10^6/uL (4.00-5.40); WHITE BLOOD COUNT 8.9 10^3/uL (4.0-10.0)
[2020-09-01 04:03] LABS: INR 1.02; PARTIAL THROMBOPLASTIN TIME 29.4 SECONDS (24.2-38.5); PROTHROMBIN TIME 13.6 SECONDS (12.5-14.3)
[2020-09-01 04:21] LABS: BLOOD UREA NITROGEN 13 MG/DL (7-18); CARBON DIOXIDE LEVEL 28 MEQ/L (21-32); CHLORIDE LEVEL 109 MEQ/L (98-107); GLOMERULAR FILTRATION RATE > 60.0 (>58); GLUCOSE, FASTING 187 MG/DL (70-100); POTASSIUM SERUM 4.2 MEQ/L (3.5-5.1); SODIUM LEVEL 143 MEQ/L (136-145)
[2020-09-01 08:01] VITALS: BP 101/60
[2020-09-01] MEDS: GABAPENTIN 400MG CAP PO SCH ×4 (08:23→21:06)
[2020-09-01] MEDS: PERCOCET 5MG/325MG TAB PO PRN ×3 (08:24→23:20)
[2020-09-01] MEDS: ENOXAPARIN 40MG/0.4ML SYRINGE (J1650 PER 10MG) SC SCH (08:25)
[2020-09-01 16:00] VITALS: BP 104/56
--- NOTE | 2020-09-01 16:14 | IPNPDOC ---
Text Note Date of Service The patient was seen on 09/01/20. NOTE Subjective: Patient was seen and examined at bedside. Patient reports she is having pain in her left ankle where she had the fracture, about 4/10. She denies having any complaints. She denies having any fever, chills, chest pain, abdominal pain. Objective: Physical exam: General: Patient is alert oriented x3, laying in bed, no apparent distress. Cardiac: S1 and S2 normal, regular rate and rhythm. No murmurs appreciated. Lungs: Bilateral. Crackles, no wheezes or rhonchi appreciated. Abdomen: Soft, positive bowel sounds, no tenderness in all 4 quadrants. Extremities: Patient's left ankle is splinted and is wrapped, her capillary refill in the left ovary is normal, she reports having some numbness at the tip of her fingers. No edema appreciated. Pulses could not assess. Labs: Vitals: 97.5 HR 75, RR 16, BP 101/60, 96% on room air CBC: WBC 8.9, Hb 13.7, HCT 42, platelets 215, BMP: NA 143, K4.2, CL 109, HCO3 28, BUN 13, creatinine 0.7, glucose 197. Ankle XR: FINDINGS: Bones/joints: There is an acute, minimally displaced transverse fracture involving the left medial malleolus. There is also an acute, minimally displaced fracture involving the inferior portion of the left lateral malleolus. No other fractures are seen in the left ankle. There is a left tibiotalar joint effusion. The ankle mortise is symmetric. Soft tissues: There is soft tissue swelling the left ankle. There is a plantar calcaneal spur at the origin of the left plantar fascia. IMPRESSION: Acute, minimally displaced bimalleolar fracture of the left ankle. Assessment: 50-year-old female with PMH of cauda equina s/p decompression with residual bilateral foot drop, GERD, gastric bypass surgery, depression, anxiety, rheumatoid arthritis presented to the ED due to pain in her left ankle after a fall[no LOC, head injury, seizure activity, bowel and bladder incontinence] in the ED for the evaluation showed she had fracture in the left ankle. Given the patient lives alone she would not be able to take care of herself with the ankle fracture. She was admitted to hospitalist service for further placement. Plan: Left ankle fracture: -Patient was getting pain management with Percocet every 6 hours, acetaminophen and ibuprofen -At this time it seems like patient is able to tolerate her pain with the above medication we will continue the same. -Bedrest, fall precaution. -PT and OT evaluation and treatment are in place. -ARU screening was ordered -Given that patient had a same level fall and had a fracture further evaluation for her vitamin deficiencies, malignancies should be done. History of cauda equina syndrome: -Patient reports she has some deficits but it is stabilized now. -We will continue gabapentin 800 mg p.o. 4 times daily Status post gastric bypass: 2017 -Given her gastric bypass she might have some vitamin deficiencies. -She is not on any vitamin supplements at home. -We will do further work-up to look into her deficiencies like vitamin D levels. Anxiety/depression: -We will continue her home medication. -Seroquel 600 mg p.o. nightly -Trazodone 150 mg p.o. nightly -Lamotrigine 50 mg p.o. nightly DVT prophylaxis: -We will continue her on Lovenox 40 mg subcutaneous daily VS,Fishbone, I+O VS, Fishbone, I+O Laboratory Tests 09/01/20 03:39 Vital Signs Date Time Temp Pulse Resp B/P (MAP) Pulse Ox O2 Delivery O2 Flow Rate FiO2 09/01/20 08:54 18 Room Air 09/01/20 08:01 97.5 75 101/60 (74) 96 Aden Patel MD Sep 01, 2020 16:14
[2020-09-01 17:54] VITALS: BP 114/66
[2020-09-01 20:00] VITALS: BP 113/75
[2020-09-01] MEDS: QUEtiapine FUMARATE 200 MG TAB PO SCH (20:58)
[2020-09-01] MEDS: MIRALAX *UNIT DOSE* 17GM PACKET PO SCH (20:58)
[2020-09-01] MEDS ORDERED: POLYETHYLENE GLYCOL (MIRALAX) 238GM BOTTLE PO SCH (21:00)
[2020-09-02 06:15] VITALS: BP 120/86
[2020-09-02] MEDS: PERCOCET 5MG/325MG TAB PO PRN ×3 (09:26→22:56)
[2020-09-02] MEDS: GABAPENTIN 400MG CAP PO SCH ×4 (09:26→20:48)
[2020-09-02] MEDS: ENOXAPARIN 40MG/0.4ML SYRINGE (J1650 PER 10MG) SC SCH (09:26)
[2020-09-02 10:29] LABS: TOTAL 25(OH) VITAMIN D 16.7 NG/ML (30.0-100.0)
[2020-09-02 14:00] VITALS: BP 103/63
--- NOTE | 2020-09-02 18:41 | IPNPDOC ---
Text Note Date of Service The patient was seen on 09/02/20. NOTE Subjective: Patient was examined at bedside. Patient reports having pain in her left ankle, about 4 x 10. She reports that she is using the bedside commode and is balancing and pivoting with the other leg. She denies having any fever, chills, shortness of breath, chest pain, abdominal pain. She reports to have a good night sleep. Objective: Physical exam: General: Patient was laying in bed, no apparent distress. Cardiac: S1 and S2 normal, RRR, no murmurs appreciated. Lungs: Bilateral clear breath sounds, no crackles, wheezes appreciated. Abdomen: Soft, positive bowel joint, no tenderness to palpation of the 4 quadrants. Extremity: Patient's left ankle is wrapped in an splint. And reports to be having pain on touching the tip of her toes. Normal capillary refill noted. She reports there is some numbness in the tip of the toes as well nkle XR: FINDINGS: Bones/joints: There is an acute, minimally displaced transverse fracture involving the left medial malleolus. There is also an acute, minimally displaced fracture involving the inferior portion of the left lateral malleolus. No other fractures are seen in the left ankle. There is a left tibiotalar joint effusion. The ankle mortise is symmetric. Soft tissues: There is soft tissue swelling the left ankle. There is a plantar calcaneal spur at the origin of the left plantar fascia. IMPRESSION: Acute, minimally displaced bimalleolar fracture of the left ankle. Assessment: 50-year-old female with PMH of cauda equina s/p decompression with residual bilateral foot drop, GERD, gastric bypass surgery, depression, anxiety, rheumatoid arthritis presented to the ED due to pain in her left ankle after a fall[no LOC, head injury, seizure activity, bowel and bladder incontinence] in the ED for the evaluation showed she had fracture in the left ankle. Given the patient lives alone she would not be able to take care of herself with the ankle fracture. She was admitted to hospitalist service for further placement. Plan: Left ankle fracture: -Patient was getting pain management with Percocet every 6 hours, acetaminophen and ibuprofen -Patient is treating for ARU screen, -PT OT are in place -We will continue patient on fall precaution. -Given her low impact fall and having a fracture vitamin D levels were checked and patient has very low vitamin D levels. We will start her on vitamin D oral supplementation from today. [1000 mg p.o. daily], and repeat her vitamin D levels in 3 months as outpatient with the PCP. -Patient reports she had hysterectomy done [no need of Paps], she reports she had a mammogram done in last October and it was normal. Per patient. History of cauda equina syndrome: -Patient reports she has some deficits but it is stabilized now. -We will continue gabapentin 800 mg p.o. 4 times daily Status post gastric bypass: 2016 -Given her gastric bypass she might have some vitamin deficiencies. -She is not on any vitamin supplements at home. Anxiety/depression: -We will continue her home medication. -Seroquel 600 mg p.o. nightly -Trazodone 150 mg p.o. nightly -Lamotrigine 50 mg p.o. nightly DVT prophylaxis: -We will continue her on Lovenox 40 mg subcutaneous daily VS,Fishbone, I+O VS, Fishbone, I+O Vital Signs Date Time Temp Pulse Resp B/P (MAP) Pulse Ox O2 Delivery O2 Flow Rate FiO2 09/02/20 16:47 20 09/02/20 14:00 98.1 82 103/63 (76) 97 Room Air I&O- Last 24 Hours up to 6 AM 09/02/20 06:00 Intake Total 1200 ml Output Total 0 ml Balance 1200 ml Aden Patel MD Sep 02, 2020 18:41
[2020-09-02 20:19] VITALS: BP 115/68
[2020-09-02] MEDS: MIRALAX *UNIT DOSE* 17GM PACKET PO SCH (20:47)
[2020-09-02] MEDS: lamoTRIgine 25MG TAB PO SCH (20:48)
[2020-09-02] MEDS: traZODone 50 MG TAB PO SCH (20:48)
[2020-09-02] MEDS: QUEtiapine FUMARATE 200 MG TAB PO SCH (20:48)
[2020-09-02] MEDS ORDERED: VITAMIN D 1,000 INTERNATIONAL UNITS TABLET PO SCH (21:00)
[2020-09-03 05:16] VITALS: BP 96/54
[2020-09-03] MEDS: GABAPENTIN 400MG CAP PO SCH ×3 (10:02→17:12)
[2020-09-03] MEDS: ENOXAPARIN 40MG/0.4ML SYRINGE (J1650 PER 10MG) SC SCH (10:02)
[2020-09-03] MEDS: PERCOCET 5MG/325MG TAB PO PRN ×2 (10:02→16:52)
[2020-09-03] MEDS ORDERED: NICOTINE 14 MG/24 HR TRANSDERMAL TD ONE (13:15)
[2020-09-03 14:00] VITALS: BP 117/66
--- NOTE | 2020-09-03 16:41 | DS.PDOC ---
Discharge Summary General Date of Admission Sep 02, 2020 at 09:57 Date of Discharge September 04, 2019 Attending Physician: MATTHIAS PEREZ MD Discharge Summary PROCEDURES PERFORMED DURING STAY: None. ADMITTING DIAGNOSES: Displaced bimalleolar fracture of the left ankle. Cauda equina syndrome s/p decompression with residual bilateral foot drop Rheumatoid arthritis GERD Depression Anxiety S/p gastric bypass DISCHARGE DIAGNOSES: Displaced bimalleolar fracture of the left ankle. Cauda equina syndrome s/p decompression with residual bilateral foot drop Rheumatoid arthritis GERD Depression Anxiety S/p gastric bypass COMPLICATIONS/CHIEF COMPLAINT: Bimallrolar Fracture Of Left Ankle. HISTORY OF PRESENT ILLNESS: 50-year-old female with PMH of cauda equina syndrome s/p decompression with residual bilateral foot drop, RA, GERD, anxiety/depression presented to the emergency department after a fall. she re ports standing up off the couch when she rolled her ankle and fell. Patient imaging CT showed that she had minimally displaced bimalleolar fracture of the left ankle. Orthopedic provider was consulted from the emergency department and stated that it is a nonsurgical case and can be managed with splinting. Patient was admitted in the hospital as patient lives alone and she needs help in doing her ADLs. HOSPITAL COURSE: Left ankle fx - ED provider consulted with Dr. Mark, orthopedics, who stated that this is a nonsurgical case and can be managed with splinting and following up outpatient - Patient has gait instability at baseline, ambulating with a walker. Patient does not feel she will be able to take care of herself at home and so will be admitted to hospitalist service for pain control and PT eval - PT/OT consult placed - advil, percocet for pain control - Non weight bearing to LLE - Ice and elevation as tolerated 2. Hx of cauda equina syndrome with deficits - stable -Was continued gabapentin 3. Depression/anxiety -Was continued seroquel, lamictal, trazodone 4. s/p gastric bypass - patient bmi still 34.8 - complicated care DVT prophylaxis -Was give lovenox d/t decreased mobility, obesity . DISCHARGE MEDICATIONS: Please see below. ALLERGIES: Please see below. PHYSICAL EXAMINATION ON DISCHARGE: VITAL SIGNS: Please see below. General: Patient was laying in bed, no apparent distress. Cardiac: S1 and S2 normal, RRR, no murmurs appreciated. Lungs: Bilateral clear breath sounds, no crackles, wheezes appreciated. Abdomen: Soft, positive bowel joint, no tenderness to palpation of the 4 quadrants. Extremity: Patient's left ankle is wrapped in an splint. And reports to be having pain on touching the tip of her toes. Normal capillary refill noted. She reports there is some numbness in the tip of the toes as well LABORATORY DATA: Please see below. IMAGING: Ankle XR: FINDINGS: Bones/joints: There is an acute, minimally displaced transverse fracture involving the left medial malleolus. There is also an acute, minimally displaced fracture involving the inferior portion of the left lateral malleolus. No other fractures are seen in the left ankle. There is a left tibiotalar joint effusion. The ankle mortise is symmetric. Soft tissues: There is soft tissue swelling the left ankle. There is a plantar calcaneal spur at the origin of the left plantar fascia. IMPRESSION: Acute, minimally displaced bimalleolar fracture of the left ankle. PROGNOSIS: Fair ACTIVITY: As tolerated. DIET: Regular diet DISCHARGE PLAN: To subacute rehab DISPOSITION: Patient is going to subacute rehab DISCHARGE INSTRUCTIONS: - Follow with PCP after discharge from subacute rehab in 1 week. -Follow-up with orthopedics upon discharge from subacute rehab. -Continue taking vitamin D 1000 mg daily as patient has low vitamin D levels. -Patient needs to get a bone scan outpatient to see if patient has osteoporosis. ITEMS TO FOLLOWUP ON ON OUTPATIENT: Follow with PCP after discharge from subacute rehab in 1 week. -Follow-up with orthopedics upon discharge from subacute rehab. -Continue taking vitamin D 1000 mg daily as patient has low vitamin D levels. -Patient needs to get a bone scan outpatient to see if patient has osteoporosis. DISCHARGE CONDITION: Stable. TIME SPENT ON DISCHARGE: Greater 30 than minutes. Vital Signs/I&Os Vital Signs Date Time Temp Pulse Resp B/P (MAP) Pulse Ox O2 Delivery O2 Flow Rate FiO2 09/03/20 14:00 98.0 81 18 117/66 (83) 96 Room Air I&O- Last 24 Hours up to 6 AM 09/03/20 06:00 Intake Total 600 ml Output Total 0 ml Balance 600 ml Discharge Medications Scheduled Gabapentin (Gabapentin) 800 Mg Tablet, 800 MG PO QID, (Reported) Lamotrigine (Lamotrigine) 100 Mg Tablet, 50 MG PO QHS, (Reported) Polyethylene Glycol 3350 (Polyethylene Glycol 3350) 510 Gm Powder, 17 GM PO QHS, (Reported) Quetiapine Fumarate (Quetiapine Fumarate) 200 Mg Tablet, 200 MG PO QHS, (Reported) TAKES WITH 400MG TO EQUAL 600MG Quetiapine Fumarate (Quetiapine Fumarate) 400 Mg Tablet, 400 MG PO QHS, (Reported) TAKES WITH 200MG TO EQUAL 600MG Trazodone HCl (Trazodone HCl) 150 Mg Tablet, 150 MG PO QHS, (Reported) Scheduled PRN Tramadol HCl (Tramadol HCl) 50 Mg Tablet, 50 MG PO Q6H PRN for PAIN, (Reported) Allergies Coded Allergies: sulfamethoxazole (Verified Allergy, Intermediate, RASH, 03/28/20) trimethoprim (Verified Allergy, Intermediate, RASH, 03/28/20) ENVIROMENTAL (Verified Allergy, Unknown, 03/28/20) Aden Patel MD Sep 03, 2020 16:41
[2020-09-03] MEDS ORDERED: VITAD1000T PO (16:42)
== END 2020-09-03 18:40 | DRG 342 ==
LOC: M ED 22:07 → M ED INP 22:08 → ENRESERV 09-01 16:42 → M MS5PR 09-01 18:30 → OBSVTOIN 09-02 09:57
PROVIDERS: ADMIT Internal Medicine; ATTEND Internal Medicine
DX: S82.842A Displaced bimalleolar fracture of left lower leg, initial encounter for closed fracture (principal); F32.9 Major depressive disorder, single episode, unspecified; M21.372 Foot drop, left foot; M21.371 Foot drop, right foot; M06.9 Rheumatoid arthritis, unspecified; K21.9 Gastro-esophageal reflux disease without esophagitis; F41.9 Anxiety disorder, unspecified; Z79.899 Other long term (current) drug therapy; Z88.2 Allergy status to sulfonamides; Z88.8 Allergy status to other drugs, medicaments and biological substances; Z68.34 Body mass index [BMI] 34.0-34.9, adult; W08.XXXA Fall from other furniture, initial encounter; Y92.009 Unspecified place in unspecified non-institutional (private) residence as the place of occurrence of the external cause

== ENCOUNTER 2020-09-08 11:22 | Outpatient (RCR) | payer OTHER ==
[~2020-09-08 11:22] MED LIST changes: +LAMI50TA PO; +LAMO100T3 PO; +QUET200T2 PO; +QUET400T PO; -QUEtiapine FUMARATE 200 MG TAB PO SCH; +TRAZ1TAB14 PO; +VITAD1000T PO
== END 2020-09-20 ==
LOC: M PT 11:22
PROVIDERS: ATTEND Family Medicine Addiction Medicine
DX: S92.901A Unspecified fracture of right foot, initial encounter for closed fracture (principal)

== ENCOUNTER 2020-10-30 13:45 | Outpatient (RCR) | payer OTHER ==
[~2020-10-30 13:45] MED LIST changes: -QUET400T PO; +QUET400T2 PO
== END 2020-11-20 ==
LOC: M PT 13:45
PROVIDERS: ATTEND Family Medicine Addiction Medicine
DX: S92.901D Unspecified fracture of right foot, subsequent encounter for fracture with routine healing (principal); W18.30XD Fall on same level, unspecified, subsequent encounter; Y92.009 Unspecified place in unspecified non-institutional (private) residence as the place of occurrence of the external cause

== ENCOUNTER → 2020-11-05 | Outpatient (CLI) | payer OTHER ==
--- NOTE | 2020-11-05 12:51 | DEXAMM ---
INDICATION: UNSPECIFIED FX OF RIGHT FOOT. COMPARISON: None. TECHNIQUE: Bone density was measured using dual-energy x-ray absorptiometry (DEXA). FINDINGS: AP SPINE L1-L4 BMD 1.400 g/cm2 Young Adult T-Score 1.7 Age Matched Z-Score 2.0. LT FEMUR, TOTAL BMD 1.193 g/cm2 Young Adult T-Score 1.5 Age Matched Z-Score 1.9. LT NECK BMD 1.074 g/cm2 Young Adult T-Score 0.3 Age Matched Z-Score 1.0. IMPRESSION: There is normal bone density of the spine. There is normal bone density of the left hip. FOLLOW-UP: Recommendation for the next bone density exam: 5 years. <Electronically signed by Terry Hernandez > 11/05/20 [id number]
--- NOTE | 2020-11-06 09:05 | REPMRS ---
Patient History The patient states she has not had a clinical breast exam in over a year. Family history of pancreatic cancer at age 75 in paternal grandmother, breast cancer at age 45 in maternal half sister. No Hormone Replacement Therapy Moderna vaccine 07/02/20 right arm. 07/31/20 right arm. 20 lb intentional weight loss from Gastric bypass surgery in 2017. Patient states no breast complaints today. Patient has signed MRS History Sheet. Digital Woman Screen Mammo: November 05, 2020 - Exam #: [id number] Bilateral CC and MLO view(s) were taken. Technologist: RT Trevor Prior study comparison: August 11, 2010, right breast [facility] July 23, 2010, bilateral digital mammo screening bilat, [facility]. FINDINGS: There are scattered fibroglandular densities. Screening. Digital screening (2D) mammography was performed bilaterally in the CC and MLO projections. Additionally, breast tomosynthesis (3D mammography) was performed bilaterally in the CC and MLO projections. Todays exam was compared to the prior exam/exams. By history, the patient has no complaints of a palpable breast abnormality or other significant breast complaints. The breasts are unchanged in size and shape. There are no ezio-soft tissue densities or spiculated masses. There is no internal architectural distortion. Once again, stable benign appearing calcifications are seen.There are no suspicious ezio-calcific clusters. Skin thickening or nipple retraction is not present. IMPRESSION: BI-RADS Category 2- Benign Findings. There is no evidence of malignant alteration of the breasts. Followup examination recommended in one year. The Volpara volumetric breast density category is B, there are scattered areas of fibroglandular densities. This mammogram was read with the assistance of Cash Check Card,an FDA approved computer aided detection system for mammography. The lifetime Tyrer-Cuzick score is 12.7 % Negative x-ray reports should not delay surgical consultation if a dominant or clinically suspicious mass is present. Not all breast cancers can be identified by mammography. Therefore, we recommend that you continue to perform regular breast self-examination and physical examination and then promptly contact your physician of any concerns or changes. Adenosis and dense breasts may obscure an underlying neoplasm. Assessment: BI-RADS/ACR category 2 mammogram. Benign Findings. Recommendation Routine screening mammogram of both breasts in 1 year. Electronically Signed By: Jim Gil DO 11/06/20 [id number]
== END ==
LOC: M WHC 09:55
PROVIDERS: ATTEND Family Medicine Addiction Medicine
DX: Z12.31 Encounter for screening mammogram for malignant neoplasm of breast (principal); S92.901A Unspecified fracture of right foot, initial encounter for closed fracture; W18.30XA Fall on same level, unspecified, initial encounter; Y92.009 Unspecified place in unspecified non-institutional (private) residence as the place of occurrence of the external cause

== ENCOUNTER 2020-12-03 10:45 | Outpatient (RCR) | payer OTHER | END 2020-12-21 | LOC: M PT 10:45 | PROVIDERS: ATTEND Family Medicine Addiction Medicine | DX: G83.10 Monoplegia of lower limb affecting unspecified side (principal) ==

== ENCOUNTER → 2020-12-23 | Outpatient (CLI) | payer OTHER ==
--- NOTE | 2020-12-23 14:55 | REP ---
INDICATION: UTI'S. COMPARISON: 03/28/2020 TECHNIQUE: Real-time sonographic evaluation of the kidneys with Doppler FINDINGS: Multiple ultrasonographic images of the right kidney show the right kidney to measure 10.4 x 5.2 x 5.3 cm. The renal cortical echotexture is unremarkable. There are no masses. There is good corticomedullary differentiation. There is no hydronephrosis. There are no perinephric fluid collections. Multiple ultrasonographic images of the left kidney show the left kidney to measure 11.8 x 4.6 x 4.7 cm. The renal cortical echotexture is unremarkable. There are no masses. There is good corticomedullary differentiation. There is no hydronephrosis. There are no perinephric fluid collections. IMPRESSION: Unremarkable renal ultrasonography. No significant change compared to the prior exam. <Electronically signed by Jim Gil > 12/23/20 [id number]
== END ==
LOC: M RAD 11:30
PROVIDERS: ATTEND Specialist
DX: N39.0 Urinary tract infection, site not specified (principal)

== ENCOUNTER → 2021-08-05 | Outpatient (REF) | payer OTHER ==
[2021-08-05 17:47] LABS: APPEARANCE, URINE CLOUDY (CLEAR); BACTERIA, URINE AUTO 1+ (NEGATIVE); BILIRUBIN, URINE AUTO NEGATIVE (NEGATIVE); BLOOD, URINE BLOOD NEGATIVE (NEGATIVE); COLOR, URINE YELLOW (YELLOW); GLUCOSE, URINE (UA) AUTO NEGATIVE (NEGATIVE); KETONE, URINE AUTO NEGATIVE (NEGATIVE); LEUKOCYTE ESTERASE, URINE AUTO 3+ (NEGATIVE); MUCUS, URINE SMALL (NEGATIVE); NITRITE, URINE AUTO NEGATIVE (NEGATIVE); PROTEIN, URINE AUTO 2+ mg/dL (NEGATIVE); RBC, URINE AUTO 46 /HPF (0-3); SPECIFIC GRAVITY URINE AUTO 1.018 (1.002-1.035); SQUAMOUS EPITHELIAL CELL UR AU 6 /HPF (0-6); TRANSITIONAL EPITHELIAL AUTO 2 /HPF; WBC, URINE AUTO TNTC /HPF (0-3)
== END ==
LOC: M SMT 17:22
PROVIDERS: ATTEND Nurse Practitioner Women's Health
DX: R30.0 Dysuria (principal)

== ENCOUNTER → 2021-08-20 | Outpatient (REF) | payer OTHER | LOC: M LAB REF 12:35 | PROVIDERS: ATTEND Physician Assistant | DX: N39.0 Urinary tract infection, site not specified (principal) ==

== ENCOUNTER → 2022-03-26 | Outpatient (REF) | payer OTHER ==
[2022-03-26 16:52] LABS: APPEARANCE, URINE MANUAL HAZY (CLEAR); COLOR, URINE MANUAL YELLOW (YELLOW)
[2022-03-26 16:53] LABS: BILIRUBIN, URINE MANUAL NEGATIVE (NEGATIVE); BLOOD URINE MANUAL NEGATIVE (NEGATIVE); GLUCOSE, URINE (UA) MANUAL NEGATIVE (NEGATIVE); KETONE, URINE MANUAL NEGATIVE (NEGATIVE); LEUKOCYTE ESTERASE, URINE MAN POSITIVE (NEGATIVE); NITRITE, URINE MANUAL POSITIVE (NEGATIVE); PROTEIN, URINE MANUAL NEGATIVE (NEGATIVE); SPECIFIC GRAVITY,URINE MANUAL 1.025 (1.002-1.035); UROBILINOGEN, URINE MANUAL NORMAL (NORMAL)
[2022-03-26 17:07] LABS: RBC, URINE NONE SEEN /hpf (0-3); SQUAMOUS EPITHELIAL CELL URINE MOD AMOUNT /hpf (SMALL AMT)
[2022-03-26 17:08] LABS: BACTERIA, URINE LARGE AMOUNT; HYALINE CAST, URINE NONE SEEN /lpf (0-1)
== END ==
LOC: M SMT 16:32
PROVIDERS: ATTEND Nurse Practitioner Women's Health
DX: R30.0 Dysuria (principal)

== ENCOUNTER 2022-04-13 12:56 | Emergency (ER) | payer OTHER ==
[~2022-04-13] VITALS: Ht 167.6 cm; Wt 96.1 kg
[2022-04-13] MEDS ORDERED: BUPR75TA5 PO (15:33)
[2022-04-13] MEDS ORDERED: TIZA10TA PO (15:33)
[2022-04-13] MEDS ORDERED: AMIT50TA PO (15:33)
[2022-04-13] MEDS ORDERED: CLON0.5T2 PO (15:33)
[2022-04-13 16:22] LABS: BASO # 0.1 10^3/uL (0.0-0.2); BASO % 0.7 % (0.0-1.0); EOS % 0.5 % (0.0-3.0); HEMATOCRIT 43.4 % (36.0-47.0); HEMOGLOBIN 13.5 g/dl (12.0-15.5); LYMPH # 2.3 10^3/uL (1.5-5.0); MEAN CORPUSCULAR HEMOGLOBIN 29.2 pg (27.0-33.0); MEAN CORPUSCULAR HGB CONC 31.1 g/dl (32.0-36.5); MEAN CORPUSCULAR VOLUME 93.9 fl (80.0-96.0); MONO # 0.3 10^3/uL (0.0-0.8); MONO % 4.5 % (2.0-8.0); NEUTROPHILS # 4.6 10^3/uL (1.5-8.5); PLATELET COUNT, AUTOMATED 291 10^3/uL (150-450); RED BLOOD COUNT 4.62 10^6/uL (4.00-5.40); WHITE BLOOD COUNT 7.4 10^3/uL (4.0-10.0)
[2022-04-13 16:34] LABS: INR 0.89; PARTIAL THROMBOPLASTIN TIME 26.8 SECONDS (24.8-34.2); PROTHROMBIN TIME 12.2 SECONDS (12.5-14.5)
[2022-04-13 16:37] LABS: D-DIMER QUANT 450.08 ng/ml (<500)
[2022-04-13 16:50] LABS: LIPASE 26 U/L (12-53)
[2022-04-13 17:33] LABS: ALBUMIN 3.3 G/DL (3.2-5.2); ALKALINE PHOSPHATASE 110 U/L (46-116); ALT/SGPT 16 U/L (7.0-40); AST/SGOT 21 U/L (<34); BILIRUBIN,DIRECT 0.1 MG/DL (<0.4); BILIRUBIN,TOTAL 0.5 MG/DL (0.3-1.2); BLOOD UREA NITROGEN 14 MG/DL (9-23); CALCIUM LEVEL 8.6 MG/DL (8.5-10.1); CARBON DIOXIDE LEVEL 28 MMOL/L (20-31); CHLORIDE LEVEL 104 MMOL/L (98-107); CK-MB VALUE MASS < 1.0 NG/ML (<3.6); CPK CREATINE PHOSPHOKINASE 76 U/L (34-145); FREE T4 1.04 NG/DL (0.89-1.76); GLUCOSE, FASTING 88 MG/DL (60-100); MB/CK RELATIVE INDEX 1.31 (< OR =4); POTASSIUM SERUM 4.5 MMOL/L (3.5-5.1); SODIUM LEVEL 140 MMOL/L (136-145); THYROID STIMULATING HORMONE 2.519 uIU/ML (0.55-4.78)
[2022-04-13 19:04] VITALS: BP 137/83
[2022-04-13 19:49] LABS: CREATININE FOR GFR 0.81 MG/DL (0.55-1.30); GLOMERULAR FILTRATION RATE > 60.0 (>51)
== END 2022-04-13 19:05 | disposition home or self-care (01) ==
LOC: M ED 12:56
DX: R07.89 Other chest pain (principal); M54.2 Cervicalgia; R22.43 Localized swelling, mass and lump, lower limb, bilateral; R51.9 Headache, unspecified; K21.9 Gastro-esophageal reflux disease without esophagitis; F43.10 Post-traumatic stress disorder, unspecified; F31.9 Bipolar disorder, unspecified; F41.9 Anxiety disorder, unspecified; Z98.84 Bariatric surgery status; Z90.49 Acquired absence of other specified parts of digestive tract; Z98.51 Tubal ligation status; F17.290 Nicotine dependence, other tobacco product, uncomplicated; Z88.2 Allergy status to sulfonamides; Z88.8 Allergy status to other drugs, medicaments and biological substances; Z79.899 Other long term (current) drug therapy

== ENCOUNTER → 2022-04-20 | Outpatient (REF) | payer OTHER ==
[~2022-04-20] MED LIST changes: +AMIT50TA PO; +BUPR75TA5 PO; +CLON0.5T2 PO; +TIZA10TA PO
[2022-04-21 10:57] LABS: APPEARANCE, URINE HAZY (CLEAR); BACTERIA, URINE AUTO 1+ (NEGATIVE); BILIRUBIN, URINE AUTO NEGATIVE (NEGATIVE); BLOOD, URINE BLOOD NEGATIVE (NEGATIVE); COLOR, URINE YELLOW (YELLOW); GLUCOSE, URINE (UA) AUTO NEGATIVE (NEGATIVE); KETONE, URINE AUTO NEGATIVE (NEGATIVE); LEUKOCYTE ESTERASE, URINE AUTO NEGATIVE (NEGATIVE); NITRITE, URINE AUTO POSITIVE (NEGATIVE); PROTEIN, URINE AUTO NEGATIVE (NEGATIVE); RBC, URINE AUTO 1 /HPF (0-3); SPECIFIC GRAVITY URINE AUTO 1.009 (1.002-1.035); SQUAMOUS EPITHELIAL CELL UR AU 4 /HPF (0-6); UROBILINOGEN, URINE AUTO 0.2 mg/dL (0.0-2.0); WBC, URINE AUTO 1 /HPF (0-3)
== END ==
LOC: M LAB REF 10:10
PROVIDERS: ATTEND Family Medicine Addiction Medicine
DX: R39.9 Unspecified symptoms and signs involving the genitourinary system (principal)

== ENCOUNTER → 2022-05-28 | Outpatient (REF) | payer OTHER ==
[2022-05-28 16:41] LABS: APPEARANCE, URINE HAZY (CLEAR); BACTERIA, URINE AUTO 2+ (NEGATIVE); BILIRUBIN, URINE AUTO NEGATIVE (NEGATIVE); BLOOD, URINE BLOOD NEGATIVE (NEGATIVE); COLOR, URINE YELLOW (YELLOW); GLUCOSE, URINE (UA) AUTO NEGATIVE (NEGATIVE); KETONE, URINE AUTO NEGATIVE (NEGATIVE); LEUKOCYTE ESTERASE, URINE AUTO 2+ (NEGATIVE); MUCUS, URINE SMALL (NEGATIVE); NITRITE, URINE AUTO NEGATIVE (NEGATIVE); PROTEIN, URINE AUTO 1+ mg/dL (NEGATIVE); RBC, URINE AUTO 4 /HPF (0-3); SPECIFIC GRAVITY URINE AUTO 1.021 (1.002-1.035); SQUAMOUS EPITHELIAL CELL UR AU 5 /HPF (0-6); UROBILINOGEN, URINE AUTO 0.2 mg/dL (0.0-2.0); WBC, URINE AUTO 58 /HPF (0-3)
== END ==
LOC: M LAB REF 15:57
PROVIDERS: ATTEND Physician Assistant Medical
DX: N39.0 Urinary tract infection, site not specified (principal)

== ENCOUNTER → 2022-06-04 | Outpatient (CLI) | payer OTHER | LOC: M WUC 13:22 | PROVIDERS: ATTEND Physician Assistant | DX: S93.402A Sprain of unspecified ligament of left ankle, initial encounter (principal); S93.602A Unspecified sprain of left foot, initial encounter; W18.30XA Fall on same level, unspecified, initial encounter; Y92.009 Unspecified place in unspecified non-institutional (private) residence as the place of occurrence of the external cause ==

== ENCOUNTER 2023-02-22 09:50 | Day surgery (SDC) | payer OTHER ==
[~2023-02-22] VITALS: Ht 165.1 cm; Wt 101.6 kg
[~2023-02-22 09:50] MED LIST changes: +AMOX875T2; +AMPICILLIN SOD/SULBACTAM SOD 3 GM in D5W MINI-BAG PLUS 100 ML IV ONE; +DULC10SU2 PR; -GABA-283 PO; +GABA-284 PO; +HYDR-3713; +LIDOCAINE 2% W/ EPINEPHRINE 1.7 ML DENTAL INJ As Ordered ONE; +MILKSUS3 PO
[2023-02-22] MEDS ORDERED: LR 1,000 ML IV SCH ×2 (10:20→13:25)
[2023-02-22] MEDS ORDERED: LIDOCAINE 2% 100MG/5ML SDV (FOR ANES.) As Ordered ONE (11:31)
[2023-02-22] MEDS ORDERED: SUGAMMADEX SODIUM 500 MG/5 ML VIAL (BRIDION) As Ordered ONE (11:31)
[2023-02-22] MEDS ORDERED: ONDANSETRON 4MG 2ML VIAL As Ordered ONE (11:31)
[2023-02-22] MEDS ORDERED: propofoL 200 MG/20 ML VIAL As Ordered ONE (11:31)
[2023-02-22] MEDS ORDERED: ROCURONIUM BROMIDE 50MG/5ML VIAL As Ordered ONE (11:31)
[2023-02-22] MEDS ORDERED: fentaNYL 100 MCG/2 ML INJECTION As Ordered ONE (11:35)
[2023-02-22] MEDS ORDERED: MIDAZOLAM INJ 2MG/2ML VIAL As Ordered ONE (11:35)
[2023-02-22] MEDS ORDERED: ACETAMINOPHEN 1000MG 100ML IV BAG As Ordered ONE (12:25)
[2023-02-22] MEDS ORDERED: oxyCODONE 5MG TAB PO PRN (13:25)
[2023-02-22] MEDS ORDERED: METOCLOPRAMIDE INJ 10MG/2ML VIAL IV PRN (13:25)
[2023-02-22] MEDS ORDERED: ONDANSETRON 4MG 2ML VIAL IV PRN (13:25)
[2023-02-22] MEDS ORDERED: HYDROMORPHONE HCL 0.5 MG/ 0.5 ML SYRINGE IV PRN (13:25)
[2023-02-22] MEDS: fentaNYL 100 MCG/2 ML INJECTION IV PRN ×2 (13:54→13:59)
[2023-02-22 15:00] VITALS: BP 148/77; TEMP 97.2; O2SAT 97
== END 2023-02-22 15:10 | disposition home or self-care (01) ==
LOC: M SDC 09:50
PROVIDERS: ATTEND Dentist
DX: K02.9 Dental caries, unspecified (principal); F41.9 Anxiety disorder, unspecified; F42.9 Obsessive-compulsive disorder, unspecified; F32.A Depression, unspecified; F60.3 Borderline personality disorder; K59.09 Other constipation; M54.9 Dorsalgia, unspecified; F17.290 Nicotine dependence, other tobacco product, uncomplicated; Z96.82 Presence of neurostimulator; J30.9 Allergic rhinitis, unspecified; Z88.2 Allergy status to sulfonamides; Z79.899 Other long term (current) drug therapy; Z79.2 Long term (current) use of antibiotics
CPT/HCPCS: 88300; C9290; D7140; D7210; D7310; D7311; D9223; J0131; J1100; J2250; J2405; J3010

== ENCOUNTER 2023-07-16 12:47 | Emergency (ER) | payer OTHER ==
[~2023-07-16] VITALS: Ht 165.1 cm; Wt 97.3 kg
[~2023-07-16 12:47] MED LIST changes: -AMPICILLIN SOD/SULBACTAM SOD 3 GM in D5W MINI-BAG PLUS 100 ML IV ONE; -KLON1TAB PO; +KLON1TAB13 PO; -LIDOCAINE 2% W/ EPINEPHRINE 1.7 ML DENTAL INJ As Ordered ONE
[2023-07-16 13:00] VITALS: TEMP 99.1
[2023-07-16] MEDS ORDERED: LORA2TAB14 (13:01)
[2023-07-16] MEDS ORDERED: REXU1TAB2 (13:01)
[2023-07-16] MEDS ORDERED: LAMO25TA4 (13:01)
[2023-07-16] MEDS: ONDANSETRON 4MG ORAL DISINTEGRATING TAB PO ONE (14:14)
[2023-07-16] MEDS: ACETAMINOPHEN 325 MG TAB PO ONE (14:15)
[2023-07-16 15:15] VITALS: BP 112/64; O2SAT 95
== END 2023-07-16 15:51 | disposition home or self-care (01) ==
LOC: EDBD 12:47 → M ED 12:47
DX: S06.0X0A Concussion without loss of consciousness, initial encounter (principal); M54.50 Low back pain, unspecified; Y92.9 Unspecified place or not applicable; Y93.9 Activity, unspecified; Y99.9 Unspecified external cause status; V49.40XA Driver injured in collision with unspecified motor vehicles in traffic accident, initial encounter; Z88.2 Allergy status to sulfonamides; Z88.8 Allergy status to other drugs, medicaments and biological substances; Z91.09 Other allergy status, other than to drugs and biological substances; Z79.899 Other long term (current) drug therapy

== ENCOUNTER 2023-08-17 19:56 | Inpatient (IN) | payer MEDICARE, OTHER ==
[~2023-08-17] VITALS: Ht 165.1 cm; Wt 96.4 kg
[~2023-08-17 19:56] MED LIST changes: +LAMO25TA4; +LORA2TAB14; +REXU1TAB2
[2023-08-17 20:31] LABS: HEMATOCRIT 43.1 % (36.0-47.0); HEMOGLOBIN 13.8 g/dl (12.0-15.5); MEAN CORPUSCULAR HEMOGLOBIN 28.8 pg (27.0-33.0); PLATELET COUNT, AUTOMATED 278 10^3/uL (150-450); RED BLOOD COUNT 4.79 10^6/uL (4.00-5.40); WHITE BLOOD COUNT 7.4 10^3/uL (4.0-10.0)
[2023-08-17 21:09] LABS: ETHYL ALCOHOL (ETHANOL) < 0.003 % (0.000-0.010)
[2023-08-17 21:10] LABS: ALBUMIN 3.3 G/DL (3.2-5.2); ALKALINE PHOSPHATASE 144 U/L (46-116); ALT/SGPT 18 U/L (7.0-40); AST/SGOT 20 U/L (<34); BILIRUBIN,DIRECT 0.1 MG/DL (<0.4); BILIRUBIN,TOTAL 0.6 MG/DL (0.3-1.2); BLOOD UREA NITROGEN 14 MG/DL (9-23); CALCIUM LEVEL 9.3 MG/DL (8.5-10.1); CARBON DIOXIDE LEVEL 25 MMOL/L (20-31); CHLORIDE LEVEL 108 MMOL/L (98-107); CREATININE FOR GFR 0.88 MG/DL (0.55-1.30); GLOMERULAR FILTRATION RATE > 60.0 (>51); GLUCOSE, FASTING 97 MG/DL (60-100); POTASSIUM SERUM 4.5 MMOL/L (3.5-5.1); SALICYLATE LEVEL < 3.0 MG/DL (<30); SODIUM LEVEL 141 MMOL/L (136-145); TOTAL PROTEIN 7.2 G/DL (5.7-8.2)
[2023-08-17 21:12] LABS: THYROID STIMULATING HORMONE 2.765 uIU/ML (0.55-4.78)
[2023-08-17] MEDS ORDERED: TRAZ1TAB14 (21:33)
[2023-08-17] MEDS ORDERED: DULC5TAB PO (21:33)
[2023-08-18] MEDS ORDERED: ACETAMINOPHEN TAB 650MG DOSE (2X325MG) PO PRN (00:20)
[2023-08-18] MEDS ORDERED: IBUPROFEN 400MG TAB PO PRN (00:20)
[2023-08-18] MEDS ORDERED: traZODone 50 MG TAB PO PRN (00:20)
[2023-08-18] MEDS ORDERED: OLANZapine 5 MG TAB PO PRN (00:20)
[2023-08-18] MEDS ORDERED: MOM 30ML SUSPENSION UDC PO PRN (00:20)
[2023-08-18] MEDS ORDERED: diphenhydrAMINE 25MG CAP PO PRN (00:20)
[2023-08-18] MEDS ORDERED: MAALOX 30 ML SUSP *UDC PO PRN (00:20)
[2023-08-18 01:02] LABS: AMPHETAMINES LEVEL URINE NEGATIVE (NEGATIVE); BARBITURATES URINE NEGATIVE (NEGATIVE); BENZODIAZEPINES URINE NEGATIVE (NEGATIVE); COCAINE METABOLITE URINE NEGATIVE (NEGATIVE); METHADONE URINE NEGATIVE (NEGATIVE); OPIATES URINE NEGATIVE (NEGATIVE); PHENCYCLIDINE URINE NEGATIVE (NEGATIVE)
[2023-08-18 01:04] LABS: CANNABINOIDS URINE POSITIVE (NEGATIVE)
[2023-08-18] MEDS ORDERED: LORA2TAB14 PO (01:11)
[2023-08-18] MEDS ORDERED: BISA1TAB PO (01:11)
[2023-08-18] MEDS ORDERED: LAMO25TA4 PO (01:11)
[2023-08-18] MEDS ORDERED: REXU1TAB2 PO (01:11)
[2023-08-18] MEDS ORDERED: HOME MED LIST COMPLETE! XX SCH (01:15)
[2023-08-18] MEDS: GABAPENTIN 400MG CAP PO SCH (02:56)
[2023-08-18] MEDS: traMADol 50 MG TAB PO SCH (02:57)
[2023-08-18 06:40] VITALS: BP 132/79; TEMP 97; O2SAT 95
[2023-08-18] MEDS ORDERED: tiZANidine 4 MG TAB PO PRN (11:00)
[2023-08-18] MEDS: BISACODYL 5MG TAB PO SCH (12:20)
[2023-08-18] MEDS: LORazepam 1 MG TAB PO SCH (12:22)
[2023-08-18] MEDS: lamoTRIgine 25MG TAB PO SCH (12:22)
[2023-08-18 13:13] LABS: CHOLESTEROL RISK RATIO 4.19 (<5); HDL CHOLESTEROL 61.8 MG/DL (>40); LDL CHOLESTEROL 180.6 MG/DL (<100); NON-HDL-C 197.2 MG/DL
[2023-08-18 17:36] VITALS: BP 122/80; TEMP 97.5; O2SAT 98
[2023-08-18] MEDS: traZODone 50 MG TAB PO SCH (21:18)
[2023-08-18] MEDS: AMITRIPTYLINE 50 MG TAB PO SCH (21:18)
[2023-08-18] MEDS: BREXPIPRAZOLE 0.5MG TABLET (REXULTI) PO SCH (21:18)
[2023-08-19 06:15] VITALS: BP 98/55; TEMP 97.3
[2023-08-19] MEDS ORDERED: LORazepam 2 MG TAB PO SCH (09:13)
[2023-08-19] MEDS: LORazepam 2 MG TAB PO SCH (09:17)
[2023-08-19] MEDS ORDERED: LAMI25TA PO (09:57)
[2023-08-19] MEDS ORDERED: AMIT50TA PO (09:57)
[2023-08-19] MEDS ORDERED: TRAZ1TAB14 PO (09:57)
[2023-08-19] MEDS ORDERED: REXU1TAB2 PO (09:57)
== END 2023-08-19 12:35 | disposition home or self-care (01) | DRG 881 ==
LOC: M ED 19:56 → M ED INP 08-18 00:19 → M PSY 08-18 02:33
PROVIDERS: ADMIT Student in an Organized Health Care Education/Training Program; ATTEND Student in an Organized Health Care Education/Training Program
DX: F32.A Depression, unspecified (principal); R45.851 Suicidal ideations; F60.3 Borderline personality disorder; M21.371 Foot drop, right foot; M21.372 Foot drop, left foot; M06.9 Rheumatoid arthritis, unspecified; K21.9 Gastro-esophageal reflux disease without esophagitis; Z98.84 Bariatric surgery status; Z63.0 Problems in relationship with spouse or partner; Z63.4 Disappearance and death of family member; Z88.2 Allergy status to sulfonamides; Z79.899 Other long term (current) drug therapy; Z91.51 Personal history of suicidal behavior; Z88.8 Allergy status to other drugs, medicaments and biological substances

== ENCOUNTER 2023-11-05 18:33 | Inpatient (IN) | payer MEDICARE, OTHER ==
[~2023-11-05] VITALS: Ht 165.1 cm; Wt 98.6 kg
[~2023-11-05 18:33] MED LIST changes: +BISA1TAB PO; +DULC5TAB PO; +GABA-1635 PO; -GABA800T4 PO; +LAMI25TA PO; +LAMO25TA4 PO; +LORA2TAB14 PO; +REXU1TAB2 PO; +TRAZ1TAB14
[2023-11-05] MEDS ORDERED: FLUO-290 PO (19:10)
[2023-11-05] MEDS ORDERED: OLAN1TAB16 PO (19:10)
[2023-11-05 19:54] LABS: HEMATOCRIT 40.1 % (36.0-47.0); HEMOGLOBIN 12.8 g/dl (12.0-15.5); MEAN CORPUSCULAR HGB CONC 31.9 g/dl (32.0-36.5); MEAN CORPUSCULAR VOLUME 90.9 fl (80.0-96.0); PLATELET COUNT, AUTOMATED 265 10^3/uL (150-450); RED BLOOD COUNT 4.41 10^6/uL (4.00-5.40); WHITE BLOOD COUNT 6.5 10^3/uL (4.0-10.0)
[2023-11-05 20:12] LABS: BARBITURATES URINE NEGATIVE (NEGATIVE); COCAINE METABOLITE URINE NEGATIVE (NEGATIVE); METHADONE URINE NEGATIVE (NEGATIVE); OPIATES URINE NEGATIVE (NEGATIVE); PHENCYCLIDINE URINE NEGATIVE (NEGATIVE)
[2023-11-05 20:13] LABS: AMPHETAMINES LEVEL URINE NEGATIVE (NEGATIVE); BENZODIAZEPINES URINE NEGATIVE (NEGATIVE)
[2023-11-05 20:16] LABS: SALICYLATE LEVEL < 3.0 MG/DL (<30)
[2023-11-05 20:17] LABS: ALBUMIN 3.1 G/DL (3.2-5.2); ALKALINE PHOSPHATASE 129 U/L (46-116); ALT/SGPT 26 U/L (7.0-40); AST/SGOT 22 U/L (<34); BILIRUBIN,DIRECT 0.1 MG/DL (<0.4); BILIRUBIN,TOTAL 0.4 MG/DL (0.3-1.2); BLOOD UREA NITROGEN 12 MG/DL (9-23); CALCIUM LEVEL 9.1 MG/DL (8.5-10.1); CARBON DIOXIDE LEVEL 25 MMOL/L (20-31); CHLORIDE LEVEL 110 MMOL/L (98-107); CREATININE FOR GFR 0.86 MG/DL (0.55-1.30); GLOMERULAR FILTRATION RATE > 60.0 (>51); GLUCOSE, FASTING 77 MG/DL (60-100); POTASSIUM SERUM 4.4 MMOL/L (3.5-5.1); SODIUM LEVEL 142 MMOL/L (136-145)
[2023-11-05 20:19] LABS: CANNABINOIDS URINE POSITIVE (NEGATIVE); THYROID STIMULATING HORMONE 1.785 uIU/ML (0.55-4.78)
[2023-11-05] MEDS ORDERED: IBUPROFEN 400MG TAB PO PRN (20:50)
[2023-11-05] MEDS ORDERED: MAALOX 30 ML SUSP *UDC PO PRN (20:50)
[2023-11-05] MEDS ORDERED: traZODone 50 MG TAB PO PRN (20:50)
[2023-11-05] MEDS: NICOTINE 21MG/24HR 1 EA TRANSDERMAL TD STA (21:31)
[2023-11-05] MEDS: MOM 30ML SUSPENSION UDC PO PRN (21:39)
[2023-11-05] MEDS: diphenhydrAMINE 25MG CAP PO PRN (21:40)
[2023-11-05] MEDS: ACETAMINOPHEN TAB 650MG DOSE (2X325MG) PO PRN (21:40)
[2023-11-05] MEDS: GABAPENTIN 400MG CAP PO SCH (22:06)
[2023-11-05] MEDS: traMADol 50 MG TAB PO PRN (22:07)
[2023-11-05] MEDS ORDERED: HOME MED LIST COMPLETE! XX SCH (23:15)
[2023-11-05] MEDS ORDERED: OLAN2.5T25 PO (23:23)
[2023-11-05] MEDS ORDERED: REXU1TAB3 PO (23:23)
[2023-11-06] MEDS: traZODone 50 MG TAB PO SCH (00:21)
[2023-11-06] MEDS: OLANZapine 5 MG TAB PO SCH (00:21)
[2023-11-06 01:00] VITALS: BP 148/88; TEMP 98; O2SAT 98
[2023-11-06 06:15] VITALS: BP 125/70; TEMP 97.2; O2SAT 97
[2023-11-06] MEDS: GABAPENTIN 400MG CAP PO SCH (09:44)
[2023-11-06] MEDS: traMADol 50 MG TAB PO PRN (09:47)
[2023-11-06] MEDS: FLUBLOK(EGGFREE) TRIVAL(24-25) VACCINE PF 0.5ML SYRINGE 18YRS & OLDER IM.IMMUN ONE (09:48)
[2023-11-06] MEDS: FLUoxetine 20MG CAP PO SCH (11:27)
[2023-11-06] MEDS: lamoTRIgine 100MG TAB PO SCH (11:27)
[2023-11-06] MEDS: LORazepam 2 MG TAB PO PRN (12:57)
[2023-11-06] MEDS ORDERED: traZODone 50 MG TAB PO SCH (21:00)
[2023-11-07 06:15] VITALS: BP 115/61; TEMP 97.2; O2SAT 97
[2023-11-07 14:14] VITALS: BP 139/84; TEMP 97.5; O2SAT 96
[2023-11-08 06:12] VITALS: BP 130/69; TEMP 97.1; O2SAT 98
[2023-11-08 16:32] VITALS: BP 123/81; TEMP 98.8; O2SAT 98
[2023-11-09 06:21] VITALS: BP 144/70; TEMP 97.2; O2SAT 96
[2023-11-09] MEDS ORDERED: TRAZ-252 PO (10:23)
[2023-11-09] MEDS ORDERED: OLAN1TAB16 PO (10:23)
[2023-11-09] MEDS ORDERED: LAMO100T80 PO (10:23)
[2023-11-09] MEDS ORDERED: FLUO-365 PO (10:23)
== END 2023-11-09 12:17 | disposition home or self-care (01) | DRG 885 ==
LOC: M ED 18:33 → M ED INP 20:57 → M PSY 22:16
PROVIDERS: ADMIT Psychiatry & Neurology Psychiatry; ATTEND Psychiatry & Neurology Psychiatry
DX: F33.9 Major depressive disorder, recurrent, unspecified (principal); R45.851 Suicidal ideations; G83.4 Cauda equina syndrome; F60.3 Borderline personality disorder; Z63.4 Disappearance and death of family member; F17.290 Nicotine dependence, other tobacco product, uncomplicated; M54.9 Dorsalgia, unspecified; G89.29 Other chronic pain; M21.371 Foot drop, right foot; M21.372 Foot drop, left foot; K21.9 Gastro-esophageal reflux disease without esophagitis; M06.9 Rheumatoid arthritis, unspecified; E66.9 Obesity, unspecified; Z79.899 Other long term (current) drug therapy; Z88.2 Allergy status to sulfonamides; Z88.8 Allergy status to other drugs, medicaments and biological substances; Z68.36 Body mass index [BMI] 36.0-36.9, adult

== ENCOUNTER 2024-01-30 09:02 | Emergency (ER) | payer MEDICARE, OTHER ==
[~2024-01-30] VITALS: Ht 167.6 cm; Wt 209.0 kg
[~2024-01-30 09:02] MED LIST changes: +FLUO-290 PO; +FLUO-365 PO; -LACT10SO3 PO; +LACT10SO94 PO; +LAMO100T80 PO; +OLAN1TAB16 PO; +OLAN2.5T53 PO; +REXU1TAB3 PO; +TRAZ-252 PO
[2024-01-30] MEDS: ONDANSETRON 4MG ORAL DISINTEGRATING TAB PO ONE (12:30)
[2024-01-30 12:47] LABS: BASO % 0.3 % (0.0-1.0); EOS % 0.1 % (0.0-3.0); HEMATOCRIT 46.6 % (36.0-47.0); LYMPH # 1.1 10^3/uL (1.5-5.0); LYMPH % 14.2 % (24.0-44.0); MEAN CORPUSCULAR HEMOGLOBIN 28.1 pg (27.0-33.0); MEAN CORPUSCULAR HGB CONC 32.2 g/dl (32.0-36.5); MEAN CORPUSCULAR VOLUME 87.4 fl (80.0-96.0); MONO # 0.4 10^3/uL (0.0-0.8); MONO % 5.4 % (2.0-8.0); NEUTROPHILS # 5.9 10^3/uL (1.5-8.5); NEUTROPHILS % 79.7 % (36.0-66.0); PLATELET COUNT, AUTOMATED 244 10^3/uL (150-450); RED BLOOD COUNT 5.33 10^6/uL (4.00-5.40); WHITE BLOOD COUNT 7.4 10^3/uL (4.0-10.0)
[2024-01-30 12:50] LABS: Trichomonas vaginalis (AMP) NOT DETECTED (NEGATIVE)
[2024-01-30] MEDS: CEFDINIR 300 MG CAP (OMNICEF) PO ONE (12:59)
[2024-01-30 13:05] LABS: BLOOD UREA NITROGEN 15 MG/DL (9-23); CALCIUM LEVEL 9.9 MG/DL (8.5-10.1); CARBON DIOXIDE LEVEL 29 MMOL/L (20-31); CHLORIDE LEVEL 104 MMOL/L (98-107); CREATININE FOR GFR 0.73 MG/DL (0.55-1.30); GLOMERULAR FILTRATION RATE > 60.0 (>51); GLUCOSE, FASTING 81 MG/DL (60-100); POTASSIUM SERUM 3.7 MMOL/L (3.5-5.1); SODIUM LEVEL 142 MMOL/L (136-145)
[2024-01-30 13:13] LABS: GC DNA AMPLIFICATION NEGATIVE (NEGATIVE)
[2024-01-30 14:45] VITALS: BP 130/78
[2024-01-30] MEDS ORDERED: CEFD1CAP9 PO (14:56)
[2024-01-30] MEDS ORDERED: PYRI1TAB5 PO (15:00)
[2024-01-30 15:02] VITALS: TEMP 97.5; O2SAT 98
[2024-01-30] MEDS: PHENAZOPYRIDINE 100 MG TAB PO ONE (15:04)
== END 2024-01-30 15:09 | disposition home or self-care (01) ==
LOC: M ED 09:02
DX: N39.0 Urinary tract infection, site not specified (principal); Z88.2 Allergy status to sulfonamides; Z88.8 Allergy status to other drugs, medicaments and biological substances; Z91.09 Other allergy status, other than to drugs and biological substances; Z79.2 Long term (current) use of antibiotics; Z79.899 Other long term (current) drug therapy

== ENCOUNTER → 2024-03-01 | Outpatient (CLI) | payer OTHER ==
[~2024-03-01] MED LIST changes: +CEFD1CAP9 PO
== END ==
LOC: M PAIN 13:00
PROVIDERS: ATTEND Nurse Practitioner Family
DX: M96.1 Postlaminectomy syndrome, not elsewhere classified (principal); M51.16 Intervertebral disc disorders with radiculopathy, lumbar region; M47.816 Spondylosis without myelopathy or radiculopathy, lumbar region; G89.29 Other chronic pain; F31.9 Bipolar disorder, unspecified; F41.9 Anxiety disorder, unspecified; E66.01 Morbid (severe) obesity due to excess calories; E78.5 Hyperlipidemia, unspecified; F43.10 Post-traumatic stress disorder, unspecified; F17.290 Nicotine dependence, other tobacco product, uncomplicated; Z79.891 Long term (current) use of opiate analgesic; Z79.899 Other long term (current) drug therapy; Z68.35 Body mass index [BMI] 35.0-35.9, adult

== ENCOUNTER → 2024-03-12 | Outpatient (REF) | payer OTHER ==
[2024-03-12 17:07] LABS: APPEARANCE, URINE CLEAR (CLEAR); BACTERIA, URINE AUTO 1+ (NEGATIVE); BILIRUBIN, URINE AUTO NEGATIVE (NEGATIVE); BLOOD, URINE BLOOD NEGATIVE (NEGATIVE); COLOR, URINE YELLOW (YELLOW); GLUCOSE, URINE (UA) AUTO NEGATIVE (NEGATIVE); KETONE, URINE AUTO NEGATIVE (NEGATIVE); LEUKOCYTE ESTERASE, URINE AUTO TRACE (NEGATIVE); NITRITE, URINE AUTO NEGATIVE (NEGATIVE); PROTEIN, URINE AUTO NEGATIVE (NEGATIVE); RBC, URINE AUTO 0 /HPF (0-3); SPECIFIC GRAVITY URINE AUTO 1.006 (1.002-1.035); SQUAMOUS EPITHELIAL CELL UR AU 2 /HPF (0-6); UROBILINOGEN, URINE AUTO 0.2 mg/dL (0.0-2.0); WBC, URINE AUTO 2 /HPF (0-3)
== END ==
LOC: M LAB REF 16:10
PROVIDERS: ATTEND Physician Assistant
DX: N39.0 Urinary tract infection, site not specified (principal)

== ENCOUNTER → 2024-06-06 | Outpatient (REF) | payer OTHER ==
[2024-06-06 18:24] LABS: APPEARANCE, URINE CLOUDY (CLEAR); BACTERIA, URINE AUTO 1+ (NEGATIVE); BILIRUBIN, URINE AUTO NEGATIVE (NEGATIVE); BLOOD, URINE BLOOD NEGATIVE (NEGATIVE); COLOR, URINE AMBER (YELLOW); GLUCOSE, URINE (UA) AUTO NEGATIVE (NEGATIVE); KETONE, URINE AUTO NEGATIVE (NEGATIVE); LEUKOCYTE ESTERASE, URINE AUTO 2+ (NEGATIVE); MUCUS, URINE SMALL (NEGATIVE); NITRITE, URINE AUTO NEGATIVE (NEGATIVE); PROTEIN, URINE AUTO NEGATIVE (NEGATIVE); RBC, URINE AUTO 3 /HPF (0-3); SPECIFIC GRAVITY URINE AUTO 1.018 (1.002-1.035); SQUAMOUS EPITHELIAL CELL UR AU 5 /HPF (0-6); TRIPLE PHOSPHATE CRYSTALS SMALL; UROBILINOGEN, URINE AUTO 0.2 mg/dL (0.0-2.0); WBC, URINE AUTO 13 /HPF (0-3)
== END ==
LOC: M LAB REF 16:38
PROVIDERS: ATTEND Physician Assistant
DX: N39.0 Urinary tract infection, site not specified (principal)

== ENCOUNTER 2024-07-09 04:33 | Emergency (ER) | payer OTHER ==
[~2024-07-09] VITALS: Ht 167.6 cm; Wt 109.1 kg
[~2024-07-09 04:33] MED LIST changes: -AMBI10TA PO; -FLOM0.4C39 PO; +LAMO-18; +LAMO-18 PO; -LAMO25TA4; -LAMO25TA4 PO; +PREG-35 PO; -PREG100CA PO; +TAMS-18 PO; +ZOLP-533 PO
[2024-07-09 05:41] LABS: APPEARANCE, URINE HAZY (CLEAR); BACTERIA, URINE AUTO 2+ (NEGATIVE); BILIRUBIN, URINE AUTO NEGATIVE (NEGATIVE); BLOOD, URINE BLOOD NEGATIVE (NEGATIVE); COLOR, URINE YELLOW (YELLOW); GLUCOSE, URINE (UA) AUTO NEGATIVE (NEGATIVE); KETONE, URINE AUTO TRACE mg/dL (NEGATIVE); LEUKOCYTE ESTERASE, URINE AUTO 1+ (NEGATIVE); MUCUS, URINE SMALL (NEGATIVE); NITRITE, URINE AUTO POSITIVE (NEGATIVE); PROTEIN, URINE AUTO 1+ mg/dL (NEGATIVE); RBC, URINE AUTO 1 /HPF (0-3); SPECIFIC GRAVITY URINE AUTO 1.025 (1.002-1.035); SQUAMOUS EPITHELIAL CELL UR AU 1 /HPF (0-6); UROBILINOGEN, URINE AUTO 0.2 mg/dL (0.0-2.0); WBC, URINE AUTO 8 /HPF (0-3)
[2024-07-09] MEDS: LevoFLOXacin 750 MG TABLET PO ONE (05:50)
[2024-07-09] MEDS ORDERED: LEVO1TAB39 PO (06:11)
[2024-07-09 06:15] VITALS: BP 137/78; TEMP 98.3; O2SAT 97
== END 2024-07-09 06:37 | disposition home or self-care (01) ==
LOC: EDBD 04:33 → M ED 04:33
DX: N39.0 Urinary tract infection, site not specified (principal); F31.9 Bipolar disorder, unspecified; F32.A Depression, unspecified; F43.10 Post-traumatic stress disorder, unspecified; F17.210 Nicotine dependence, cigarettes, uncomplicated; Z88.2 Allergy status to sulfonamides; Z91.09 Other allergy status, other than to drugs and biological substances; Z79.2 Long term (current) use of antibiotics; Z79.899 Other long term (current) drug therapy

== ENCOUNTER → 2025-01-06 | Outpatient (REF) | payer OTHER ==
[~2025-01-06] MED LIST changes: +BUPR-363 PO; -BUPR75TA5 PO; +LEVO1TAB39 PO
[2025-01-06 17:09] LABS: AMORPHOUS SEDIMENT SMALL (NEGATIVE); APPEARANCE, URINE CLOUDY (CLEAR); BACTERIA, URINE AUTO 1+ (NEGATIVE); BILIRUBIN, URINE AUTO NEGATIVE (NEGATIVE); BLOOD, URINE BLOOD 1+ (NEGATIVE); GLUCOSE, URINE (UA) AUTO NEGATIVE (NEGATIVE); KETONE, URINE AUTO NEGATIVE (NEGATIVE); LEUKOCYTE ESTERASE, URINE AUTO 2+ (NEGATIVE); NITRITE, URINE AUTO NEGATIVE (NEGATIVE); PROTEIN, URINE AUTO 2+ mg/dL (NEGATIVE); RBC, URINE AUTO 41 /HPF (0-3); SPECIFIC GRAVITY URINE AUTO 1.024 (1.002-1.035); SQUAMOUS EPITHELIAL CELL UR AU 5 /HPF (0-6); UROBILINOGEN, URINE AUTO 0.2 mg/dL (0.0-2.0); WBC, URINE AUTO TNTC /HPF (0-3)
== END ==
LOC: M LAB REF 16:55
PROVIDERS: ATTEND Physician Assistant
DX: N39.0 Urinary tract infection, site not specified (principal)